=== PATIENT | male | born 1955 | race Caucasian/White ===

== ENCOUNTER 2016-12-25 13:55 | Emergency (ER) | payer OTHER ==
[2016-12-25 14:09] VITALS: BP 167/95; PULSE 96; RESP 20; TEMP 98; O2SAT 98
--- NOTE | 2016-12-25 14:42 | C.PDOC ---
History Of Present Illness 61 yr old male presents to the ER with complaints of persistent left shoulder pain. Patient seen in October/2016 for same complaints and had a clinic appointment which he missed and never rescheduled. Reports limited relief from the prior pain medication prescription and current pain is similar to prior. Patient states the pain is worse with movement from left neck to left shoulder/ upper arm. Denies chest pain, back pain, leg pain, weakness or numbness. PERSIST L SHOULDER PAIN. SEEN 10/2016 FOR SAME, PS HAD CLINIC APPT BUT MISSED IT , NEVER RESCHEDULED. STATES LIMITED RELIEF FROM PRIOR PAIN MED RX. CURRENT PAIN SIM TO PRIOR. NO TRAUMA. FROM L NECK TO L SHOULDER/UPPER ARM. WORSE W MOVEMENT. NO ASSOC WEAK/NUMB. DENIES CURRENT ETOH USE EXAM NAD NECK SUPPLE NONTEND EXT L SHOULDER LIMITED FULL ABDUCTION; ROTATION WNL; FLEX/EXT WO DIFF; NO SWELL +TEND DIFFUSE DELTOID AREA. NEURO INTACT SKIN NEG Time Seen by Provider: 12/25/16 14:22 Chief Complaint (Nursing): Upper Extremity Problem/Injury History Per: Patient History/Exam Limitations: no limitations Onset/Duration Of Symptoms: Persistent Current Symptoms Are (Timing): Still Present Past Medical History Reviewed: Historical Data, Nursing Documentation, Vital Signs Vital Signs: Last Vital Signs Temp 98 F 12/25/16 14:06 Pulse 96 H 12/25/16 14:06 Resp 20 12/25/16 14:06 BP 167/95 H 12/25/16 14:06 Pulse Ox 98 12/25/16 14:43 - Medical History PMH: HTN, Pancreatitis Family History: States: No Known Family Hx - Social History Hx Alcohol Use: Yes Hx Substance Use: No - Immunization History Hx Tetanus Toxoid Vaccination: No Hx Influenza Vaccination: No Hx Pneumococcal Vaccination: No Review Of Systems Except As Marked, All Systems Reviewed And Found Negative. Cardiovascular: Negative for: Chest Pain Musculoskeletal: Positive for: Neck Pain (Left neck to left shoulder/upper arm) , Shoulder Pain (Left shoulder ). Negative for: Back Pain, Leg Pain Neurological: Negative for: Weakness, Numbness Physical Exam - Physical Exam Appears: Well, Non-toxic, No Acute Distress Skin: Warm, Dry, No Rash Head: Atraumatic, Normacephalic Neck: Normal, Normal ROM, No Midline Cervical Tenderness, No Paracervical Tenderness, Supple Chest: Symmetrical, No Tenderness Cardiovascular: Rhythm Regular, No Murmur Extremity: Tenderness (Left Shoulder - Diffuse tenderness to the deltoid area. ) , Capillary Refill (<2), Other ((+) Left Shoulder - Limited full abduction. Rotation within normal limits. Flex/Extend normal. No swelling. ) Neurological/Psych: Oriented x3, Normal Speech, Normal Motor, Normal Sensation ED Course And Treatment O2 Sat by Pulse Oximetry: 98 Progress - Data Reviewed Data Reviewed: Old records Medical Decision Making Medical Decision Making: PLAN: * Flexeril PO * Neurontin PO * Tylenol PO Disposition Counseled Patient/Family Regarding: Diagnosis, Need For Followup, Rx Given - Disposition Referrals: [facility] [Outside] [facility] [Outside] Disposition: HOME/ ROUTINE Disposition Time: 14:39 Condition: GOOD Additional Instructions: START GABAPENTIN 12/26/16 Prescriptions: Acetaminophen/Codeine [Tylenol/Codeine 300 MG/30 MG] 2 tab PO Q6H #20 tab Cyclobenzaprine [Flexeril] 10 mg PO TID #15 tab Dexamethasone 12 mg PO ONCE #2 tab Gabapentin [Neurontin] 300 mg PO TID #30 cap Instructions: Chronic Pain (ED), Cervical Radiculopathy (ED) - Clinical Impression Clinical Impression: Chronic neck pain - Scribe Statement The provider has reviewed the documentation as recorded by the Jason Colunga Provider Attestation: All medical record entries made by the Humzaibolesya were at my direction and personally dictated by me. I have reviewed the chart and agree that the record accurately reflects my personal performance of the history, physical exam, medical decision making, and the department course for this patient. I have also personally directed, reviewed, and agree with the discharge instructions and disposition.
== END 2016-12-25 14:50 | disposition home or self-care (01) ==
LOC: C.ER 13:55
DX: M54.2 Cervicalgia (principal); G89.29 Other chronic pain

== ENCOUNTER 2017-02-14 12:01 | Inpatient (IN) | payer OTHER ==
[2017-02-14 12:05] VITALS: BMI 26.6
--- NOTE | 2017-02-14 12:05 | C.PDOC ---
History Of Present Illness 61 year old male was brought to the ED by EMS with complaints of chest pain and abdominal pain that started just prior to arrival. As per a coworker, patient arrived to work at 10 am this morning and felt fine but as time went on he complained of dizziness and chest pain. Patient notes current complaints are similar to symptoms had a few months ago when he was admitted. He denies any vomiting, fever, or headache. Time Seen by Provider: 02/14/17 12:04 Chief Complaint (Nursing): Chest Pain History Per: Patient, Other (coworker ) History/Exam Limitations: no limitations Onset/Duration Of Symptoms: Hrs Current Symptoms Are (Timing): Still Present Associated Symptoms: denies: Nausea Recent travel outside of the [place]: No Past Medical History Reviewed: Historical Data, Nursing Documentation, Vital Signs Vital Signs: Last Vital Signs Temp 98.0 F 02/14/17 15:43 Pulse 87 02/14/17 15:43 Resp 20 02/14/17 15:43 BP 137/71 02/14/17 15:43 Pulse Ox 99 02/14/17 15:43 - Medical History PMH: HTN, Pancreatitis Family History: States: Other Other Family History: non-contributory - Social History Hx Alcohol Use: Yes Hx Substance Use: No - Immunization History Hx Tetanus Toxoid Vaccination: No Hx Influenza Vaccination: No Hx Pneumococcal Vaccination: No Review Of Systems Except As Marked, All Systems Reviewed And Found Negative. Constitutional: Negative for: Fever Cardiovascular: Positive for: Chest Pain. Negative for: Palpitations Respiratory: Negative for: Cough, Shortness of Breath Gastrointestinal: Positive for: Abdominal Pain. Negative for: Nausea, Vomiting , Diarrhea Neurological: Negative for: Headache Physical Exam - Physical Exam Appears: Non-toxic, No Acute Distress Skin: Diaphoretic Head: Atraumatic Eye(s): bilateral: Normal Inspection Oral Mucosa: Moist Neck: Supple Chest: Symmetrical, No Deformity Cardiovascular: Rhythm Regular Respiratory: Normal Breath Sounds, No Accessory Muscle Use, No Rhonchi, No Wheezing Gastrointestinal/Abdominal: Soft, Tenderness (diffuse abdominal tenderness ), No Distention, No Guarding, No Rebound Extremity: Normal ROM, No Tenderness, Capillary Refill (good capillary refill, less than 2 seconds ) Pulses: Left Radial: Normal (2+), Right Radial: Normal (2+), Left Femoral: Normal (2+), Right Femoral: Normal (2+) Neurological/Psych: Oriented x3, Normal Motor, Normal Sensation, Normal Reflexes ED Course And Treatment - Laboratory Results Result Diagrams: 02/14/17 12:25 02/14/17 12:25 Medical Decision Making Medical Decision Making: EKG: NSR 61 normal axis, no STEMI Disposition - Disposition Disposition: HOSPITALIZED Disposition Time: 13:42 Condition: STABLE - Clinical Impression Clinical Impression: Pancreatitis, Hypokalemia, Near syncope - Scribe Statement The provider has reviewed the documentation as recorded by the Humzaibolesya Turner All medical record entries made by the Jason were at my direction and personally dictated by me. I have reviewed the chart and agree that the record accurately reflects my personal performance of the history, physical exam, medical decision making, and the department course for this patient. I have also personally directed, reviewed, and agree with the discharge instructions and disposition.
[2017-02-14] MEDS ORDERED: Sodium Chloride 0.9% 1,000 ML IV SCH ×2 (12:15→13:45)
[2017-02-14 12:31] LABS: BASO # 0.1 K/uL (0.0-0.2); BASO % 1.3 % (0.0-2.0); EOS # 0.4 K/uL (0.0-0.7); EOS % 3.3 % (0.0-4.0); HEMOGLOBIN 13.9 g/dL (12.0-18.0); LYMPH # 3.9 K/uL (1.0-4.3); MEAN CORPUSCULAR HEMOGLOBIN 31.3 pg (27.0-31.0); MEAN CORPUSCULAR HGB CONC 33.4 g/dL (33.0-37.0); MEAN PLATELET VOLUME 9.3 fL (7.2-11.7); MONO # 0.8 K/uL (0.0-0.8); MONO % 7.1 % (0.0-10.0); NEUT # 6.2 K/uL (1.8-7.0); NEUT % 54.3 % (50.0-75.0); NRBC % 0.1 % (0.0-2.0); RBC 4.43 Mil/uL (4.40-5.90); RED CELL DISTRIBUTION WIDTH 14.5 % (11.5-14.5); WHITE BLOOD COUNT 11.4 K/uL (4.8-10.8)
[2017-02-14 12:40] LABS: ALBUMIN 4.2 g/dL (3.5-5.0)
--- NOTE | 2017-02-14 12:42 | RAD ---
HISTORY: cp COMPARISON: No prior. FINDINGS: LUNGS: Poor inspiration with low lung volumes, mild crowded bronchovascular markings and minor bibasilar atelectasis. PLEURA: No significant pleural effusion identified, no pneumothorax apparent. CARDIOVASCULAR: Normal. Note is made of slight deviation of the trachea to the left side OSSEOUS STRUCTURES: No significant abnormalities. VISUALIZED UPPER ABDOMEN: Normal. OTHER FINDINGS: There is mild deviation of the trachea to the right which may in part be due to slight patient rotation as well as aortic arch however possibility of enlarged left lobe thyroid gland should be excluded. Consider followup thyroid ultrasound IMPRESSION: Poor inspiration with low lung volumes, mild crowded bronchovascular markings and minor bibasilar atelectasis There is mild deviation of the trachea to the right which may in part be due to slight patient rotation and aortic arch the however possibility of enlarged left lobe thyroid gland should be excluded. Consider followup thyroid ultrasound.
[2017-02-14 12:43] LABS: ALB/GLOB RATIO 1.2 (1.0-2.1); ALT/SGPT 42 U/L (21-72); AST/SGOT 50 U/L (17-59); BLOOD UREA NITROGEN 15 mg/dL (9-20); GFR AFRICAN-AMERICAN > 60; GFR NON-AFRICAN AMERICAN > 60
[2017-02-14 12:44] LABS: CALCIUM 9.2 mg/dl (8.6-10.4); LIPASE 772 U/L (23-300)
[2017-02-14 12:53] LABS: B-TYPE NATRIURETIC PEPTIDE 14.9 pg/mL (0-900)
[2017-02-14] MEDS ORDERED: Morphine 4 MG/ML VIAL ONE (12:55)
[2017-02-14] MEDS ORDERED: Potassium Chloride 20 mEq ER Tab PO STA (13:28)
[2017-02-14] MEDS ORDERED: Potassium Chloride 20 mEq ER Tab PO ONE (13:44)
[2017-02-14] MEDS ORDERED: Sodium Chloride 0.9% 1,000 ML IV ONE (13:53)
[2017-02-14 15:05] LABS: URINE BILIRUBIN NEGATIVE (NEGATIVE); URINE BLOOD NEGATIVE (NEGATIVE); URINE CLARITY Clear (Clear); URINE COLOR Yellow (YELLOW); URINE GLUCOSE (UA) 1+ mg/dL (Normal); URINE LEUKOCYTE ESTERASE NEG Leu/uL (Negative); URINE NITRATE NEGATIVE (NEGATIVE); URINE PROTEIN 2+ mg/dL (NEGATIVE); URINE UROBILINOGEN NORMAL mg/dL (0.2-1.0)
[2017-02-14] MEDS ORDERED: Sodium Chloride 0.9% 250 ML IV ONE (16:16)
--- NOTE | 2017-02-14 16:26 | CP.PCM.HP ---
<Mckenna Hill - Last Filed: 02/14/17 16:47> History of Present Illness - History of Present Illness History of Present Illness: CC: "abdominal and chest pain" HPI: 61 year old male with PMHx of HTN, DM, pancreatitis, and EtOH use disorder presents with complaint of upper abdominal pain and substernal chest pain that began yesterday morning. The abdominal pain is located in his bilateral upper quadrants, has been constant (7-8/10 in severity) and has continued to worsen this morning which prompted him to come to the ED for evaluation. Patient's chest pain is located in his midsternum without radiation and rated 8/10. He reports minimal relief with Ibuprofen and ASA at home. Patient mentions associated nausea and 2x episodes of vomiting just prior to admission. Vomiting was non-bilious and non-bloody. Patient had a normal bowel movement while in the ED. Patient admits to drinking frequently and states that his last drink was last night. As per chart review, patient had a recent admission here in August 2016 for acute pancreatitis 2/2 excessive ETOH. At that time, his lipase was noted to be markedly elevated at 4,536. Additionally, he had elevated CA-19-9 & CEA markers. MRI was done that revealed hepatic steatosis with a hypointense mass with unclear etiology. The course was otherwise uncomplicated, his pain resolved and pt was instructed to f/u with the neighborhood clinic. Today the patient denies of shortness of breath , palpitations, focal weakness, headache, tremors, diarrhea, dysuria, and dizziness. 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 absent: Chills, Fever - EENT Eyes: As Per HPI. absent: Blurred Vision, Change in Vision Ears: As Per HPI. absent: Dizziness Nose/Mouth/Throat: As Per HPI. absent: Sore Throat - Cardiovascular Cardiovascular: As Per HPI, Chest Pain, Chest Pain at Rest. absent: Dyspnea, Edema, Irregular Heart Rhythm, Lightheadedness, Palpitations, Syncope - Respiratory Respiratory: As Per HPI. absent: Cough, Dyspnea, Wheezing, Pain on Inspiration , Chest Congestion - Gastrointestinal Gastrointestinal: As Per HPI, Abdominal Pain, Nausea, Vomiting. absent: Bloating, Change in Bowel Habits, Constipation, Cramping, Diarrhea, Heartburn, Hematemesis, Melena - Genitourinary Genitourinary: As Per HPI. absent: Change in Urinary Stream, Difficulty Urinating - Musculoskeletal Musculoskeletal: As Per HPI. absent: Muscle Weakness, Numbness, Tingling - Integumentary Integumentary: As Per HPI. absent: New Lesions, Rash - Neurological Neurological: As Per HPI. absent: Dizziness, Headaches, Loss of Vision, Paresthesias, Tremor, Weakness - Psychiatric Psychiatric: As Per HPI. absent: Anxiety, Depression - Endocrine Endocrine: As Per HPI. absent: Change in Body Appearance Past Patient History - Infectious Disease Hx of Infectious Diseases: None - Past Medical History & Family History Past Medical History?: Yes - Past Social History Smoking Status: Current Some Days Smoker - CARDIAC Hx Hypertension: Yes - PULMONARY Hx Respiratory Disorders: No - NEUROLOGICAL Hx Neurological Disorder: No - HEENT Hx HEENT Problems: Yes Other/Comment: wears corrective eyeglasses - RENAL Hx Chronic Kidney Disease: No - ENDOCRINE/METABOLIC Hx Endocrine Disorders: No - HEMATOLOGICAL/ONCOLOGICAL Hx Blood Disorders: No - INTEGUMENTARY Hx Dermatological Problems: No - MUSCULOSKELETAL/RHEUMATOLOGICAL Hx Musculoskeletal Disorders: Yes Other/Comment: c/o chronic left shoulder pain - GASTROINTESTINAL Hx Pancreatitis: Yes - GENITOURINARY/GYNECOLOGICAL Hx Genitourinary Disorders: No - PSYCHIATRIC Hx Substance Use: No - SURGICAL HISTORY Hx Surgeries: No - ANESTHESIA Hx Anesthesia: No Meds Allergies/Adverse Reactions: Allergies Allergy/AdvReac Type Severity Reaction Status Date / Time naproxen AdvReac Diffuse Verified 02/14/17 12:04 rashes Physical Exam - Constitutional Appears: Non-toxic, No Acute Distress - Head Exam Head Exam: ATRAUMATIC, NORMOCEPHALIC - Eye Exam Eye Exam: EOMI, Normal appearance, PERRL Pupil Exam: NORMAL ACCOMODATION - ENT Exam ENT Exam: Mucous Membranes Moist, Normal Exam - Neck Exam Neck exam: Positive for: Normal Inspection - Respiratory Exam Respiratory Exam: Clear to Auscultation Bilateral, NORMAL BREATHING PATTERN. absent: Rales, Rhonchi, Wheezes, Respiratory Distress - Cardiovascular Exam Cardiovascular Exam: REGULAR RHYTHM, +S1, +S2. absent: Tachycardia, Irregular Rhythm, Systolic Murmur - GI/Abdominal Exam GI & Abdominal Exam: Normal Bowel Sounds, Organomegaly (hepatomegaly ), Soft, Tenderness (ttp of RUQ with deep palpation ). absent: Distended, Firm, Guarding , Rebound - Extremities Exam Extremities exam: Positive for: full ROM, normal inspection. Negative for: pedal edema, tenderness - Back Exam Back exam: NORMAL INSPECTION - Neurological Exam Neurological exam: Alert, CN II-XII Intact, Normal Gait, Oriented x3, Reflexes Normal - Psychiatric Exam Psychiatric exam: Normal Affect, Normal Mood - Skin Skin Exam: Dry, Intact, Normal Color, Warm Results - Vital Signs Recent Vital Signs: Last Vital Signs Temp 98.0 F 02/14/17 15:43 Pulse 87 02/14/17 15:43 Resp 20 02/14/17 15:43 BP 137/71 02/14/17 15:43 Pulse Ox 99 02/14/17 15:43 - Labs Result Diagrams: 02/14/17 12:25 02/14/17 12:25 Labs: Laboratory Results - last 24 hr 02/14/17 14:47 Urine Color Yellow Urine Clarity Clear Urine pH 6.0 Ur Specific [place] 1.015 Urine Protein 2+ H Urine Glucose (UA) 1+ H Urine Ketones Trace Urine Blood Negative Urine Nitrate Negative Urine Bilirubin Negative Urine Urobilinogen Normal Ur Leukocyte Esterase Neg Urine WBC (Auto) 1 Urine RBC (Auto) 1 Assessment & Plan - Assessment and Plan (Free Text) Assessment: 1. Acute Pancreatitis Likely secondary to EtOH abuse Lipase 772 f/u CT abdomen/pelvis IV and PO contrast Morphine 2mg IV q6h prn severe pain IVF NS @200cc/hr NPO except meds 3. Chest Pain VALDO negative x1 f/u ROMIs x3 q6h with EKGs f/u TSH/free T4, lipid panel, HgA1C ASA 81mg PO daily Crestor 5mg PO HS 3. EtOH use disorder Alcohol 66 in ED CIWA protocol Aspiration precautions Seizure precautions Fall risk Ativan 2mg IV q6h prn withdrawal Multivitamin, thiamine and folic acid daily 4. Hypokalemia K+ 2.9 Given Kdur 80Eq PO and KCl IV 20mEq f/u CMP, mag and phos in AM 5. HTN Norvasc 5mg PO daily Well controlled Monitor vitals q4h 6. DM f/u HgA1C Accuchecks ISS 7. Hx Hepatic mass f/u CT abdomen/pelvis IV and PO contrast Prevoiusly seen by GI, no acute intervention Repeat CA 19-9 and CEA (previously elevated on last admission) 8. Prophylactic measures Lovenox 40mg SC daily Protonix 40mg IV daily SCDs <Italo Giraldon M - Last Filed: 02/15/17 15:22> Results - Vital Signs Recent Vital Signs: Last Vital Signs Temp 98.3 F 02/15/17 08:17 Pulse 80 02/15/17 08:17 Resp 20 02/15/17 08:17 BP 151/90 H 02/15/17 08:17 Pulse Ox 94 L 02/15/17 08:17 - Labs Result Diagrams: 02/15/17 07:53 02/15/17 07:53 Labs: Laboratory Results - last 24 hr 02/14/17 02/14/17 02/14/17 18:10 18:19 22:04 WBC RBC Hgb Hct MCV MCH MCHC RDW Plt Count MPV Neut % (Auto) Lymph % (Auto) Tucker % (Auto) Eos % (Auto) Baso % (Auto) Neut # Lymph # Tucker # Eos # Baso # Sodium Potassium Chloride Carbon Dioxide Anion Gap BUN Creatinine Est GFR ( Amer) Est GFR (Non-Af Amer) POC Glucose (mg/dL) 132 H Random Glucose Calcium Phosphorus 3.1 Magnesium 1.4 L Total Bilirubin AST ALT Alkaline Phosphatase Total Creatine Kinase 239 H CK-MB (Mass) 3.01 Troponin I, Quant < 0.0120 Total Protein Albumin Globulin Albumin/Globulin Ratio Triglycerides Cholesterol LDL Cholesterol Direct HDL Cholesterol Carcinoembryonic Ag 5.0 H CA 19-9 Antigen 36.7 TSH 3rd Generation 02/15/17 02/15/17 02/15/17 00:02 06:21 07:53 WBC 10.9 H RBC 4.51 Hgb 14.1 Hct 41.8 MCV 92.5 MCH 31.2 H MCHC 33.7 RDW 14.1 Plt Count 169 MPV 9.4 Neut % (Auto) 73.1 Lymph % (Auto) 17.3 L Tucker % (Auto) 7.2 Eos % (Auto) 1.9 Baso % (Auto) 0.5 Neut # 8.0 H Lymph # 1.9 Tucker # 0.8 Eos # 0.2 Baso # 0.1 Sodium Potassium Chloride Carbon Dioxide Anion Gap BUN Creatinine Est GFR ( Amer) Est GFR (Non-Af Amer) POC Glucose (mg/dL) 106 Random Glucose Calcium Phosphorus Magnesium Total Bilirubin AST ALT Alkaline Phosphatase Total Creatine Kinase 236 H CK-MB (Mass) 2.63 Troponin I, Quant < 0.0120 Total Protein Albumin Globulin Albumin/Globulin Ratio Triglycerides Cholesterol LDL Cholesterol Direct HDL Cholesterol Carcinoembryonic Ag CA 19-9 Antigen TSH 3rd Generation 02/15/17 02/15/17 07:53 11:38 WBC RBC Hgb Hct MCV MCH MCHC RDW Plt Count MPV Neut % (Auto) Lymph % (Auto) Tucker % (Auto) Eos % (Auto) Baso % (Auto) Neut # Lymph # Tucker # Eos # Baso # Sodium 136 Potassium 3.2 L Chloride 102 Carbon Dioxide 22 Anion Gap 14 BUN 6 L Creatinine 0.6 L Est GFR ( Amer) > 60 Est GFR (Non-Af Amer) > 60 POC Glucose (mg/dL) 113 H Random Glucose 111 H Calcium 8.9 Phosphorus Magnesium Total Bilirubin 0.8 AST 52 ALT 40 Alkaline Phosphatase 99 Total Creatine Kinase CK-MB (Mass) Troponin I, Quant Total Protein 7.6 Albumin 4.0 Globulin 3.6 Albumin/Globulin Ratio 1.1 Triglycerides 191 H D Cholesterol 222 H LDL Cholesterol Direct 142 H HDL Cholesterol 59 Carcinoembryonic Ag CA 19-9 Antigen [facility] 3rd Generation 2.65 Attending/Attestation - Attestation I have personally seen and examined this patient.: Yes I have fully participated in the care of the patient.: Yes I have reviewed all pertinent clinical information: Yes Notes (Text): 02/15/17 15:22 Patient was seen and examined at bedside with the resident We will admit the patient for acute pancreatitis We will keep the patient nothing by mouth start on IV fluids Patient's medical records reviewed. I discussed the plan of care with the resident and agree with the assessment and plan documented by the resident.
[2017-02-14] MEDS ORDERED: Iohexol 240 (50 ml) PO ONE (18:11)
[2017-02-14] MEDS ORDERED: Iohexol 240 (50 ml) ONE (18:12)
[2017-02-14 18:25] LABS: MAGNESIUM 1.4 mg/dL (1.6-2.3)
[2017-02-14 18:42] LABS: CK-MB 3.01 ng/mL (0.0-3.38)
[2017-02-14] MEDS ORDERED: Iodixanol 320 MG/ML 100 ML BOTTLE IV ONE (18:52)
[2017-02-14] MEDS: Sodium Chloride 0.9% 1,000 ML IV SCH ×2 (18:58→22:08)
[2017-02-14] MEDS ORDERED: Magnesium Sulfate 1 gm in D5W 1 GM/100 ML BAG IVPB ONE (21:06)
[2017-02-14] MEDS: (Novolin R) Insulin Human Regular 100 units/ml vial SC SCH (22:09)
--- NOTE | 2017-02-14 22:20 | CT ---
EXAM: CT Abdomen and Pelvis With Intravenous Contrast CLINICAL HISTORY: 61 years old, male; Pain; Abdominal pain; Generalized; Additional info: Pain, pancreatitis TECHNIQUE: Axial computed tomography images of the abdomen and pelvis with intravenous contrast. This CT exam was performed using one or more of the following dose reduction techniques: automated exposure control, adjustment of the mA and/or kV according to patient size, and/or use of iterative reconstruction technique. Coronal and sagittal reformatted images were created and reviewed. CONTRAST: 100 mL of omnipaque 350 administered intravenously. COMPARISON: Correlated with CT report of 08/20/16 and ultrasound report of 08/21/16. Images are not available for comparison. FINDINGS: Lower thorax: No acute findings. ABDOMEN: Liver: There is a partially calcified mass within the right hepatic lobe measuring 2.2 CM. This is unchanged in size when compared to prior exam. The margins appear smooth. Diffuse hepatic steatosis. Gallbladder and bile ducts: Gallbladder is unremarkable. No calcified stones. No ductal dilation. Pancreas: Punctate calcification in the region of the pancreatic head. Some heterogeneity noted in the pancreatic head with 2 adjacent hypodense foci. Larger focus measures 1.2 CM. The hypodense lesions are of uncertain etiology. Cannot exclude pancreatic neoplasm. The pancreatic duct is mildly dilated at the level of the mid body at 3.5 mm in diameter. No calcified stones. Spleen: Spleen is unremarkable. Adrenals: Unremarkable. No mass. Kidneys and ureters: Right kidney is unremarkable. 2 mm punctate mid pole left renal calculus. No hydronephrosis. Stomach and bowel: No retroperitoneal adenopathy. Stomach is unremarkable. No small bowel obstruction. Appendix is unremarkable. Small amount of retained stool in colon. Appendix: No findings to suggest acute appendicitis. PELVIS: Bladder: Distended urinary bladder. Reproductive: Unremarkable as visualized. ABDOMEN and PELVIS: Intraperitoneal space: Unremarkable. No free air. No significant fluid collection. Bones/joints: No acute fracture. No dislocation. Soft tissues: Unremarkable. Vasculature: Atherosclerotic vascular disease. No abdominal aortic aneurysm. Lymph nodes: See above. IMPRESSION: 1. Well-circumscribed, partially calcified lesion within the right hepatic lobe, stable. This can be further characterized with MRI, since there is abnormality in the region of the pancreatic head and I will be recommended in an MRI of the abdomen, with MRCP to exclude the possibility of a pancreatic head neoplasm. 2. Mild pancreatic duct dilatation. No significant peripancreatic inflammatory change. 3. Remainder of findings as above.
[2017-02-15 00:30] LABS: CK-MB 2.63 ng/mL (0.0-3.38)
[2017-02-15] MEDS: Sodium Chloride 0.9% 1,000 ML IV SCH ×6 (04:25→22:40)
[2017-02-15 08:05] LABS: BASO # 0.1 K/uL (0.0-0.2); BASO % 0.5 % (0.0-2.0); EOS # 0.2 K/uL (0.0-0.7); EOS % 1.9 % (0.0-4.0); HEMOGLOBIN 14.1 g/dL (12.0-18.0); LYMPH # 1.9 K/uL (1.0-4.3); LYMPH % 17.3 % (20.0-40.0); MEAN CELL VOLUME 92.5 fL (80.0-94.0); MEAN CORPUSCULAR HEMOGLOBIN 31.2 pg (27.0-31.0); MEAN CORPUSCULAR HGB CONC 33.7 g/dL (33.0-37.0); MEAN PLATELET VOLUME 9.4 fL (7.2-11.7); MONO # 0.8 K/uL (0.0-0.8); MONO % 7.2 % (0.0-10.0); NEUT % 73.1 % (50.0-75.0); NRBC % 0.1 % (0.0-2.0); RBC 4.51 Mil/uL (4.40-5.90); RED CELL DISTRIBUTION WIDTH 14.1 % (11.5-14.5); WHITE BLOOD COUNT 10.9 K/uL (4.8-10.8)
--- NOTE | 2017-02-15 08:11 | CP.PCM.PN ---
Addendum entered and electronically signed by Andrew Wood DO 02/15/17 15:59: Heart murmur auscultated on exam. Ordered 2d echo to evaluate Original Note: <Andrew Wood - Last Filed: 02/15/17 15:49> Subjective - Date & Time of Evaluation Date of Evaluation: 02/15/17 Time of Evaluation: 08:00 - Subjective Subjective: Medicine Note- Hospitalist Service Patient was seen and examined at bedside. Patient reports no acute complaints at this time. He still has diffuse abdominal pain, but it has improved since her first came in. He denies nausea, vomiting, diarrhea, constipation. No events overnight. Objective - Vital Signs/Intake and Output Vital Signs (last 24 hours): Temp Pulse Resp BP Pulse Ox 98.5 F 91 H 20 154/90 H 96 02/15/17 04:28 02/15/17 04:28 02/15/17 04:28 02/15/17 04:28 02/15/17 04:28 Intake and Output: 02/15/17 02/15/17 06:59 18:59 Output Total 1100 Balance -1100 - Medications Medications: Current Medications Amlodipine Besylate (Norvasc) 5 mg PO DAILY [facility] Aspirin (Aspirin Chewable) 81 mg PO DAILY [facility] Chlordiazepoxide (Librium) 50 mg PO Q4H [facility] Last Admin: 02/15/17 04:30 Dose: 50 mg Enoxaparin Sodium (Lovenox) 40 mg SC DAILY [facility] Folic Acid (Folic Acid) 1 mg PO DAILY [facility] Sodium Chloride (Sodium Chloride 0.9%) 1,000 mls @ 200 mls/hr IV .Q5H [facility] Last Admin: 02/15/17 04:25 Dose: 200 mls/hr Insulin Human Regular (Novolin R) 0 unit SC ACHS [facility] PRN Reason: Protocol Last Admin: 02/14/17 22:09 Dose: Not Given Morphine Sulfate (Morphine) 2 mg IVP Q6H PRN PRN Reason: Pain, severe (8-10) Last Admin: 02/14/17 19:59 Dose: 2 mg Multivitamins (Hexavitamin) 1 tab PO DAILY [facility] Ondansetron HCl (Zofran Inj) 4 mg IVP Q6 PRN PRN Reason: Nausea/Vomiting Pantoprazole Sodium (Protonix Ec Tab) 40 mg PO DAILY [facility] Pneumococcal Polyvalent Vaccine (Pneumovax 23 Vaccine) 0.5 ml IM .ONCE ONE Stop: 02/17/17 10:01 Rosuvastatin Calcium (Crestor) 5 mg PO HS [facility] Last Admin: 02/14/17 22:09 Dose: 5 mg Thiamine HCl (Vitamin B1 Tab) 100 mg PO DAILY [facility] - Labs Labs: 02/15/17 07:53 - Constitutional Appears: Non-toxic, No Acute Distress - Head Exam Head Exam: ATRAUMATIC, NORMAL INSPECTION, NORMOCEPHALIC - Eye Exam Pupil Exam: NORMAL ACCOMODATION, PERRL - ENT Exam ENT Exam: Mucous Membranes Moist - Respiratory Exam Respiratory Exam: Clear to Ausculation Bilateral, NORMAL BREATHING PATTERN. absent: Rales, Rhonchi, Wheezes - Cardiovascular Exam Cardiovascular Exam: REGULAR RHYTHM, +S1, +S2 - GI/Abdominal Exam GI & Abdominal Exam: Soft, Tenderness (epigastric, RUQ), Normal Bowel Sounds. absent: Diminished Bowel Sounds, Hypoactive Bowel Sounds - Extremities Exam Extremities Exam: Normal Capillary Refill, Normal Inspection - Neurological Exam Neurological Exam: Alert, Awake, Oriented x3 - Psychiatric Exam Psychiatric exam: Normal Affect, Normal Mood - Skin Skin Exam: Dry, Intact, Normal Color, Warm Assessment and Plan - Assessment and Plan (Free Text) Assessment: 1. Acute Pancreatitis Likely secondary to EtOH abuse Lipase 772 CT abdomen/pelvis IV and PO contrast- Well-circumscribed partially calcified lesion within the right hepatic lobe. Mild pancreatic duct dilatation (Please see full report MRCP Pending Morphine 2mg IV q6h prn severe pain IVF NS @200cc/hr Advanced diet to Liquids. 3. Chest Pain VALDO negative x3 TSH normal HgbA1C pending ASA 81mg PO daily Crestor 5mg PO HS 3. EtOH use disorder Alcohol 66 in ED CIWA protocol Aspiration precautions Seizure precautions Fall risk Librium taper Multivitamin, thiamine and folic acid daily 4. Hypokalemia K+ 3.2 Given Kdur 80Eq PO and KCl IV 20mEq in ED Given 40meq today f/u CMP, mag and phos in AM 5. HTN Norvasc 5mg PO daily Well controlled Monitor vitals q4h 6. DM f/u HgA1C Accuchecks ISS 7. Hx Hepatic mass CT abdomen/pelvis IV and PO contrast- Well-circumstribed partially calcified lesion within the right hepatic lobe. Mild pancreatic duct dilatation (Please see full report pending MRCP Previously seen by GI, no acute intervention Repeat CA 19-9 and CEA (previously elevated on last admission) 8. Hyperlipidemia Triglyceride- 191 Cholesterol 222 LDL 142 8. Prophylactic measures Lovenox 40mg SC daily Protonix 40mg IV daily [facility] <Justus Giraldo M - Last Filed: 02/15/17 18:17> Objective - Vital Signs/Intake and Output Vital Signs (last 24 hours): Temp Pulse Resp BP Pulse Ox 98.3 F 82 18 143/87 95 02/15/17 16:00 02/15/17 16:00 02/15/17 16:00 02/15/17 16:00 02/15/17 16:00 Intake and Output: 02/15/17 02/15/17 06:59 18:59 Intake Total 30 Output Total 1100 900 Balance -1100 -870 - Medications Medications: Current Medications Amlodipine Besylate (Norvasc) 5 mg PO DAILY [facility] Last Admin: 02/15/17 10:15 Dose: 5 mg Aspirin (Aspirin Chewable) 81 mg PO DAILY [facility] Last Admin: 02/15/17 10:15 Dose: 81 mg Chlordiazepoxide (Librium) 25 mg PO Q6 [facility] PRN Reason: Taper Stop: 02/19/17 19:59 Enoxaparin Sodium (Lovenox) 40 mg SC DAILY [facility] Last Admin: 02/15/17 10:15 Dose: 40 mg Folic Acid (Folic Acid) 1 mg PO DAILY [facility] Last Admin: 02/15/17 10:14 Dose: 1 mg Sodium Chloride (Sodium Chloride 0.9%) 1,000 mls @ 200 mls/hr IV .Q5H [facility] Last Admin: 02/15/17 17:53 Dose: Not Given Insulin Human Regular (Novolin R) 0 unit SC ACHS [facility] PRN Reason: Protocol Last Admin: 02/15/17 17:47 Dose: 3 unit Morphine Sulfate (Morphine) 2 mg IVP Q6H PRN PRN Reason: Pain, severe (8-10) Last Admin: 02/14/17 19:59 Dose: 2 mg Multivitamins (Hexavitamin) 1 tab PO DAILY [facility] Last Admin: 02/15/17 10:15 Dose: 1 tab Ondansetron HCl (Zofran Inj) 4 mg IVP Q6 PRN PRN Reason: Nausea/Vomiting Pantoprazole Sodium (Protonix Ec Tab) 40 mg PO DAILY [facility] Last Admin: 02/15/17 10:14 Dose: 40 mg Pneumococcal Polyvalent Vaccine (Pneumovax 23 Vaccine) 0.5 ml IM .ONCE ONE Stop: 02/17/17 10:01 Rosuvastatin Calcium (Crestor) 5 mg PO HS [facility] Last Admin: 02/14/17 22:09 Dose: 5 mg Thiamine HCl (Vitamin B1 Tab) 100 mg PO DAILY [facility] Last Admin: 02/15/17 10:15 Dose: 100 mg - Labs Labs: 02/15/17 07:53 02/15/17 07:53 Attending/Attestation - Attestation I have personally seen and examined this patient.: Yes I have fully participated in the care of the patient.: Yes I have reviewed all pertinent clinical information, including history, physical exam and plan: Yes Notes (Text): 02/15/17 18:17 Patient seen and examined at bedside Patient states that abdominal pain is improving. We will start the patient on clear liquid diet and advance as tolerated Follow-up result of the echocardiogram Discussed the plan of care with the resident and agree with the assessment and plan documented
[2017-02-15 08:16] LABS: ALB/GLOB RATIO 1.1 (1.0-2.1); AST/SGOT 52 U/L (17-59); BLOOD UREA NITROGEN 6 mg/dL (9-20); GFR AFRICAN-AMERICAN > 60; GFR NON-AFRICAN AMERICAN > 60
[2017-02-15 08:17] LABS: ALT/SGPT 40 U/L (21-72); CALCIUM 8.9 mg/dl (8.6-10.4); HDL CHOLESTEROL 59 mg/dL (30-70)
[2017-02-15] MEDS: (Novolin R) Insulin Human Regular 100 units/ml vial SC SCH ×4 (08:20→21:57)
[2017-02-15 08:28] LABS: LDL CHOLESTEROL 142 mg/dL (0-129)
[2017-02-15] MEDS: Pantoprazole 40 mg EC Tab PO SCH (10:14)
[2017-02-15] MEDS: Enoxaparin 40 mg Syringe SC SCH (10:15)
[2017-02-15] MEDS: Multiple Vitamins Tab PO SCH (10:15)
[2017-02-15] MEDS ORDERED: Potassium Chloride 20 mEq ER Tab PO ONE (13:00)
[2017-02-15] MEDS ORDERED: Gadodiamide 287 MG/ML VIAL (15ML) IV ONE (13:19)
[2017-02-15 23:45] VITALS: RESP 20
[2017-02-16] MEDS: Sodium Chloride 0.9% 1,000 ML IV SCH ×4 (04:21→20:25)
[2017-02-16] MEDS: (Novolin R) Insulin Human Regular 100 units/ml vial SC SCH ×4 (07:59→21:59)
[2017-02-16 08:25] LABS: BASO # 0.1 K/uL (0.0-0.2); BASO % 0.7 % (0.0-2.0); EOS # 0.3 K/uL (0.0-0.7); EOS % 3.9 % (0.0-4.0); HEMOGLOBIN 14.1 g/dL (12.0-18.0); LYMPH # 1.5 K/uL (1.0-4.3); LYMPH % 18.8 % (20.0-40.0); MEAN CORPUSCULAR HEMOGLOBIN 31.3 pg (27.0-31.0); MEAN CORPUSCULAR HGB CONC 33.6 g/dL (33.0-37.0); MONO # 0.7 K/uL (0.0-0.8); MONO % 8.4 % (0.0-10.0); NEUT # 5.5 K/uL (1.8-7.0); NEUT % 68.2 % (50.0-75.0); NRBC % 0.1 % (0.0-2.0); RBC 4.51 Mil/uL (4.40-5.90); RED CELL DISTRIBUTION WIDTH 13.6 % (11.5-14.5)
[2017-02-16 08:28] LABS: ALBUMIN 3.7 g/dL (3.5-5.0)
[2017-02-16 08:30] LABS: GFR AFRICAN-AMERICAN > 60; GFR NON-AFRICAN AMERICAN > 60
[2017-02-16 08:31] LABS: ALB/GLOB RATIO 1.1 (1.0-2.1); ALT/SGPT 41 U/L (21-72); AST/SGOT 54 U/L (17-59); BLOOD UREA NITROGEN 5 mg/dL (9-20); CALCIUM 8.8 mg/dl (8.6-10.4); MAGNESIUM 1.7 mg/dL (1.6-2.3)
[2017-02-16] MEDS: Enoxaparin 40 mg Syringe SC SCH (09:33)
[2017-02-16] MEDS: Pantoprazole 40 mg EC Tab PO SCH (09:33)
[2017-02-16] MEDS: Multiple Vitamins Tab PO SCH (09:33)
[2017-02-16] MEDS ORDERED: Potassium Chloride 20 mEq ER Tab PO ONE (11:30)
--- NOTE | 2017-02-16 15:32 | CP.PCM.CON ---
History of Present Illness - History of Present Illness History of Present Illness: GENERAL SURGERY CONSULT NOTE FOR DR. LEE 61yo M with PMHx of HTN, DM, alcoholic pancreatitis presented to the ED on 02/14 with substernal chest pain and abdominal pain. The pain began just prior to arrival. The abdominal pain was located in the epigastric and RUQ area. He had associated nausea and 2 episodes of nonbloody vomiting. He had minimal relief with ibuprofen and aspirin at home. He was admitted for alcoholic pancreatitis and hypokalemia. He was initially NPO and his diet was advanced to clear liquids yesterday. Currently, patient states his pain has improved but he does have some mild pain still. He vomited once yesterday while in the hospital. Of note, Patient was recently admitted her in August 2016 for alcoholic pancreatitis. At that time, he had elevated CA 19-9 and CEA markers. MRI showed hepatic steatosis with hypointense mass of unclear etiology. PMHx: HTN, DM, pancreatitis, etoh abuse Surgeries: none Allergies: Naproxen Social history: Smokes 1ppd tobacco x40 years; Drink 1 cup of whisky EtOH 2-3x/ week; Denies illicit drug use Review of Systems - Review of Systems All systems: reviewed and no additional remarkable complaints except (as per HPI ) Past Patient History - Infectious Disease Hx of Infectious Diseases: None - Past Medical History & Family History Past Medical History?: Yes - Past Social History Smoking Status: Heavy Smoker > 10 Cigarettes Daily - CARDIAC Hx Hypertension: Yes - PULMONARY Hx Respiratory Disorders: No - NEUROLOGICAL Hx Neurological Disorder: No - HEENT Hx HEENT Problems: Yes Other/Comment: wears corrective eyeglasses - RENAL Hx Chronic Kidney Disease: No - ENDOCRINE/METABOLIC Hx Endocrine Disorders: Yes Hx Diabetes Mellitus Type 2: Yes - HEMATOLOGICAL/ONCOLOGICAL Hx Blood Disorders: No - INTEGUMENTARY Hx Dermatological Problems: No - MUSCULOSKELETAL/RHEUMATOLOGICAL Hx Back Pain: Yes Hx Falls: No - GASTROINTESTINAL Hx Pancreatitis: Yes - GENITOURINARY/GYNECOLOGICAL Hx Genitourinary Disorders: No - PSYCHIATRIC Hx Substance Use: No - SURGICAL HISTORY Hx Surgeries: No - ANESTHESIA Hx Anesthesia: No Meds Allergies/Adverse Reactions: Allergies Allergy/AdvReac Type Severity Reaction Status Date / Time naproxen AdvReac Diffuse Verified 02/14/17 12:04 rashes - Medications Medications: Current Medications Amlodipine Besylate (Norvasc) 5 mg PO DAILY [facility] Last Admin: 02/16/17 09:33 Dose: 5 mg Aspirin (Aspirin Chewable) 81 mg PO DAILY [facility] Last Admin: 02/16/17 09:33 Dose: 81 mg Chlordiazepoxide (Librium) 25 mg PO Q6 [facility] PRN Reason: Taper Stop: 02/19/17 19:59 Last Admin: 02/16/17 11:18 Dose: 25 mg Enoxaparin Sodium (Lovenox) 40 mg SC DAILY [facility] Last Admin: 02/16/17 09:33 Dose: 40 mg Folic Acid (Folic Acid) 1 mg PO DAILY [facility] Last Admin: 02/16/17 09:33 Dose: 1 mg Sodium Chloride (Sodium Chloride 0.9%) 1,000 mls @ 200 mls/hr IV .Q5H [facility] Last Admin: 02/16/17 14:54 Dose: 200 mls/hr Insulin Human Regular (Novolin R) [address] [facility] PRN Reason: Protocol Last Admin: 02/16/17 12:22 Dose: Not Given Metformin HCl (Glucophage) 500 mg PO BID [facility] Morphine Sulfate (Morphine) 2 mg IVP Q6H PRN PRN Reason: Pain, severe (8-10) Last Admin: 02/14/17 19:59 Dose: 2 mg Multivitamins (Hexavitamin) 1 tab PO DAILY [facility] Last Admin: 02/16/17 09:33 Dose: 1 tab Ondansetron HCl (Zofran Inj) 4 mg IVP Q6 PRN PRN Reason: Nausea/Vomiting Pantoprazole Sodium (Protonix Ec Tab) 40 mg PO DAILY [facility] Last Admin: 02/16/17 09:33 Dose: 40 mg Pneumococcal Polyvalent Vaccine (Pneumovax 23 Vaccine) 0.5 ml IM .ONCE ONE Stop: 02/17/17 10:01 Rosuvastatin Calcium (Crestor) 5 mg PO HS [facility] Last Admin: 02/15/17 21:19 Dose: 5 mg Thiamine HCl (Vitamin B1 Tab) 100 mg PO DAILY [facility] Last Admin: 02/16/17 09:33 Dose: 100 mg Physical Exam - Constitutional Appears: Non-toxic, No Acute Distress - Eye Exam Eye Exam: EOMI - ENT Exam ENT Exam: Mucous Membranes Moist - Respiratory Exam Respiratory Exam: NORMAL BREATHING PATTERN. absent: Respiratory Distress - Cardiovascular Exam Cardiovascular Exam: +S1, +S2 - GI/Abdominal Exam GI & Abdominal Exam: Soft, Tenderness (mild tenderness RUQ and epigastric). absent: Distended, Firm, Guarding, Rebound, Rigid - Neurological Exam Neurological exam: Alert, Oriented x3 - Psychiatric Exam Psychiatric exam: Normal Affect, Normal Mood - Skin Skin Exam: Dry, Normal Color, Warm Results - Vital Signs Recent Vital Signs: Last Vital Signs Temp 97.9 F 02/16/17 08:45 Pulse 94 H 02/16/17 14:02 Resp 20 02/16/17 08:45 BP 143/76 02/16/17 11:14 Pulse Ox 98 02/16/17 08:45 - Labs Result Diagrams: 02/16/17 08:05 02/16/17 08:05 Labs: Laboratory Results - last 24 hr 02/15/17 02/15/17 02/15/17 07:53 17:07 21:44 WBC RBC Hgb Hct MCV MCH MCHC RDW Plt Count MPV Neut % (Auto) Lymph % (Auto) Patrick % (Auto) Eos % (Auto) Baso % (Auto) Neut # Lymph # Patrick # Eos # Baso # Sodium Potassium Chloride Carbon Dioxide Anion Gap BUN Creatinine Est GFR ( Amer) Est GFR (Non-Af Amer) POC Glucose (mg/dL) 206 H 158 H Random Glucose Hemoglobin A1c 7.4 H Calcium Phosphorus Magnesium Total Bilirubin AST ALT Alkaline Phosphatase Total Protein Albumin Globulin Albumin/Globulin Ratio 02/16/17 02/16/17 02/16/17 06:24 08:05 08:05 WBC 8.0 RBC 4.51 Hgb 14.1 Hct 42.0 MCV 93.0 MCH 31.3 H MCHC 33.6 RDW 13.6 Plt Count 154 MPV 10.0 Neut % (Auto) 68.2 Lymph % (Auto) 18.8 L Patrick % (Auto) 8.4 Eos % (Auto) 3.9 Baso % (Auto) 0.7 Neut # 5.5 Lymph # 1.5 Patrick # 0.7 Eos # 0.3 Baso # 0.1 Sodium 136 Potassium 3.5 L Chloride 103 Carbon Dioxide 22 Anion Gap 14 BUN 5 L Creatinine 0.7 L Est GFR ( Amer) > 60 Est GFR (Non-Af Amer) > 60 POC Glucose (mg/dL) 113 H Random Glucose 132 H Hemoglobin A1c Calcium 8.8 Phosphorus 3.0 Magnesium 1.7 Total Bilirubin 0.8 AST 54 ALT 41 Alkaline Phosphatase 95 Total Protein 7.2 Albumin 3.7 Globulin 3.5 Albumin/Globulin Ratio 1.1 02/16/17 11:51 WBC RBC Hgb Hct MCV MCH MCHC RDW Plt Count MPV Neut % (Auto) Lymph % (Auto) Patrick % (Auto) Eos % (Auto) Baso % (Auto) Neut # Lymph # Patrick # Eos # Baso # Sodium Potassium Chloride Carbon Dioxide Anion Gap BUN Creatinine Est GFR ( Amer) Est GFR (Non-Af Amer) POC Glucose (mg/dL) 93 Random Glucose Hemoglobin A1c Calcium Phosphorus Magnesium Total Bilirubin AST ALT Alkaline Phosphatase Total Protein Albumin Globulin Albumin/Globulin Ratio Assessment & Plan - Assessment and Plan (Free Text) Assessment: 61yo M with PMHx of HTN, DM, alcoholic pancreatitis with another episode of pancreatitis now with pancreatic cysts - Afebrile, VSS - Lipase 772 on admission - CT Abd/Pelvis: partially calcified mas 2.2cm in right hepatic lobe unchanged from prior exam with smooth margins; punctate calcification in pancreatic head - MRCP: benign lesion in liver, likely calcified cyst, hepatic steatosis; 2 cystic lesions in pancreas (8mm and 9mm), nonenhancing, likely complex cyst such as pancreatic pseudocyst w/ varying degree of fibrosis, less likely pancreatic adenocarcinoma - No surgical intervention necessary at this time regarding pancreatic cysts due to their small size - Continue medical management - Discussed plan with Dr. Ilana Thomason PGY-3
--- NOTE | 2017-02-16 18:09 | CP.PCM.PN ---
<Andrew Wood - Last Filed: 02/16/17 18:05> Subjective - Date & Time of Evaluation Date of Evaluation: 02/16/17 Time of Evaluation: 09:25 - Subjective Subjective: Medicine Note- Hospitalist Service Patient was seen and examined at bedside. Patient reports no acute complaints at this time. He states he is hungry and would like to eat. He says his abdominal pain is down to a minimum. No events overnight, per nursing. Objective - Vital Signs/Intake and Output Vital Signs (last 24 hours): Temp Pulse Resp BP Pulse Ox 98.2 F 82 20 149/90 98 02/16/17 16:00 02/16/17 16:00 02/16/17 16:00 02/16/17 16:00 02/16/17 16:00 Intake and Output: 02/16/17 02/16/17 06:59 18:59 Intake Total 1900 2100 Output Total 1900 Balance 0 2100 - Medications Medications: Current Medications Amlodipine Besylate (Norvasc) 5 mg PO DAILY [facility] Last Admin: 02/16/17 09:33 Dose: 5 mg Aspirin (Aspirin Chewable) 81 mg PO DAILY [facility] Last Admin: 02/16/17 09:33 Dose: 81 mg Chlordiazepoxide (Librium) 25 mg PO Q6 [facility] PRN Reason: Taper Stop: 02/19/17 19:59 Last Admin: 02/16/17 11:18 Dose: 25 mg Enoxaparin Sodium (Lovenox) 40 mg SC DAILY [facility] Last Admin: 02/16/17 09:33 Dose: 40 mg Folic Acid (Folic Acid) 1 mg PO DAILY [facility] Last Admin: 02/16/17 09:33 Dose: 1 mg Sodium Chloride (Sodium Chloride 0.9%) 1,000 mls @ 200 mls/hr IV .Q5H [facility] Last Admin: 02/16/17 14:54 Dose: 200 mls/hr Insulin Human Regular (Novolin R) 0 unit SC ACHS [facility] PRN Reason: Protocol Last Admin: 02/16/17 12:22 Dose: Not Given Metformin HCl (Glucophage) 500 mg PO BID [facility] Morphine Sulfate (Morphine) 2 mg IVP Q6H PRN PRN Reason: Pain, severe (8-10) Last Admin: 02/14/17 19:59 Dose: 2 mg Multivitamins (Hexavitamin) 1 tab PO DAILY [facility] Last Admin: 02/16/17 09:33 Dose: 1 tab Ondansetron HCl (Zofran Inj) 4 mg IVP Q6 PRN PRN Reason: Nausea/Vomiting Pantoprazole Sodium (Protonix Ec Tab) 40 mg PO DAILY [facility] Last Admin: 02/16/17 09:33 Dose: 40 mg Pneumococcal Polyvalent Vaccine (Pneumovax 23 Vaccine) 0.5 ml IM .ONCE ONE Stop: 02/17/17 10:01 Rosuvastatin Calcium (Crestor) 5 mg PO HS [facility] Last Admin: 02/15/17 21:19 Dose: 5 mg Thiamine HCl (Vitamin B1 Tab) 100 mg PO DAILY [facility] Last Admin: 02/16/17 09:33 Dose: 100 mg - Labs Labs: 02/16/17 08:05 02/16/17 08:05 - Constitutional Appears: Non-toxic, No Acute Distress - Head Exam Head Exam: ATRAUMATIC, NORMAL INSPECTION, NORMOCEPHALIC - Eye Exam Pupil Exam: NORMAL ACCOMODATION, PERRL - ENT Exam ENT Exam: Mucous Membranes Moist - Neck Exam Neck Exam: Normal Inspection - Respiratory Exam Respiratory Exam: Clear to Ausculation Bilateral, NORMAL BREATHING PATTERN. absent: Prolonged Expiratory Phase, Rales, Rhonchi, Wheezes - Cardiovascular Exam Cardiovascular Exam: REGULAR RHYTHM, +S1, +S2 - GI/Abdominal Exam GI & Abdominal Exam: Soft, Normal Bowel Sounds. absent: Tenderness, Diminished Bowel Sounds, Hernia, Hypoactive Bowel Sounds, Pulsatile Mass - Extremities Exam Extremities Exam: Normal Capillary Refill, Normal Inspection - Neurological Exam Neurological Exam: Alert, Awake, Oriented x3 - Psychiatric Exam Psychiatric exam: Normal Affect, Normal Mood - Skin Skin Exam: Dry, Intact, Normal Color, Warm Assessment and Plan - Assessment and Plan (Free Text) Assessment: 1. Acute Pancreatitis Likely secondary to EtOH abuse Lipase 772 CT abdomen/pelvis IV and PO contrast- Well-circumscribed partially calcified lesion within the right hepatic lobe. Mild pancreatic duct dilatation (Please see full report Consult Gen surgery- Dr. Preciado MRCP- 02/15/17- Benign lesion in liver likely representing a calcified cyst. 2subcentimeter cystic lesions noted within pancreas. May be pancreatic pseudocyst with varying degree of fibrosis. Continue surveillance recommended. Mild hepatic steatosis. Left renal cysts that are benign (Please see full report) Morphine 2mg IV q6h prn severe pain IVF NS @200cc/hr Advanced diet to diabetic diet. 3. Chest Pain VALDO negative x3 TSH normal HgbA1C pending ASA 81mg PO daily Crestor 5mg PO HS 3. EtOH use disorder Alcohol 66 in ED CIWA protocol Aspiration precautions Seizure precautions Fall risk Librium taper Multivitamin, thiamine and folic acid daily 4. Hypokalemia K+ 3.5 Given 40meq today Given Mag Sulfate 2gm IVPB today f/u CMP, mag and phos in AM 5. HTN Norvasc 5mg PO daily Well controlled Monitor vitals q4h 6. DM HgbA1C- 7.4 Accuchecks Started on Metformin 500mg PO BID ISS 7. Hx Hepatic mass CT abdomen/pelvis IV and PO contrast- Well-circumstribed partially calcified lesion within the right hepatic lobe. Mild pancreatic duct dilatation (Please see full report MRCP- 02/15/17- Benign lesion in liver likely representing a calcified cyst. 2subcentimeter cystic lesions noted within pancreas. May be pancreatic pseudocyst with varying degree of fibrosis. Continue surveillance recommended. Mild hepatic steatosis. Left renal cysts that are benign (Please see full report) Morphine 2mg IV q6h prn severe pain Previously seen by GI, no acute intervention Repeat CA 19-9 and CEA (previously elevated on last admission) 8. Hyperlipidemia Triglyceride- 191 Cholesterol 222 LDL 142 Continue Crestor 5mg PO HS 8. Prophylactic measures Lovenox 40mg SC daily Protonix 40mg IV daily [facility] <Justus Giraldo - Last Filed: 02/24/17 16:05> Objective - Vital Signs/Intake and Output Vital Signs (last 24 hours): Temp Pulse Resp BP Pulse Ox 98.2 F 89 20 154/89 H 97 02/17/17 08:47 02/17/17 13:15 02/17/17 08:47 02/17/17 08:47 02/17/17 08:47 - Labs Labs: 02/17/17 06:28 02/17/17 06:28 Attending/Attestation - Attestation I have personally seen and examined this patient.: Yes I have fully participated in the care of the patient.: Yes I have reviewed all pertinent clinical information, including history, physical exam and plan: Yes Notes (Text): 02/24/17 16:04 Patient was seen and examined at bedside with the resident Patient is feeling better and abdominal pain is improved We will start the patient on diet Advance as tolerated Discussed the plan of care with the resident and agree with the history and physical and assessment/plan but the resident.
[2017-02-16] MEDS: Magnesium Sulfate 1 gm in D5W 1 GM/100 ML BAG IVPB SCH ×2 (19:13→19:55)
[2017-02-17] MEDS: Sodium Chloride 0.9% 1,000 ML IV SCH ×3 (00:44→12:32)
[2017-02-17 07:25] LABS: ALBUMIN 3.7 g/dL (3.5-5.0)
[2017-02-17 07:27] LABS: GFR AFRICAN-AMERICAN > 60; GFR NON-AFRICAN AMERICAN > 60
[2017-02-17 07:28] LABS: ALB/GLOB RATIO 1.2 (1.0-2.1); ALT/SGPT 33 U/L (21-72); AST/SGOT 59 U/L (17-59); BLOOD UREA NITROGEN 8 mg/dL (9-20); CALCIUM 9.1 mg/dl (8.6-10.4); MAGNESIUM 1.7 mg/dL (1.6-2.3)
[2017-02-17] MEDS: (Novolin R) Insulin Human Regular 100 units/ml vial SC SCH ×2 (07:34→11:30)
[2017-02-17 07:44] LABS: BASO # 0.1 K/uL (0.0-0.2); BASO % 0.8 % (0.0-2.0); EOS # 0.4 K/uL (0.0-0.7); EOS % 4.9 % (0.0-4.0); HEMOGLOBIN 13.4 g/dL (12.0-18.0); LYMPH # 1.6 K/uL (1.0-4.3); LYMPH % 19.5 % (20.0-40.0); MEAN CELL VOLUME 93.8 fL (80.0-94.0); MEAN CORPUSCULAR HEMOGLOBIN 31.4 pg (27.0-31.0); MEAN CORPUSCULAR HGB CONC 33.4 g/dL (33.0-37.0); MEAN PLATELET VOLUME 10.2 fL (7.2-11.7); MONO # 0.6 K/uL (0.0-0.8); MONO % 7.5 % (0.0-10.0); NEUT # 5.4 K/uL (1.8-7.0); NEUT % 67.3 % (50.0-75.0); NRBC % 0.1 % (0.0-2.0); RBC 4.26 Mil/uL (4.40-5.90); RED CELL DISTRIBUTION WIDTH 13.6 % (11.5-14.5)
[2017-02-17 08:49] VITALS: BP 154/89; TEMP 98.2; O2SAT 97
[2017-02-17] MEDS: Enoxaparin 40 mg Syringe SC SCH (09:25)
[2017-02-17] MEDS: Pantoprazole 40 mg EC Tab PO SCH (09:25)
[2017-02-17] MEDS: Multiple Vitamins Tab PO SCH (09:26)
[2017-02-17] MEDS ORDERED: Pneumococcal 23-Valent Vaccine IM ONE (10:00)
--- NOTE | 2017-02-17 10:19 | MRI ---
PROCEDURE: Magnetic Resonance Cholangiopancreatography HISTORY: COMPARISON: None available. TECHNIQUE: Multiplanar, multisequence MR images of the abdomen were obtained, including heavily T2 weighted MRCP images of the biliary system. Rotating maximum intensity projection images of the biliary system were generated. FINDINGS: MRCP: The common bile duct is of a normal caliber. No evidence of choledocholithiasis. No intrahepatic biliary ductal dilatation. LIVER: Normal size, contour and signal intensity. No mass. GALLBLADDER: Unremarkable. SPLEEN: Unremarkable. PANCREAS: Two rounded masses are seen in the pancreatic head. These both demonstrate low signal on T1 and high signal on T2 weighted images. They do not enhance with intravenous gadolinium administration. They correspond to low-attenuation masses on CT examination. These masses measure 9 mm and 11 mm in respective diameter. They are situated immediately adjacent to the course of the main pancreatic duct. These may represent IPMNs. Followup is advised. There is no other pancreatic mass identified. There is no pancreatic ductal dilatation. ADRENALS: Unremarkable. KIDNEYS: Unremarkable. AORTA: No aneurysm. ASCITES: None. OTHER FINDINGS: None. IMPRESSION: Two masses in the pancreatic head demonstrating signal characteristics consistent with cysts. They do not enhance. They measure 9 mm and 11 mm respectively. Possible IPMN versus pancreatic cyst. Follow-up advised.
--- NOTE | 2017-02-17 10:47 | CARD ---
APPROVED REPORT EKG Measurement Heart [id number] <Conclusion> Normal sinus rhythm with sinus arrhythmia Normal ECG
--- NOTE | 2017-02-17 10:53 | CARD ---
APPROVED REPORT EKG Measurement Heart [id number] <Conclusion> Sinus rhythm with marked sinus arrhythmia Septal infarct, age undetermined Abnormal ECG
--- NOTE | 2017-02-17 11:24 | CP.PCM.PN ---
Subjective - Date & Time of Evaluation Date of Evaluation: 02/17/17 Time of Evaluation: 06:30 - Subjective Subjective: General sx progress note for Dr. Jaya Neal, PGY-1 Pt S & E at bedside. Pt w/o complaints overnight- no abdominal pain. Objective - Vital Signs/Intake and Output Vital Signs (last 24 hours): Temp Pulse Resp BP Pulse Ox 98.2 F 84 20 154/89 H 97 02/17/17 08:47 02/17/17 08:47 02/17/17 08:47 02/17/17 08:47 02/17/17 08:47 - Medications Medications: Current Medications Amlodipine Besylate (Norvasc) 5 mg PO DAILY [facility] Last Admin: 02/17/17 09:25 Dose: 5 mg Aspirin (Aspirin Chewable) 81 mg PO DAILY [facility] Last Admin: 02/17/17 09:26 Dose: 81 mg Chlordiazepoxide (Librium) 25 mg PO TID [facility] PRN Reason: Taper Stop: 02/19/17 19:59 Last Admin: 02/17/17 09:26 Dose: 25 mg Enoxaparin Sodium (Lovenox) 40 mg SC DAILY [facility] Last Admin: 02/17/17 09:25 Dose: 40 mg Folic Acid (Folic Acid) 1 mg PO DAILY [facility] Last Admin: 02/17/17 09:26 Dose: 1 mg Sodium Chloride (Sodium Chloride 0.9%) 1,000 mls @ 200 mls/hr IV .Q5H [facility] Last Admin: 02/17/17 06:42 Dose: 200 mls/hr Insulin Human Regular (Novolin R) [address] [facility] PRN Reason: Protocol Last Admin: 02/17/17 07:34 Dose: Not Given Metformin HCl (Glucophage) 500 mg PO BID [facility] Last Admin: 02/17/17 09:26 Dose: 500 mg Morphine Sulfate (Morphine) 2 mg IVP Q6H PRN PRN Reason: Pain, severe (8-10) Last Admin: 02/14/17 19:59 Dose: 2 mg Multivitamins (Hexavitamin) 1 tab PO DAILY [facility] Last Admin: 02/17/17 09:26 Dose: 1 tab Ondansetron HCl (Zofran Inj) 4 mg IVP Q6 PRN PRN Reason: Nausea/Vomiting Pantoprazole Sodium (Protonix Ec Tab) 40 mg PO DAILY [facility] Last Admin: 02/17/17 09:25 Dose: 40 mg Rosuvastatin Calcium (Crestor) 5 mg PO HS [facility] Last Admin: 02/16/17 22:16 Dose: Not Given Thiamine HCl (Vitamin B1 Tab) 100 mg PO DAILY [facility] Last Admin: 02/17/17 09:55 Dose: 100 mg - Labs Labs: 02/17/17 06:28 02/17/17 06:28 - Constitutional Appears: Non-toxic, No Acute Distress - Head Exam Head Exam: ATRAUMATIC, NORMAL INSPECTION, NORMOCEPHALIC - Eye Exam Eye Exam: EOMI, Normal appearance - ENT Exam ENT Exam: Mucous Membranes Moist, Normal Exam - Respiratory Exam Respiratory Exam: NORMAL BREATHING PATTERN - Cardiovascular Exam Cardiovascular Exam: REGULAR RHYTHM - GI/Abdominal Exam GI & Abdominal Exam: Soft, Normal Bowel Sounds. absent: Tenderness - Back Exam Back Exam: NORMAL INSPECTION - Neurological Exam Neurological Exam: Alert, Awake, Oriented x3 - Psychiatric Exam Psychiatric exam: Normal Affect, Normal Mood - Skin Skin Exam: Dry, Intact, Normal Color, Warm Assessment and Plan - Assessment and Plan (Free Text) Plan: 61M w/pancreatic cysts- currently asymptomatic No surgical intervention at this time Cont medical mgmt Further recommendations as per attending CEDRICK attending Val, PGY-1
--- NOTE | 2017-02-17 13:43 | CP.PCM.DIS ---
<Margarita Knight E - Last Filed: 02/17/17 21:02> Provider - Provider Date of Admission: 02/14/17 17:17 Attending physician: Justus Giraldo MD Time Spent in preparation of Discharge (in minutes): 45 Hospital Course - Lab Results Lab Results: Most Recent Lab Values WBC 8.0 K/uL (4.8-10.8) 02/17/17 06:28 RBC 4.26 Mil/uL (4.40-5.90) L 02/17/17 06:28 Hgb 13.4 g/dL (12.0-18.0) 02/17/17 06:28 Hct 39.9 % (35.0-51.0) 02/17/17 06:28 MCV 93.8 fL (80.0-94.0) 02/17/17 06:28 MCH 31.4 pg (27.0-31.0) H 02/17/17 06:28 MCHC 33.4 g/dL (33.0-37.0) 02/17/17 06:28 RDW 13.6 % (11.5-14.5) 02/17/17 06:28 Plt Count 145 K/uL (130-400) 02/17/17 06:28 MPV 10.2 fL (7.2-11.7) 02/17/17 06:28 Neut % (Auto) 67.3 % (50.0-75.0) 02/17/17 06:28 Lymph % (Auto) 19.5 % (20.0-40.0) L 02/17/17 06:28 Mills % (Auto) 7.5 % (0.0-10.0) 02/17/17 06:28 Eos % (Auto) 4.9 % (0.0-4.0) H 02/17/17 06:28 Baso % (Auto) 0.8 % (0.0-2.0) 02/17/17 06:28 Neut # 5.4 K/uL (1.8-7.0) 02/17/17 06:28 Lymph # 1.6 K/uL (1.0-4.3) 02/17/17 06:28 Mills # 0.6 K/uL (0.0-0.8) 02/17/17 06:28 Eos # 0.4 K/uL (0.0-0.7) 02/17/17 06:28 Baso # 0.1 K/uL (0.0-0.2) 02/17/17 06:28 Sodium 136 mmol/L (132-148) 02/17/17 06:28 Potassium 3.6 mmol/L (3.6-5.2) 02/17/17 06:28 Chloride 101 mmol/L (98-107) 02/17/17 06:28 Carbon Dioxide 23 mmol/L (22-30) 02/17/17 06:28 Anion Gap 15 (10-20) 02/17/17 06:28 BUN 8 mg/dL (9-20) L 02/17/17 06:28 Creatinine 0.8 MG/DL (0.8-1.5) 02/17/17 06:28 Est GFR ( Amer) > 60 02/17/17 06:28 Est GFR (Non-Af Amer) > 60 02/17/17 06:28 POC Glucose (mg/dL) 186 mg/dL (65-110) H 02/17/17 11:30 Random Glucose 127 mg/dL (75-110) H 02/17/17 06:28 Hemoglobin A1c 7.4 % (4.2-6.5) H 02/15/17 07:53 Calcium 9.1 mg/dl (8.6-10.4) 02/17/17 06:28 Phosphorus 3.5 mg/dL (2.5-4.5) 02/17/17 06:28 Magnesium 1.7 mg/dL (1.6-2.3) 02/17/17 06:28 Total Bilirubin 0.6 mg/dL (0.2-1.3) 02/17/17 06:28 AST 59 U/L (17-59) 02/17/17 06:28 ALT 33 U/L (21-72) 02/17/17 06:28 Alkaline Phosphatase 87 U/L (38-126) 02/17/17 06:28 Total Creatine Kinase 236 U/L (55-170) H 02/15/17 00:02 CK-MB (Mass) 2.63 ng/mL (0.0-3.38) 02/15/17 00:02 Troponin I < 0.0120 ng/mL (0.00-0.120) 02/14/17 12:25 Troponin I, Quant < 0.0120 ng/mL (0.00-0.120) 02/15/17 00:02 NT-Pro-B Natriuret Pep 14.9 pg/mL (0-900) 02/14/17 12:25 Total Protein 6.8 g/dL (6.3-8.3) 02/17/17 06:28 Albumin 3.7 g/dL (3.5-5.0) 02/17/17 06:28 Globulin 3.1 gm/dL (2.2-3.9) 02/17/17 06:28 Albumin/Globulin Ratio 1.2 (1.0-2.1) 02/17/17 06:28 Triglycerides 191 mg/dL (0-149) H D 02/15/17 07:53 Cholesterol 222 mg/dL (0-199) H 02/15/17 07:53 LDL Cholesterol Direct 142 mg/dL (0-129) H 02/15/17 07:53 HDL Cholesterol 59 mg/dL (30-70) 02/15/17 07:53 Lipase 772 U/L (23-300) H 02/14/17 12:25 Carcinoembryonic Ag 5.0 ng/mL (0-3.0) H 02/14/17 18:10 CA 19-9 Antigen 36.7 U/mL (0-37) 02/14/17 18:10 TSH 3rd Generation 2.65 mIU/L (0.46-4.68) 02/15/17 07:53 Urine Color Yellow (YELLOW) 02/14/17 14:47 Urine Clarity Clear (Clear) 02/14/17 14:47 Urine pH 6.0 (5.0-8.0) 02/14/17 14:47 Ur Specific [place] 1.015 (1.003-1.030) 02/14/17 14:47 Urine Protein 2+ mg/dL (NEGATIVE) H 02/14/17 14:47 Urine Glucose (UA) 1+ mg/dL (Normal) H 02/14/17 14:47 Urine Ketones Trace mg/dL (NEGATIVE) 02/14/17 14:47 Urine Blood Negative (NEGATIVE) 02/14/17 14:47 Urine Nitrate Negative (NEGATIVE) 02/14/17 14:47 Urine Bilirubin Negative (NEGATIVE) 02/14/17 14:47 Urine Urobilinogen Normal mg/dL (0.2-1.0) 02/14/17 14:47 Ur Leukocyte Esterase Neg Barb/uL (Negative) 02/14/17 14:47 Urine WBC (Auto) 1 /hpf (0-5) 02/14/17 14:47 Urine RBC (Auto) 1 /hpf (0-3) 02/14/17 14:47 Alcohol, Quantitative 66 mg/dl (0-10) H 02/14/17 12:25 - Hospital Course Hospital Course: As per admission: HPI: 61 year old male with PMHx of HTN, DM, pancreatitis, and EtOH use disorder presents with complaint of upper abdominal pain and substernal chest pain that began yesterday morning. The abdominal pain is located in his bilateral upper quadrants, has been constant (7-8/10 in severity) and has continued to worsen this morning which prompted him to come to the ED for evaluation. Patient's chest pain is located in his midsternum without radiation and rated 8/10. He reports minimal relief with Ibuprofen and ASA at home. Patient mentions associated nausea and 2x episodes of vomiting just prior to admission. Vomiting was non-bilious and non-bloody. Patient had a normal bowel movement while in the ED. Patient admits to drinking frequently and states that his last drink was last night. As per chart review, patient had a recent admission here in August 2016 for acute pancreatitis 2/2 excessive ETOH. At that time, his lipase was noted to be markedly elevated at 4,536. Additionally, he had elevated CA-19-9 & CEA markers. MRI was done that revealed hepatic steatosis with a hypointense mass with unclear etiology. The course was otherwise uncomplicated, his pain resolved and pt was instructed to f/u with the neighborhood clinic. Today the patient denies of shortness of breath, palpitations, focal weakness, headache, tremors, diarrhea, dysuria, and dizziness. Hospital Course: Patient was admitted with the consideration of acute pancreatitis and r/o ACS. Cardiac work-up with VALDO negative X3. General Surgery consult was placed to Dr. Preciado, who recommended no surgical intervention necessary at this time regarding pancreatic cysts due to their small size and patient should continue to be medically managed. Patient continued to be medically managed and his symptoms started to improve. Patient was also medically managed for elevated alcohol level of 66 on admission. Patient started to improve clinically and was discharge upon clearance by care team. Patient was educated on the effect of alcohol abuse on his pancreas and was encouraged to stop drinking as much; patient agreed and stated that he understood. Pertinent study result: Chest X-ray: Poor inspiration with low lung volumes, mild crowded bronchovascular markings and minor bibasilar atelectasis CT abdomen/pelvis IV and PO contrast: Well-circumscribed, partially calcified lesion within the right hepatic lobe, stable. This can be further characterized with MRI, since there is abnormality in the region of the pancreatic head and I will be recommended in an MRI of the abdomen, with MRCP to exclude the possibility of a pancreatic head neoplasm. Mild pancreatic duct dilatation. No significant peripancreatic inflammatory change. The pancreatic duct is mildly dilated at the level of the mid body at 3.5 mm in diameter. There is a partially calcified mass within the right hepatic lobe measuring 2.2 CM. This is unchanged in size when compared to prior exam. The margins appear smooth. Diffuse hepatic steatosis. MRCP: Two masses in the pancreatic head demonstrating signal characteristics consistent with cysts. They do not enhance. They measure 9 mm and 11 mm respectively. Possible IPMN versus pancreatic cyst. Follow-up advised This is a brief summary of events. For a complete course, refer to medical record. Discharge Exam - Head Exam Head Exam: ATRAUMATIC, NORMAL INSPECTION, NORMOCEPHALIC - Eye Exam Eye Exam: EOMI, Normal appearance - ENT Exam ENT Exam: Mucous Membranes Moist, Normal Exam - Respiratory Exam Respiratory Exam: Clear to PA & Lateral, NORMAL BREATHING PATTERN - Cardiovascular Exam Cardiovascular Exam: REGULAR RHYTHM, +S1, +S2 - GI/Abdominal Exam GI & Abdominal Exam: Normal Bowel Sounds, Soft - Extremities Exam Extremities exam: normal capillary refill, normal inspection - Neurological Exam Neurological exam: Alert, Oriented x3 - Psychiatric Exam Psychiatric exam: Normal Affect, Normal Mood - Skin Skin Exam: Dry, Intact, Normal Color, Warm Discharge Plan - Discharge Medications Prescriptions: amLODIPine [Norvasc] 5 mg PO DAILY #30 tab Aspirin [Aspirin Chewable] 81 mg PO DAILY #30 Folic Acid 1 mg PO DAILY #60 tab metFORMIN [glucOPHAGE] 500 mg PO BID #60 tab Multivitamins [Hexavitamin] 1 tab PO DAILY #30 tab Pantoprazole [Protonix EC Tab] 40 mg PO DAILY #30 ect Rosuvastatin Calcium [Crestor] 5 mg PO HS #30 tab Thiamine [Vitamin B1 Tab] 100 mg PO DAILY #30 tab - Follow Up Plan Condition: STABLE Disposition: HOME/ ROUTINE Instructions: Aspirin (By mouth), Thiamine (Vitamin B-1) (By mouth), Folic Acid (By mouth), Multivitamins with Minerals (By mouth), Amlodipine (By mouth), Metformin (By mouth), Pantoprazole (By mouth), Rosuvastatin (By mouth), Chest Pain (DC), Pancreatitis (DC), Diabetic Foot Care (DC), Basic Carbohydrate Counting (DC), Meal Planning with the Plate Method (DC), Meal Planning with Diabetes Exchanges (DC), Alcohol Intoxication (DC), Abuse of Alcohol (DC), Hypertension (DC) Additional Instructions: Patient to be discharged home per Dr. Guzman. Patient counselled on stopping ETOH. Patient should take all meds as prescribed. Patient should make an appointment and follow up with [facility]D or [facility] within one week of discharge from hospital. Patient should return to ED immediately if symptoms return or worsen. All orders and medications are per Dr. Abhishek Guzman and Dr. Pura Knight Referrals: [facility] at [facility] [Outside] <Abhishek Guzman H - Last Filed: 02/18/17 09:33> Provider - Provider Date of Admission: 02/14/17 17:17 Attending physician: Justus Giraldo MD Hospital Course - Lab Results Lab Results: Most Recent Lab Values WBC 8.0 K/uL (4.8-10.8) 02/17/17 06:28 RBC 4.26 Mil/uL (4.40-5.90) L 02/17/17 06:28 Hgb 13.4 g/dL (12.0-18.0) 02/17/17 06:28 Hct 39.9 % (35.0-51.0) 02/17/17 06:28 MCV 93.8 fL (80.0-94.0) 02/17/17 06:28 MCH 31.4 pg (27.0-31.0) H 02/17/17 06:28 MCHC 33.4 g/dL (33.0-37.0) 02/17/17 06:28 RDW 13.6 % (11.5-14.5) 02/17/17 06:28 Plt Count 145 K/uL (130-400) 02/17/17 06:28 MPV 10.2 fL (7.2-11.7) 02/17/17 06:28 Neut % (Auto) 67.3 % (50.0-75.0) 02/17/17 06:28 Lymph % (Auto) 19.5 % (20.0-40.0) L 02/17/17 06:28 Mills % (Auto) 7.5 % (0.0-10.0) 02/17/17 06:28 Eos % (Auto) 4.9 % (0.0-4.0) H 02/17/17 06:28 Baso % (Auto) 0.8 % (0.0-2.0) 02/17/17 06:28 Neut # 5.4 K/uL (1.8-7.0) 02/17/17 06:28 Lymph # 1.6 K/uL (1.0-4.3) 02/17/17 06:28 Mills # 0.6 K/uL (0.0-0.8) 02/17/17 06:28 Eos # 0.4 K/uL (0.0-0.7) 02/17/17 06:28 Baso # 0.1 K/uL (0.0-0.2) 02/17/17 06:28 Sodium 136 mmol/L (132-148) 02/17/17 06:28 Potassium 3.6 mmol/L (3.6-5.2) 02/17/17 06:28 Chloride 101 mmol/L (98-107) 02/17/17 06:28 Carbon Dioxide 23 mmol/L (22-30) 02/17/17 06:28 Anion Gap 15 (10-20) 02/17/17 06:28 BUN 8 mg/dL (9-20) L 02/17/17 06:28 Creatinine 0.8 MG/DL (0.8-1.5) 02/17/17 06:28 Est GFR ( Amer) > 60 02/17/17 06:28 Est GFR (Non-Af Amer) > 60 02/17/17 06:28 POC Glucose (mg/dL) 186 mg/dL (65-110) H 02/17/17 11:30 Random Glucose 127 mg/dL (75-110) H 02/17/17 06:28 Hemoglobin A1c 7.4 % (4.2-6.5) H 02/15/17 07:53 Calcium 9.1 mg/dl (8.6-10.4) 02/17/17 06:28 Phosphorus 3.5 mg/dL (2.5-4.5) 02/17/17 06:28 Magnesium 1.7 mg/dL (1.6-2.3) 02/17/17 06:28 Total Bilirubin 0.6 mg/dL (0.2-1.3) 02/17/17 06:28 AST 59 U/L (17-59) 02/17/17 06:28 ALT 33 U/L (21-72) 02/17/17 06:28 Alkaline Phosphatase 87 U/L (38-126) 02/17/17 06:28 Total Creatine Kinase 236 U/L (55-170) H 02/15/17 00:02 CK-MB (Mass) 2.63 ng/mL (0.0-3.38) 02/15/17 00:02 Troponin I < 0.0120 ng/mL (0.00-0.120) 02/14/17 12:25 Troponin I, Quant < 0.0120 ng/mL (0.00-0.120) 02/15/17 00:02 NT-Pro-B Natriuret Pep 14.9 pg/mL (0-900) 02/14/17 12:25 Total Protein 6.8 g/dL (6.3-8.3) 02/17/17 06:28 Albumin 3.7 g/dL (3.5-5.0) 02/17/17 06:28 Globulin 3.1 gm/dL (2.2-3.9) 02/17/17 06:28 Albumin/Globulin Ratio 1.2 (1.0-2.1) 02/17/17 06:28 Triglycerides 191 mg/dL (0-149) H D 02/15/17 07:53 Cholesterol 222 mg/dL (0-199) H 02/15/17 07:53 LDL Cholesterol Direct 142 mg/dL (0-129) H 02/15/17 07:53 HDL Cholesterol 59 mg/dL (30-70) 02/15/17 07:53 Lipase 772 U/L (23-300) H 02/14/17 12:25 Carcinoembryonic Ag 5.0 ng/mL (0-3.0) H 02/14/17 18:10 CA 19-9 Antigen 36.7 U/mL (0-37) 02/14/17 18:10 TSH 3rd Generation 2.65 mIU/L (0.46-4.68) 02/15/17 07:53 Urine Color Yellow (YELLOW) 02/14/17 14:47 Urine Clarity Clear (Clear) 02/14/17 14:47 Urine pH 6.0 (5.0-8.0) 02/14/17 14:47 Ur Specific [place] 1.015 (1.003-1.030) 02/14/17 14:47 Urine Protein 2+ mg/dL (NEGATIVE) H 02/14/17 14:47 Urine Glucose (UA) 1+ mg/dL (Normal) H 02/14/17 14:47 Urine Ketones Trace mg/dL (NEGATIVE) 02/14/17 14:47 Urine Blood Negative (NEGATIVE) 02/14/17 14:47 Urine Nitrate Negative (NEGATIVE) 02/14/17 14:47 Urine Bilirubin Negative (NEGATIVE) 02/14/17 14:47 Urine Urobilinogen Normal mg/dL (0.2-1.0) 02/14/17 14:47 Ur Leukocyte Esterase Neg Barb/uL (Negative) 02/14/17 14:47 Urine WBC (Auto) 1 /hpf (0-5) 02/14/17 14:47 Urine RBC (Auto) 1 /hpf (0-3) 02/14/17 14:47 Alcohol, Quantitative 66 mg/dl (0-10) H 02/14/17 12:25 Attending/Attestation - Attestation I have personally seen and examined this patient.: Yes I have fully participated in the care of the patient.: Yes I have reviewed all pertinent clinical information, including history, physical exam and plan: Yes Notes (Text): 02/18/17 09:32 Medical attending: Patient was seen and examined by me, agrees the above note by medical administrator. The patient was not having any distress when we saw him. He is tolerating his diet, he is able to walk. He explained to us that he needed some clothing before going so we'll try to arrange that for him We encouraged the patient to avoid alcohol. To take his blood pressure medication as well that have been written for. I spoke to him and said that there is air at the [facility] clinic that he could certainly follow-up with Thank you very much, Abhishek Guzman
[2017-02-17 14:23] VITALS: PULSE 89
== END 2017-02-17 14:05 | disposition home or self-care (01) | DRG 204 ==
LOC: C.ER 12:01 → C.9E 13:42 → OBSVTOIN 17:17 → C.6T 20:11
PROVIDERS: ADMIT Hospitalist; ATTEND Internal Medicine
DX: K85.20 Alcohol induced acute pancreatitis without necrosis or infection (principal); K86.0 Alcohol-induced chronic pancreatitis; E87.6 Hypokalemia; K86.89 Other specified diseases of pancreas; K76.0 Fatty (change of) liver, not elsewhere classified; N28.1 Cyst of kidney, acquired; I10 Essential (primary) hypertension; E11.9 Type 2 diabetes mellitus without complications; E78.5 Hyperlipidemia, unspecified; F10.10 Alcohol abuse, uncomplicated; F17.210 Nicotine dependence, cigarettes, uncomplicated; K76.89 Other specified diseases of liver; Y90.3 Blood alcohol level of 60-79 mg/100 ml; Z91.81 History of falling

== ENCOUNTER 2017-10-13 11:16 | Inpatient (IN) | payer OTHER ==
[2017-10-13 11:17] VITALS: BMI 26.6
[2017-10-13] MEDS ORDERED: Sodium Chloride 0.9% 1,000 ML IV ONE ×2 (12:18→13:35)
[2017-10-13] MEDS ORDERED: Sodium Chloride 0.9% 1,000 ML ONE ×3 (12:28→15:47)
[2017-10-13 12:44] LABS: BASO # 0.1 K/uL (0.0-0.2); BASO % 0.7 % (0.0-2.0); EOS # 0.3 K/uL (0.0-0.7); EOS % 2.2 % (0.0-4.0); HEMOGLOBIN 15.3 g/dL (12.0-18.0); LYMPH # 2.2 K/uL (1.0-4.3); LYMPH % 15.2 % (20.0-40.0); MEAN CELL VOLUME 91.2 fL (80.0-94.0); MEAN CORPUSCULAR HEMOGLOBIN 31.2 pg (27.0-31.0); MEAN CORPUSCULAR HGB CONC 34.2 g/dL (33.0-37.0); MEAN PLATELET VOLUME 10.2 fL (7.2-11.7); MONO # 0.7 K/uL (0.0-0.8); MONO % 4.8 % (0.0-10.0); NEUT # 11.1 K/uL (1.8-7.0); NEUT % 77.1 % (50.0-75.0); RBC 4.89 Mil/uL (4.40-5.90); RED CELL DISTRIBUTION WIDTH 14.4 % (11.5-14.5); WHITE BLOOD COUNT 14.4 K/uL (4.8-10.8)
[2017-10-13 12:55] LABS: ALB/GLOB RATIO 1.3 (1.0-2.1); ALBUMIN 4.1 g/dL (3.5-5.0); ALT/SGPT 68 U/L (21-72); AST/SGOT 63 U/L (17-59); BLOOD UREA NITROGEN 19 mg/dL (9-20); CALCIUM 8.8 mg/dl (8.6-10.4); GFR AFRICAN-AMERICAN > 60; GFR NON-AFRICAN AMERICAN > 60
[2017-10-13 13:18] LABS: LIPASE 7525 U/L (23-300)
--- NOTE | 2017-10-13 13:43 | C.PDOC ---
History Of Present Illness 61 y/o male brought to ED by EMS with complaints of epigastric and LUQ pain since 6am this morning with associated nausea and vomiting. Patient states pain radiates to chest and reports prior episodes of same symptoms "secondary to drinking ETOH" as per him. Patient denies fever, chest pain, sob, dysruia or any other complaints at this time. Time Seen by Provider: 10/13/17 11:46 Chief Complaint (Nursing): Abdominal Pain History Per: Patient History/Exam Limitations: no limitations Onset/Duration Of Symptoms: Hrs Current Symptoms Are (Timing): Still Present Location Of Pain/Discomfort: Epigastric, LUQ Past Medical History Reviewed: Historical Data, Nursing Documentation, Vital Signs Vital Signs: Last Vital Signs Temp 97.4 F L 10/13/17 11:26 Pulse 63 10/13/17 13:57 Resp 18 10/13/17 13:57 BP 111/72 10/13/17 13:57 Pulse Ox 98 10/13/17 13:57 - Medical History PMH: HTN, Pancreatitis Surgical History: No Surg Hx Family History: States: No Known Family Hx - Social History Hx Alcohol Use: Yes Hx Substance Use: No - Immunization History Hx Tetanus Toxoid Vaccination: No Hx Influenza Vaccination: No Hx Pneumococcal Vaccination: No Review Of Systems Except As Marked, All Systems Reviewed And Found Negative. Gastrointestinal: Positive for: Nausea, Vomiting, Abdominal Pain Physical Exam - Physical Exam Appears: Non-toxic, No Acute Distress, Other (Uncomfortable ) Skin: Warm, Dry, No Rash Head: Atraumatic, Normacephalic Eye(s): bilateral: Normal Inspection Oral Mucosa: Moist Neck: Normal ROM, Supple Cardiovascular: Rhythm Regular Respiratory: Normal Breath Sounds, No Rales, No Rhonchi, No Wheezing Gastrointestinal/Abdominal: Soft, Tenderness (Epigastric and LUQ), No Guarding, No Rebound Back: No CVA Tenderness Extremity: Normal ROM, Capillary Refill (<2 seconds) Neurological/Psych: Oriented x3 ED Course And Treatment - Laboratory Results Result Diagrams: 10/13/17 12:37 10/13/17 12:37 O2 Sat by Pulse Oximetry: 96 (RA) Pulse Ox Interpretation: Normal Progress Note: CXR, Blood work ordered. Protonix, zofran, Morphine and IV fluids administered Medical Decision Making Medical Decision Making: Marcos's Criteria for Pancreatitis Mortality from [email or web address] on 10/13/2017 All calculations should be rechecked by clinician prior to use RESULT SUMMARY: 3 points Ransons Criteria (On Admission) Severe pancreatitis likely. Consider ICU admission. 3 points Ransons Criteria (Cumulative) 15% predicted mortality. INPUTS: WBC > 16k > 0 = No Age > 55 > 1 = Yes Glucose >200 mg/dL (>10 mmol/L) > 1 = Yes AST > 250 > 0 = No LDH > 350 > 1 = Yes Hct drop >10% from admission > 0 = No BUN increase >5 mg/dL (>1.79 mmol/L) from admission > 0 = No Ca <8 mg/dL (<2 mmol/L) within 48 hours > 0 = No Arterial pO2 <60 mmHg within 48 hours > 0 = No Base deficit (24 - HCO3) >4 mg/dL within 48 hours > 0 = No Fluid needs > 6L within 48 hours > 0 = No Disposition - Disposition Forms: [facility] (Omani) - Scribe Statement The provider has reviewed the documentation as recorded by the Humzaibolesya Brewster All medical record entries made by the Humzaibolesya were at my direction and personally dictated by me. I have reviewed the chart and agree that the record accurately reflects my personal performance of the history, physical exam, medical decision making, and the department course for this patient. I have also personally directed, reviewed, and agree with the discharge instructions and disposition.
[2017-10-13] MEDS ORDERED: Morphine 4 MG/ML VIAL ONE (13:55)
--- NOTE | 2017-10-13 14:30 | RAD ---
HISTORY: epigastric/chest pain COMPARISON: Chest x-ray performed 02/14/17 TECHNIQUE: Chest, one view. FINDINGS: LUNGS: No focal consolidation. Please note that chest x-ray has limited sensitivity for the detection of pulmonary masses. PLEURA: No significant pleural effusion identified. No definite pneumothorax . CARDIOVASCULAR: The cardiomediastinal silhouette appears within normal limits of size. OSSEOUS STRUCTURES: No acute osseous abnormality identified. VISUALIZED UPPER ABDOMEN: Unremarkable. OTHER FINDINGS: None. IMPRESSION: No focal consolidation identified.
[2017-10-13] MEDS ORDERED: metroNIDAZOLE IV 500 mg/100 ml 500 MG/100 ML BAG ONE (15:47)
[2017-10-13] MEDS: Sodium Chloride 0.9% 1,000 ML IV SCH ×3 (15:51→22:58)
[2017-10-13] MEDS: metroNIDAZOLE IV 500 mg/100 ml 500 MG/100 ML BAG IVPB SCH ×2 (15:51→22:14)
[2017-10-13] MEDS: Piperacillin/Tazobact 3.375 GM in Sodium Chloride 0.9% 100 ML IVPB SCH ×2 (16:26→22:49)
--- NOTE | 2017-10-13 16:36 | CP.PCM.HP ---
<Margarita Knight - Last Filed: 10/13/17 18:52> History of Present Illness - History of Present Illness History of Present Illness: CC: Epigastric pain and Left quadrant pain HPI: Patient is a 61 year old male with a history of recurrent pancreatitis, uncontrolled, uncontrolled HTN, alcohol abuse who reports onset of diffuse abdominal pain at 6am today, described as burning, radiating to the chest and back, constant, 10/10 pain, with no exacerbating or relieving factors, accompanied by (+) nausea and (+) 2 episodes of nonbloody and non-bilious vomiting. He last ate at 10am today. He took two "painkillers" without improvement in pain; he cannot specify name or dosage. He has been drinking one 8oz glass of whiskey per day for 20 years. Last drink of whiskey was last night at 11pm. Patient last had an episode like this 4 months ago, and was seen at another hospital. He states that he's had episodes of pancreatitis 3-4x in the past. On this admission, patient presents with the highest level of lipase (7525 ) compare to previous admissions. Prior to the encounter, patient had received NS 1,000ml bolus and morphine 4mg IV. Otherwise, patient denies fever, chills, SOB, cough, hematemasis, diarrhea, constipation (last BM yesterday; nonbloody, nonmelanotic), dysuria, leg pain, leg swelling, recent travel, recent sickness, weight changes. PMD: none PMHx: DM (uncontrolled), HTN (uncontrolled), pancreatitis, alcohol use disorder PSHX: denies FHx: father- age 45 from ?[place]; mother- many years ago; no known family history of cancer Medications: denies taking any medications on a regular basis; states that he takes Metformin 500mg once a day when he "feels bad" Allergies: Naproxen (rash) Code status: full code Patient refuses to answer questions regarding advance directive Social history: is ; drinks one 8oz glass of whiskey every day x 20 years. 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 absent: Chest Pain, Chest Pain at Rest, Dyspnea, Leg Edema, Orthopnea, Palpitations, Pedal Edema - Respiratory Respiratory: absent: Cough, Dyspnea, Wheezing, Pain on Inspiration, Chest Congestion - Gastrointestinal Gastrointestinal: Abdominal Pain, Nausea, Vomiting. absent: Diarrhea, Hematemesis, Hematochezia, Melena Additional comments: epigastric - Musculoskeletal Musculoskeletal: Back Pain - Neurological Neurological: absent: Burning Sensations, Dizziness, Headaches, Lack of Coordination, Loss of Vision - Endocrine Endocrine: absent: Fatigue, Palpitations - Hematologic/Lymphatic Hematologic: absent: Easy Bruising Past Patient History - Infectious Disease Hx of Infectious Diseases: None - Past Medical History & Family History Past Medical History?: Yes - Past Social History Smoking Status: Heavy Smoker > 10 Cigarettes Daily - CARDIAC Hx Hypertension: Yes - PULMONARY Hx Respiratory Disorders: No - NEUROLOGICAL Hx Neurological Disorder: No - HEENT Hx HEENT Problems: Yes Other/Comment: wears corrective eyeglasses - RENAL Hx Chronic Kidney Disease: No - ENDOCRINE/METABOLIC Hx Endocrine Disorders: Yes Hx Diabetes Mellitus Type 2: Yes - HEMATOLOGICAL/ONCOLOGICAL Hx Blood Disorders: No - INTEGUMENTARY Hx Dermatological Problems: No - MUSCULOSKELETAL/RHEUMATOLOGICAL Hx Back Pain: Yes Hx Falls: No - GASTROINTESTINAL Hx Pancreatitis: Yes - GENITOURINARY/GYNECOLOGICAL Hx Genitourinary Disorders: No - PSYCHIATRIC Hx Substance Use: No - SURGICAL HISTORY Hx Surgeries: No - ANESTHESIA Hx Anesthesia: No Meds Allergies/Adverse Reactions: Allergies Allergy/AdvReac Type Severity Reaction Status Date / Time naproxen AdvReac Diffuse Verified 10/13/17 11:33 rashes Physical Exam - Constitutional Appears: No Acute Distress - Head Exam Head Exam: ATRAUMATIC, NORMAL INSPECTION - Eye Exam Eye Exam: EOMI, Normal appearance - ENT Exam ENT Exam: Mucous Membranes Moist - Respiratory Exam Respiratory Exam: Clear to Auscultation Bilateral, NORMAL BREATHING PATTERN. absent: Rhonchi, Wheezes, Respiratory Distress - Cardiovascular Exam Cardiovascular Exam: REGULAR RHYTHM, +S1, +S2 - GI/Abdominal Exam GI & Abdominal Exam: Normal Bowel Sounds, Soft, Tenderness Additional comments: Diffuse epigastric tenderness - Extremities Exam Extremities exam: Positive for: normal inspection. Negative for: calf tenderness, pedal edema - Neurological Exam Neurological exam: Alert - Psychiatric Exam Psychiatric exam: Agitated - Skin Skin Exam: Normal Color Results - Vital Signs Recent Vital Signs: Last Vital Signs Temp 97.4 F L 10/13/17 11:26 Pulse 63 10/13/17 13:57 Resp 18 10/13/17 13:57 BP 111/72 10/13/17 13:57 Pulse Ox 96 10/13/17 14:14 - Labs Result Diagrams: 10/13/17 12:37 10/13/17 12:37 Labs: Laboratory Results - last 24 hr 10/13/17 10/13/17 10/13/17 12:37 12:37 12:49 WBC 14.4 H D RBC 4.89 Hgb 15.3 Hct 44.6 MCV 91.2 D MCH 31.2 H MCHC 34.2 RDW 14.4 Plt Count 195 MPV 10.2 Neut % (Auto) 77.1 H Lymph % (Auto) 15.2 L Surry % (Auto) 4.8 Eos % (Auto) 2.2 Baso % (Auto) 0.7 Neut # (Auto) 11.1 H Lymph # (Auto) 2.2 Surry # (Auto) 0.7 Eos # (Auto) 0.3 Baso # (Auto) 0.1 Sodium 138 Potassium 4.1 Chloride 98 Carbon Dioxide 20 L Anion Gap 25 H BUN 19 Creatinine 0.9 Est GFR ( Amer) > 60 Est GFR (Non-Af Amer) > 60 POC Glucose (mg/dL) 205 H Random Glucose 220 H Calcium 8.8 Total Bilirubin 0.3 AST 63 H ALT 68 Alkaline Phosphatase 89 Lactate Dehydrogenase 815 H Troponin I < 0.0120 Total Protein 7.3 Albumin 4.1 Globulin 3.1 Albumin/Globulin Ratio 1.3 Lipase 7525 H Assessment & Plan (1) Acute pancreatitis Assessment and Plan: Lipase on admission * 7525 Management: * NPO expect for medication * NS @ 250mls/hr * Morphine 2mg IV Q6H prn F/u lipid panel Status: Acute (2) Leukocytosis Assessment and Plan: On admission: * WBC: 14.4 Zosyn 3.375 gm IV Q6H (Started 10/13/17) Flagyl 500mg IV Q8H (Started 10/13/17) F/u blood culture Status: Acute (3) Diabetes mellitus Assessment and Plan: HgbA1C: 7.2 Accuchecks ISS - Low dose Hypoglycemia protocol Status: Acute (4) Alcohol abuse Assessment and Plan: On admission: * 66 Management: * Alcohol withdrawal protocol * Ativan taper * Multivitamin 1 tab PO daily * Folic acid 1 tab PO daily * Thiamine 100mg PO daily Status: Acute (5) Prophylactic measure Assessment and Plan: GI: Pepcid 20mg PO daily DVT: Heparin 5,000 units Q12H Florastor 250mg PO BID All plans and management discussed with Dr. Guzman Status: Acute <Abhishek Guzman H - Last Filed: 10/14/17 07:29> Results - Vital Signs Recent Vital Signs: Last Vital Signs Temp 98.5 F 10/13/17 23:45 Pulse 105 H 10/14/17 04:18 Resp 20 10/13/17 23:45 BP 177/89 H 10/13/17 23:45 Pulse Ox 95 10/13/17 23:45 - Labs Result Diagrams: 10/13/17 12:37 10/13/17 12:37 Labs: Laboratory Results - last 24 hr 10/13/17 10/13/17 10/13/17 12:37 12:37 12:49 WBC 14.4 H D RBC 4.89 Hgb 15.3 Hct 44.6 MCV 91.2 D MCH 31.2 H MCHC 34.2 RDW 14.4 Plt Count 195 MPV 10.2 Neut % (Auto) 77.1 H Lymph % (Auto) 15.2 L Surry % (Auto) 4.8 Eos % (Auto) 2.2 Baso % (Auto) 0.7 Neut # (Auto) 11.1 H Lymph # (Auto) 2.2 Surry # (Auto) 0.7 Eos # (Auto) 0.3 Baso # (Auto) 0.1 Sodium 138 Potassium 4.1 Chloride 98 Carbon Dioxide 20 L Anion Gap 25 H BUN 19 Creatinine 0.9 Est GFR ( Amer) > 60 Est GFR (Non-Af Amer) > 60 POC Glucose (mg/dL) 205 H Random Glucose 220 H Hemoglobin A1c Calcium 8.8 Total Bilirubin 0.3 AST 63 H ALT 68 Alkaline Phosphatase 89 Lactate Dehydrogenase 815 H Troponin I < 0.0120 Total Protein 7.3 Albumin 4.1 Globulin 3.1 Albumin/Globulin Ratio 1.3 Lipase 7525 H Urine Opiates Screen Urine Methadone Screen Ur Barbiturates Screen Ur Phencyclidine Scrn Ur Amphetamines Screen U Benzodiazepines Scrn U Oth Cocaine Metabols U Cannabinoids Screen 10/13/17 10/13/17 10/13/17 16:30 16:44 16:44 WBC RBC Hgb Hct MCV MCH MCHC RDW Plt Count MPV Neut % (Auto) Lymph % (Auto) Surry % (Auto) Eos % (Auto) Baso % (Auto) Neut # (Auto) Lymph # (Auto) Surry # (Auto) Eos # (Auto) Baso # (Auto) Sodium Potassium Chloride Carbon Dioxide Anion Gap BUN Creatinine Est GFR ( Amer) Est GFR (Non-Af Amer) POC Glucose (mg/dL) 173 H Random Glucose Hemoglobin A1c 7.2 H Calcium Total Bilirubin AST ALT Alkaline Phosphatase Lactate Dehydrogenase Troponin I Total Protein Albumin Globulin Albumin/Globulin Ratio Lipase Urine Opiates Screen Positive H Urine Methadone Screen Negative Ur Barbiturates Screen Negative Ur Phencyclidine Scrn Negative Ur Amphetamines Screen Negative U Benzodiazepines Scrn Negative U Oth Cocaine Metabols Negative U Cannabinoids Screen Negative 10/13/17 10/14/17 20:55 06:25 WBC RBC Hgb Hct MCV MCH MCHC RDW Plt Count MPV Neut % (Auto) Lymph % (Auto) Surry % (Auto) Eos % (Auto) Baso % (Auto) Neut # (Auto) Lymph # (Auto) Surry # (Auto) Eos # (Auto) Baso # (Auto) Sodium Potassium Chloride Carbon Dioxide Anion Gap BUN Creatinine Est GFR ( Amer) Est GFR (Non-Af Amer) POC Glucose (mg/dL) 123 H 114 H Random Glucose Hemoglobin A1c Calcium Total Bilirubin AST ALT Alkaline Phosphatase Lactate Dehydrogenase Troponin I Total Protein Albumin Globulin Albumin/Globulin Ratio Lipase Urine Opiates Screen Urine Methadone Screen Ur Barbiturates Screen Ur Phencyclidine Scrn Ur Amphetamines Screen U Benzodiazepines Scrn U Oth Cocaine Metabols U Cannabinoids Screen Attending/Attestation - Attestation I have personally seen and examined this patient.: Yes I have fully participated in the care of the patient.: Yes I have reviewed all pertinent clinical information: Yes Notes (Text): 10/14/17 07:29 Medical attending: Patient was seen and examined by me and director of medical services together. Agree with the above note by director of medical services. Unfortunately this is a 61-year-old male who is well known to the hospitalist service. He's had history of recurrent pancreatitis secondary to alcohol use in the past. He's previously had MRCP is as well as abdominal ultrasounds. However he continues to drink heavily. He stated yesterday that he was still drinking. He explains to us that he was at a different medical facility due to alcohol usage. This time around he came to this hospital. This is the highest his lipase level has ever been at 7200. His calcium level is fine. He does have a small white blood cell count blood pressure is currently stable. The patient will be on a lot of intravenous fluids, pain control, nothing by mouth except for meds. We will continue to monitor the patient's lipase, lactic acid, LDH. When I saw him with the director of medical services I asked the patient why he kept coming to the hospital repeatedly like this. He stated that he did not. I explained to him that his alcohol usage was contributing to repeated episodes of pancreatitis this. It does not seem like he has any insight into his alcohol usage contributing. Of note he does have some cyst on his pancreas as well as his liver. These have been worked up before from what I understand so at this time were waiting to treat him for his alcohol withdrawal symptoms as well as his pancreatitis and will monitor his numbers Thank you very much, Abhishek Guzman
[2017-10-13] MEDS: (Novolog) Insulin Aspart, Recombinant 100 u/ml 10 ml vial SC SCH ×2 (16:44→22:41)
[2017-10-13 17:12] LABS: BARBITURATES, UR NEGATIVE (NEGATIVE); BENZODIAZEPINES, UR NEGATIVE (NEGATIVE); PHENCYCLIDINE, UR NEGATIVE (NEGATIVE)
[2017-10-13] MEDS: Saccharomyces Boulardi 250 mg Cap PO SCH (17:16)
[2017-10-13 17:18] LABS: OPIATES, UR POSITIVE (NEGATIVE)
[2017-10-13] MEDS ORDERED: Glucagon Recombinant 1 mg Inj IM PRN (18:57)
[2017-10-13] MEDS ORDERED: Dextrose 50% SYRINGE Inj (50 ml) IVP PRN (18:57)
[2017-10-13 19:36] VITALS: RESP 20
[2017-10-14] MEDS: Piperacillin/Tazobact 3.375 GM in Sodium Chloride 0.9% 100 ML IVPB SCH ×4 (04:37→22:44)
[2017-10-14] MEDS: metroNIDAZOLE IV 500 mg/100 ml 500 MG/100 ML BAG IVPB SCH ×2 (05:54→14:07)
[2017-10-14] MEDS: Sodium Chloride 0.9% 1,000 ML IV SCH ×6 (07:15→19:03)
[2017-10-14] MEDS: (Novolog) Insulin Aspart, Recombinant 100 u/ml 10 ml vial SC SCH ×4 (07:34→21:05)
[2017-10-14 07:54] LABS: BASO # 0.1 K/uL (0.0-0.2); BASO % 0.5 % (0.0-2.0); EOS # 0.1 K/uL (0.0-0.7); EOS % 0.6 % (0.0-4.0); HEMOGLOBIN 14.3 g/dL (12.0-18.0); LYMPH # 1.1 K/uL (1.0-4.3); LYMPH % 9.9 % (20.0-40.0); MEAN CELL VOLUME 90.1 fL (80.0-94.0); MEAN CORPUSCULAR HEMOGLOBIN 31.1 pg (27.0-31.0); MEAN CORPUSCULAR HGB CONC 34.6 g/dL (33.0-37.0); MEAN PLATELET VOLUME 10.2 fL (7.2-11.7); MONO # 0.5 K/uL (0.0-0.8); MONO % 4.5 % (0.0-10.0); NEUT # 9.8 K/uL (1.8-7.0); NEUT % 84.5 % (50.0-75.0); PLATELET COUNT 148 K/uL (130-400); RBC 4.58 Mil/uL (4.40-5.90); RED CELL DISTRIBUTION WIDTH 14.4 % (11.5-14.5); WHITE BLOOD COUNT 11.6 K/uL (4.8-10.8)
[2017-10-14 08:09] LABS: ALB/GLOB RATIO 1.2 (1.0-2.1); ALBUMIN 3.5 g/dL (3.5-5.0); ALT/SGPT 48 U/L (21-72); AST/SGOT 47 U/L (17-59); BLOOD UREA NITROGEN 12 mg/dL (9-20); CALCIUM 7.8 mg/dl (8.6-10.4); GFR AFRICAN-AMERICAN > 60; GFR NON-AFRICAN AMERICAN > 60; HDL CHOLESTEROL 60 mg/dL (30-70)
[2017-10-14 08:17] LABS: LDL CHOLESTEROL 86 mg/dL (0-129)
[2017-10-14 08:18] LABS: LIPASE 2454 U/L (23-300)
[2017-10-14 09:01] LABS: BANDS 1 % (0-2); LYMPHOCYTE 10 % (20-40); TOTAL CELLS COUNTED 100
[2017-10-14 09:02] LABS: MONOCYTE 4 % (0-10); NEUTROPHIL 85 % (50-75); PLATELET ESTIMATE NORMAL (NORMAL)
[2017-10-14] MEDS ORDERED: Potassium Chloride 20 mEq ER Tab PO ONE (09:26)
[2017-10-14] MEDS: Saccharomyces Boulardi 250 mg Cap PO SCH ×2 (09:35→18:58)
[2017-10-14] MEDS ORDERED: Multiple Vitamins Tab PO SCH (10:00)
--- NOTE | 2017-10-14 14:49 | CP.PCM.PN ---
Subjective - Date & Time of Evaluation Date of Evaluation: 10/14/17 Time of Evaluation: 07:05 - Subjective Subjective: Medicine progress note ( Dr. Guzman's service) Patient was seen and examined at bedside. Patient was resting comfortably in bed. Patient reports that he is doing well with improving symptoms. Patient denies fever, chills, nausea, vomiting, chest pain, SOB, fever, chills but still admits to mild abdominal pain. Objective - Vital Signs/Intake and Output Vital Signs (last 24 hours): Temp Pulse Resp BP Pulse Ox 99.0 F 87 20 168/94 H 100 10/14/17 08:05 10/14/17 08:05 10/14/17 08:05 10/14/17 14:00 10/14/17 08:05 Intake and Output: 10/14/17 10/14/17 06:59 18:59 Intake Total 1800 Output Total 1300 Balance 500 - Medications Medications: Current Medications Amlodipine Besylate (Norvasc) 5 mg PO DAILY [facility] Last Admin: 10/14/17 12:24 Dose: 5 mg Aspirin (Aspirin Chewable) 81 mg PO DAILY [facility] Last Admin: 10/14/17 09:35 Dose: 81 mg Dextrose (Dextrose 50% Inj) 0 ml IVP .STAT PRN; Protocol PRN Reason: Hypoglycemia Protocol Dextrose (Glutose 15) 0 gm PO .ONCE PRN; Protocol PRN Reason: Hypoglycemia Protocol Famotidine (Pepcid) 20 mg PO DAILY [facility] Last Admin: 10/14/17 09:31 Dose: 20 mg Folic Acid (Folic Acid) 1 mg PO DAILY [facility] Last Admin: 10/14/17 09:31 Dose: 1 mg Glucagon (Glucagen Diagnostic Kit) 0 mg IM .STAT PRN; Protocol PRN Reason: Hypoglycemia Protocol Heparin Sodium (Porcine) (Heparin) 5,000 units SC Q12 [facility] Last Admin: 10/14/17 09:36 Dose: 5,000 units Sodium Chloride (Sodium Chloride 0.9%) 1,000 mls @ 250 mls/hr IV .Q4H [facility] Last Admin: 10/14/17 12:15 Dose: 250 mls/hr Metronidazole (Flagyl) 500 mg in 100 mls @ 100 mls/hr IVPB Q8 [facility] PRN Reason: Protocol Last Admin: 10/14/17 14:07 Dose: 100 mls/hr Piperacillin Sod/Tazobactam (Sod 3.375 gm/ Sodium Chloride) 100 mls @ 100 mls/ hr IVPB Q6H MICHELLE PRN Reason: Protocol Last Admin: 10/14/17 09:45 Dose: 100 mls/hr Dextrose (Dextrose 5% In Water 1000 Ml) 1,000 mls @ 0 mls/hr IV .Q0M PRN; Protocol; Per Protocol PRN Reason: Hypoglycemia Protocol Insulin Aspart (Novolog) 0 unit SC ACHS [facility] PRN Reason: Protocol Last Admin: 10/14/17 12:14 Dose: Not Given Morphine Sulfate (Morphine) 2 mg IV Q4 PRN PRN Reason: Pain, moderate (4-7) Last Admin: 10/14/17 01:03 Dose: 2 mg Multivitamins (Hexavitamin) 1 tab PO DAILY [facility] Last Admin: 10/14/17 09:31 Dose: 1 tab Saccharomyces Boulardii (Florastor) 250 mg PO BID [facility] Last Admin: 10/14/17 09:35 Dose: 250 mg Thiamine HCl (Vitamin B1 Tab) 100 mg PO DAILY [facility] Last Admin: 10/14/17 09:31 Dose: 100 mg - Labs Labs: 10/14/17 07:38 10/14/17 07:38 - Constitutional Appears: Well, No Acute Distress - Head Exam Head Exam: ATRAUMATIC, NORMAL INSPECTION - Eye Exam Eye Exam: EOMI, Normal appearance - ENT Exam ENT Exam: Mucous Membranes Moist - Respiratory Exam Respiratory Exam: Clear to Ausculation Bilateral, NORMAL BREATHING PATTERN. absent: Rales, Rhonchi, Wheezes, Respiratory Distress - Cardiovascular Exam Cardiovascular Exam: REGULAR RHYTHM, +S1, +S2 - GI/Abdominal Exam GI & Abdominal Exam: Soft, Tenderness, Normal Bowel Sounds Additional comments: Mild epigastric tenderness - Extremities Exam Extremities Exam: Normal Inspection. absent: Calf Tenderness, Tenderness - Neurological Exam Neurological Exam: Alert, Awake, Oriented x3 - Psychiatric Exam Psychiatric exam: Normal Affect, Normal Mood - Skin Skin Exam: Normal Color Assessment and Plan (1) Acute pancreatitis Assessment & Plan: Lipase on admission * 7525---> 2454; lipase is trending down Management: * NPO expect for medication * NS @ 250mls/hr * Morphine 2mg IV Q6H prn Lipid panel : * TGL: 174, Chol:166, LDL: 86, and HDL: 60 Status: Acute (2) Leukocytosis Assessment & Plan: On admission: * WBC: 14.4 * Trending down * Blood culture negative X 24 hours Zosyn 3.375 gm IV Q6H (Started 10/13/17) Flagyl 500mg IV Q8H (Started 10/13/17) Status: Acute (3) Diabetes mellitus Assessment & Plan: HgbA1C: 7.2 Accuchecks ISS - Low dose Hypoglycemia protocol Status: Acute (4) Alcohol abuse Assessment & Plan: On admission: * 66 Management: * Alcohol withdrawal protocol * Ativan taper ( Discontinued 10/14/17), patient is stable without withdrawal symptoms * Multivitamin 1 tab PO daily * Folic acid 1 tab PO daily * Thiamine 100mg PO daily Status: Acute (5) Prophylactic measure Assessment & Plan: GI: Pepcid 20mg PO daily DVT: Heparin 5,000 units Q12H Florastor 250mg PO BID All plans and management discussed with Dr. Guzman Status: Acute
--- NOTE | 2017-10-14 21:27 | CARD ---
APPROVED REPORT EKG Measurement Heart [id number] <Conclusion> Sinus bradycardia Otherwise normal ECG
[2017-10-15] MEDS: Sodium Chloride 0.9% 1,000 ML IV SCH
[2017-10-15 00:17] VITALS: BP 136/87; TEMP 98.5; O2SAT 95
[2017-10-15 02:52] VITALS: PULSE 111
--- NOTE | 2017-10-15 03:08 | CP.PCM.DIS ---
Provider - Provider Date of Admission: 10/13/17 14:11 Attending physician: Abhishek Guzman DO Primary care physician: PMD: none Time Spent in preparation of Discharge (in minutes): 36 Hospital Course - Lab Results Lab Results: Micro Results 10/13/17 19:45 Blood-Venous Blood Culture - Preliminary NO GROWTH AFTER 24 HOURS 10/13/17 19:15 Blood-Venous Blood Culture - Preliminary NO GROWTH AFTER 24 HOURS Most Recent Lab Values WBC 11.6 K/uL (4.8-10.8) H 10/14/17 07:38 RBC 4.58 Mil/uL (4.40-5.90) 10/14/17 07:38 Hgb 14.3 g/dL (12.0-18.0) 10/14/17 07:38 Hct 41.3 % (35.0-51.0) 10/14/17 07:38 MCV 90.1 fL (80.0-94.0) 10/14/17 07:38 MCH 31.1 pg (27.0-31.0) H 10/14/17 07:38 MCHC 34.6 g/dL (33.0-37.0) 10/14/17 07:38 RDW 14.4 % (11.5-14.5) 10/14/17 07:38 Plt Count 148 K/uL (130-400) 10/14/17 07:38 MPV 10.2 fL (7.2-11.7) 10/14/17 07:38 Neut % (Auto) 84.5 % (50.0-75.0) H 10/14/17 07:38 Lymph % (Auto) 9.9 % (20.0-40.0) L 10/14/17 07:38 Tillman % (Auto) 4.5 % (0.0-10.0) 10/14/17 07:38 Eos % (Auto) 0.6 % (0.0-4.0) 10/14/17 07:38 Baso % (Auto) 0.5 % (0.0-2.0) 10/14/17 07:38 Neut # (Auto) 9.8 K/uL (1.8-7.0) H 10/14/17 07:38 Lymph # (Auto) 1.1 K/uL (1.0-4.3) 10/14/17 07:38 Tillman # (Auto) 0.5 K/uL (0.0-0.8) 10/14/17 07:38 Eos # (Auto) 0.1 K/uL (0.0-0.7) 10/14/17 07:38 Baso # (Auto) 0.1 K/uL (0.0-0.2) 10/14/17 07:38 Neutrophils % (Manual) 85 % (50-75) H 10/14/17 07:38 Band Neutrophils % 1 % (0-2) 10/14/17 07:38 Lymphocytes % (Manual) 10 % (20-40) L 10/14/17 07:38 Monocytes % (Manual) 4 % (0-10) 10/14/17 07:38 Platelet Estimate Normal (NORMAL) 10/14/17 07:38 Sodium 133 mmol/L (132-148) 10/14/17 07:38 Potassium 3.4 mmol/L (3.6-5.2) L 10/14/17 07:38 Chloride 99 mmol/L (98-107) 10/14/17 07:38 Carbon Dioxide 23 mmol/L (22-30) 10/14/17 07:38 Anion Gap 15 (10-20) 10/14/17 07:38 BUN 12 mg/dL (9-20) 10/14/17 07:38 Creatinine 0.8 mg/dL (0.8-1.5) 10/14/17 07:38 Est GFR ( Amer) > 60 10/14/17 07:38 Est GFR (Non-Af Amer) > 60 10/14/17 07:38 POC Glucose (mg/dL) 98 mg/dL (65-110) 10/14/17 21:04 Random Glucose 115 mg/dL (75-110) H 10/14/17 07:38 Hemoglobin A1c 7.2 % (4.2-6.5) H 10/13/17 16:44 Calcium 7.8 mg/dl (8.6-10.4) L 10/14/17 07:38 Total Bilirubin 0.8 mg/dL (0.2-1.3) 10/14/17 07:38 AST 47 U/L (17-59) 10/14/17 07:38 ALT 48 U/L (21-72) 10/14/17 07:38 Alkaline Phosphatase 66 U/L (38-126) 10/14/17 07:38 Lactate Dehydrogenase 815 U/L (313-618) H 10/13/17 12:37 Troponin I < 0.0120 ng/mL (0.00-0.120) 10/13/17 12:37 Total Protein 6.6 g/dL (6.3-8.3) 10/14/17 07:38 Albumin 3.5 g/dL (3.5-5.0) 10/14/17 07:38 Globulin 3.1 gm/dL (2.2-3.9) 10/14/17 07:38 Albumin/Globulin Ratio 1.2 (1.0-2.1) 10/14/17 07:38 Triglycerides 174 mg/dL (0-149) H 10/14/17 07:38 Cholesterol 166 mg/dL (0-199) 10/14/17 07:38 LDL Cholesterol Direct 86 mg/dL (0-129) 10/14/17 07:38 HDL Cholesterol 60 mg/dL (30-70) 10/14/17 07:38 Lipase 2454 U/L (23-300) H 10/14/17 07:38 Urine Opiates Screen Positive (NEGATIVE) H 10/13/17 16:44 Urine Methadone Screen Negative (NEGATIVE) 10/13/17 16:44 Ur Barbiturates Screen Negative (NEGATIVE) 10/13/17 16:44 Ur Phencyclidine Scrn Negative (NEGATIVE) 10/13/17 16:44 Ur Amphetamines Screen Negative (NEGATIVE) 10/13/17 16:44 U Benzodiazepines Scrn Negative (NEGATIVE) 10/13/17 16:44 U Oth Cocaine Metabols Negative (NEGATIVE) 10/13/17 16:44 U Cannabinoids Screen Negative (NEGATIVE) 10/13/17 16:44 - Hospital Course Hospital Course: CC: Epigastric pain and Left quadrant pain HPI: Patient is a 61 year old male with a history of recurrent pancreatitis, uncontrolled, uncontrolled HTN, alcohol abuse who reports onset of diffuse abdominal pain at 6am today, described as burning, radiating to the chest and back, constant, 10/10 pain, with no exacerbating or relieving factors, accompanied by (+) nausea and (+) 2 episodes of nonbloody and non-bilious vomiting. He last ate at 10am today. He took two "painkillers" without improvement in pain; he cannot specify name or dosage. He has been drinking one 8oz glass of whiskey per day for 20 years. Last drink of whiskey was last night at 11pm. Patient last had an episode like this 4 months ago, and was seen at another hospital. He states that he's had episodes of pancreatitis 3-4x in the past. On this admission, patient presents with the highest level of lipase (7525 ) compare to previous admissions. Prior to the encounter, patient had received NS 1,000ml bolus and morphine 4mg IV. Otherwise, patient denies fever, chills, SOB, cough, hematemasis, diarrhea, constipation (last BM yesterday; nonbloody, nonmelanotic), dysuria, leg pain, leg swelling, recent travel, recent sickness, weight changes. PMD: none PMHx: DM (uncontrolled), HTN (uncontrolled), pancreatitis, alcohol use disorder PSHX: denies FHx: father- age 45 from [place]; mother- many years ago; no known family history of cancer Medications: denies taking any medications on a regular basis; states that he takes Metformin 500mg once a day when he "feels bad" Allergies: Naproxen (rash) Code status: full code Patient refuses to answer questions regarding advance directive Social history: is ; drinks one 8oz glass of whiskey every day x 20 years. Patient refuses to answer further questions, thus obtained from medical record: smokes 1ppd x 40 years; denies illicit drug use; works part-time as a [employer] Code status: full code Patient refuses to answer questions regarding advance directive HOSPITAL COURSE: Patient admitted with acute pancreatitis. Lipase was downtrending. He was kept NPO and given fluids and morphine for pain. WBC also was trending down. He was given abx (zosyn and flagyl). Alcohol withdrawal protocol was also initiated. The last progress note is included here for completion: (1) Acute pancreatitis Assessment & Plan: Lipase on admission * 7525---> 2454; lipase is trending down Management: * NPO expect for medication * NS @ 250mls/hr * Morphine 2mg IV Q6H prn Lipid panel : * TGL: 174, Chol:166, LDL: 86, and HDL: 60 Status: Acute (2) Leukocytosis Assessment & Plan: On admission: * WBC: 14.4 * Trending down * Blood culture negative X 24 hours Zosyn 3.375 gm IV Q6H (Started 10/13/17) Flagyl 500mg IV Q8H (Started 10/13/17) Status: Acute (3) Diabetes mellitus Assessment & Plan: HgbA1C: 7.2 Accuchecks ISS - Low dose Hypoglycemia protocol Status: Acute (4) Alcohol abuse Assessment & Plan: On admission: * 66 Management: * Alcohol withdrawal protocol * Ativan taper ( Discontinued 10/14/17), patient is stable without withdrawal symptoms * Multivitamin 1 tab PO daily * Folic acid 1 tab PO daily * Thiamine 100mg PO daily Status: Acute (5) Prophylactic measure Assessment & Plan: GI: Pepcid 20mg PO daily DVT: Heparin 5,000 units Q12H Florastor 250mg PO BID 10/15/17 Patient signed out AMA. I evaluated the patient. He was calm and able to clearly express his thoughts. 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 I examined the patient. He was able to walk in the hallway without unsteady gait (and without asterixis). He was able to tell me his name, where he was and what the date is today. He understood his medical condition. He said he would stay but he needs to get home or else he'll lose his job. I asked him how he'll get home and he said he' ll call a taxi with the help from security. He showed me his wallet and that he had money in there. He also showed me his house keys and told me his address. I asked him why doesn't he call his and he said they aren't on speaking terms at the moment. The RN was there to witness all this. Discharge Exam - Head Exam Head Exam: ATRAUMATIC, NORMAL INSPECTION - Additional Findings Additional findings: - Constitutional Appears: Well, No Acute Distress - Head Exam Head Exam: ATRAUMATIC, NORMAL INSPECTION - Eye Exam Eye Exam: EOMI, Normal appearance - ENT Exam ENT Exam: Mucous Membranes Moist - Respiratory Exam Respiratory Exam: Clear to Ausculation Bilateral, NORMAL BREATHING PATTERN. absent: Rales, Rhonchi, Wheezes, Respiratory Distress - Cardiovascular Exam Cardiovascular Exam: REGULAR RHYTHM, +S1, +S2 - GI/Abdominal Exam GI & Abdominal Exam: Soft, Tenderness, Normal Bowel Sounds Additional comments: Mild epigastric tenderness - Extremities Exam Extremities Exam: Normal Inspection. absent: Calf Tenderness, Tenderness - Neurological Exam Neurological Exam: Alert, Awake, Oriented x3 - Psychiatric Exam Psychiatric exam: Normal Affect, Normal Mood - Skin Skin Exam: Normal Color Discharge Plan - Follow Up Plan Condition: GOOD Disposition: AGAINST MEDICAL ADVICE Instructions: Pancreatitis (DC)
== END 2017-10-15 03:25 | disposition left against medical advice (07) | DRG 204 ==
LOC: C.ER 11:16 → C.9E 14:11 → C.6T 17:29
PROVIDERS: ADMIT Hospitalist; ATTEND Hospitalist
DX: K85.90 Acute pancreatitis without necrosis or infection, unspecified (principal); E11.9 Type 2 diabetes mellitus without complications; F10.10 Alcohol abuse, uncomplicated; I10 Essential (primary) hypertension; Z82.3 Family history of stroke; F17.210 Nicotine dependence, cigarettes, uncomplicated

== ENCOUNTER 2017-12-02 02:52 | Inpatient (IN) | payer OTHER ==
[2017-12-02 02:52] VITALS: BMI 26.6
[2017-12-02] MEDS ORDERED: Sodium Chloride 0.9% 500 ML IV ONE (03:12)
[2017-12-02] MEDS ORDERED: Sodium Chloride 0.9% 1,000 ML ONE ×2 (03:20→08:21)
[2017-12-02 03:24] LABS: BASO # 0.1 K/uL (0.0-0.2); BASO % 0.9 % (0.0-2.0); EOS # 0.3 K/uL (0.0-0.7); EOS % 3.7 % (0.0-4.0); HEMOGLOBIN 15.1 g/dL (12.0-18.0); LYMPH # 1.1 K/uL (1.0-4.3); MEAN CELL VOLUME 90.8 fL (80.0-94.0); MEAN CORPUSCULAR HEMOGLOBIN 31.2 pg (27.0-31.0); MEAN CORPUSCULAR HGB CONC 34.3 g/dL (33.0-37.0); MEAN PLATELET VOLUME 9.6 fL (7.2-11.7); MONO # 0.7 K/uL (0.0-0.8); NEUT # 7.2 K/uL (1.8-7.0); NEUT % 76.4 % (50.0-75.0); RBC 4.83 Mil/uL (4.40-5.90); RED CELL DISTRIBUTION WIDTH 15.1 % (11.5-14.5); WHITE BLOOD COUNT 9.4 K/uL (4.8-10.8)
[2017-12-02 03:33] LABS: ALB/GLOB RATIO 1.2 (1.0-2.1); ALBUMIN 4.4 g/dL (3.5-5.0); ALT/SGPT 33 U/L (21-72); AST/SGOT 44 U/L (17-59); BLOOD UREA NITROGEN 11 mg/dL (9-20); CALCIUM 9.2 mg/dl (8.6-10.4); GFR AFRICAN-AMERICAN > 60; GFR NON-AFRICAN AMERICAN > 60
--- NOTE | 2017-12-02 03:36 | C.PDOC ---
History Of Present Illness 61 year old male with PMHx of alcohol abuse and pancreatitis presents to the ED c/o sudden onset abdominal pain that started 3 hours prior to arrival. Patient admits to drinking moderate amount of alcohol tonight. Patient denies nausea, vomit, diarrhea, bloody stools, weakness, numbness, back pain. Time Seen by Provider: 12/02/17 03:08 Chief Complaint (Nursing): Abdominal Pain History Per: Patient History/Exam Limitations: no limitations Onset/Duration Of Symptoms: Hrs (3) Pain Scale Rating Of: 4 Location Of Pain/Discomfort: Diffuse Quality Of Discomfort: "Pain" Associated Symptoms: denies: Fever, Vomiting Exacerbating Factors: None Alleviating Factors: None Recent travel outside of the [place]: No Additional History Per: Patient Past Medical History Reviewed: Historical Data, Nursing Documentation, Vital Signs Vital Signs: Last Vital Signs Temp 98.7 F 12/02/17 06:16 Pulse 100 H 12/02/17 06:16 Resp 20 12/02/17 06:16 BP 146/91 H 12/02/17 06:16 Pulse Ox 99 12/02/17 06:16 - Medical History PMH: HTN, Pancreatitis Denies: Chronic Kidney Disease Surgical History: No Surg Hx Family History: States: Unknown Family Hx - Social History Hx Alcohol Use: Yes Hx Substance Use: No - Immunization History Hx Tetanus Toxoid Vaccination: No Hx Influenza Vaccination: No Hx Pneumococcal Vaccination: No Review Of Systems Constitutional: Negative for: Fever, Chills Cardiovascular: Negative for: Chest Pain Respiratory: Negative for: Shortness of Breath Gastrointestinal: Positive for: Abdominal Pain Genitourinary: Negative for: Dysuria Musculoskeletal: Negative for: Back Pain Skin: Negative for: Rash Physical Exam - Physical Exam Appears: Non-toxic, No Acute Distress Skin: Warm, Dry Head: Atraumatic, Normacephalic Eye(s): bilateral: Normal Inspection Nose: No Discharge Oral Mucosa: Moist Neck: Normal ROM, Supple Chest: Symmetrical Cardiovascular: Rhythm Regular, No Murmur Respiratory: No Rales, No Rhonchi, No Wheezing Gastrointestinal/Abdominal: Soft, Tenderness (diffuse), No Guarding, No Rebound Back: No CVA Tenderness Extremity: No Tenderness, No Swelling Extremity: Bilateral: Normal Color And Temperature, Normal ROM Neurological/Psych: Oriented x3, Normal Motor, Normal Sensation Gait: Steady ED Course And Treatment - Laboratory Results Result Diagrams: 12/02/17 03:19 12/02/17 03:19 O2 Sat by Pulse Oximetry: 96 (ON RA) Pulse Ox Interpretation: Normal Progress Note: Plan: - Labs. - IV fluids. - protonix 40 mg IVP. - Zofran 4 mg IVP. Pt with lipase > 20,000,still c/o of pain, toradol IV and contrast abd / pelvis CT ordered Disposition - Disposition Disposition: HOSPITALIZED Disposition Time: 06:56 Condition: STABLE Forms: [employer] ([place]) - Clinical Impression Clinical Impression: Acute pancreatitis - PA / LINTER TENDER / Resident Statement MD/DO has reviewed & agrees with the documentation as recorded. - Scribe Statement The provider has reviewed the documentation as recorded by the Scribe Paresh Back All medical record entries made by the Scribe were at my direction and personally dictated by me. I have reviewed the chart and agree that the record accurately reflects my personal performance of the history, physical exam, medical decision making, and the department course for this patient. I have also personally directed, reviewed, and agree with the discharge instructions and disposition. Physician Patient Turnover Patient Signed Over To: Tami Joseph Handoff Comments: Pending abdominal CT results for admission
[2017-12-02 04:13] LABS: LIPASE > 20000 U/L (23-300)
[2017-12-02] MEDS ORDERED: Iohexol 350mg/ml 100 ML ONE (04:58)
--- NOTE | 2017-12-02 07:43 | CT ---
EXAM: CT Abdomen and Pelvis With Intravenous Contrast EXAM DATE/TIME: 12/02/2017 4:23 AM CLINICAL HISTORY: 61 years old, male; Pain; Abdominal pain; Patient HX: 7-7-17 images sent; Additional info: Abdomen pain, abn lipase TECHNIQUE: Axial computed tomography images of the abdomen and pelvis with intravenous contrast. All CT scans at this facility use one or more dose reduction techniques, viz.: automated exposure control; ma/kV adjustment otherwise, no evidence of a significant acute process. patient size (including targeted exams where dose is matched to indication; i.e. head); or iterative reconstruction technique. Coronal and sagittal reformatted images were created and reviewed. CONTRAST: 100 mL of [id number] administered intravenously. COMPARISON: Prior CT abdomen and pelvis of 2017-02-14 19:30 FINDINGS: LUNG BASES: No significant abnormality seen. ABDOMEN: LIVER: Stable appearance of a N. indeterminate hypervascular lesion in the right lobe of the liver, measuring 2.5 cm maximally, which contains tiny calcifications. This lesion could be further evaluated with followup liver protocol MRI, as clinically indicated, on a nonemergent basis. Fatty infiltration of the liver. No evidence of diffuse liver lesions. GALLBLADDER AND BILE DUCTS: No CT evidence of acute cholecystitis. No evidence of significant biliary ductal dilatation. PANCREAS: Findings highly suspicious for moderate to severe acute pancreatitis. There is peripancreatic stranding and fluid, moderate to severe in degree, involving the body and tail of the pancreas primarily. There is a small amount of fluid in the retroperitoneum on the left. Best seen on image 34, there is a small 9 mm round, low density masslike area in the pancreatic neck, also seen on the prior study, suspicious for a small cystic pancreatic mass. This does not appear enlarged in size compared to the previous exam. Tiny calcifications in the pancreatic head, compatible with chronic pancreatitis. No evidence of focal peripancreatic fluid collection. No evidence of splenic vein thrombosis. SPLEEN: No acute abnormality of the spleen identified. ADRENALS: No acute abnormality of the adrenal glands identified. KIDNEYS AND URETERS: Tiny, nonobstructing left renal stone. Incidental multiple fluid density probable cystic bilateral renal lesions, all measuring less than 10 mm. Consistent with the [employer]?s Incidental Findings Committee Report, unless the patient?s specific circumstances suggest otherwise, any cystic kidney lesion less than 1.0 cm not otherwise characterized in this report as possessing suspicious or indeterminate imaging features is/are highly likely to be benign and do not require follow-up imaging or biopsy. Bilateral renal scarring. No evidence of hydroureteronephrosis. STOMACH AND BOWEL: No acute abnormality of the stomach, small bowel or colon identified. No evidence of bowel obstruction. PELVIS: APPENDIX: Appendix is seen, and is within normal limits in appearance. BLADDER: No acute abnormality of the bladder identified. REPRODUCTIVE: No acute abnormality of the reproductive organs is seen. ABDOMEN and PELVIS: INTRAPERITONEAL SPACE: No evidence of free intraperitoneal air or fluid. BONES/JOINTS: No acute fractures or other acute bony abnormality noted. SOFT TISSUES: No acute abnormality of the visualized soft tissues is seen. VASCULATURE: See above. No evidence of abdominal aortic aneurysm or dissection. LYMPH NODES: No evidence of diffuse lymphadenopathy. IMPRESSION: - Findings highly suspicious for moderate to severe acute pancreatitis. - Otherwise stable findings compared to a prior CT of 02/14/2017. - 2.5 cm indeterminate hypervascular liver lesion. - Small 9 mm probable cystic lesion in the pancreas. In this patient, a differential considerations include a pseudocyst and a small cystic pancreatic neoplasm. - See above for remaining findings.
[2017-12-02] MEDS ORDERED: Sodium Chloride 0.9% 1,000 ML IV ONE (08:06)
[2017-12-02] MEDS ORDERED: Morphine 4 MG/ML VIAL ONE (08:21)
[2017-12-02] MEDS ORDERED: HYDROmorphone 0.5 mg/0.5 ml ISec IVP PRN (10:04)
[2017-12-02] MEDS ORDERED: Multivitamin (MVI) 10 ML, Thiamine 100 MG, Folic Acid 1 MG in Sodium Chloride 0.9% 1,00... IV ONE (10:15)
[2017-12-02] MEDS: Lactated Ringer's 1,000 ML IV SCH ×3 (10:29→19:38)
[2017-12-02] MEDS: (Novolin R) Insulin Human Regular 100 units/ml vial SC SCH ×3 (11:32→21:13)
--- NOTE | 2017-12-02 13:42 | CP.PCM.CON ---
<Juliano Chavis - Last Filed: 12/02/17 14:00> History of Present Illness - History of Present Illness History of Present Illness: PGY5 GI Fellow Consult Note Patient is a 61yo male with PMHx significant for EtOH abuse, pancreatitis, HTN and diabetes who presented to the ED with abdominal pain. At the moment, patient is drowsy but somewhat arousable, having been given Morphine, Toradol and Ativan recently. He is unable to provide any history at this time; one to one aide is at bedside to assist and monitor patient. Per the EMR, patient had sudden onset abdominal pain 3 hours prior to arrival and admitted to EtOH use leading up to admission. In the past, patient had admitted to drinking a cup of Whisky, 2-3 times per week. At this time, patient is comfortable and is able to state that he is feeling better than when he arrived. CT performed in the ED revealed moderate to severe pancreatitis characterized by peripancreatic fat stranding a fluid collection. Pancreatic cystic lesions, previously noted on imaging, are again redemonstrated. 12 system ROS cannot be performed given clinical condition PMHx: See HPI PSHx: Unable to assess at this time given clinical condition FHx: Unable to assess at this time given clinical condition Social: Per EMR, EtOH 2-3 times per week, 40 pack year smoker Endo: No documented evaluations previously Past Patient History - Infectious Disease Hx of Infectious Diseases: None - Past Medical History & Family History Past Medical History?: Yes - Past Social History Smoking Status: Never Smoked - CARDIAC Hx Hypertension: Yes - PULMONARY Hx Respiratory Disorders: No - NEUROLOGICAL Hx Neurological Disorder: No - HEENT Hx HEENT Problems: Yes Other/Comment: wears corrective eyeglasses - RENAL Hx Chronic Kidney Disease: No - ENDOCRINE/METABOLIC Hx Endocrine Disorders: Yes Hx Diabetes Mellitus Type 2: Yes - HEMATOLOGICAL/ONCOLOGICAL Hx Blood Disorders: No - INTEGUMENTARY Hx Dermatological Problems: No - MUSCULOSKELETAL/RHEUMATOLOGICAL Hx Back Pain: Yes Hx Falls: No - GASTROINTESTINAL Hx Pancreatitis: Yes - GENITOURINARY/GYNECOLOGICAL Hx Genitourinary Disorders: No - PSYCHIATRIC Hx Substance Use: No - SURGICAL HISTORY Hx Surgeries: No - ANESTHESIA Hx Anesthesia: No Meds Allergies/Adverse Reactions: Allergies Allergy/AdvReac Type Severity Reaction Status Date / Time naproxen AdvReac Diffuse Verified 12/02/17 03:06 rashes - Medications Medications: Current Medications Multivitamins/Vitamin C 10 ml/Thiamine HCl 100 mg/ Folic Acid 1 mg/ Sodium Chloride 1,011.2 mls @ 250 mls/hr IV .Q4H3M ONE Stop: 12/02/17 14:17 Last Admin: 12/02/17 11:14 Dose: 250 mls/hr Lactated Ringer's (Lactated Ringer's) 1,000 mls @ 200 mls/hr IV .Q5H MICHELLE Last Admin: 12/02/17 10:29 Dose: 200 mls/hr Insulin Human Regular (Novolin R) 0 unit SC ACHS MICHELLE PRN Reason: Protocol Last Admin: 12/02/17 11:32 Dose: Not Given Ketorolac Tromethamine (Toradol) 30 mg IVP Q6 PRN PRN Reason: Pain, severe (8-10) Lorazepam (Ativan) 2 mg IVP Q8H MICHELLE PRN Reason: Taper Stop: 12/07/17 09:59 Last Admin: 12/02/17 10:29 Dose: 2 mg Lorazepam (Ativan) 1 mg IVP Q4H PRN PRN Reason: Symptoms of alcohol withdrawl Physical Exam - Constitutional Appears: No Acute Distress, Confused - Eye Exam Eye Exam: PERRL - ENT Exam ENT Exam: Mucous Membranes Dry - Respiratory Exam Respiratory Exam: Clear to Auscultation Bilateral. absent: Rales, Rhonchi, Wheezes - Cardiovascular Exam Cardiovascular Exam: RRR, +S1, +S2 - GI/Abdominal Exam GI & Abdominal Exam: Normal Bowel Sounds, Soft. absent: Distended, Firm, Guarding, Organomegaly, Rigid, Tenderness - Extremities Exam Extremities exam: Positive for: normal inspection. Negative for: pedal edema - Neurological Exam Neurological exam: Altered - Skin Skin Exam: Dry, Warm Results - Vital Signs Recent Vital Signs: Last Vital Signs Temp 97.9 F 12/02/17 09:25 Pulse 87 12/02/17 09:25 Resp 20 12/02/17 09:25 BP 160/91 H 12/02/17 09:25 Pulse Ox 94 L 12/02/17 09:25 - Labs Result Diagrams: 12/02/17 03:19 12/02/17 03:19 Labs: Laboratory Results - last 24 hr 12/02/17 12/02/17 12/02/17 02:59 03:19 03:19 WBC 9.4 RBC 4.83 Hgb 15.1 Hct 43.9 MCV 90.8 MCH 31.2 H MCHC 34.3 RDW 15.1 H Plt Count 173 MPV 9.6 Neut % (Auto) 76.4 H Lymph % (Auto) 12.0 L Trigg % (Auto) 7.0 Eos % (Auto) 3.7 Baso % (Auto) 0.9 Neut # (Auto) 7.2 H Lymph # (Auto) 1.1 Trigg # (Auto) 0.7 Eos # (Auto) 0.3 Baso # (Auto) 0.1 Sodium 140 Potassium 3.7 Chloride 101 Carbon Dioxide 19 L Anion Gap 23 H BUN 11 Creatinine 0.6 L Est GFR ( Amer) > 60 Est GFR (Non-Af Amer) > 60 POC Glucose (mg/dL) 167 H Random Glucose 167 H Calcium 9.2 Total Bilirubin 0.5 AST 44 ALT 33 Alkaline Phosphatase 120 Total Protein 7.9 Albumin 4.4 Globulin 3.5 Albumin/Globulin Ratio 1.2 Lipase > 85307 H Alcohol, Quantitative 12/02/17 12/02/17 03:54 11:23 WBC RBC Hgb Hct MCV MCH MCHC RDW Plt Count MPV Neut % (Auto) Lymph % (Auto) Trigg % (Auto) Eos % (Auto) Baso % (Auto) Neut # (Auto) Lymph # (Auto) Trigg # (Auto) Eos # (Auto) Baso # (Auto) Sodium Potassium Chloride Carbon Dioxide Anion Gap BUN Creatinine Est GFR ( Amer) Est GFR (Non-Af Amer) POC Glucose (mg/dL) 108 Random Glucose Calcium Total Bilirubin AST ALT Alkaline Phosphatase Total Protein Albumin Globulin Albumin/Globulin Ratio Lipase Alcohol, Quantitative 85 H Assessment & Plan - Assessment and Plan (Free Text) Assessment: Patient is a 61yo male with PMHx significant for EtOH abuse, pancreatitis, HTN and diabetes who presented to the ED with abdominal pain. -Acute on chronic alcoholic pancreatitis -Pancreatic cysts -Vascular liver lesion -EtOH abuse -HTN -DM Plan: -Recommend aggressive IVF resuscitation with LR@200cc/hr -S/P 2L IVF bolus in ED -NPO while patient is less alert, liquid diet once patient is more alert -Will benefit from triple phase imaging of liver/pancreas to better characterize lesions -Reviewed MRCP from prior admission - cystic lesions suspected with differential including pseudocyst, IPMN; no PD dilation or solid component noted -Analgesia per primary service -EtOH cessation -Treatment of EtOH withdrawal as needed -Please avoid over-sedation - Date & Time Date: 12/02/17 Time: 13:20 <Alfredo Hummel - Last Filed: 12/02/17 14:12> Meds - Medications Medications: Current Medications Multivitamins/Vitamin C 10 ml/Thiamine HCl 100 mg/ Folic Acid 1 mg/ Sodium Chloride 1,011.2 mls @ 250 mls/hr IV .Q4H3M ONE Stop: 12/02/17 14:17 Last Admin: 12/02/17 11:14 Dose: 250 mls/hr Lactated Ringer's (Lactated Ringer's) 1,000 mls @ 200 mls/hr IV .Q5H MICHELLE Last Admin: 12/02/17 10:29 Dose: 200 mls/hr Insulin Human Regular (Novolin R) 0 unit SC ACHS MICHELLE PRN Reason: Protocol Last Admin: 12/02/17 11:32 Dose: Not Given Ketorolac Tromethamine (Toradol) 30 mg IVP Q6 PRN PRN Reason: Pain, severe (8-10) Lorazepam (Ativan) 2 mg IVP Q8H MICHELLE PRN Reason: Taper Stop: 12/07/17 09:59 Last Admin: 12/02/17 10:29 Dose: 2 mg Lorazepam (Ativan) 1 mg IVP Q4H PRN PRN Reason: Symptoms of alcohol withdrawl Results - Vital Signs Recent Vital Signs: Last Vital Signs Temp 97.9 F 12/02/17 09:25 Pulse 87 12/02/17 09:25 Resp 20 12/02/17 09:25 BP 160/91 H 12/02/17 09:25 Pulse Ox 94 L 12/02/17 09:25 - Labs Result Diagrams: 12/02/17 03:19 12/02/17 03:19 Labs: Laboratory Results - last 24 hr 12/02/17 12/02/17 12/02/17 02:59 03:19 03:19 WBC 9.4 RBC 4.83 Hgb 15.1 Hct 43.9 MCV 90.8 MCH 31.2 H MCHC 34.3 RDW 15.1 H Plt Count 173 MPV 9.6 Neut % (Auto) 76.4 H Lymph % (Auto) 12.0 L Trigg % (Auto) 7.0 Eos % (Auto) 3.7 Baso % (Auto) 0.9 Neut # (Auto) 7.2 H Lymph # (Auto) 1.1 Trigg # (Auto) 0.7 Eos # (Auto) 0.3 Baso # (Auto) 0.1 Sodium 140 Potassium 3.7 Chloride 101 Carbon Dioxide 19 L Anion Gap 23 H BUN 11 Creatinine 0.6 L Est GFR ( Amer) > 60 Est GFR (Non-Af Amer) > 60 POC Glucose (mg/dL) 167 H Random Glucose 167 H Calcium 9.2 Total Bilirubin 0.5 AST 44 ALT 33 Alkaline Phosphatase 120 Total Protein 7.9 Albumin 4.4 Globulin 3.5 Albumin/Globulin Ratio 1.2 Triglycerides Cholesterol HDL Cholesterol Lipase > 43637 H Alcohol, Quantitative 12/02/17 12/02/17 12/02/17 03:54 11:23 13:34 WBC RBC Hgb Hct MCV MCH MCHC RDW Plt Count MPV Neut % (Auto) Lymph % (Auto) Trigg % (Auto) Eos % (Auto) Baso % (Auto) Neut # (Auto) Lymph # (Auto) Trigg # (Auto) Eos # (Auto) Baso # (Auto) Sodium Potassium Chloride Carbon Dioxide Anion Gap BUN Creatinine Est GFR ( Amer) Est GFR (Non-Af Amer) POC Glucose (mg/dL) 108 Random Glucose Calcium Total Bilirubin AST ALT Alkaline Phosphatase Total Protein Albumin Globulin Albumin/Globulin Ratio Triglycerides 102 D Cholesterol 172 HDL Cholesterol 52 Lipase Alcohol, Quantitative 85 H Attending/Attestation - Attestation I have personally seen and examined this patient.: Yes I have fully participated in the care of the patient.: Yes I have reviewed all pertinent clinical information: Yes Notes (Text): 12/02/17 14:05 I have seen and examined patient with GI fellow. Agree with above documentation with the following additions. In brief, this is a 61 year old male with history of ETOH abuse, chronic pancreatitis, DM, HTN, who presents to hospital with complaint of abdominal pain in setting of ongoing ETOH abuse. Patient is lethargic after recent ativan administration, not able to participate in meaningful conversation. Additional information obtained via chart review, discussion with nursing staff and patient family members. Patient claims to have had sudden onset abdominal pain yesterday which has improved since arrival to hospital. He denies nausea, vomiting, diarrhea, fever /chills, weight loss, jaundice, pruritis, or change in bowel habits. Unclear regarding prior endoscopic evaluation. Review of vitals from today shows elevated BP. Additional physical examination: Psych: unable to assess mood and insight DM / HTN ETOH abuse Abdominal pain - acute on chronic pancreatitis CT imaging reviewed by me showing pancreatic calcifications, significant aury- pancreatic edema with stranding consistent with acute on chronic disease, two subcentimeter lesions, 2.5 cm hyperechoic liver lesion - NPO - Suggest aggressive IVF hydration therapy - Pain control - Monitor for signs of ETOH withdrawal - Obtain viral hepatitis panel, AFP - Continue to monitor LFTs - Patient would benefit from triple phase liver CT and dedicated pancreatic imaging following resolution of acute symptoms - Will continue to monitor patient clinical course
[2017-12-02 14:02] LABS: HDL CHOLESTEROL 52 mg/dL (30-70)
[2017-12-02 14:13] LABS: LDL CHOLESTEROL 109 mg/dL (0-129)
--- NOTE | 2017-12-02 14:39 | CP.PCM.HP ---
<Mary Carter - Last Filed: 12/02/17 15:02> History of Present Illness - History of Present Illness History of Present Illness: CC: Abdominal pain Patient is a 61 y/o M with pmhx of recurrent pancreatitis, uncontrolled DM, uncontrolled HTN, alcohol abuse who presents today for abdominal pain which started last night around 11pm. Patient says his last drink was yesterday from about 9-10 pm during which he drank a teacup full of whiskey. Patient says the abdominal pain is all over. Patient also complains of some epigastric burning. Patient took an antacid and tylenol which did not help. Patient said his last bowel movement was yesterday and he saw no blood in the stool. Patient denies any dizziness, headache, changes in vision, shortness of breath, chest pain, nausea, vomiting, constipation, or diarrhea. PMD: none PMHx: DM (uncontrolled), HTN (uncontrolled), pancreatitis, alcohol use disorder PSHX: denies FHx: father- age 45 from possible AL/CVA; mother- many years ago; no known family history of cancer Medications: denies taking any medications on a regular basis; states that he takes Metformin 500mg once a day and something for his blood pressure when he "feels bad" Allergies: Naproxen (rash) when he takes a lot of it Social hx: lives with , drinks a teacup of whiskey most days for past 30 years, smokes 15 cigarettes a day for 40 years, denies any drugs Present on Admission - Present on Admission Any Indicators Present on Admission: Yes History of DVT/PE: No History of Uncontrolled Diabetes: Yes Urinary Catheter: No Decubitus Ulcer Present: No Review of Systems - Constitutional Constitutional: absent: Anorexia, Chills, Fever - EENT Eyes: absent: Blurred Vision, Change in Vision Nose/Mouth/Throat: absent: Hoarsness, Sore Throat - Cardiovascular Cardiovascular: absent: Chest Pain, Claudication, Dyspnea, Edema, Palpitations - Respiratory Respiratory: absent: Cough, Dyspnea - Gastrointestinal Gastrointestinal: Abdominal Pain, Heartburn. absent: Constipation, Diarrhea, Hematochezia, Melena, Nausea, Vomiting - Genitourinary Genitourinary: absent: Difficulty Urinating, Dysuria - Integumentary Integumentary: absent: Rash Past Patient History - Infectious Disease Hx of Infectious Diseases: None - Past Medical History & Family History Past Medical History?: Yes - Past Social History Smoking Status: Never Smoked - CARDIAC Hx Hypertension: Yes - PULMONARY Hx Respiratory Disorders: No - NEUROLOGICAL Hx Neurological Disorder: No - HEENT Hx HEENT Problems: Yes Other/Comment: wears corrective eyeglasses - RENAL Hx Chronic Kidney Disease: No - ENDOCRINE/METABOLIC Hx Endocrine Disorders: Yes Hx Diabetes Mellitus Type 2: Yes - HEMATOLOGICAL/ONCOLOGICAL Hx Blood Disorders: No - INTEGUMENTARY Hx Dermatological Problems: No - MUSCULOSKELETAL/RHEUMATOLOGICAL Hx Back Pain: Yes Hx Falls: No - GASTROINTESTINAL Hx Pancreatitis: Yes - GENITOURINARY/GYNECOLOGICAL Hx Genitourinary Disorders: No - PSYCHIATRIC Hx Substance Use: No - SURGICAL HISTORY Hx Surgeries: No - ANESTHESIA Hx Anesthesia: No Meds Allergies/Adverse Reactions: Allergies Allergy/AdvReac Type Severity Reaction Status Date / Time naproxen AdvReac Diffuse Verified 12/02/17 03:06 rashes Physical Exam - Constitutional Appears: Non-toxic, No Acute Distress - Head Exam Head Exam: ATRAUMATIC, NORMAL INSPECTION, NORMOCEPHALIC - Eye Exam Eye Exam: EOMI, Normal appearance - ENT Exam ENT Exam: Mucous Membranes Moist - Respiratory Exam Respiratory Exam: Clear to Auscultation Bilateral, NORMAL BREATHING PATTERN. absent: Rales, Rhonchi, Wheezes, Respiratory Distress, Stridor - Cardiovascular Exam Cardiovascular Exam: REGULAR RHYTHM, RRR, +S1, +S2 - GI/Abdominal Exam GI & Abdominal Exam: Distended, Guarding, Normal Bowel Sounds - Back Exam Back exam: NORMAL INSPECTION - Neurological Exam Neurological exam: Alert, Oriented x3 - Psychiatric Exam Psychiatric exam: Normal Affect, Normal Mood - Skin Skin Exam: Intact, Normal Color, Warm Results - Vital Signs Recent Vital Signs: Last Vital Signs Temp 97.9 F 12/02/17 09:25 Pulse 87 12/02/17 09:25 Resp 20 12/02/17 09:25 BP 160/91 H 12/02/17 09:25 Pulse Ox 94 L 12/02/17 09:25 - Labs Result Diagrams: 12/02/17 03:19 12/02/17 03:19 Labs: Laboratory Results - last 24 hr 12/02/17 12/02/17 12/02/17 02:59 03:19 03:19 WBC 9.4 RBC 4.83 Hgb 15.1 Hct 43.9 MCV 90.8 MCH 31.2 H MCHC 34.3 RDW 15.1 H Plt Count 173 MPV 9.6 Neut % (Auto) 76.4 H Lymph % (Auto) 12.0 L Tompkins % (Auto) 7.0 Eos % (Auto) 3.7 Baso % (Auto) 0.9 Neut # (Auto) 7.2 H Lymph # (Auto) 1.1 Tompkins # (Auto) 0.7 Eos # (Auto) 0.3 Baso # (Auto) 0.1 Sodium 140 Potassium 3.7 Chloride 101 Carbon Dioxide 19 L Anion Gap 23 H BUN 11 Creatinine 0.6 L Est GFR ( Amer) > 60 Est GFR (Non-Af Amer) > 60 POC Glucose (mg/dL) 167 H Random Glucose 167 H Calcium 9.2 Total Bilirubin 0.5 AST 44 ALT 33 Alkaline Phosphatase 120 Total Protein 7.9 Albumin 4.4 Globulin 3.5 Albumin/Globulin Ratio 1.2 Triglycerides Cholesterol LDL Cholesterol Direct HDL Cholesterol Lipase > 26485 H Alcohol, Quantitative 12/02/17 12/02/17 12/02/17 03:54 11:23 13:34 WBC RBC Hgb Hct MCV MCH MCHC RDW Plt Count MPV Neut % (Auto) Lymph % (Auto) Tompkins % (Auto) Eos % (Auto) Baso % (Auto) Neut # (Auto) Lymph # (Auto) Tompkins # (Auto) Eos # (Auto) Baso # (Auto) Sodium Potassium Chloride Carbon Dioxide Anion Gap BUN Creatinine Est GFR ( Amer) Est GFR (Non-Af Amer) POC Glucose (mg/dL) 108 Random Glucose Calcium Total Bilirubin AST ALT Alkaline Phosphatase Total Protein Albumin Globulin Albumin/Globulin Ratio Triglycerides 102 D Cholesterol 172 LDL Cholesterol Direct 109 HDL Cholesterol 52 Lipase Alcohol, Quantitative 85 H Assessment & Plan - Assessment and Plan (Free Text) Assessment: Acute pancreatitis Lipase on admission: >20,000 Abdomen/ Pelvis CT: findings highly suspicious for moderate to severe acute pancreatitis. 2.5cm indeterminate hypervascular liver lesion. small 9mm probable cystic lesion in the pancrease. f/u abd ultrasound GI consulted, Dr. Hummel, help appreciated f/u hep panel, AFP Management: * NPO expect for medication * 1 banana bag * LR @ 200mls/hr * Toradol 30mg q6h prn Diabetes mellitus HgbA1C: 7.2 (10/13/16) Accuchecks ISS - Low dose Hypoglycemia protocol HTN continue to monitor consider adding MICHAELA-I Alcohol abuse On admission alcohol: * 85 Management: * Alcohol withdrawal protocol * Seizure precautions, fall precautions * Ativan taper * Ativan 1mg q4h prn alcohol withdrawal * Multivitamin 1 tab PO daily * Folic acid 1 tab PO daily * Thiamine 100mg PO daily Prophylactic Measures GI: Protonix 40mg ivp daily SCDs <Emily Hu - Last Filed: 12/04/17 17:18> Results - Vital Signs Recent Vital Signs: Last Vital Signs Temp 97.3 F L 12/04/17 15:32 Pulse 81 12/04/17 15:32 Resp 20 12/04/17 15:32 BP 153/91 H 12/04/17 15:32 Pulse Ox 97 12/04/17 15:32 - Labs Result Diagrams: 12/04/17 07:14 12/04/17 07:14 Labs: Laboratory Results - last 24 hr 12/03/17 12/04/17 12/04/17 20:58 07:14 07:14 WBC 7.4 RBC 4.37 L Hgb 13.8 Hct 39.6 MCV 90.6 MCH 31.7 H MCHC 34.9 RDW 15.2 H Plt Count 163 MPV 9.6 Neut % (Auto) 65.2 Lymph % (Auto) 19.5 L Tompkins % (Auto) 8.7 Eos % (Auto) 5.8 H Baso % (Auto) 0.8 Neut # (Auto) 4.8 Lymph # (Auto) 1.4 Tompkins # (Auto) 0.6 Eos # (Auto) 0.4 Baso # (Auto) 0.1 Sodium 140 Potassium 3.7 Chloride 100 Carbon Dioxide 25 Anion Gap 18 BUN 11 Creatinine 0.7 L Est GFR ( Amer) > 60 Est GFR (Non-Af Amer) > 60 POC Glucose (mg/dL) 153 H Random Glucose 149 H Calcium 9.7 Phosphorus 3.8 Magnesium 1.4 L Total Bilirubin 0.7 AST 38 ALT 23 Alkaline Phosphatase 84 Total Protein 7.6 Albumin 4.1 Globulin 3.5 Albumin/Globulin Ratio 1.2 Amylase 265 H Lipase 1985 H 12/04/17 12/04/1712/04/18 07:15 11:05 16:36 WBC RBC Hgb Hct MCV MCH MCHC RDW Plt Count MPV Neut % (Auto) Lymph % (Auto) Tompkins % (Auto) Eos % (Auto) Baso % (Auto) Neut # (Auto) Lymph # (Auto) Tompkins # (Auto) Eos # (Auto) Baso # (Auto) Sodium Potassium Chloride Carbon Dioxide Anion Gap BUN Creatinine Est GFR ( Amer) Est GFR (Non-Af Amer) POC Glucose (mg/dL) 126 H 122 H 110 Random Glucose Calcium Phosphorus Magnesium Total Bilirubin AST ALT Alkaline Phosphatase Total Protein Albumin Globulin Albumin/Globulin Ratio Amylase Lipase Attending/Attestation - Attestation I have personally seen and examined this patient.: Yes I have fully participated in the care of the patient.: Yes I have reviewed all pertinent clinical information: Yes Notes (Text): Seen and examined by me at ER patient was complaining of abdominal pain He is a 61 years old alcoholic male with h/o recurrent pancreatitis is here with pain and acute pancreatitis 1.Acute pancreatitis 2.recurresnt pancreatitis 3.HTN 4.DM 5.alcohol abuse Discussed with the resident.I agree with the assessment and the plan
[2017-12-02] MEDS ORDERED: Glucagon Recombinant 1 mg Inj IM PRN (14:45)
[2017-12-02] MEDS ORDERED: Dextrose 50% SYRINGE Inj (50 ml) IV PRN (14:45)
--- NOTE | 2017-12-02 15:26 | US ---
HISTORY: Acute pancreatitis. Cholelithiasis affected COMPARISON: 08/21/2016 abdominal ultrasound December 02, 2017. CT abdomen and pelvis 02/15/2017 MRI high abdomen TECHNIQUE: Sonographic evaluation of the abdomen. FINDINGS: LIVER: Measures 16.7 cm. Hepatopedal blood flow. Fatty infiltration manifest ultrasonographically as increased echogenicity of the liver parenchyma. Hepatic mass 2.9 x 3.8 cm. Confirmation of finding on recent CT of the abdomen and pelvis the mass displays peripheral shadowing consistent with calcific foci within the mass. GALLBLADDER: Unremarkable. No gallstones. COMMON BILE DUCT: Measures 4.1 mm. No stones. No dilatation. PANCREAS: Mass in the head of the pancreas 3.8 x 2.9 cm. The mass is not appreciated on the recent CT scan, may represent known pancreatitis. RIGHT KIDNEY: Measures 5 x 11.1cm. Normal echogenicity. No calculus, mass, or hydronephrosis. LEFT KIDNEY: Measures 5.8 x 10.9cm. Normal echogenicity. No calculus, mass, or hydronephrosis. SPLEEN: Normal in size and contour. No mass. AORTA: No aneurysmal dilatation. IVC: Unremarkable. OTHER FINDINGS: None. IMPRESSION: Negative study for cholelithiasis. Unremarkable gallbladder. Confirmation of previously identified mass right hepatic lobe. Mass in the head of the pancreas, indeterminate -may be related to known pancreatitis.
[2017-12-02 17:16] LABS: BLOOD UREA NITROGEN 9 mg/dL (9-20); CALCIUM 8.1 mg/dl (8.6-10.4); GFR AFRICAN-AMERICAN > 60; GFR NON-AFRICAN AMERICAN > 60
[2017-12-02 17:45] LABS: HEPATITIS B SURFACE AG Negative (NEGATIVE)
[2017-12-02 17:51] LABS: HEPATITIS A IGM NEGATIVE (NEGATIVE); HEPATITIS B CORE AB NEGATIVE (NEGATIVE)
[2017-12-02 18:02] LABS: HEPATITIS C ANTIBODY NEGATIVE (NEGATIVE)
[2017-12-03] MEDS: Lactated Ringer's 1,000 ML IV SCH ×4 (00:45→20:55)
[2017-12-03 06:46] LABS: BASO # 0.1 K/uL (0.0-0.2); EOS # 0.5 K/uL (0.0-0.7); HEMOGLOBIN 13.6 g/dL (12.0-18.0); LYMPH # 1.4 K/uL (1.0-4.3); LYMPH % 18.1 % (20.0-40.0); MEAN CELL VOLUME 90.6 fL (80.0-94.0); MEAN CORPUSCULAR HEMOGLOBIN 31.1 pg (27.0-31.0); MEAN CORPUSCULAR HGB CONC 34.4 g/dL (33.0-37.0); MEAN PLATELET VOLUME 9.2 fL (7.2-11.7); MONO # 0.6 K/uL (0.0-0.8); MONO % 7.8 % (0.0-10.0); NEUT # 5.4 K/uL (1.8-7.0); NEUT % 67.1 % (50.0-75.0); RBC 4.36 Mil/uL (4.40-5.90); RED CELL DISTRIBUTION WIDTH 15.5 % (11.5-14.5)
[2017-12-03 07:02] LABS: ALB/GLOB RATIO 1.2 (1.0-2.1); ALBUMIN 3.8 g/dL (3.5-5.0); ALT/SGPT 29 U/L (21-72); AST/SGOT 35 U/L (17-59); BLOOD UREA NITROGEN 8 mg/dL (9-20); CALCIUM 8.8 mg/dl (8.6-10.4); GFR AFRICAN-AMERICAN > 60; GFR NON-AFRICAN AMERICAN > 60
[2017-12-03] MEDS: (Novolin R) Insulin Human Regular 100 units/ml vial SC SCH ×4 (07:54→22:00)
[2017-12-03 08:51] LABS: LIPASE 3820 U/L (23-300)
--- NOTE | 2017-12-03 09:35 | CP.PCM.PN ---
<Juliano Chavis - Last Filed: 12/03/17 09:36> Subjective - Date & Time of Evaluation Date of Evaluation: 12/03/17 Time of Evaluation: 06:50 - Subjective Subjective: PGY5 GI Fellow Progress Note Patient seen and examined bedside this morning. The patient states he is feeling better and denies any abdominal pain today. He is hungry and eager to eat. Admits to EtOH use up until Friday prior to admission. Ongoing tobacco use. 12 system ROS performed and negative except where stated. Objective - Vital Signs/Intake and Output Vital Signs (last 24 hours): Temp Pulse Resp BP Pulse Ox 98.1 F 79 18 164/91 H 95 12/03/17 07:00 12/03/17 07:00 12/03/17 07:00 12/03/17 07:00 12/03/17 07:00 Intake and Output: 12/03/17 12/03/17 06:59 18:59 Intake Total 3400 Output Total 2200 600 Balance 1200 -600 - Medications Medications: Current Medications Dextrose (Dextrose 50% Inj) 0 ml IV STAT PRN; Protocol PRN Reason: Hypoglycemia Protocol Dextrose (Glutose 15) 0 gm PO ONCE PRN; Protocol PRN Reason: Hypoglycemia Protocol Folic Acid (Folic Acid) 1 mg PO DAILY [facility] Glucagon (Glucagen Diagnostic Kit) 0 mg IM STAT PRN; Protocol PRN Reason: Hypoglycemia Protocol Lactated Ringer's (Lactated Ringer's) 1,000 mls @ 200 mls/hr IV .Q5H [facility] Last Admin: 12/03/17 05:34 Dose: 200 mls/hr Dextrose (Dextrose 5% In Water 1000 Ml) 1,000 mls @ 0 mls/hr IV .Q0M PRN; Protocol; Per Protocol PRN Reason: Hypoglycemia Protocol Insulin Human Regular (Novolin R) 0 unit SC ACHS MICHELLE PRN Reason: Protocol Last Admin: 12/03/17 07:54 Dose: Not Given Ketorolac Tromethamine (Toradol) 30 mg IVP Q6 PRN PRN Reason: Pain, severe (8-10) Last Admin: 12/02/17 21:24 Dose: 30 mg Lorazepam (Ativan) 2 mg IVP Q8H [facility]HELLE PRN Reason: Taper Stop: 12/07/17 09:59 Last Admin: 12/03/17 01:44 Dose: 2 mg Lorazepam (Ativan) 1 mg IVP Q4H PRN PRN Reason: Symptoms of alcohol withdrawl Multivitamins (Hexavitamin) 1 tab PO DAILY [facility] Pantoprazole Sodium (Protonix Inj) 40 mg IVP DAILY [facility] Last Admin: 12/02/17 15:15 Dose: 40 mg Thiamine HCl (Vitamin B1 Tab) 100 mg PO DAILY [facility] - Labs Labs: 12/03/17 06:36 12/03/17 06:36 - Constitutional Appears: Non-toxic, No Acute Distress - Eye Exam Eye Exam: EOMI, PERRL - ENT Exam ENT Exam: Mucous Membranes Moist - Respiratory Exam Respiratory Exam: Clear to Ausculation Bilateral. absent: Rales, Rhonchi, Wheezes - Cardiovascular Exam Cardiovascular Exam: RRR, +S1, +S2 - GI/Abdominal Exam GI & Abdominal Exam: Soft, Normal Bowel Sounds. absent: Distended, Firm, Guarding, Rigid, Tenderness, Organomegaly - Extremities Exam Extremities Exam: Normal Inspection. absent: Pedal Edema - Neurological Exam Neurological Exam: Alert, Awake, Oriented x3 - Psychiatric Exam Psychiatric exam: Normal Affect, Normal Mood - Skin Skin Exam: Dry, Warm Assessment and Plan - Assessment and Plan (Free Text) Assessment: Patient is a 61yo male with PMHx significant for EtOH abuse, pancreatitis, HTN and diabetes who presented to the ED with abdominal pain. -Acute on chronic alcoholic pancreatitis -Pancreatic cysts -Vascular liver lesion -EtOH abuse -HTN -DM Plan: -Continue IVF wiht LR@200cc/hr until patient tolerating PO completely -Check triple phase CT liver to better characterize lesions -Will need dedicated pancreatic imaging or EUS as outpatient following resolution of event -Analgesia per primary service -EtOH/tobacco cessation stressed -Advanced to full liquid diet; advance as tolerated <Alfredo Hummel - Last Filed: 12/03/17 17:53> Objective - Vital Signs/Intake and Output Vital Signs (last 24 hours): Temp Pulse Resp BP Pulse Ox 98.4 F 80 20 148/81 97 12/03/17 15:00 12/03/17 15:00 12/03/17 15:00 12/03/17 15:00 12/03/17 15:00 Intake and Output: 12/03/17 12/03/17 06:59 18:59 Intake Total 3400 Output Total 2200 1600 Balance 1200 -1600 - Medications Medications: Current Medications Dextrose (Dextrose 50% Inj) 0 ml IV STAT PRN; Protocol PRN Reason: Hypoglycemia Protocol Dextrose (Glutose 15) 0 gm PO ONCE PRN; Protocol PRN Reason: Hypoglycemia Protocol Folic Acid (Folic Acid) 1 mg PO DAILY [facility] Last Admin: 12/03/17 10:26 Dose: 1 mg Glucagon (Glucagen Diagnostic Kit) 0 mg IM STAT PRN; Protocol PRN Reason: Hypoglycemia Protocol Lactated Ringer's (Lactated Ringer's) 1,000 mls @ 200 mls/hr IV .Q5H [facility] Last Admin: 12/03/17 15:00 Dose: 200 mls/hr Dextrose (Dextrose 5% In Water 1000 Ml) 1,000 mls @ 0 mls/hr IV .Q0M PRN; Protocol; Per Protocol PRN Reason: Hypoglycemia Protocol Insulin Human Regular (Novolin R) 0 unit SC ACHS MICHELLE PRN Reason: Protocol Last Admin: 12/03/17 16:30 Dose: 1 unit Ketorolac Tromethamine (Toradol) 30 mg IVP Q6 PRN PRN Reason: Pain, severe (8-10) Last Admin: 12/02/17 21:24 Dose: 30 mg Lorazepam (Ativan) 1 mg IVP Q6H [facility] PRN Reason: Taper Stop: 12/07/17 09:59 Last Admin: 12/03/17 17:10 Dose: 1 mg Lorazepam (Ativan) 1 mg IVP Q4H PRN PRN Reason: Symptoms of alcohol withdrawl Multivitamins (Hexavitamin) 1 tab PO DAILY [facility] Last Admin: 12/03/17 10:28 Dose: 1 tab Pantoprazole Sodium (Protonix Inj) 40 mg IVP DAILY [facility] Last Admin: 12/03/17 10:26 Dose: 40 mg Thiamine HCl (Vitamin B1 Tab) 100 mg PO DAILY [facility] Last Admin: 12/03/17 10:26 Dose: 100 mg - Labs Labs: 12/03/17 06:36 12/03/17 06:36 Attending/Attestation - Attestation I have personally seen and examined this patient.: Yes I have fully participated in the care of the patient.: Yes I have reviewed all pertinent clinical information, including history, physical exam and plan: Yes Notes (Text): 12/03/17 17:49 I have seen and examined patient with GI fellow. No acute events overnight, he is seen resting in bed comfortably. His abdominal pain has resolved and he denies nausea, vomiting, diarrhea, fever/chills. Asking for his diet to be advanced. Review of vitals from today shows elevated BP. ETOH abuse Acute on chronic pancreatitis DM / HTN Hepatic lesion Liver CT reviewed by me showing stable size hepatic lesion non-arterial enhancing, unlikely HCC, subcentimeter pancreatic lesion, chronic pancreatitis - Full liquid diet, advance slowly to low fat as tolerated - ETOH and cigarette smoking cessation counseling - Continue with IVF hydration therapy - Patient would benefit from repeat CT imaging within 6 months to ensure size stability of hepatic and pancreatic lesions - No further planned GI intervention, will sign off case. Please reconsult as necessary, thank you.
[2017-12-03] MEDS: Multiple Vitamins Tab PO SCH (10:28)
[2017-12-03] MEDS ORDERED: Iodixanol 320 MG/ML 100 ML BOTTLE IV ONE (12:10)
--- NOTE | 2017-12-03 13:30 | CP.PCM.PN ---
<GlennvillePura farrelllizandro Chacon - Last Filed: 12/03/17 13:27> Subjective - Date & Time of Evaluation Date of Evaluation: 12/03/17 Time of Evaluation: 07:45 - Subjective Subjective: Medicine progress note ( Dr. Hu's service) Patient was seen and examined at bedside. Patient was resting comfortably in bed in no acute distress. Patient reports improving symptoms. Patient denies fever, chills, nausea, vomiting, chest pain, SOB, palpitations but admits to very mild left sided abdominal pain. Objective - Vital Signs/Intake and Output Vital Signs (last 24 hours): Temp Pulse Resp BP Pulse Ox 98.1 F 79 18 164/91 H 95 12/03/17 07:00 12/03/17 07:00 12/03/17 07:00 12/03/17 07:00 12/03/17 07:00 Intake and Output: 12/03/17 12/03/17 06:59 18:59 Intake Total 3400 Output Total 2200 600 Balance 1200 -600 - Medications Medications: Current Medications Dextrose (Dextrose 50% Inj) 0 ml IV STAT PRN; Protocol PRN Reason: Hypoglycemia Protocol Dextrose (Glutose 15) 0 gm PO ONCE PRN; Protocol PRN Reason: Hypoglycemia Protocol Folic Acid (Folic Acid) 1 mg PO DAILY [facility] Last Admin: 12/03/17 10:26 Dose: 1 mg Glucagon (Glucagen Diagnostic Kit) 0 mg IM STAT PRN; Protocol PRN Reason: Hypoglycemia Protocol Lactated Ringer's (Lactated Ringer's) 1,000 mls @ 200 mls/hr IV .Q5H [facility] Last Admin: 12/03/17 05:34 Dose: 200 mls/hr Dextrose (Dextrose 5% In Water 1000 Ml) 1,000 mls @ 0 mls/hr IV .Q0M PRN; Protocol; Per Protocol PRN Reason: Hypoglycemia Protocol Insulin Human Regular (Novolin R) 0 unit SC ACHS MICHELLE PRN Reason: Protocol Last Admin: 12/03/17 12:02 Dose: 1 unit Ketorolac Tromethamine (Toradol) 30 mg IVP Q6 PRN PRN Reason: Pain, severe (8-10) Last Admin: 12/02/17 21:24 Dose: 30 mg Lorazepam (Ativan) 1 mg IVP Q6H [facility] PRN Reason: Taper Stop: 12/07/17 09:59 Last Admin: 12/03/17 10:26 Dose: 1 mg Lorazepam (Ativan) 1 mg IVP Q4H PRN PRN Reason: Symptoms of alcohol withdrawl Multivitamins (Hexavitamin) 1 tab PO DAILY [facility] Last Admin: 12/03/17 10:28 Dose: 1 tab Pantoprazole Sodium (Protonix Inj) 40 mg IVP DAILY [facility] Last Admin: 12/03/17 10:26 Dose: 40 mg Thiamine HCl (Vitamin B1 Tab) 100 mg PO DAILY [facility] Last Admin: 12/03/17 10:26 Dose: 100 mg - Labs Labs: 12/03/17 06:36 12/03/17 06:36 - Constitutional Appears: Well, No Acute Distress - Head Exam Head Exam: ATRAUMATIC - Eye Exam Eye Exam: EOMI - ENT Exam ENT Exam: Mucous Membranes Moist - Respiratory Exam Respiratory Exam: Clear to Ausculation Bilateral, NORMAL BREATHING PATTERN. absent: Prolonged Expiratory Phase, Rhonchi, Wheezes, Respiratory Distress - Cardiovascular Exam Cardiovascular Exam: REGULAR RHYTHM, +S1, +S2. absent: Murmur - GI/Abdominal Exam GI & Abdominal Exam: Soft, Normal Bowel Sounds. absent: Distended, Firm, Guarding, Rigid, Tenderness, Hyperactive Bowel Sounds - Extremities Exam Extremities Exam: Normal Inspection. absent: Calf Tenderness, Pedal Edema - Back Exam Back Exam: NORMAL INSPECTION - Neurological Exam Neurological Exam: Alert, Awake, Oriented x3 - Psychiatric Exam Psychiatric exam: Normal Affect - Skin Skin Exam: Normal Color Assessment and Plan (1) Acute on chronic pancreatitis Assessment & Plan: Secondary to alcohol abuse Lipase downtrending Consultation: GI, Dr. Hummel * Management as per recommendation Diagnostic Imaging/ Lab : * Abdominal/Pelvis CT: Findings highly suspicious for moderate to severe acute pancreatitis. Otherwise stable findings compared to a prior CT of 02/14/2017. 2.5 cm indeterminate hypervascular liver lesion. Small 9 mm probable cystic lesion in the pancreas. In this patient, a differential considerations include a pseudocyst and a small cystic pancreatic neoplasm * Abdominal Ultrasound: Negative study for cholelithiasis. Unremarkable gallbladder. Confirmation of previously identified mass right hepatic lobe. Mass in the head of the pancreas, indeterminate -may be related to known pancreatitis. * Lipid panel: - TGL: 102, Chol: 172, LDL:109 and HDL:52 Medication/Management: * LR @ 200mls * Toradol 30mg IV Q6H prn * Advance diet as tolerated Status: Acute (2) Alcohol abuse Assessment & Plan: Medication: Thiamine 100mg PO daily Multivitamin 1 tab Po daily Folic acid 1 tab PO daily Ativan 1mg Q4H PRN Ativan 1mg Q6H PRN Status: Acute (3) Pancreatic cyst Assessment & Plan: Abdominal/Pelvis CT: Findings highly suspicious for moderate to severe acute pancreatitis. Otherwise stable findings compared to a prior CT of 02/14/2017. 2.5 cm indeterminate hypervascular liver lesion. Small 9 mm probable cystic lesion in the pancreas. In this patient, a differential considerations include a pseudocyst and a small cystic pancreatic neoplasm GI Recommendation: Will need dedicated pancreatic imaging or EUS as outpatient following resolution of event Status: Acute (4) Liver lesion Assessment & Plan: Consultation: GI, Dr. Hummel * Management as per recommendation Diagnostic Imaging/Lab: * Abdominal/Pelvis CT: Findings highly suspicious for moderate to severe acute pancreatitis. Otherwise stable findings compared to a prior CT of 02/14/2017. 2.5 cm indeterminate hypervascular liver lesion. Small 9 mm probable cystic lesion in the pancreas. In this patient, a differential considerations include a pseudocyst and a small cystic pancreatic neoplasm * F/u Liver triple phase study * Hepatitis panel negative Status: Acute (5) Diabetes mellitus Assessment & Plan: HgbA1C: 7.2 (10/13/16) Accuchecks ISS - Low dose Hypoglycemia protocol Status: Acute (6) Prophylactic measure Assessment & Plan: GI: Protonix 40mg ivp daily DVT: SCDs All plans and management discussed with Dr. Hu Status: Acute <Emily Hu - Last Filed: 12/04/17 17:22> Objective - Vital Signs/Intake and Output Vital Signs (last 24 hours): Temp Pulse Resp BP Pulse Ox 97.3 F L 81 20 153/91 H 97 12/04/17 15:32 12/04/17 15:32 12/04/17 15:32 12/04/17 15:32 12/04/17 15:32 Intake and Output: 12/04/17 12/04/17 06:59 18:59 Intake Total 1999 2099 Balance 1999 2099 - Medications Medications: Current Medications Amlodipine Besylate (Norvasc) 5 mg PO DAILY [facility] Last Admin: 12/04/17 09:37 Dose: 5 mg Dextrose (Dextrose 50% Inj) 0 ml IV STAT PRN; Protocol PRN Reason: Hypoglycemia Protocol Dextrose (Glutose 15) 0 gm PO ONCE PRN; Protocol PRN Reason: Hypoglycemia Protocol Folic Acid (Folic Acid) 1 mg PO DAILY [facility] Last Admin: 12/04/17 09:37 Dose: 1 mg Glucagon (Glucagen Diagnostic Kit) 0 mg IM STAT PRN; Protocol PRN Reason: Hypoglycemia Protocol Dextrose (Dextrose 5% In Water 1000 Ml) 1,000 mls @ 0 mls/hr IV .Q0M PRN; Protocol; Per Protocol PRN Reason: Hypoglycemia Protocol Lactated Ringer's (Lactated Ringer's) 1,000 mls @ 100 mls/hr IV .Q10H [facility] Last Admin: 12/04/17 12:37 Dose: 100 mls/hr Insulin Human Regular (Novolin R) 0 unit SC ACHS MICHELLE PRN Reason: Protocol Last Admin: 12/04/17 11:27 Dose: Not Given Lorazepam (Ativan) 1 mg IVP Q8H [facility] PRN Reason: Taper Stop: 12/07/17 09:59 Last Admin: 12/04/17 09:39 Dose: 1 mg Lorazepam (Ativan) 1 mg IVP Q4H PRN PRN Reason: Symptoms of alcohol withdrawl Multivitamins (Hexavitamin) 1 tab PO DAILY [facility] Last Admin: 12/04/17 09:37 Dose: 1 tab Pantoprazole Sodium (Protonix Ec Tab) 40 mg PO DAILY [facility] Thiamine HCl (Vitamin B1 Tab) 100 mg PO DAILY [facility] Last Admin: 12/04/17 09:38 Dose: 100 mg - Labs Labs: 12/04/17 07:14 12/04/17 07:14 Attending/Attestation - Attestation I have personally seen and examined this patient.: Yes I have fully participated in the care of the patient.: Yes I have reviewed all pertinent clinical information, including history, physical exam and plan: Yes Notes (Text): Seen and examined by me patient has abdominal pain,lipase is coming down,tolerating liquid diet He is a 61 years old alcoholic male with h/o recurrent pancreatitis is here with pain and acute pancreatitis 1.Acute pancreatitis 2.recurresnt pancreatitis 3.HTN 4.DM 5.alcohol abuse 6. Liver mass and pancreatic syst Diagnostic Imaging/Lab: Abdominal/Pelvis CT: Findings highly suspicious for moderate to severe acute pancreatitis. Otherwise stable findings compared to a prior CT of 02/14/2017. 2.5 cm indeterminate hypervascular liver lesion. Small 9 mm probable cystic lesion in the pancreas. In this patient, a differential considerations include a pseudocyst and a small cystic pancreatic neoplasm GI recommended Liver triple phase study * Hepatitis panel negative Discussed with the resident.I agree with the assessment and the plan
--- NOTE | 2017-12-03 14:23 | CT ---
PROCEDURE: CT Abdomen and Pelvis with and without intravenous contrast HISTORY: Vascular liver lesion noted on prior scan COMPARISON: None. TECHNIQUE: Axial images of the abdomen were obtained in the pre contrast, hepatic arterial and portal venous phases of enhancement. Coronal and sagittal reformats were generated. Contrast dose: 100 mL Visipaque 320 Radiation dose: Total exam DLP = 1407.65 mGy-cm. This CT exam was performed using one or more of the following dose reduction techniques: Automated exposure control, adjustment of the mA and/or kV according to patient size, and/or use of iterative reconstruction technique. FINDINGS: LOWER THORAX: Unremarkable. LIVER: Normal size and contour. Diffusely diminished attenuation consistent with fatty infiltration. Solitary rounded calcified mass, 2.5 cm diameter. The mass is diffusely calcified although somewhat heterogeneously. There is no appreciable enhancement following intravenous contrast administration. There has been no interval change in size or morphology compared to the examination of 08/20/2016. Uncertain significance. Unlikely malignant neoplasm given interval stability. No other hepatic mass. No biliary dilatation. GALLBLADDER AND BILE DUCTS: Unremarkable. PANCREAS: Peripancreatic stranding without dylan fluid, consistent with mild acute pancreatitis. There is a rounded hypodense lesion at the junction of the pancreatic head and body, measuring 9 x 11 mm. This is unchanged in size when compared to examination of 02/14/2017. Despite there being 2 lesions identified on MRI examination of 02/15/2017, only a solitary lesion is seen on this examination. There are 2 punctate calcifications seen in the region of the uncinate process. There is no pancreatic ductal dilatation. SPLEEN: Unremarkable. ADRENALS: Unremarkable. No mass. KIDNEYS AND URETERS: Nonobstructing 4 mm mid left renal calculus. Nonspecific 8 mm low-density left upper pole renal mass, likely cortical cyst. Unchanged from 02/14/2017. No hydronephrosis. VASCULATURE: Unremarkable. No aortic aneurysm. BOWEL: Unremarkable. No obstruction. No gross mural thickening. APPENDIX: Normal appendix. PERITONEUM: Unremarkable. No free fluid. No free air. LYMPH NODES: Unremarkable. No enlarged lymph nodes. BONES: No acute fracture. OTHER FINDINGS: None. IMPRESSION: 08/20/2016. Therefore, if biopsy is not considered, then continued followup is advised. No pancreatic or biliary ductal dilatation. . Nonobstructing 4 mm mid left renal calculus. At of the
[2017-12-04] MEDS: Lactated Ringer's 1,000 ML IV SCH ×5 (01:44→23:06)
[2017-12-04 07:23] LABS: BASO # 0.1 K/uL (0.0-0.2); BASO % 0.8 % (0.0-2.0); EOS # 0.4 K/uL (0.0-0.7); EOS % 5.8 % (0.0-4.0); HEMOGLOBIN 13.8 g/dL (12.0-18.0); LYMPH # 1.4 K/uL (1.0-4.3); LYMPH % 19.5 % (20.0-40.0); MEAN CELL VOLUME 90.6 fL (80.0-94.0); MEAN CORPUSCULAR HEMOGLOBIN 31.7 pg (27.0-31.0); MEAN CORPUSCULAR HGB CONC 34.9 g/dL (33.0-37.0); MEAN PLATELET VOLUME 9.6 fL (7.2-11.7); MONO # 0.6 K/uL (0.0-0.8); MONO % 8.7 % (0.0-10.0); NEUT # 4.8 K/uL (1.8-7.0); NEUT % 65.2 % (50.0-75.0); NRBC % 0.1 % (0.0-2.0); RBC 4.37 Mil/uL (4.40-5.90); RED CELL DISTRIBUTION WIDTH 15.2 % (11.5-14.5); WHITE BLOOD COUNT 7.4 K/uL (4.8-10.8)
[2017-12-04] MEDS: (Novolin R) Insulin Human Regular 100 units/ml vial SC SCH ×4 (07:37→21:48)
[2017-12-04 07:55] LABS: ALB/GLOB RATIO 1.2 (1.0-2.1); ALBUMIN 4.1 g/dL (3.5-5.0); ALT/SGPT 23 U/L (21-72); AMYLASE 265 U/L (30-110); AST/SGOT 38 U/L (17-59); BLOOD UREA NITROGEN 11 mg/dL (9-20); CALCIUM 9.7 mg/dl (8.6-10.4); GFR AFRICAN-AMERICAN > 60; GFR NON-AFRICAN AMERICAN > 60; LIPASE 1985 U/L (23-300)
[2017-12-04] MEDS: Multiple Vitamins Tab PO SCH (09:37)
--- NOTE | 2017-12-04 12:31 | CP.PCM.PN ---
<Margarita Knight E - Last Filed: 12/04/17 12:28> Subjective - Date & Time of Evaluation Date of Evaluation: 12/04/17 Time of Evaluation: 07:30 - Subjective Subjective: Medicine progress note ( Dr. Hu's service) Patient was seen and examined at bedside. Patient was resting comfortably in bed in no acute distress. Patient reports significant improved symptoms. Patient denies fever, chills, nausea, vomiting, chest pain, SOB, palpitations and abdominal pain. Patient is tolerating liquid diet and reports that he is ready for solid food. Objective - Vital Signs/Intake and Output Vital Signs (last 24 hours): Temp Pulse Resp BP Pulse Ox 98 F 82 20 169/91 H 98 12/04/17 08:19 12/04/17 08:19 12/04/17 08:19 12/04/17 08:19 12/04/17 08:19 Intake and Output: 12/04/17 12/04/17 06:59 18:59 Intake Total 1999 Balance 1999 400 - Medications Medications: Current Medications Amlodipine Besylate (Norvasc) 5 mg PO DAILY [facility] Last Admin: 12/04/17 09:37 Dose: 5 mg Dextrose (Dextrose 50% Inj) 0 ml IV STAT PRN; Protocol PRN Reason: Hypoglycemia Protocol Dextrose (Glutose 15) 0 gm PO ONCE PRN; Protocol PRN Reason: Hypoglycemia Protocol Folic Acid (Folic Acid) 1 mg PO DAILY [facility] Last Admin: 12/04/17 09:37 Dose: 1 mg Glucagon (Glucagen Diagnostic Kit) 0 mg IM STAT PRN; Protocol PRN Reason: Hypoglycemia Protocol Dextrose (Dextrose 5% In Water 1000 Ml) 1,000 mls @ 0 mls/hr IV .Q0M PRN; Protocol; Per Protocol PRN Reason: Hypoglycemia Protocol Lactated Ringer's (Lactated Ringer's) 1,000 mls @ 100 mls/hr IV .Q10H [facility] Insulin Human Regular (Novolin R) 0 unit SC ACHS [facility] PRN Reason: Protocol Last Admin: 12/04/17 11:27 Dose: Not Given Lorazepam (Ativan) 1 mg IVP Q8H [facility]HEL[facility] PRN Reason: Taper Stop: 12/07/17 09:59 Last Admin: 12/04/17 09:39 Dose: 1 mg Lorazepam (Ativan) 1 mg IVP Q4H PRN PRN Reason: Symptoms of alcohol withdrawl Multivitamins (Hexavitamin) 1 tab PO DAILY [facility] Last Admin: 12/04/17 09:37 Dose: 1 tab Pantoprazole Sodium (Protonix Inj) 40 mg IVP DAILY [facility] Last Admin: 12/04/17 09:38 Dose: 40 mg Thiamine HCl (Vitamin B1 Tab) 100 mg PO DAILY [facility] Last Admin: 12/04/17 09:38 Dose: 100 mg - Labs Labs: 12/04/17 07:14 12/04/17 07:14 - Constitutional Appears: Well, No Acute Distress - Head Exam Head Exam: ATRAUMATIC, NORMAL INSPECTION - Eye Exam Eye Exam: EOMI, Normal appearance - ENT Exam ENT Exam: Mucous Membranes Moist - Respiratory Exam Respiratory Exam: Clear to Ausculation Bilateral, NORMAL BREATHING PATTERN. absent: Prolonged Expiratory Phase, Rhonchi, Wheezes, Respiratory Distress - Cardiovascular Exam Cardiovascular Exam: REGULAR RHYTHM, +S1, +S2. absent: Murmur - GI/Abdominal Exam GI & Abdominal Exam: Soft, Normal Bowel Sounds. absent: Distended, Firm, Guarding, Rigid, Tenderness - Extremities Exam Extremities Exam: Normal Inspection. absent: Calf Tenderness, Pedal Edema, Tenderness - Back Exam Back Exam: NORMAL INSPECTION. absent: CVA tenderness (L), CVA tenderness (R) - Neurological Exam Neurological Exam: Alert, Awake, Oriented x3 - Psychiatric Exam Psychiatric exam: Normal Affect - Skin Skin Exam: Normal Color Assessment and Plan (1) Acute on chronic pancreatitis Assessment & Plan: Secondary to alcohol abuse Lipase downtrending Consultation: GI, Dr. Hummel * Management as per recommendation Diagnostic Imaging/ Lab : * Abdominal/Pelvis CT: Findings highly suspicious for moderate to severe acute pancreatitis. Otherwise stable findings compared to a prior CT of 02/14/2017. 2.5 cm indeterminate hypervascular liver lesion. Small 9 mm probable cystic lesion in the pancreas. In this patient, a differential considerations include a pseudocyst and a small cystic pancreatic neoplasm * Abdominal Ultrasound: Negative study for cholelithiasis. Unremarkable gallbladder. Confirmation of previously identified mass right hepatic lobe. Mass in the head of the pancreas, indeterminate -may be related to known pancreatitis. * Lipid panel: - TGL: 102, Chol: 172, LDL:109 and HDL:52 Medication/Management: * LR @ 200mls * Toradol 30mg IV Q6H prn * Advance diet as tolerated Status: Acute (2) Alcohol abuse Assessment & Plan: Medication: Thiamine 100mg PO daily Multivitamin 1 tab Po daily Folic acid 1 tab PO daily Ativan 1mg Q4H PRN Ativan 1mg Q6H PRN Status: Acute (3) Pancreatic cyst Assessment & Plan: Abdominal/Pelvis CT: Findings highly suspicious for moderate to severe acute pancreatitis. Otherwise stable findings compared to a prior CT of 02/14/2017. 2.5 cm indeterminate hypervascular liver lesion. Small 9 mm probable cystic lesion in the pancreas. In this patient, a differential considerations include a pseudocyst and a small cystic pancreatic neoplasm GI Recommendation: Will need dedicated pancreatic imaging or EUS as outpatient following resolution of event Status: Acute (4) Liver lesion Assessment & Plan: Consultation: GI, Dr. Hummel * Management as per recommendation Diagnostic Imaging/Lab: * Abdominal/Pelvis CT: Findings highly suspicious for moderate to severe acute pancreatitis. Otherwise stable findings compared to a prior CT of 02/14/2017. 2.5 cm indeterminate hypervascular liver lesion. Small 9 mm probable cystic lesion in the pancreas. In this patient, a differential considerations include a pseudocyst and a small cystic pancreatic neoplasm * Liver triple phase study: stable size hepatic lesion non-arterial enhancing, unlikely HCC, subcentimeter pancreatic lesion, chronic pancreatitis. GI recommendation for repeat CT imaging within 6 months to ensure size stability of hepatic and pancreatic lesions. Normal size and contour. Diffusely diminished attenuation consistent with fatty infiltration. Solitary rounded calcified mass, 2.5 cm diameter. The mass is diffusely calcified although somewhat heterogeneously. There is no appreciable enhancement following intravenous contrast administration. There has been no interval change in size or morphology compared to the examination of 08/20/2016. Uncertain significance. Unlikely malignant neoplasm given interval stability. No other hepatic mass. No biliary dilatation. There is a rounded hypodense lesion at the junction of the pancreatic head and body, measuring 9 x 11 mm. There are 2 punctate calcifications seen in the region of the uncinate process * Hepatitis panel negative Status: Acute (5) Diabetes mellitus Assessment & Plan: HgbA1C: 7.2 (10/13/16) Accuchecks ISS - Low dose Hypoglycemia protocol Status: Acute (6) Hypomagnesemia Assessment & Plan: Repleted appropriately Monitor with AM labs Status: Acute (7) Prophylactic measure Assessment & Plan: GI: Protonix 40mg PO daily DVT: SCDs, ambulating All plans and management discussed with Dr. Hu Status: Acute <YassineAnish [email or web address] - Last Filed: 12/04/17 17:24> Objective - Vital Signs/Intake and Output Vital Signs (last 24 hours): Temp Pulse Resp BP Pulse Ox 97.3 F L 81 20 153/91 H 97 12/04/17 15:32 12/04/17 15:32 12/04/17 15:32 12/04/17 15:32 12/04/17 15:32 Intake and Output: 12/04/17 12/04/17 06:59 18:59 Intake Total 1999 2099 Balance 1999 2100 - Medications Medications: Current Medications Amlodipine Besylate (Norvasc) 5 mg PO DAILY [facility] Last Admin: 12/04/17 09:37 Dose: 5 mg Dextrose (Dextrose 50% Inj) 0 ml IV STAT PRN; Protocol PRN Reason: Hypoglycemia Protocol Dextrose (Glutose 15) 0 gm PO ONCE PRN; Protocol PRN Reason: Hypoglycemia Protocol Folic Acid (Folic Acid) 1 mg PO DAILY [facility] Last Admin: 12/04/17 09:37 Dose: 1 mg Glucagon (Glucagen Diagnostic Kit) 0 mg IM STAT PRN; Protocol PRN Reason: Hypoglycemia Protocol Dextrose (Dextrose 5% In Water 1000 Ml) 1,000 mls @ 0 mls/hr IV .Q0M PRN; Protocol; Per Protocol PRN Reason: Hypoglycemia Protocol Lactated Ringer's (Lactated Ringer's) 1,000 mls @ 100 mls/hr IV .Q10H [facility] Last Admin: 12/04/17 12:37 Dose: 100 mls/hr Insulin Human Regular (Novolin R) 0 unit SC ACHS [facility] PRN Reason: Protocol Last Admin: 12/04/17 11:27 Dose: Not Given Lorazepam (Ativan) 1 mg IVP Q8H [facility] PRN Reason: Taper Stop: 12/07/17 09:59 Last Admin: 12/04/17 09:39 Dose: 1 mg Lorazepam (Ativan) 1 mg IVP Q4H PRN PRN Reason: Symptoms of alcohol withdrawl Multivitamins (Hexavitamin) 1 tab PO DAILY [facility] Last Admin: 12/04/17 09:37 Dose: 1 tab Pantoprazole Sodium (Protonix Ec Tab) 40 mg PO DAILY [facility] Thiamine HCl (Vitamin B1 Tab) 100 mg PO DAILY [facility] Last Admin: 12/04/17 09:38 Dose: 100 mg - Labs Labs: 12/04/17 07:14 12/04/17 07:14 Attending/Attestation - Attestation I have personally seen and examined this patient.: Yes I have fully participated in the care of the patient.: Yes I have reviewed all pertinent clinical information, including history, physical exam and plan: Yes Notes (Text): Seen and examined by me He states his abdominal pain is better ,lipase is coming down,tolerating liquid diet.we will follow lipase and start on full diet tomorrow He is a 61 years old alcoholic male with h/o recurrent pancreatitis is here with pain and acute pancreatitis 1.Acute pancreatitis 2.recurresnt pancreatitis 3.HTN 4.DM 5.alcohol abuse 6. Liver mass and pancreatic syst Diagnostic Imaging/Lab: Abdominal/Pelvis CT: Findings highly suspicious for moderate to severe acute pancreatitis. Otherwise stable findings compared to a prior CT of 02/14/2017. 2.5 cm indeterminate hypervascular liver lesion. Small 9 mm probable cystic lesion in the pancreas. In this patient, a differential considerations include a pseudocyst and a small cystic pancreatic neoplasm Liver triple phase study -GI recommended Repeat CT in 01/20 * Hepatitis panel negative Discussed with the resident.I agree with the assessment and the plan
[2017-12-04] MEDS: Magnesium Sulfate 1 gm in D5W 1 GM/100 ML BAG IVPB SCH ×2 (13:01→13:03)
[2017-12-05 06:46] LABS: BASO # 0.1 K/uL (0.0-0.2); EOS # 0.5 K/uL (0.0-0.7); EOS % 6.8 % (0.0-4.0); HEMOGLOBIN 13.6 g/dL (12.0-18.0); LYMPH # 1.5 K/uL (1.0-4.3); LYMPH % 19.3 % (20.0-40.0); MEAN CELL VOLUME 90.6 fL (80.0-94.0); MEAN CORPUSCULAR HEMOGLOBIN 31.5 pg (27.0-31.0); MEAN CORPUSCULAR HGB CONC 34.8 g/dL (33.0-37.0); MEAN PLATELET VOLUME 9.5 fL (7.2-11.7); MONO # 0.7 K/uL (0.0-0.8); MONO % 9.5 % (0.0-10.0); NEUT % 63.4 % (50.0-75.0); NRBC % 0.1 % (0.0-2.0); RBC 4.32 Mil/uL (4.40-5.90); RED CELL DISTRIBUTION WIDTH 15.5 % (11.5-14.5); WHITE BLOOD COUNT 7.8 K/uL (4.8-10.8)
[2017-12-05 07:08] LABS: ALB/GLOB RATIO 1.2 (1.0-2.1); ALT/SGPT 30 U/L (21-72); AST/SGOT 54 U/L (17-59); BLOOD UREA NITROGEN 8 mg/dL (9-20); CALCIUM 9.7 mg/dl (8.6-10.4); GFR AFRICAN-AMERICAN > 60; GFR NON-AFRICAN AMERICAN > 60; LIPASE 1211 U/L (23-300)
[2017-12-05] MEDS: Multiple Vitamins Tab PO SCH (09:08)
[2017-12-05] MEDS: (Novolin R) Insulin Human Regular 100 units/ml vial SC SCH ×2 (09:09→14:17)
[2017-12-05] MEDS: Lactated Ringer's 1,000 ML IV SCH (09:09)
[2017-12-05] MEDS ORDERED: Magnesium Sulfate 1 gm in D5W 1 GM/100 ML BAG IVPB ONE (09:19)
[2017-12-05 09:37] VITALS: RESP 20; TEMP 98
[2017-12-05] MEDS ORDERED: Pantoprazole 40 mg EC Tab PO SCH (10:00)
[2017-12-05] MEDS ORDERED: Pneumococcal 23-Valent Vaccine IM ONE (13:32)
[2017-12-05 15:59] VITALS: BP 131/81; PULSE 73; O2SAT 96
--- NOTE | 2017-12-05 20:28 | CP.PCM.DIS ---
Provider - Provider Date of Admission: 12/02/17 08:06 Attending physician: Emily Hu MD Time Spent in preparation of Discharge (in minutes): 35 Diagnosis - Discharge Diagnosis (1) Acute on chronic pancreatitis Status: Chronic (2) Alcohol abuse Status: Chronic (3) Pancreatic cyst Status: Chronic (4) Liver lesion Status: Chronic (5) Diabetes mellitus Status: Chronic (6) Hypomagnesemia Status: Acute (7) Prophylactic measure Status: Acute Hospital Course - Lab Results Lab Results: Most Recent Lab Values WBC 7.8 K/uL (4.8-10.8) 12/05/17 06:40 RBC 4.32 Mil/uL (4.40-5.90) L 12/05/17 06:40 Hgb 13.6 g/dL (12.0-18.0) 12/05/17 06:40 Hct 39.1 % (35.0-51.0) 12/05/17 06:40 MCV 90.6 fL (80.0-94.0) 12/05/17 06:40 MCH 31.5 pg (27.0-31.0) H 12/05/17 06:40 MCHC 34.8 g/dL (33.0-37.0) 12/05/17 06:40 RDW 15.5 % (11.5-14.5) H 12/05/17 06:40 Plt Count 175 K/uL (130-400) 12/05/17 06:40 MPV 9.5 fL (7.2-11.7) 12/05/17 06:40 Neut % (Auto) 63.4 % (50.0-75.0) 12/05/17 06:40 Lymph % (Auto) 19.3 % (20.0-40.0) L 12/05/17 06:40 [place] % (Auto) 9.5 % (0.0-10.0) 12/05/17 06:40 Eos % (Auto) 6.8 % (0.0-4.0) H 12/05/17 06:40 Baso % (Auto) 1.0 % (0.0-2.0) 12/05/17 06:40 Neut # (Auto) 5.0 K/uL (1.8-7.0) 12/05/17 06:40 Lymph # (Auto) 1.5 K/uL (1.0-4.3) 12/05/17 06:40 [place] # (Auto) 0.7 K/uL (0.0-0.8) 12/05/17 06:40 Eos # (Auto) 0.5 K/uL (0.0-0.7) 12/05/17 06:40 Baso # (Auto) 0.1 K/uL (0.0-0.2) 12/05/17 06:40 Sodium 139 mmol/L (132-148) 12/05/17 06:40 Potassium 3.9 mmol/L (3.6-5.2) 12/05/17 06:40 Chloride 99 mmol/L (98-107) 12/05/17 06:40 Carbon Dioxide 25 mmol/L (22-30) 12/05/17 06:40 Anion Gap 18 (10-20) 12/05/17 06:40 BUN 8 mg/dL (9-20) L 12/05/17 06:40 Creatinine 0.8 mg/dL (0.8-1.5) 12/05/17 06:40 Est GFR ( Amer) > 60 12/05/17 06:40 Est GFR (Non-Af Amer) > 60 12/05/17 06:40 POC Glucose (mg/dL) 167 mg/dL (65-110) H 12/05/17 16:16 Random Glucose 158 mg/dL (75-110) H 12/05/17 06:40 Calcium 9.7 mg/dl (8.6-10.4) 12/05/17 06:40 Phosphorus 3.9 mg/dL (2.5-4.5) 12/05/17 06:40 Magnesium 1.6 mg/dL (1.6-2.3) 12/05/17 06:40 Total Bilirubin 0.5 mg/dL (0.2-1.3) 12/05/17 06:40 AST 54 U/L (17-59) 12/05/17 06:40 ALT 30 U/L (21-72) 12/05/17 06:40 Alkaline Phosphatase 83 U/L (38-126) 12/05/17 06:40 Total Protein 7.2 g/dL (6.3-8.3) 12/05/17 06:40 Albumin 4.0 g/dL (3.5-5.0) 12/05/17 06:40 Globulin 3.2 gm/dL (2.2-3.9) 12/05/17 06:40 Albumin/Globulin Ratio 1.2 (1.0-2.1) 12/05/17 06:40 Triglycerides 102 mg/dL (0-149) D 12/02/17 13:34 Cholesterol 172 mg/dL (0-199) 12/02/17 13:34 LDL Cholesterol Direct 109 mg/dL (0-129) 12/02/17 13:34 HDL Cholesterol 52 mg/dL (30-70) 12/02/17 13:34 Amylase 265 U/L (30-110) H 12/04/17 07:14 Lipase 1211 U/L (23-300) H 12/05/17 06:40 Alpha Fetoprotein 3.9 ng/mL (0.0-7.5) 12/02/17 16:53 Alcohol, Quantitative 85 mg/dl (0-10) H 12/02/17 03:54 Hepatitis A IgM Ab Negative (NEGATIVE) 12/02/17 16:53 Hep Bs Antigen Negative (NEGATIVE) 12/02/17 16:53 Hep B Core IgM Ab Negative (NEGATIVE) 12/02/17 16:53 Hepatitis C Antibody Negative (NEGATIVE) 12/02/17 16:53 - Hospital Course Hospital Course: HPI ( As per admission): Patient is a 61 y/o M with pmhx of recurrent pancreatitis, uncontrolled DM, uncontrolled HTN, alcohol abuse who presents today for abdominal pain which started last night around 11pm. Patient says his last drink was yesterday from about 9-10 pm during which he drank a teacup full of whiskey. Patient says the abdominal pain is all over. Patient also complains of some epigastric burning. Patient took an antacid and tylenol which did not help. Patient said his last bowel movement was yesterday and he saw no blood in the stool. Patient denies any dizziness, headache, changes in vision, shortness of breath, chest pain, nausea, vomiting, constipation, or diarrhea. Hospital Course: This is a 61 year old male with a PMHx of alcohol abuse and pancreatitis who comes to [facility] ED on 12/02/17 with sudden onset abdominal pain for 3 hours. In the ED patient abdominal CT showed findings highly suspicious for moderate to severe acute pancreatitis, a 2.5 cm indeterminate hyper vascular liver lesion and a small 9 mm cystic lesion in the pancreas. Patient was admitted in the hospital for observation and medical management. Patient was started on fluid resuscitation, Toradol 30 mg, Ativan taper, and protonix 40 mg daily. Patient underwent an abdominal ultrasound that was a negative study for cholelithiasis and confirmation of previously identified mass in the right hepatic lobe. Patient underwent liver triple phase CT which showed a stable size hepatic lesion non-arterial enhancing, unlikely HCC, sub pancreatic lesion and chronic pancreatitis. GI was consulted, and recommended patient will need dedicated pancreatic imaging or EUS as outpatient after discharge. Throughout the rest of his hospital stay, patient did not have exacerbations of symptoms or any other interventional procedures. Patient was discharge with appropriate instructions and medications. Pertinent imaging/labs Abdominal CT: Findings highly suspicious for moderate to severe acute pancreatitis. Otherwise stable findings compared to a prior CT of 02/14/2017. 2.5 cm indeterminate hypervascular liver lesion. Small 9 mm probable cystic lesion in the pancreas. In this patient, a differential considerations include a pseudocyst and a small cystic pancreatic neoplasm Abdominal Ultrasound: Negative study for cholelithiasis. Unremarkable gallbladder. Confirmation of previously identified mass right hepatic lobe. Mass in the head of the pancreas, indeterminate -may be related to known pancreatitis. Liver triple phase study: stable size hepatic lesion non-arterial enhancing, unlikely HCC, subcentimeter pancreatic lesion, chronic pancreatitis. GI recommendation for repeat CT imaging within 6 months to ensure size stability of hepatic and pancreatic lesions. Normal size and contour. Diffusely diminished attenuation consistent with fatty infiltration. Solitary rounded calcified mass, 2.5 cm diameter. The mass is diffusely calcified although somewhat heterogeneously. There is no appreciable enhancement following intravenous contrast administration. There has been no interval change in size or morphology compared to the examination of 08/20/2016. Uncertain significance. Unlikely malignant neoplasm given interval stability. No other hepatic mass. No biliary dilatation. There is a rounded hypodense lesion at the junction of the pancreatic head and body, measuring 9 x 11 mm. There are 2 punctate calcifications seen in the region of the uncinate process Hepatitis panel negative This is a brief summary of event. For a complete course, please refer to the medical record Discharge Exam - Head Exam Head Exam: ATRAUMATIC, NORMAL INSPECTION - Eye Exam Eye Exam: EOMI, Normal appearance - ENT Exam ENT Exam: Mucous Membranes Moist - Respiratory Exam Respiratory Exam: Clear to PA & Lateral, NORMAL BREATHING PATTERN, UNREMARKABLE. absent: Prolonged Expiratory Phase, Wheezes, Respiratory Distress - Cardiovascular Exam Cardiovascular Exam: REGULAR RHYTHM, +S1, +S2 - GI/Abdominal Exam GI & Abdominal Exam: Normal Bowel Sounds, Soft. absent: Tenderness, Unremarkable - Extremities Exam Extremities exam: normal inspection - Neurological Exam Neurological exam: Alert, Normal Gait, Oriented x3 - Psychiatric Exam Psychiatric exam: Normal Affect, Normal Mood - Skin Skin Exam: Normal Color, Warm Discharge Plan - Discharge Medications Prescriptions: amLODIPine [Norvasc] 5 mg PO DAILY 30 Days #30 tab Folic Acid 1 mg PO DAILY 30 Days #30 tab Multivitamins [Hexavitamin] 1 tab PO DAILY 30 Days #30 tab Thiamine [Vitamin B1 Tab] 100 mg PO DAILY 30 Days #30 tab - Follow Up Plan Condition: STABLE Disposition: HOME/ ROUTINE Instructions: Pancreatitis (DC), Amlodipine, Folic Acid, Thiamine, Vitamins ( Multiple/Oral) Additional Instructions: Please discharge patient home Please continue the following new medications: 1. Norvasc 5mg PO daily 2. Thiamine 100mg PO daily 3. Folic acid 1mg PO daily 5. Multivitamin 1mg PO daily Please follow up with [facility] within one week of discharge, Please get a repeat CT imaging within 6 months to ensure size stability of hepatic and pancreatic lesions as per GI recommendation Please or to find an AA meeting in [facility] Please return to the Hospital if symptoms resume Please take care
== END 2017-12-05 17:20 | disposition home or self-care (01) | DRG 557 ==
LOC: C.ER 02:52 → C.9E 08:06 → C.5S 08:52 → C.3T 12-03 14:43
PROVIDERS: ADMIT Internal Medicine; ATTEND Internal Medicine
DX: K85.90 Acute pancreatitis without necrosis or infection, unspecified (principal); K86.2 Cyst of pancreas; K86.0 Alcohol-induced chronic pancreatitis; K76.9 Liver disease, unspecified; I10 Essential (primary) hypertension; F17.210 Nicotine dependence, cigarettes, uncomplicated; F10.10 Alcohol abuse, uncomplicated; E83.42 Hypomagnesemia; E11.9 Type 2 diabetes mellitus without complications; Z79.4 Long term (current) use of insulin

== ENCOUNTER 2018-04-01 20:53 | Inpatient (IN) | payer SELFPAY ==
[2018-04-01 20:53] VITALS: BMI 26.6
[2018-04-01] MEDS ORDERED: Aluminum Hydroxide/Magnesium Hydroxide Susp (30 mL) PO STA (21:17)
[2018-04-01] MEDS ORDERED: Sodium Chloride 0.9% 1,000 ML IV ONE (21:17)
[2018-04-01 21:25] LABS: BASO # 0.1 K/uL (0.0-0.2); BASO % 0.8 % (0.0-2.0); EOS # 0.3 K/uL (0.0-0.7); EOS % 3.9 % (0.0-4.0); HEMOGLOBIN 15.7 g/dL (12.0-18.0); LYMPH # 1.3 K/uL (1.0-4.3); MEAN CELL VOLUME 91.1 fL (80.0-94.0); MEAN CORPUSCULAR HEMOGLOBIN 31.5 pg (27.0-31.0); MEAN CORPUSCULAR HGB CONC 34.5 g/dL (33.0-37.0); MEAN PLATELET VOLUME 9.3 fL (7.2-11.7); MONO # 0.7 K/uL (0.0-0.8); MONO % 8.5 % (0.0-10.0); NEUT # 6.2 K/uL (1.8-7.0); NEUT % 71.8 % (50.0-75.0); NRBC % 0.1 % (0.0-2.0); RED CELL DISTRIBUTION WIDTH 14.3 % (11.5-14.5); WHITE BLOOD COUNT 8.6 K/uL (4.8-10.8)
[2018-04-01] MEDS ORDERED: Aluminum Hydroxide/Magnesium Hydroxide Susp (30 mL) ONE (21:33)
[2018-04-01] MEDS ORDERED: Sodium Chloride 0.9% 1,000 ML ONE (21:33)
[2018-04-01 21:39] LABS: ALB/GLOB RATIO 1.3 (1.0-2.1); ALBUMIN 4.7 g/dL (3.5-5.0); ALT/SGPT 53 U/L (21-72); AST/SGOT 54 U/L (17-59); BLOOD UREA NITROGEN 15 mg/dL (9-20); CALCIUM 9.7 mg/dl (8.6-10.4); GFR NON-AFRICAN AMERICAN > 60; LIPASE 641 U/L (23-300)
--- NOTE | 2018-04-01 21:47 | C.PDOC ---
History Of Present Illness 62yo male, comes to ER with complaints of right upper quadrant pain present all day. He also reports a left sided chest pain but denies any cough, shortness of breath, nausea, vomiting, fever or chills. He states he did not have such pain in the past. Patient states he takes aspirin, and hypertensive medication ( unsure of name), and Tylenol PRN. He reports normal PO intake and normal bowel movements. No other complaints. Time Seen by Provider: 04/01/18 21:05 Chief Complaint (Nursing): Abdominal Pain History Per: Patient History/Exam Limitations: no limitations Onset/Duration Of Symptoms: Days (1) Current Symptoms Are (Timing): Still Present Location Of Pain/Discomfort: RUQ Associated Symptoms: Chest Pain. denies: Fever, Chills, Nausea, Vomiting Additional History Per: Patient Past Medical History Reviewed: Historical Data, Nursing Documentation, Vital Signs Vital Signs: Last Vital Signs Temp 97.7 F 04/02/18 03:15 Pulse 71 04/02/18 03:15 Resp 20 04/02/18 03:15 BP 147/76 04/02/18 02:59 Pulse Ox 98 04/02/18 03:56 - Medical History PMH: Gastritis, HTN, Pancreatitis Denies: Chronic Kidney Disease Surgical History: No Surg Hx Family History: States: Unknown Family Hx - Social History Hx Alcohol Use: Yes Hx Substance Use: No - Immunization History Hx Tetanus Toxoid Vaccination: No Hx Influenza Vaccination: No Hx Pneumococcal Vaccination: No Review Of Systems Except As Marked, All Systems Reviewed And Found Negative. Constitutional: Negative for: Fever, Chills Eyes: Negative for: Vision Change ENT: Negative for: Ear Pain Cardiovascular: Positive for: Chest Pain Respiratory: Negative for: Shortness of Breath Gastrointestinal: Positive for: Abdominal Pain Genitourinary: Negative for: Dysuria, Hematuria Musculoskeletal: Negative for: Back Pain Neurological: Negative for: Weakness, Numbness Physical Exam - Physical Exam Appears: Non-toxic Skin: Normal Color, Warm Head: Atraumatic, Normacephalic Eye(s): bilateral: Normal Inspection, PERRL, EOMI Nose: Normal Oral Mucosa: Moist Neck: Normal ROM, Supple Chest: Symmetrical, No Tenderness Cardiovascular: Rhythm Regular Respiratory: Normal Breath Sounds, No Rales, No Rhonchi, No Stridor Gastrointestinal/Abdominal: Soft, Tenderness (right upper quadrant), Guarding Back: Normal Inspection, No CVA Tenderness, No Vertebral Tenderness, No Paraspinal Tenderness Extremity: Normal ROM, No Pedal Edema Neurological/Psych: Oriented x3 ED Course And Treatment - Laboratory Results Result Diagrams: 04/01/18 21:20 04/01/18 21:20 ECG: Interpreted By Me, Viewed By Me ECG Rhythm: Sinus Rhythm Interpretation Of ECG: DC 128 QRS 90 QT 376 QTC 439. No ischemic changes Rate From EC O2 Sat by Pulse Oximetry: 98 (RA) Pulse Ox Interpretation: Normal Medical Decision Making Medical Decision Making: Plan: * Labs * EKG * Urinalysis * CXR * US Abdomen * Maalox 30ml PO * Fentanyl 50mcg IVP * Reglan 10mg IVP * IV Fluids 1L 2138 CXR 2-view: Hyperinflated No infiltrates No effusion 2221 EXAM: US Abdomen Limited, Right Upper Quadrant EXAM DATE/TIME: 04/01/2018 9:16 PM CLINICAL HISTORY: 62 years old, male; Pain; Abdominal pain; Generalized; Additional info: Ruq pain TECHNIQUE: Real-time ultrasound of the abdomen with image documentation. Examination is focused on the right upper quadrant. COMPARISON: US - ABDOMEN COMPLETE 12/02/2017 2:43 PM FINDINGS: Liver: There is diffuse increased echogenicity consistent with steatosis.. A circumscribed calcified mass is seen in the RIGHT hepatic lobe measuring 2.8 cm showing posterior shadowing. Hepatomegaly liver span 17.8 cm Gallbladder: Normal. No gallstones. There is no gallbladder wall thickening. Common bile duct: Normal. No stones. No dilation. 3.9 mm Pancreas: Visualized pancreas is unremarkable. Right kidney: Normal. No mass. No hydronephrosis. 10.4 cm x 4.2 cm x 5.9 cm Unremarkable abdominal aorta IMPRESSION: 1. Hepatomegaly and hepatic steatosis. 2. Stable RIGHT hepatic lobe calcified mass 3. Otherwise negative examination 0031 Patient reports persistent pain, CT Abdomen/Pelvis with IV Contrast ordered. 0148 EXAM: CT Abdomen and Pelvis With Intravenous Contrast CLINICAL HISTORY: 62 years old, male; Pain; Abdominal pain; Patient HX: 12-02-17 ; Additional info: Abd pain TECHNIQUE: Axial computed tomography images of the abdomen and pelvis with intravenous contrast. All CT scans at this facility use at least one of these dose optimization techniques: automated exposure control; mA and/or kV adjustment per patient size (includes targeted exams where dose is matched to clinical indication); or iterative reconstruction. Coronal and sagittal reformatted images were created and reviewed. COMPARISON: US - ABDOMEN LIMITED 04/01/2018 9:36 PM FINDINGS: Lung bases: Unremarkable. No mass. No consolidation. ABDOMEN: Liver: 2.2 x 2.2 cm calcified versus enhancing mass in the central liver which has been previously described. Gallbladder and bile ducts: Unremarkable. No calcified stones. No ductal dilation. Pancreas: There is mild inflammation around the pancreatic head which could be due to acute pancreatitis. 1.0 cm cyst in the pancreatic head which has been previously described. A couple of tiny calcifications in the pancreatic head. No ductal dilation. Spleen: Unremarkable. No splenomegaly. Adrenals: Unremarkable. No mass. Kidneys and ureters: Unremarkable. No solid mass. No hydronephrosis. Stomach and bowel: Unremarkable. No obstruction. No mucosal thickening. PELVIS: Appendix: Normal appendix. Bladder: Unremarkable. No mass. Reproductive: Unremarkable as visualized. ABDOMEN and PELVIS: Intraperitoneal space: Unremarkable. No free air. No significant fluid collection. Bones/joints: No acute fracture. No dislocation. Soft tissues: Unremarkable. Vasculature: Unremarkable. No abdominal aortic aneurysm. Lymph nodes: Unremarkable. No enlarged lymph nodes. IMPRESSION: 1. 2.2 x 2.2 cm calcified versus enhancing mass in the central liver which has been previously described. This is of uncertain etiology and continued followup may be helpful if clinically indicated. 2. There is mild inflammation around the pancreatic head which could be due to acute pancreatitis. Correlation with pancreatic enzymes would be helpful. 3. 1.0 cm cyst in the pancreatic head which has been previously described. [address] Katherine Islas and patient admitted under his service due to pancreatitis. Disposition Counseled Patient/Family Regarding: Diagnosis - Disposition Disposition: HOSPITALIZED Disposition Time: 03:56 Condition: GOOD - Clinical Impression Clinical Impression: Acute pancreatitis - Scribe Statement The provider has reviewed the documentation as recorded by the Jason Conway Provider Attestation: All medical record entries made by the Jason were at my direction and personally dictated by me. I have reviewed the chart and agree that the record accurately reflects my personal performance of the history, physical exam, medical decision making, and the department course for this patient. I have also personally directed, reviewed, and agree with the discharge instructions and disposition.
[2018-04-01 22:57] LABS: SQUAMOUS EPITHIAL 5 /hpf (0-5); URINE BILIRUBIN NEGATIVE (NEGATIVE); URINE BLOOD NEGATIVE (NEGATIVE); URINE CLARITY Clear (Clear); URINE COLOR Yellow (YELLOW); URINE GLUCOSE (UA) 2+ mg/dL (Normal); URINE HYALINE CAST 0-2 /lpf (0-2); URINE LEUKOCYTE ESTERASE NEG Leu/uL (Negative); URINE PROTEIN 3+ mg/dL (NEGATIVE); URINE UROBILINOGEN NORMAL mg/dL (0.2-1.0)
[2018-04-02] MEDS ORDERED: Iodixanol 320 MG/ML 100 ML BOTTLE IV ONE (00:56)
[2018-04-02] MEDS ORDERED: Sodium Chloride 0.9% 1,000 ML IV ONE (02:13)
[2018-04-02 03:50] VITALS: RESP 20
--- NOTE | 2018-04-02 08:00 | RAD ---
Chest x-ray two views History: Abdominal pain. Comparison: 10/13/2017 Findings: No focal infiltrate or effusion. Heart size within normal limits. Bibasilar breast and nipple shadows. Biapical pleural thickening some upper lobe granulomatous changes. Impression: No focal infiltrate or effusion. Heart size within normal limits. Bibasilar breast and nipple shadows. Biapical pleural thickening some upper lobe granulomatous changes.
--- NOTE | 2018-04-02 09:12 | CT ---
Date of service: 04/02/2018 PROCEDURE: CT Abdomen and Pelvis with intravenous contrast HISTORY: Abdominal pain. COMPARISON: CT abdomen and pelvis dated 12/02/2017. TECHNIQUE: Multiple contiguous axial images were performed through the abdomen and pelvis with the use of intravenous contrast. Subsequently, sagittal and coronal reformatted images were obtained. Radiation dose: Total exam DLP = 345 mGy-cm. This CT exam was performed using one or more of the following dose reduction techniques: Automated exposure control, adjustment of the mA and/or kV according to patient size, and/or use of iterative reconstruction technique. FINDINGS: LOWER THORAX: 2 millimeter ground-glass nodule within the right lower lobe. LIVER: 2.2 x 2.2 centimeter calcified versus enhancing mass in the central liver which has been previously described. This is of uncertain clinical etiology. Correlation with multiphasic contrast enhanced CT or MR may be helpful for further evaluation if indicated. GALLBLADDER AND BILE DUCTS: Unremarkable. PANCREAS: Mild inflammation around the pancreatic head which may be secondary to an acute pancreatitis. 1 centimeter hypoattenuated cyst in the pancreatic head. Couple of tiny calcifications in the pancreatic head. SPLEEN: Unremarkable. ADRENALS: Unremarkable. No mass. KIDNEYS AND URETERS: Unremarkable. No hydronephrosis. No solid mass. VASCULATURE: Unremarkable. No aortic aneurysm. BOWEL: Unremarkable. No obstruction. No gross mural thickening. APPENDIX: Unremarkable. Normal appendix. PERITONEUM: Unremarkable. No free fluid. No free air. LYMPH NODES: Unremarkable. No enlarged lymph nodes. BLADDER: Unremarkable. REPRODUCTIVE: Unremarkable. BONES: Degenerative changes in the spine. Bridging sclerosis of the bilateral SI joints. OTHER FINDINGS: None. IMPRESSION: Mild inflammation around the pancreatic head which may be secondary to an acute pancreatitis. Clinical correlation. Correlation with pancreatic enzyme levels would be helpful. 1.0 centimeter cyst in the pancreatic head. This is of uncertain clinical etiology. Correlation with multiphasic CT or MR would be helpful if clinically indicated. Couple of tiny calcifications in the pancreatic head. 2.2 x 2.2 centimeter calcified versus enhancing mass in the central liver which has been previously described. This is of uncertain clinical etiology. Correlation with multiphasic contrast enhanced CT or MR may be helpful for further evaluation if clinically indicated. These findings were preliminarily reported at 1:48 a.m. on 04/02/[address] Sid Howard from [employer].
[2018-04-02] MEDS: Enoxaparin 40 mg Syringe SC SCH (09:28)
[2018-04-02] MEDS: Sodium Chloride 0.9% 1,000 ML IV SCH ×2 (09:28→19:45)
[2018-04-02] MEDS: Multiple Vitamins Tab PO SCH (09:29)
--- NOTE | 2018-04-02 10:40 | US ---
Date of service: 04/01/2018 HISTORY: RUQ pain COMPARISON: CT abdomen and pelvis with IV contrast performed 04/02/18 abdominal ultrasound performed 12/02/17 TECHNIQUE: Sonographic evaluation of the right upper quadrant of the abdomen. FINDINGS: LIVER: Measures 17.9 cm in length. Echogenic liver may be seen in setting of hepatic parenchymal disease or fatty infiltration. 2.8 cm circumscribed calcified mass identified within the right hepatic lobe with evidence of posterior acoustic shadowing. No intrahepatic bile duct dilatation. GALLBLADDER: No gallstones. No gallbladder wall thickening or pericholecystic edema. Negative sonographic Purdy's sign as assessed by the scale tester. COMMON BILE DUCT: Measures 4 mm. PANCREAS: Not well-visualized. RIGHT KIDNEY: Measures 10.5 x 4.3 x 6.0 cm. No obstructing calculus or hydronephrosis identified. AORTA: Limited visualization appears grossly unremarkable. IVC: Limited visualization appears grossly unremarkable. OTHER FINDINGS: None . IMPRESSION: 2.8 cm calcified right hepatic lobe mass. Hepatomegaly. Echogenic liver may be seen in setting of hepatic parenchymal disease or fatty infiltration. Preliminary impression was provided by [employer].
--- NOTE | 2018-04-02 17:21 | CP.PCM.HP ---
History of Present Illness - History of Present Illness History of Present Illness: 62 male with h/o etoh and cirrhosis with ruq pain all day iwthout nause ao rovmitting came wiht elevatd lipase and got hospitalized no fever or chills pt [place] [facility] [place] and stil admits occ drinks etoh Present on Admission - Present on Admission Any Indicators Present on Admission: No Past Patient History - Infectious Disease Hx of Infectious Diseases: None - Past Medical History & Family History Past Medical History?: Yes - Past Social History Smoking Status: Smoker Currrent Status Unknown - CARDIAC Hx Hypertension: Yes - PULMONARY Hx Respiratory Disorders: No - NEUROLOGICAL Hx Neurological Disorder: No - HEENT Hx HEENT Problems: Yes Other/Comment: wears corrective eyeglasses - RENAL Hx Chronic Kidney Disease: No - ENDOCRINE/METABOLIC Hx Endocrine Disorders: Yes Hx Diabetes Mellitus Type 2: Yes - HEMATOLOGICAL/ONCOLOGICAL Hx Blood Disorders: No - INTEGUMENTARY Hx Dermatological Problems: No - MUSCULOSKELETAL/RHEUMATOLOGICAL Hx Musculoskeletal Disorders: Yes Hx Back Pain: Yes Hx Falls: Yes - GASTROINTESTINAL Hx Gastritis: Yes Hx Pancreatitis: Yes - GENITOURINARY/GYNECOLOGICAL Hx Genitourinary Disorders: No - PSYCHIATRIC Hx Substance Use: No - SURGICAL HISTORY Hx Surgeries: No - ANESTHESIA Hx Anesthesia: No Meds Allergies/Adverse Reactions: Allergies Allergy/AdvReac Type Severity Reaction Status Date / Time naproxen AdvReac Diffuse Verified 04/01/18 21:01 rashes Physical Exam - Head Exam Head Exam: ATRAUMATIC - Eye Exam Pupil Exam: NORMAL ACCOMODATION - ENT Exam ENT Exam: Normal Exam - Neck Exam Neck exam: Positive for: Full Rom - Respiratory Exam Respiratory Exam: Decreased Breath Sounds - Cardiovascular Exam Cardiovascular Exam: +S1, +S2 - GI/Abdominal Exam GI & Abdominal Exam: Diminished Bowel Sounds, Soft - Rectal Exam Rectal Exam: Deferred - Neurological Exam Neurological exam: Oriented x3 Results - Vital Signs Recent Vital Signs: Last Vital Signs Temp 98.8 F 04/02/18 16:00 Pulse 76 04/02/18 16:00 Resp 20 04/02/18 16:00 BP 143/87 04/02/18 16:00 Pulse Ox 97 04/02/18 16:00 - Labs Result Diagrams: 04/01/18 21:20 04/01/18 21:20 Labs: Laboratory Results - last 24 hr 04/01/18 04/01/18 04/01/18 21:20 21:20 22:49 WBC 8.6 RBC 5.00 Hgb 15.7 D Hct 45.6 MCV 91.1 MCH 31.5 H MCHC 34.5 RDW 14.3 Plt Count 174 MPV 9.3 Neut % (Auto) 71.8 Lymph % (Auto) 15.0 L [place] % (Auto) 8.5 Eos % (Auto) 3.9 Baso % (Auto) 0.8 Neut # (Auto) 6.2 Lymph # (Auto) 1.3 [place] # (Auto) 0.7 Eos # (Auto) 0.3 Baso # (Auto) 0.1 Sodium 140 Potassium 3.6 Chloride 103 Carbon Dioxide 21 L Anion Gap 19 BUN 15 Creatinine 0.9 Est GFR ( Amer) > 60 Est GFR (Non-Af Amer) > 60 POC Glucose (mg/dL) Random Glucose 165 H Calcium 9.7 Total Bilirubin 0.6 AST 54 ALT 53 Alkaline Phosphatase 118 Troponin I < 0.0120 Total Protein 8.5 H Albumin 4.7 Globulin 3.8 Albumin/Globulin Ratio 1.3 Lipase 641 H Urine Color Yellow Urine Clarity Clear Urine pH 6.0 Ur Specific [place] 1.025 Urine Protein 3+ H Urine Glucose (UA) 2+ H Urine Ketones Negative Urine Blood Negative Urine Nitrate Negative Urine Bilirubin Negative Urine Urobilinogen Normal Ur Leukocyte Esterase Neg Urine WBC (Auto) 1 Urine RBC (Auto) 7 H Ur Squamous Epith Cells 5 Hyaline Casts 0-2 Alcohol, Quantitative 04/02/18 04/02/18 04/02/18 07:13 11:09 11:15 WBC RBC Hgb Hct MCV MCH MCHC RDW Plt Count MPV Neut % (Auto) Lymph % (Auto) [place] % (Auto) Eos % (Auto) Baso % (Auto) Neut # (Auto) Lymph # (Auto) [place] # (Auto) Eos # (Auto) Baso # (Auto) Sodium Potassium Chloride Carbon Dioxide Anion Gap BUN Creatinine Est GFR ( Amer) Est GFR (Non-Af Amer) POC Glucose (mg/dL) 130 H 112 H Random Glucose Calcium Total Bilirubin AST ALT Alkaline Phosphatase Troponin I Total Protein Albumin Globulin Albumin/Globulin Ratio Lipase Urine Color Urine Clarity Urine pH Ur Specific [place] Urine Protein Urine Glucose (UA) Urine Ketones Urine Blood Urine Nitrate Urine Bilirubin Urine Urobilinogen Ur Leukocyte Esterase Urine WBC (Auto) Urine RBC (Auto) Ur Squamous Epith Cells Hyaline Casts Alcohol, Quantitative < 10 04/02/18 16:24 WBC RBC Hgb Hct MCV MCH MCHC RDW Plt Count MPV Neut % (Auto) Lymph % (Auto) [place] % (Auto) Eos % (Auto) Baso % (Auto) Neut # (Auto) Lymph # (Auto) [place] # (Auto) Eos # (Auto) Baso # (Auto) Sodium Potassium Chloride Carbon Dioxide Anion Gap BUN Creatinine Est GFR ( Amer) Est GFR (Non-Af Amer) POC Glucose (mg/dL) 125 H Random Glucose Calcium Total Bilirubin AST ALT Alkaline Phosphatase Troponin I Total Protein Albumin Globulin Albumin/Globulin Ratio Lipase Urine Color Urine Clarity Urine pH Ur Specific [place] Urine Protein Urine Glucose (UA) Urine Ketones Urine Blood Urine Nitrate Urine Bilirubin Urine Urobilinogen Ur Leukocyte Esterase Urine WBC (Auto) Urine RBC (Auto) Ur Squamous Epith Cells Hyaline Casts Alcohol, Quantitative Assessment & Plan (1) Acute pancreatitis Status: Acute (2) Abdominal pain Status: Acute (3) Allergic reaction Status: Acute (4) Cervical radiculopathy Status: Acute (5) Chronic neck pain Status: Acute (6) Hypokalemia Status: Acute (7) Hypomagnesemia Status: Acute (8) Leukocytosis Status: Acute (9) Near syncope Status: Acute (10) Pancreatitis Status: Acute (11) Prophylactic measure Status: Acute (12) Urticaria Status: Acute (13) Acute on chronic pancreatitis Status: Chronic (14) Alcohol abuse Status: Chronic (15) Diabetes mellitus Status: Chronic (16) Liver lesion Status: Chronic (17) Pancreatic cyst Status: Chronic - Assessment and Plan (Free Text) Plan: protonix lovenox npo abd usgprn ivf lipase trnasfer ot hospitalizt serviced d/w staff
[2018-04-02] MEDS ORDERED: Dextrose 50% SYRINGE Inj (50 ml) IV PRN (19:44)
[2018-04-02] MEDS ORDERED: Glucagon Recombinant 1 mg Inj IM PRN (19:44)
[2018-04-02] MEDS ORDERED: (Novolin R) Insulin Human Regular 100 units/ml vial SC SCH (22:00)
--- NOTE | 2018-04-02 22:58 | CP.PCM.PCO ---
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 PMH of heavy alcoholism but reduced to about 2 drinks 2-3 times/wk, h/o recurrent pancreatitis, h/o pancreatic cyst, h/o radiodense hepatic swelling, h/ o htn, reduced glucose tolerence, vs dm diet control currently was not taking any medications since last discharge. Plan Advanced to bland carb-consistient diet Hgba1c Accucheck achs Counselled about alcohol cessation with his recurrent episodes of pancreatitis.
--- NOTE | 2018-04-03 01:54 | CARD ---
APPROVED REPORT Date of service: 04/01/2018 EKG Measurement Heart [id number] <Conclusion> Normal sinus rhythm Normal ECG
--- NOTE | 2018-04-03 07:14 | CP.PCM.PN ---
Subjective - Date & Time of Evaluation Date of Evaluation: 04/03/18 Time of Evaluation: 07:13 - Subjective Subjective: Resident Progress Note for Hospitalist Service Patient examined at bedside. No acute events overnight. Objective - Vital Signs/Intake and Output Vital Signs (last 24 hours): Temp Pulse Resp BP Pulse Ox 98.5 F 71 20 155/87 H 98 04/02/18 23:40 04/02/18 23:40 04/02/18 23:40 04/02/18 23:40 04/02/18 23:40 Intake and Output: 04/03/18 04/03/18 06:59 18:59 Intake Total 700 Balance 700 - Medications Medications: Current Medications Acetaminophen (Tylenol 325mg Tab) 650 mg PO Q6 PRN PRN Reason: Pain, moderate (4-7) Amlodipine Besylate (Norvasc) 5 mg PO DAILY [facility] Last Admin: 04/02/18 09:29 Dose: 5 mg Enoxaparin Sodium (Lovenox) 40 mg SC DAILY [facility] Last Admin: 04/02/18 09:28 Dose: 40 mg Folic Acid (Folic Acid) 1 mg PO DAILY [facility] Last Admin: 04/02/18 09:29 Dose: 1 mg Sodium Chloride (Sodium Chloride 0.9%) 1,000 mls @ 100 mls/hr IV .Q10H [facility] Last Admin: 04/02/18 19:45 Dose: 100 mls/hr Morphine Sulfate (Morphine) 2 mg IVP Q6 PRN PRN Reason: Pain, severe (8-10) Last Admin: 04/03/18 04:51 Dose: 2 mg Multivitamins (Hexavitamin) 1 tab PO DAILY [facility] Last Admin: 04/02/18 09:29 Dose: 1 tab Pantoprazole Sodium (Protonix Inj) 40 mg IVP DAILY [facility] Last Admin: 04/02/18 09:29 Dose: 40 mg Thiamine HCl (Vitamin B1 Tab) 100 mg PO DAILY [facility] Last Admin: 04/02/18 09:29 Dose: 100 mg - Labs Labs: 04/01/18 21:20 04/01/18 21:20
[2018-04-03 07:20] LABS: EOS # 0.4 K/uL (0.0-0.7); LYMPH # 1.6 K/uL (1.0-4.3); NEUT # 4.6 K/uL (1.8-7.0); NRBC % 0.1 % (0.0-2.0); WHITE BLOOD COUNT 7.3 K/uL (4.8-10.8)
[2018-04-03 07:30] LABS: BASO # 0.1 K/uL (0.0-0.2); BASO % 0.9 % (0.0-2.0); EOS % 5.6 % (0.0-4.0); HEMOGLOBIN 14.1 g/dL (12.0-18.0); LYMPH % 21.4 % (20.0-40.0); MEAN CELL VOLUME 92.6 fL (80.0-94.0); MEAN CORPUSCULAR HGB CONC 34.5 g/dL (33.0-37.0); MEAN PLATELET VOLUME 9.9 fL (7.2-11.7); MONO # 0.6 K/uL (0.0-0.8); MONO % 8.3 % (0.0-10.0); NEUT % 63.8 % (50.0-75.0); RBC 4.4 Mil/uL (4.40-5.90); RED CELL DISTRIBUTION WIDTH 14.4 % (11.5-14.5)
[2018-04-03 07:44] LABS: ALB/GLOB RATIO 1.3 (1.0-2.1); ALT/SGPT 49 U/L (21-72); AMYLASE 393 U/L (30-110); AST/SGOT 51 U/L (17-59); BLOOD UREA NITROGEN 10 mg/dL (9-20); CALCIUM 8.9 mg/dl (8.6-10.4); GFR NON-AFRICAN AMERICAN > 60; LIPASE 327 U/L (23-300)
[2018-04-03 09:50] VITALS: BP 159/90; PULSE 91; TEMP 98.7; O2SAT 96
[2018-04-03] MEDS: Multiple Vitamins Tab PO SCH (10:19)
[2018-04-03] MEDS: Enoxaparin 40 mg Syringe SC SCH (10:19)
--- NOTE | 2018-04-03 12:38 | CP.PCM.DIS ---
<MalathiIzabellatereso L - Last Filed: 04/03/18 14:58> Provider - Provider Date of Admission: 04/02/18 02:14 Attending physician: Selwyn Islas MD Primary care physician: Dr. Islas Time Spent in preparation of Discharge (in minutes): 45 Diagnosis - Discharge Diagnosis (1) Acute pancreatitis Status: Resolved Hospital Course - Lab Results Lab Results: Most Recent Lab Values WBC 7.3 K/uL (4.8-10.8) 04/03/18 06:53 RBC 4.40 Mil/uL (4.40-5.90) 04/03/18 06:53 Hgb 14.1 g/dL (12.0-18.0) 04/03/18 06:53 Hct 40.7 % (35.0-51.0) 04/03/18 06:53 MCV 92.6 fL (80.0-94.0) 04/03/18 06:53 MCH 32.0 pg (27.0-31.0) H 04/03/18 06:53 MCHC 34.5 g/dL (33.0-37.0) 04/03/18 06:53 RDW 14.4 % (11.5-14.5) 04/03/18 06:53 Plt Count 149 K/uL (130-400) 04/03/18 06:53 MPV 9.9 fL (7.2-11.7) 04/03/18 06:53 Neut % (Auto) 63.8 % (50.0-75.0) 04/03/18 06:53 Lymph % (Auto) 21.4 % (20.0-40.0) 04/03/18 06:53 [place] % (Auto) 8.3 % (0.0-10.0) 04/03/18 06:53 Eos % (Auto) 5.6 % (0.0-4.0) H 04/03/18 06:53 Baso % (Auto) 0.9 % (0.0-2.0) 04/03/18 06:53 Neut # (Auto) 4.6 K/uL (1.8-7.0) 04/03/18 06:53 Lymph # (Auto) 1.6 K/uL (1.0-4.3) 04/03/18 06:53 [place] # (Auto) 0.6 K/uL (0.0-0.8) 04/03/18 06:53 Eos # (Auto) 0.4 K/uL (0.0-0.7) 04/03/18 06:53 Baso # (Auto) 0.1 K/uL (0.0-0.2) 04/03/18 06:53 Sodium 140 mmol/L (132-148) 04/03/18 06:53 Potassium 3.8 mmol/L (3.6-5.2) 04/03/18 06:53 Chloride 105 mmol/L (98-107) 04/03/18 06:53 Carbon Dioxide 26 mmol/L (22-30) 04/03/18 06:53 Anion Gap 14 (10-20) 04/03/18 06:53 BUN 10 mg/dL (9-20) 04/03/18 06:53 Creatinine 0.8 mg/dL (0.8-1.5) 04/03/18 06:53 Est GFR ( Amer) > 60 04/03/18 06:53 Est GFR (Non-Af Amer) > 60 04/03/18 06:53 POC Glucose (mg/dL) 158 mg/dL (65-110) H 04/03/18 11:15 Random Glucose 107 mg/dL (75-110) 04/03/18 06:53 Calcium 8.9 mg/dl (8.6-10.4) 04/03/18 06:53 Magnesium 1.9 mg/dL (1.6-2.3) 04/03/18 06:53 Total Bilirubin 0.6 mg/dL (0.2-1.3) 04/03/18 06:53 AST 51 U/L (17-59) 04/03/18 06:53 ALT 49 U/L (21-72) 04/03/18 06:53 Alkaline Phosphatase 75 U/L (38-126) 04/03/18 06:53 Troponin I < 0.0120 ng/mL (0.00-0.120) 04/01/18 21:20 Total Protein 7.0 g/dL (6.3-8.3) 04/03/18 06:53 Albumin 4.0 g/dL (3.5-5.0) 04/03/18 06:53 Globulin 3.0 gm/dL (2.2-3.9) 04/03/18 06:53 Albumin/Globulin Ratio 1.3 (1.0-2.1) 04/03/18 06:53 Amylase 393 U/L (30-110) H D 04/03/18 06:53 Lipase 327 U/L (23-300) H 04/03/18 06:53 Urine Color Yellow (YELLOW) 04/01/18 22:49 Urine Clarity Clear (Clear) 04/01/18 22:49 Urine pH 6.0 (5.0-8.0) 04/01/18 22:49 Ur Specific [place] 1.025 (1.003-1.030) 04/01/18 22:49 Urine Protein 3+ mg/dL (NEGATIVE) H 04/01/18 22:49 Urine Glucose (UA) 2+ mg/dL (Normal) H 04/01/18 22:49 Urine Ketones Negative mg/dL (NEGATIVE) 04/01/18 22:49 Urine Blood Negative (NEGATIVE) 04/01/18 22:49 Urine Nitrate Negative (NEGATIVE) 04/01/18 22:49 Urine Bilirubin Negative (NEGATIVE) 04/01/18 22:49 Urine Urobilinogen Normal mg/dL (0.2-1.0) 04/01/18 22:49 Ur Leukocyte Esterase Neg Barb/uL (Negative) 04/01/18 22:49 Urine WBC (Auto) 1 /hpf (0-5) 04/01/18 22:49 Urine RBC (Auto) 7 /hpf (0-3) H 04/01/18 22:49 Ur Squamous Epith Cells 5 /hpf (0-5) 04/01/18 22:49 Hyaline Casts 0-2 /lpf (0-2) 04/01/18 22:49 Alcohol, Quantitative < 10 mg/dl (0-10) 04/02/18 11:15 - Hospital Course Hospital Course: On admission: 62 male with past medical history of alcohol abuse and cirrhosis presented with ruq pain all day without nausea or vomiting. Patient denies fever or chills. Patient has been admitted multiple times in the past for alcoholic pancreatitis. Denies headache, dizziness, chest pain, shortness of breath, abdominal pain, changes in bowel movements, dysuria. During hospital stay: On abdominal ultrasound he was found to have 2.8 cm calcified right hepatic lobe mass. Hepatomegaly. Echogenic liver may be seen in setting of hepatic parenchymal disease or fatty infiltration. On abdomen and pelvis CT patient was shown to have mild inflammation around the pancreatic head which may be secondary to an acute pancreatitis. Clinical correlation. Correlation with pancreatic enzyme levels would be helpful. 1.0 centimeter cyst in the pancreatic head. This is of uncertain clinical etiology. Correlation with multiphasic CT or MR would be helpful if clinically indicated. Couple of tiny calcifications in the pancreatic head. 2.2 x 2.2 centimeter calcified versus enhancing mass in the central liver which has been previously described. This is of uncertain clinical etiology. Correlation with multiphasic contrast enhanced CT or MR may be helpful for further evaluation if clinically indicated. Please followup full report. Patient was treated with 1 L bolus NS in ED and continued on NS at 100 ccs/hour. Patient was given morphine 2 mg IV Q6 PRN for pain management. Patient was medically optimized for discharge. Please follow up with your primary medical doctor Dr. Islas within one week. You have been prescribed amlodipine. Please take as prescribed 5 mg PO daily. Please resume your home medications as prescribed. Please return to ED if symptoms worsen or return. - Date & Time of H&P Date of H&P: 04/02/18 Time of H&P: 17:18 Discharge Exam - Head Exam Head Exam: ATRAUMATIC, NORMOCEPHALIC - Eye Exam Eye Exam: Normal appearance - Neck Exam Neck exam: Full Rom - Respiratory Exam Respiratory Exam: NORMAL BREATHING PATTERN, UNREMARKABLE - Cardiovascular Exam Cardiovascular Exam: REGULAR RHYTHM, +S1, +S2 - GI/Abdominal Exam GI & Abdominal Exam: Normal Bowel Sounds, Soft. absent: Tenderness - Back Exam Back exam: NORMAL INSPECTION. absent: CVA tenderness (L), CVA tenderness (R) - Neurological Exam Neurological exam: Alert, Oriented x3 - Psychiatric Exam Psychiatric exam: Normal Affect, Normal Mood - Skin Skin Exam: Dry, Intact, Normal Color Discharge Plan - Discharge Medications Prescriptions: amLODIPine [Norvasc] 5 mg PO DAILY 30 Days #30 tab - Follow Up Plan Condition: GOOD Disposition: HOME/ ROUTINE Patient education suggested?: Yes Instructions: Amlodipine, Pancreatitis (DC) Additional Instructions: Please follow up with your primary medical doctor Dr. Islas within one week. You have been prescribed amlodipine. Please take as prescribed 5 mg PO daily. Please resume your home medications as prescribed. Please return to ED if symptoms worsen or return. Referrals: Ebony Islas MD [Staff Provider] - <Abhishek Guzman - Last Filed: 04/03/18 16:36> Provider - Provider Date of Admission: 04/02/18 02:14 Attending physician: Abhishek Guzman, DO Hospital Course - Lab Results Lab Results: Most Recent Lab Values WBC 7.3 K/uL (4.8-10.8) 04/03/18 06:53 RBC 4.40 Mil/uL (4.40-5.90) 04/03/18 06:53 Hgb 14.1 g/dL (12.0-18.0) 04/03/18 06:53 Hct 40.7 % (35.0-51.0) 04/03/18 06:53 MCV 92.6 fL (80.0-94.0) 04/03/18 06:53 MCH 32.0 pg (27.0-31.0) H 04/03/18 06:53 MCHC 34.5 g/dL (33.0-37.0) 04/03/18 06:53 RDW 14.4 % (11.5-14.5) 04/03/18 06:53 Plt Count 149 K/uL (130-400) 04/03/18 06:53 MPV 9.9 fL (7.2-11.7) 04/03/18 06:53 Neut % (Auto) 63.8 % (50.0-75.0) 04/03/18 06:53 Lymph % (Auto) 21.4 % (20.0-40.0) 04/03/18 06:53 [place] % (Auto) 8.3 % (0.0-10.0) 04/03/18 06:53 Eos % (Auto) 5.6 % (0.0-4.0) H 04/03/18 06:53 Baso % (Auto) 0.9 % (0.0-2.0) 04/03/18 06:53 Neut # (Auto) 4.6 K/uL (1.8-7.0) 04/03/18 06:53 Lymph # (Auto) 1.6 K/uL (1.0-4.3) 04/03/18 06:53 [place] # (Auto) 0.6 K/uL (0.0-0.8) 04/03/18 06:53 Eos # (Auto) 0.4 K/uL (0.0-0.7) 04/03/18 06:53 Baso # (Auto) 0.1 K/uL (0.0-0.2) 04/03/18 06:53 Sodium 140 mmol/L (132-148) 04/03/18 06:53 Potassium 3.8 mmol/L (3.6-5.2) 04/03/18 06:53 Chloride 105 mmol/L (98-107) 04/03/18 06:53 Carbon Dioxide 26 mmol/L (22-30) 04/03/18 06:53 Anion Gap 14 (10-20) 04/03/18 06:53 BUN 10 mg/dL (9-20) 04/03/18 06:53 Creatinine 0.8 mg/dL (0.8-1.5) 04/03/18 06:53 Est GFR ( Amer) > 60 04/03/18 06:53 Est GFR (Non-Af Amer) > 60 04/03/18 06:53 POC Glucose (mg/dL) 158 mg/dL (65-110) H 04/03/18 11:15 Random Glucose 107 mg/dL (75-110) 04/03/18 06:53 Calcium 8.9 mg/dl (8.6-10.4) 04/03/18 06:53 Magnesium 1.9 mg/dL (1.6-2.3) 04/03/18 06:53 Total Bilirubin 0.6 mg/dL (0.2-1.3) 04/03/18 06:53 AST 51 U/L (17-59) 04/03/18 06:53 ALT 49 U/L (21-72) 04/03/18 06:53 Alkaline Phosphatase 75 U/L (38-126) 04/03/18 06:53 Troponin I < 0.0120 ng/mL (0.00-0.120) 04/01/18 21:20 Total Protein 7.0 g/dL (6.3-8.3) 04/03/18 06:53 Albumin 4.0 g/dL (3.5-5.0) 04/03/18 06:53 Globulin 3.0 gm/dL (2.2-3.9) 04/03/18 06:53 Albumin/Globulin Ratio 1.3 (1.0-2.1) 04/03/18 06:53 Amylase 393 U/L (30-110) H D 04/03/18 06:53 Lipase 327 U/L (23-300) H 04/03/18 06:53 Urine Color Yellow (YELLOW) 04/01/18 22:49 Urine Clarity Clear (Clear) 04/01/18 22:49 Urine pH 6.0 (5.0-8.0) 04/01/18 22:49 Ur Specific [place] 1.025 (1.003-1.030) 04/01/18 22:49 Urine Protein 3+ mg/dL (NEGATIVE) H 04/01/18 22:49 Urine Glucose (UA) 2+ mg/dL (Normal) H 04/01/18 22:49 Urine Ketones Negative mg/dL (NEGATIVE) 04/01/18 22:49 Urine Blood Negative (NEGATIVE) 04/01/18 22:49 Urine Nitrate Negative (NEGATIVE) 04/01/18 22:49 Urine Bilirubin Negative (NEGATIVE) 04/01/18 22:49 Urine Urobilinogen Normal mg/dL (0.2-1.0) 04/01/18 22:49 Ur Leukocyte Esterase Neg Barb/uL (Negative) 04/01/18 22:49 Urine WBC (Auto) 1 /hpf (0-5) 04/01/18 22:49 Urine RBC (Auto) 7 /hpf (0-3) H 04/01/18 22:49 Ur Squamous Epith Cells 5 /hpf (0-5) 04/01/18 22:49 Hyaline Casts 0-2 /lpf (0-2) 04/01/18 22:49 Alcohol, Quantitative < 10 mg/dl (0-10) 04/02/18 11:15 Attending/Attestation - Attestation I have personally seen and examined this patient.: Yes I have fully participated in the care of the patient.: Yes I have reviewed all pertinent clinical information, including history, physical exam and plan: Yes Notes (Text): 04/03/18 16:29 Medical attending: Patient was seen and examined by me. Agree with the above note by the medical lab technologist The patient was changed from another physician service to the hospitalist service The patient has had multiple admissions in the past due to alcohol related pancreatitis. When I saw him he explained the abdominal pain had resolved. He also tolerated his diet last night. I asked him if he would consider changing his life style with reguards to alcohol - he said he was willing to avoid alcohol and we also explained to him the harmful consequences of alcohol to the body. He did not have tremors or asterix on exam. He asked for pain medication before leaving however I explained to him that given that I was not his PMD and his numerous addmission due to alcohol that I did not feel comfortable giving patient control substances. Abhishek Guzman
[2018-04-03] MEDS: Sodium Chloride 0.9% 1,000 ML IV SCH (15:06)
[2018-04-03] MEDS ORDERED: Pneumococcal 23-Valent Vaccine IM ONE (15:13)
== END 2018-04-03 16:00 | disposition home or self-care (01) | DRG 440 ==
LOC: C.ER 20:53 → C.3T 04-02 02:14 → C.9E 04-02 02:14
PROVIDERS: ADMIT Hospitalist; ATTEND Hospitalist
DX: K85.90 Acute pancreatitis without necrosis or infection, unspecified (principal); I10 Essential (primary) hypertension; G89.29 Other chronic pain; F10.10 Alcohol abuse, uncomplicated; E87.6 Hypokalemia; E83.42 Hypomagnesemia; E11.9 Type 2 diabetes mellitus without complications; L50.9 Urticaria, unspecified; M54.12 Radiculopathy, cervical region; Z79.4 Long term (current) use of insulin

== ENCOUNTER 2018-04-09 13:28 | Inpatient (IN) | payer OTHER ==
[2018-04-09 13:29] VITALS: BMI 26.6
--- NOTE | 2018-04-09 14:44 | C.PDOC ---
History Of Present Illness 62 y/o male with history of HTN and Pancreatitis presents to ED with c/o coughing up blood and abdominal pain for 2-3 days. Patient reports subjective fever and denies chest pain, sob, nausea, vomiting, diarrhea or any other complaints at this time. Chief Complaint (Nursing): GI Problem History Per: Patient History/Exam Limitations: no limitations Onset/Duration Of Symptoms: Days Current Symptoms Are (Timing): Still Present Recent travel outside of the [place]: No Past Medical History Reviewed: Historical Data, Nursing Documentation, Vital Signs Vital Signs: Last Vital Signs Temp 98.8 F 04/09/18 16:50 Pulse 68 04/09/18 16:50 Resp 17 04/09/18 16:50 BP 156/89 H 04/09/18 16:50 Pulse Ox 97 04/09/18 16:50 - Medical History PMH: Gastritis, HTN, Pancreatitis Surgical History: No Surg Hx Family History: States: No Known Family Hx - Social History Hx Alcohol Use: Yes Hx Substance Use: No - Immunization History Hx Tetanus Toxoid Vaccination: No Hx Influenza Vaccination: No Hx Pneumococcal Vaccination: No Review Of Systems Constitutional: Positive for: Fever. Negative for: Chills, Weakness, Weight loss ENT: Negative for: Ear Pain, Ear Discharge, Throat Swelling Respiratory: Positive for: Cough, Sputum (bloody) Gastrointestinal: Positive for: Abdominal Pain. Negative for: Nausea, Vomiting , Diarrhea Genitourinary: Negative for: Dysuria, Hematuria Musculoskeletal: Negative for: Back Pain Skin: Negative for: Rash Neurological: Negative for: Weakness, Numbness Physical Exam - Physical Exam Appears: Non-toxic, No Acute Distress Skin: Warm, Dry, No Rash, Jaundice Head: Atraumatic, Normacephalic Eye(s): bilateral: Normal Inspection Oral Mucosa: Moist Throat: Normal, No Erythema, No Exudate Neck: Normal ROM, Supple Chest: Symmetrical, No Tenderness Cardiovascular: Rhythm Regular, No Friction Rub, No Murmur Respiratory: Normal Breath Sounds, No Rales, No Rhonchi, No Wheezing Gastrointestinal/Abdominal: Soft, No Tenderness, Distention (mild), No Guarding , No Rebound Back: No CVA Tenderness Extremity: No Swelling Neurological/Psych: Oriented x3, Normal Speech, Normal Cognition, Normal Motor Gait: Steady ED Course And Treatment - Laboratory Results Result Diagrams: 04/09/18 14:46 04/09/18 14:46 O2 Sat by Pulse Oximetry: 94 (RA) Pulse Ox Interpretation: Normal - Radiology CXR: Interpreted by Me CXR Interpretation: Yes: No Acute Disease. No: Infiltrates Medical Decision Making Medical Decision Making: Old records reviewed, the patient was last seen in the ED last week and was admitted for pancreatitis and was discharged home on 04/03/18. CXR is negative for infiltrate or consolidation. D dimer and CT-A of the chest ordered to r/o peripheral PE causing hemoptysis. On re-exam, the patient is resting comfortably in bed. Lungs are CTA, heart is RRR, abdomen is soft, non-tender and tolerating PO well. Ambulatory in the ED with steady gait. The case was discussed with Dr. Nelson who agrees to place the patient on OBS tele for possible GI bleed. Disposition - Disposition Disposition: HOSPITALIZED Disposition Time: 18:00 Condition: STABLE - POA Present On Arrival: None - Clinical Impression Clinical Impression: GI bleeding - PA / ASSISTANT CASINO SHIFT MANAGER / Resident Statement MD/DO has reviewed & agrees with the documentation as recorded. - Scribe Statement The provider has reviewed the documentation as recorded by the Scribe Kaylan Brewster All medical record entries made by the Jason were at my direction and personally dictated by me. I have reviewed the chart and agree that the record accurately reflects my personal performance of the history, physical exam, medical decision making, and the department course for this patient. I have also personally directed, reviewed, and agree with the discharge instructions and disposition.
[2018-04-09 14:53] LABS: BASO # 0.1 K/uL (0.0-0.2); EOS # 0.5 K/uL (0.0-0.7); EOS % 6.8 % (0.0-4.0); HEMOGLOBIN 14.8 g/dL (12.0-18.0); LYMPH # 1.8 K/uL (1.0-4.3); LYMPH % 22.3 % (20.0-40.0); MEAN CELL VOLUME 91.2 fL (80.0-94.0); MEAN CORPUSCULAR HEMOGLOBIN 31.5 pg (27.0-31.0); MEAN CORPUSCULAR HGB CONC 34.5 g/dL (33.0-37.0); MEAN PLATELET VOLUME 9.6 fL (7.2-11.7); MONO # 0.8 K/uL (0.0-0.8); MONO % 9.8 % (0.0-10.0); NEUT # 4.7 K/uL (1.8-7.0); NEUT % 60.1 % (50.0-75.0); RBC 4.7 Mil/uL (4.40-5.90); RED CELL DISTRIBUTION WIDTH 14.2 % (11.5-14.5); WHITE BLOOD COUNT 7.9 K/uL (4.8-10.8)
[2018-04-09 14:59] LABS: PROTHROMBIN TIME 10.9 SECONDS (9.7-12.2)
[2018-04-09 15:01] LABS: URINE BILIRUBIN NEGATIVE (NEGATIVE); URINE BLOOD 1+ (NEGATIVE); URINE CLARITY Hazy (Clear); URINE COLOR Yellow (YELLOW); URINE GLUCOSE (UA) 1+ mg/dL (Normal); URINE LEUKOCYTE ESTERASE NEG Leu/uL (Negative); URINE PROTEIN 3+ mg/dL (NEGATIVE); URINE UROBILINOGEN NORMAL mg/dL (0.2-1.0)
--- NOTE | 2018-04-09 15:09 | RAD ---
Date of service: 04/09/2018 PROCEDURE: CHEST RADIOGRAPH, 1 VIEW HISTORY: SOB COMPARISON: Chest radiograph dated 04/01/2018 FINDINGS: LUNGS: Clear. PLEURA: No pneumothorax or pleural fluid seen. CARDIOVASCULAR: Normal. OSSEOUS STRUCTURES: Unchanged. VISUALIZED UPPER ABDOMEN: Normal. OTHER FINDINGS: None. IMPRESSION: No active disease.
[2018-04-09 15:17] LABS: ALB/GLOB RATIO 1.4 (1.0-2.1); ALBUMIN 4.9 g/dL (3.5-5.0); ALT/SGPT 60 U/L (21-72); AST/SGOT 50 U/L (17-59); BLOOD UREA NITROGEN 23 mg/dL (9-20); CALCIUM 10.3 mg/dl (8.6-10.4); GFR NON-AFRICAN AMERICAN > 60
[2018-04-09 15:42] LABS: LIPASE 319 U/L (23-300)
[2018-04-09] MEDS ORDERED: Iodixanol 320 MG/ML 100 ML BOTTLE IV ONE (17:27)
--- NOTE | 2018-04-09 18:13 | CT ---
Date of service: 04/09/2018 PROCEDURE: CT Chest with contrast (Pulmonary Angiogram) HISTORY: hemoptysis COMPARISON: None available. TECHNIQUE: Axial computed tomography images were obtained of the chest in the pulmonary arterial phase of enhancement. Coronal and sagittal reformatted images were created and reviewed. Intravenous contrast dose: 100 mL Visipaque 320 Radiation dose: Total exam DLP = 419.1 mGy-cm. This CT exam was performed using one or more of the following dose reduction techniques: Automated exposure control, adjustment of the mA and/or kV according to patient size, and/or use of iterative reconstruction technique. FINDINGS: PULMONARY ARTERIES: Unremarkable. No pulmonary embolism. AORTA: No acute findings. No thoracic aortic aneurysm. LUNGS: Extensive subpleural blebs, more on the right. Posterior right upper lobe bronchiectasis/scarring small 2-3 mm nodules in the peripheral right upper and lower lobes. . No nodule, mass or pulmonary consolidation. PLEURAL SPACES: Unremarkable. No effusion or pneumothorax. HEART: Unremarkable. No cardiomegaly. No significant pericardial effusion. LYMPH NODES: No lymphadenopathy. BONES, CHEST WALL: Unremarkable. No fracture or destructive lesion OTHER FINDINGS: Stable 2.2 cm high density mass in the right hepatic lobe. IMPRESSION: Unremarkable CT pulmonary angiogram. No pulmonary embolus. Extensive bilateral subpleural blebs, more on the right. Area of posterior right upper lobe bronchiectasis/ scarring. A few small 2-3 mm nodules in the peripheral right upper and lower lobes. Twelve month CT follow-up can be obtained in high-risk patient.
[2018-04-09] MEDS ORDERED: Sodium Chloride 0.9% 500 ML IV ONE ×2 (18:36→18:45)
[2018-04-09 18:55] LABS: HEMOGLOBIN 14.6 g/dL (12.0-18.0); MEAN CELL VOLUME 90.9 fL (80.0-94.0); MEAN CORPUSCULAR HEMOGLOBIN 31.2 pg (27.0-31.0); MEAN CORPUSCULAR HGB CONC 34.4 g/dL (33.0-37.0); MEAN PLATELET VOLUME 9.6 fL (7.2-11.7); RBC 4.68 Mil/uL (4.40-5.90); RED CELL DISTRIBUTION WIDTH 14.5 % (11.5-14.5); WHITE BLOOD COUNT 9.6 K/uL (4.8-10.8)
--- NOTE | 2018-04-09 20:21 | CP.PCM.HP ---
<Eliazar Lacey - Last Filed: 04/10/18 03:08> History of Present Illness - History of Present Illness History of Present Illness: PGY2 Medicine H+P for Dr. Reyes Patient is a 62 year old male with a past medical history of DM, HTN, pacreatitis, alcohol abuse and non-compliance presenting with a 2 days history of spitting up blood. Patient was recently admitted on 04/02/18 due to acute pancreatitis. Patient is still drinking, last drink 2 days ago. He reports spitting up bright red blood for the past two days. He is experiencing subjective fevers as well. He states he has no other complaints and actually feels well, but was nervous about spitting up blood. He denies any abdominal pain on todays admission. He is having normal bowel movements and denies bloody or black stools. Denies nausea, vomiting, diarrhea, constipation, chest pain, shortness of breath, palpitations, abdominal pain, tremors, lightheadedness, dizziness, numbness or tingling. PMD: none PMH: DM (uncontrolled), HTN (uncontrolled), pancreatitis, alcohol use disorder PSH: denies Family: father- age 45 from possible [place]; mother- many years ago; no known family history of cancer Social: lives with , drinks a teacup of whiskey most days for past 30 years , smokes 15 cigarettes a day for 40 years, denies any drugs Allergies: Naproxen (rash) Medications: denies taking any medications on a regular basis * Prescribed Norvasc 5mg PO daily upon discharge on 04/03/18 Present on Admission - Present on Admission Any Indicators Present on Admission: Yes History of Uncontrolled Diabetes: Yes Review of Systems - Review of Systems All systems: reviewed and no additional remarkable complaints except - Constitutional Constitutional: As Per HPI - EENT Eyes: As Per HPI Nose/Mouth/Throat: As Per HPI - Cardiovascular Cardiovascular: As Per HPI - Respiratory Respiratory: As Per HPI, Other (spitting up blood) - Gastrointestinal Gastrointestinal: As Per HPI - Musculoskeletal Musculoskeletal: As Per HPI - Integumentary Integumentary: As Per HPI - Neurological Neurological: As Per HPI - Psychiatric Psychiatric: As Per HPI - Endocrine Endocrine: As Per HPI - Hematologic/Lymphatic Hematologic: As Per HPI Past Patient History - Infectious Disease Hx of Infectious Diseases: None - Past Medical History & Family History Past Medical History?: Yes - Past Social History Smoking Status: Heavy Smoker > 10 Cigarettes Daily - CARDIAC Hx Hypertension: Yes - PULMONARY Hx Respiratory Disorders: No - NEUROLOGICAL Hx Neurological Disorder: No - HEENT Hx HEENT Problems: Yes Other/Comment: wears corrective eyeglasses - RENAL Hx Chronic Kidney Disease: No - ENDOCRINE/METABOLIC Hx Endocrine Disorders: Yes Hx Diabetes Mellitus Type 2: Yes - HEMATOLOGICAL/ONCOLOGICAL Hx Blood Disorders: No - INTEGUMENTARY Hx Dermatological Problems: No - MUSCULOSKELETAL/RHEUMATOLOGICAL Hx Musculoskeletal Disorders: Yes Hx Back Pain: Yes Hx Falls: Yes - GASTROINTESTINAL Hx Gastritis: Yes Hx Pancreatitis: Yes - GENITOURINARY/GYNECOLOGICAL Hx Genitourinary Disorders: No - PSYCHIATRIC Hx Substance Use: No - SURGICAL HISTORY Hx Surgeries: No - ANESTHESIA Hx Anesthesia: No Meds Allergies/Adverse Reactions: Allergies Allergy/AdvReac Type Severity Reaction Status Date / Time naproxen AdvReac Diffuse Verified 04/01/18 21:01 rashes Physical Exam - Constitutional Appears: Non-toxic, No Acute Distress, Unkempt - Head Exam Head Exam: ATRAUMATIC, NORMOCEPHALIC - Eye Exam Eye Exam: EOMI, Normal appearance - ENT Exam ENT Exam: Mucous Membranes Moist Additional comments: no erythema, no blood, poor dentition (missing many teeth) - Neck Exam Neck exam: Negative for: Lymphadenopathy - Respiratory Exam Respiratory Exam: Clear to Auscultation Bilateral, NORMAL BREATHING PATTERN. absent: Accessory Muscle Use, Rales, Rhonchi, Wheezes, Respiratory Distress Additional comments: Patient is not coughing up blood. He is forcing up and spitting bright red blood. Patient did this twice during examination. - Cardiovascular Exam Cardiovascular Exam: REGULAR RHYTHM, +S1, +S2 - GI/Abdominal Exam GI & Abdominal Exam: Normal Bowel Sounds, Soft. absent: Distended, Firm, Guarding, Rigid, Tenderness - Extremities Exam Extremities exam: Positive for: pedal pulses present. Negative for: calf tenderness, pedal edema - Neurological Exam Neurological exam: Alert, Oriented x3 - Psychiatric Exam Psychiatric exam: Normal Affect, Normal Mood - Skin Skin Exam: Dry, Warm Results - Vital Signs Recent Vital Signs: Last Vital Signs Temp 98.2 F 04/09/18 20:03 Pulse 74 04/09/18 20:03 Resp 18 04/09/18 20:03 BP 150/90 04/09/18 20:03 Pulse Ox 97 04/09/18 20:03 - Labs Result Diagrams: 04/09/18 18:48 04/09/18 14:46 Labs: Laboratory Results - last 24 hr 04/09/18 04/09/18 04/09/18 14:46 14:46 14:46 WBC 7.9 RBC 4.70 Hgb 14.8 Hct 42.9 MCV 91.2 MCH 31.5 H MCHC 34.5 RDW 14.2 Plt Count 183 MPV 9.6 Neut % (Auto) 60.1 Lymph % (Auto) 22.3 [place] % (Auto) 9.8 Eos % (Auto) 6.8 H Baso % (Auto) 1.0 Neut # (Auto) 4.7 Lymph # (Auto) 1.8 Harrison # (Auto) 0.8 Eos # (Auto) 0.5 Baso # (Auto) 0.1 PT 10.9 INR 1.0 APTT 31 D-Dimer, Quantitative Sodium 138 Potassium 3.8 Chloride 100 Carbon Dioxide 19 L Anion Gap 23 H BUN 23 H Creatinine 0.9 Est GFR ( Amer) > 60 Est GFR (Non-Af Amer) > 60 Random Glucose 219 H Calcium 10.3 Total Bilirubin 0.5 AST 50 ALT 60 Alkaline Phosphatase 97 Total Creatine Kinase 371 H Total Protein 8.4 H Albumin 4.9 Globulin 3.5 Albumin/Globulin Ratio 1.4 Lipase 319 H Urine Color Urine Clarity Urine pH Ur Specific [place] Urine Protein Urine Glucose (UA) Urine Ketones Urine Blood Urine Nitrate Urine Bilirubin Urine Urobilinogen Ur Leukocyte Esterase Urine WBC (Auto) Urine RBC (Auto) Alcohol, Quantitative 04/09/18 04/09/18 04/09/18 14:46 14:53 18:48 WBC RBC Hgb Hct MCV MCH MCHC RDW Plt Count MPV Neut % (Auto) Lymph % (Auto) [place] % (Auto) Eos % (Auto) Baso % (Auto) Neut # (Auto) Lymph # (Auto) [place] # (Auto) Eos # (Auto) Baso # (Auto) PT INR APTT D-Dimer, Quantitative < 200 Sodium Potassium Chloride Carbon Dioxide Anion Gap BUN Creatinine Est GFR ( Amer) Est GFR (Non-Af Amer) Random Glucose Calcium Total Bilirubin AST ALT Alkaline Phosphatase Total Creatine Kinase Total Protein Albumin Globulin Albumin/Globulin Ratio Lipase Urine Color Yellow Urine Clarity Hazy Urine pH 5.0 Ur Specific [place] 1.028 Urine Protein 3+ H Urine Glucose (UA) 1+ H Urine Ketones Negative Urine Blood 1+ H Urine Nitrate Negative Urine Bilirubin Negative Urine Urobilinogen Normal Ur Leukocyte Esterase Neg Urine WBC (Auto) 2 Urine RBC (Auto) 1 Alcohol, Quantitative < 10 04/09/18 18:48 WBC 9.6 RBC 4.68 Hgb 14.6 Hct 42.5 MCV 90.9 MCH 31.2 H MCHC 34.4 RDW 14.5 Plt Count 162 MPV 9.6 Neut % (Auto) Lymph % (Auto) [place] % (Auto) Eos % (Auto) Baso % (Auto) Neut # (Auto) Lymph # (Auto) [place] # (Auto) Eos # (Auto) Baso # (Auto) PT INR APTT D-Dimer, Quantitative Sodium Potassium Chloride Carbon Dioxide Anion Gap BUN Creatinine Est GFR ( Amer) Est GFR (Non-Af Amer) Random Glucose Calcium Total Bilirubin AST ALT Alkaline Phosphatase Total Creatine Kinase Total Protein Albumin Globulin Albumin/Globulin Ratio Lipase Urine Color Urine Clarity Urine pH Ur Specific [place] Urine Protein Urine Glucose (UA) Urine Ketones Urine Blood Urine Nitrate Urine Bilirubin Urine Urobilinogen Ur Leukocyte Esterase Urine WBC (Auto) Urine RBC (Auto) Alcohol, Quantitative Assessment & Plan - Assessment and Plan (Free Text) Plan: GI Bleed Patient is not coughing blood, but spitting up bright red blood. He is forcing himself to bring up the blood and spit it out. GI consulted, Dr. Lopez * f/u recs CXR 04/09: no active disease. Chest CTA 04/09: * Unremarkable CT pulmonary angiogram. No pulmonary embolus. * Extensive bilateral subpleural blebs, more on the right. Area of posterior right upper lobe bronchiectasis/ scarring. * A few small 2-3 mm nodules in the peripheral right upper and lower lobes. Twelve month CT follow-up can be obtained in high-risk patient. H/H upon admission, 14.6/42.5 INR 1.0 D-Dimer <200 Total CK [address] on tele monitoring Medications: * Protonix Drip * NS @125mL/hr Alcohol Abuse Alc <10, last drink 2 days ago CIWA Seizure protocol Aspiration protocol Fall Risk Medications: * Thiamine 100mg PO daily * Multivitamin 1 tab PO daily * Folic acid 1mg PO daily * Ativan 1mg IVP Q3H prn Diabetes uncontrolled, BS 219 upon admission Pt not actively taking any medications Hgb A1c 7.2 (10/13/17) * pending Medications: * Pt was not placed on ISS at this time due to being NPO for GI bleed Hypertension uncontrolled, BP 167/95 upon admission Pt not actively taking any medications Medications: * Amlodipine 5mg PO daily Proteinuria/Hematuria likely 2/2 uncontrolled DM UA: protein 3+, glucose 1+, blood 1+ Prophylactic Care VTE - anticoag contraindicated 2/2 GI bleed SCDs GI - protonix drip Case discussed with Dr. Amy Lacey PGY2 <Galileo Reyes - Last Filed: 04/10/18 06:21> Results - Vital Signs Recent Vital Signs: Last Vital Signs Temp 98.4 F 04/09/18 23:45 Pulse 76 04/09/18 23:45 Resp 20 04/09/18 23:45 BP 146/85 04/09/18 23:45 Pulse Ox 97 04/10/18 03:42 - Labs Result Diagrams: 04/09/18 18:48 04/09/18 14:46 Labs: Laboratory Results - last 24 hr 04/09/18 04/09/18 04/09/18 14:46 14:46 14:46 WBC 7.9 RBC 4.70 Hgb 14.8 Hct 42.9 MCV 91.2 MCH 31.5 H MCHC 34.5 RDW 14.2 Plt Count 183 MPV 9.6 Neut % (Auto) 60.1 Lymph % (Auto) 22.3 Harrison % (Auto) 9.8 Eos % (Auto) 6.8 H Baso % (Auto) 1.0 Neut # (Auto) 4.7 Lymph # (Auto) 1.8 Harrison # (Auto) 0.8 Eos # (Auto) 0.5 Baso # (Auto) 0.1 PT 10.9 INR 1.0 APTT 31 D-Dimer, Quantitative Sodium 138 Potassium 3.8 Chloride 100 Carbon Dioxide 19 L Anion Gap 23 H BUN 23 H Creatinine 0.9 Est GFR ( Amer) > 60 Est GFR (Non-Af Amer) > 60 Random Glucose 219 H Calcium 10.3 Total Bilirubin 0.5 AST 50 ALT 60 Alkaline Phosphatase 97 Total Creatine Kinase 371 H Total Protein 8.4 H Albumin 4.9 Globulin 3.5 Albumin/Globulin Ratio 1.4 Lipase 319 H Urine Color Urine Clarity Urine pH Ur Specific [place] Urine Protein Urine Glucose (UA) Urine Ketones Urine Blood Urine Nitrate Urine Bilirubin Urine Urobilinogen Ur Leukocyte Esterase Urine WBC (Auto) Urine RBC (Auto) Alcohol, Quantitative 04/09/18 04/09/18 04/09/18 14:46 14:53 18:48 WBC RBC Hgb Hct MCV MCH MCHC RDW Plt Count MPV Neut % (Auto) Lymph % (Auto) [place] % (Auto) Eos % (Auto) Baso % (Auto) Neut # (Auto) Lymph # (Auto) [place] # (Auto) Eos # (Auto) Baso # (Auto) PT INR APTT D-Dimer, Quantitative < 200 Sodium Potassium Chloride Carbon Dioxide Anion Gap BUN Creatinine Est GFR ( Amer) Est GFR (Non-Af Amer) Random Glucose Calcium Total Bilirubin AST ALT Alkaline Phosphatase Total Creatine Kinase Total Protein Albumin Globulin Albumin/Globulin Ratio Lipase Urine Color Yellow Urine Clarity Hazy Urine pH 5.0 Ur Specific [place] 1.028 Urine Protein 3+ H Urine Glucose (UA) 1+ H Urine Ketones Negative Urine Blood 1+ H Urine Nitrate Negative Urine Bilirubin Negative Urine Urobilinogen Normal Ur Leukocyte Esterase Neg Urine WBC (Auto) 2 Urine RBC (Auto) 1 Alcohol, Quantitative < 10 04/09/18 18:48 WBC 9.6 RBC 4.68 Hgb 14.6 Hct 42.5 MCV 90.9 MCH 31.2 H MCHC 34.4 RDW 14.5 Plt Count 162 MPV 9.6 Neut % (Auto) Lymph % (Auto) [place] % (Auto) Eos % (Auto) Baso % (Auto) Neut # (Auto) Lymph # (Auto) [place] # (Auto) Eos # (Auto) Baso # (Auto) PT INR APTT D-Dimer, Quantitative Sodium Potassium Chloride Carbon Dioxide Anion Gap BUN Creatinine Est GFR ( Amer) Est GFR (Non-Af Amer) Random Glucose Calcium Total Bilirubin AST ALT Alkaline Phosphatase Total Creatine Kinase Total Protein Albumin Globulin Albumin/Globulin Ratio Lipase Urine Color Urine Clarity Urine pH Ur Specific [place] Urine Protein Urine Glucose (UA) Urine Ketones Urine Blood Urine Nitrate Urine Bilirubin Urine Urobilinogen Ur Leukocyte Esterase Urine WBC (Auto) Urine RBC (Auto) Alcohol, Quantitative Assessment & Plan - Date & Time Date: 04/10/18 (I have seen and examined the patient. I agree with the findings and plan of care as documented by Dr. Lacey. Patient with GI bleed. History of alcohol abuse. Consult to GI. Protonix drip. Monitor H/H. CIWA protocol. Monitor for acute changes.) Time: 06:20 Attending/Attestation - Attestation I have personally seen and examined this patient.: Yes I have fully participated in the care of the patient.: Yes I have reviewed all pertinent clinical information: Yes
[2018-04-09] MEDS: Pantoprazole 80 MG in Sodium Chloride 0.9% 100 ML IVPB SCH (22:00)
[2018-04-10] MEDS: Sodium Chloride 0.9% 1,000 ML IV SCH ×3 (03:35→20:41)
--- NOTE | 2018-04-10 07:41 | CP.PCM.CON ---
<Sebastian Thompson - Last Filed: 04/10/18 08:45> History of Present Illness - History of Present Illness History of Present Illness: PGY-4 GI Initial Consult Note Mr. Shelley is a 62 yo male with h/o EtOH abuse and recent admission for EtOH pancreatitis, DM presenting with complaint of spitting up blood. States that his abd pain from recent pancreatitis has been slowly improving, but over the last few days he noticed that he has been spitting up some blood over the last 2 days. Denies any overt hematemesis, hemoptysis nor worsening abd pain. When asked about BMs, he states that he normally has formed brown stools, but over the last 2 days he has notice some black and red parts to it. He thinks he had an EGD many years ago for unknown reasons. States he continues to drink alcohol but denies any daily medication use, including no NSAIDs. 12 point ROS negative other than stated above MHx: DM (uncontrolled), HTN (uncontrolled), pancreatitis, EtOH Abuse SurgHx: Denied, EGD in past unknown details, no CSPY Meds: None on daily basis, no prns FamHx: father- age 45 from possible [place]/CV[place]; mother- many years ago; no known family history of cancer SocHx: lives with , drinks a teacup of whiskey most days for past 30 years, smokes 15 cigarettes a day for 40 years, denies any drugs All: Naproxen (rash) Past Patient History - Infectious Disease Hx of Infectious Diseases: None - Past Medical History & Family History Past Medical History?: Yes - Past Social History Smoking Status: Heavy Smoker > 10 Cigarettes Daily - CARDIAC Hx Hypertension: Yes - PULMONARY Hx Respiratory Disorders: No - NEUROLOGICAL Hx Neurological Disorder: No - HEENT Hx HEENT Problems: Yes Other/Comment: wears corrective eyeglasses - RENAL Hx Chronic Kidney Disease: No - ENDOCRINE/METABOLIC Hx Endocrine Disorders: Yes Hx Diabetes Mellitus Type 2: Yes - HEMATOLOGICAL/ONCOLOGICAL Hx Blood Disorders: No - INTEGUMENTARY Hx Dermatological Problems: No - MUSCULOSKELETAL/RHEUMATOLOGICAL Hx Musculoskeletal Disorders: Yes Hx Back Pain: Yes Hx Falls: Yes - GASTROINTESTINAL Hx Gastritis: Yes Hx Pancreatitis: Yes - GENITOURINARY/GYNECOLOGICAL Hx Genitourinary Disorders: No - PSYCHIATRIC Hx Substance Use: No - SURGICAL HISTORY Hx Surgeries: No - ANESTHESIA Hx Anesthesia: No Meds Allergies/Adverse Reactions: Allergies Allergy/AdvReac Type Severity Reaction Status Date / Time naproxen AdvReac Diffuse Verified 04/01/18 21:01 rashes - Medications Medications: Current Medications Acetaminophen (Tylenol 325mg Tab) 650 mg PO Q6 PRN PRN Reason: pain 4-7, fever>100.4F Amlodipine Besylate (Norvasc) 5 mg PO DAILY [facility] Folic Acid (Folic Acid) 1 mg PO DAILY [facility] Pantoprazole Sodium 80 mg/ (Sodium Chloride) 100 mls @ 10 mls/hr IVPB .Q10H MICHELLE PRN Reason: 8 MG/HR Last Admin: 04/09/18 22:00 Dose: 10 mls/hr Sodium Chloride (Sodium Chloride 0.9%) 1,000 mls @ 125 mls/hr IV .Q8H MICHELLE Last Admin: 04/10/18 03:35 Dose: 125 mls/hr Lorazepam (Ativan) 1 mg IVP Q3H PRN PRN Reason: Symptoms of alcohol withdrawl Multivitamins (Hexavitamin) 1 tab PO DAILY [facility] Thiamine HCl (Vitamin B1 Tab) 100 mg PO DAILY [facility] Physical Exam - Constitutional Appears: Well, Non-toxic, No Acute Distress - Head Exam Head Exam: ATRAUMATIC, NORMAL INSPECTION - Eye Exam Eye Exam: EOMI. absent: Conjunctival injection, Scleral icterus - ENT Exam ENT Exam: Mucous Membranes Dry, Normal External Ear Exam. absent: Mucous Membranes Moist - Neck Exam Neck exam: Positive for: Normal Inspection. Negative for: Meningismus - Respiratory Exam Respiratory Exam: Wheezes, NORMAL BREATHING PATTERN. absent: Accessory Muscle Use - Cardiovascular Exam Cardiovascular Exam: REGULAR RHYTHM. absent: Bradycardia, Tachycardia, RRR - GI/Abdominal Exam GI & Abdominal Exam: Normal Bowel Sounds, Soft, Tenderness (mildly in epigastrum w/o guarding). absent: Bruit, Diminished Bowel Sounds, Distended, Firm, Guarding, Hernia, Hyperactive Bowel Sounds, Hypoactive Bowel Sounds, Organomegaly, Pulsatile Mass, Rebound, Rigid - Rectal Exam Rectal Exam: NORMAL INSPECTION (other than skin tag at 5 o'clock, no stool in rectal vault) - Extremities Exam Extremities exam: Positive for: normal inspection. Negative for: pedal edema - Neurological Exam Neurological exam: Alert, CN II-XII Intact - Psychiatric Exam Psychiatric exam: Normal Affect, Normal Mood - Skin Skin Exam: Normal Color, Warm Results - Vital Signs Recent Vital Signs: Last Vital Signs Temp 98.4 F 04/09/18 23:45 Pulse 61 04/10/18 07:32 Resp 20 04/09/18 23:45 BP 146/85 04/09/18 23:45 Pulse Ox 97 04/10/18 03:42 - Labs Result Diagrams: 04/09/18 18:48 04/09/18 14:46 Labs: Laboratory Results - last 24 hr 04/09/18 04/09/18 04/09/18 14:46 14:46 14:46 WBC 7.9 RBC 4.70 Hgb 14.8 Hct 42.9 MCV 91.2 MCH 31.5 H MCHC 34.5 RDW 14.2 Plt Count 183 MPV 9.6 Neut % (Auto) 60.1 Lymph % (Auto) 22.3 [place] % (Auto) 9.8 Eos % (Auto) 6.8 H Baso % (Auto) 1.0 Neut # (Auto) 4.7 Lymph # (Auto) 1.8 [place] # (Auto) 0.8 Eos # (Auto) 0.5 Baso # (Auto) 0.1 PT 10.9 INR 1.0 APTT 31 D-Dimer, Quantitative Sodium 138 Potassium 3.8 Chloride 100 Carbon Dioxide 19 L Anion Gap 23 H BUN 23 H Creatinine 0.9 Est GFR ( Amer) > 60 Est GFR (Non-Af Amer) > 60 Random Glucose 219 H Calcium 10.3 Total Bilirubin 0.5 AST 50 ALT 60 Alkaline Phosphatase 97 Total Creatine Kinase 371 H Total Protein 8.4 H Albumin 4.9 Globulin 3.5 Albumin/Globulin Ratio 1.4 Lipase 319 H Urine Color Urine Clarity Urine pH Ur Specific [place] Urine Protein Urine Glucose (UA) Urine Ketones Urine Blood Urine Nitrate Urine Bilirubin Urine Urobilinogen Ur Leukocyte Esterase Urine WBC (Auto) Urine RBC (Auto) Alcohol, Quantitative 04/09/18 04/09/18 04/09/18 14:46 14:53 18:48 WBC RBC Hgb Hct MCV MCH MCHC RDW Plt Count MPV Neut % (Auto) Lymph % (Auto) [place] % (Auto) Eos % (Auto) Baso % (Auto) Neut # (Auto) Lymph # (Auto) [place] # (Auto) Eos # (Auto) Baso # (Auto) PT INR APTT D-Dimer, Quantitative < 200 Sodium Potassium Chloride Carbon Dioxide Anion Gap BUN Creatinine Est GFR ( Amer) Est GFR (Non-Af Amer) Random Glucose Calcium Total Bilirubin AST ALT Alkaline Phosphatase Total Creatine Kinase Total Protein Albumin Globulin Albumin/Globulin Ratio Lipase Urine Color Yellow Urine Clarity Hazy Urine pH 5.0 Ur Specific [place] 1.028 Urine Protein 3+ H Urine Glucose (UA) 1+ H Urine Ketones Negative Urine Blood 1+ H Urine Nitrate Negative Urine Bilirubin Negative Urine Urobilinogen Normal Ur Leukocyte Esterase Neg Urine WBC (Auto) 2 Urine RBC (Auto) 1 Alcohol, Quantitative < 10 04/09/18 18:48 WBC 9.6 RBC 4.68 Hgb 14.6 Hct 42.5 MCV 90.9 MCH 31.2 H MCHC 34.4 RDW 14.5 Plt Count 162 MPV 9.6 Neut % (Auto) Lymph % (Auto) [place] % (Auto) Eos % (Auto) Baso % (Auto) Neut # (Auto) Lymph # (Auto) [place] # (Auto) Eos # (Auto) Baso # (Auto) PT INR APTT D-Dimer, Quantitative Sodium Potassium Chloride Carbon Dioxide Anion Gap BUN Creatinine Est GFR ( Amer) Est GFR (Non-Af Amer) Random Glucose Calcium Total Bilirubin AST ALT Alkaline Phosphatase Total Creatine Kinase Total Protein Albumin Globulin Albumin/Globulin Ratio Lipase Urine Color Urine Clarity Urine pH Ur Specific [place] Urine Protein Urine Glucose (UA) Urine Ketones Urine Blood Urine Nitrate Urine Bilirubin Urine Urobilinogen Ur Leukocyte Esterase Urine WBC (Auto) Urine RBC (Auto) Alcohol, Quantitative Assessment & Plan - Assessment and Plan (Free Text) Assessment: 62 yo Male with EtOH Abuse, recent pancreatitis, DM presenting with spitting up blood. # Black and Red stools: Concerning for melena/hematochezia. Per patient report , no stool on SAMANTHA. Hgb at baseline though patient reports normally formed brown stools with recent change. Furthermore, BUN elevated from recently normal values. Pt reported some coughing spells then spitting up blood -> Mall Sylvie tear? Plan: - Plan for EGD later this AM - NPO - PPI gtt - Further recs/plan pending EGD - Encourage EtOH and Tob cessation Pt seen and examined with Dr. Lopez <Susan Lopez - Last Filed: 04/10/18 20:11> Meds - Medications Medications: Current Medications Acetaminophen (Tylenol 325mg Tab) 650 mg PO Q6 PRN PRN Reason: pain 4-7, fever>100.4F Amlodipine Besylate (Norvasc) 5 mg PO DAILY [facility] Last Admin: 04/10/18 13:15 Dose: 5 mg Folic Acid (Folic Acid) 1 mg PO DAILY [facility] Last Admin: 04/10/18 13:15 Dose: 1 mg Pantoprazole Sodium 80 mg/ (Sodium Chloride) 100 mls @ 10 mls/hr IVPB .Q10H MICHELLE PRN Reason: 8 MG/HR Last Admin: 04/10/18 09:28 Dose: 10 mls/hr Sodium Chloride (Sodium Chloride 0.9%) 1,000 mls @ 125 mls/hr IV .Q8H [facility] Last Admin: 04/10/18 10:52 Dose: Not Given Lorazepam (Ativan) 1 mg IVP Q3H PRN PRN Reason: Symptoms of alcohol withdrawl Multivitamins (Hexavitamin) 1 tab PO DAILY [facility] Last Admin: 04/10/18 13:15 Dose: 1 tab Thiamine HCl (Vitamin B1 Tab) 100 mg PO DAILY [facility] Last Admin: 04/10/18 10:52 Dose: Not Given Results - Vital Signs Recent Vital Signs: Last Vital Signs Temp 98.0 F 04/10/18 15:00 Pulse 69 04/10/18 16:00 Resp 20 04/10/18 15:00 BP 130/70 04/10/18 15:00 Pulse Ox 95 04/10/18 15:00 - Labs Result Diagrams: 04/09/18 18:48 04/09/18 14:46 Attending/Attestation - Attestation I have personally seen and examined this patient.: Yes I have fully participated in the care of the patient.: Yes I have reviewed all pertinent clinical information: Yes Notes (Text): 04/10/18 20:08 62 yr old M with alcohol abuse and recent pancreatitis admited with spitting blood after vomiting. Suspicion for sadie bunch tear s/p urgent EGD that showed no mucosal defects or ulcers. H pylori biopsies taken. PPI daily. Diet as tolerated. Alcohol cassation. No further work up necessary. Will sign off
[2018-04-10] MEDS: Pantoprazole 80 MG in Sodium Chloride 0.9% 100 ML IVPB SCH ×2 (09:28→22:02)
--- NOTE | 2018-04-10 09:48 | CP.PCM.PN ---
Subjective - Date & Time of Evaluation Date of Evaluation: 04/10/18 Time of Evaluation: 09:45 - Subjective Subjective: PGY-1 Medicine Progress Note for Dr. Hu Patient seen and examined at bedside this AM. No acute events reported overnight. Pt is not coughing bright red blood this morning but expresses small dark red clots in his sputum. Otherwise, resting comfortably and in no acute distress. He endorses 1 non-bloody BM overnight. Denies any abdominal pain, dizziness, bloody stools, n/v/d, constipation, dysuria, chest pain, palpitations , SOB, or cough. Objective - Vital Signs/Intake and Output Vital Signs (last 24 hours): Temp Pulse Resp BP Pulse Ox 97.9 F 63 18 144/89 98 04/10/18 08:15 04/10/18 08:15 04/10/18 08:15 04/10/18 08:15 04/10/18 08:15 Intake and Output: 04/10/18 04/10/18 06:59 18:59 Intake Total 440 Balance 440 - Medications Medications: Current Medications Acetaminophen (Tylenol 325mg Tab) 650 mg PO Q6 PRN PRN Reason: pain 4-7, fever>100.4F Amlodipine Besylate (Norvasc) 5 mg PO DAILY [facility] Folic Acid (Folic Acid) 1 mg PO DAILY [facility] Pantoprazole Sodium 80 mg/ (Sodium Chloride) 100 mls @ 10 mls/hr IVPB .Q10H [facility] PRN Reason: 8 MG/HR Last Admin: 04/10/18 09:28 Dose: 10 mls/hr Sodium Chloride (Sodium Chloride 0.9%) 1,000 mls @ 125 mls/hr IV .Q8H [facility] Last Admin: 04/10/18 03:35 Dose: 125 mls/hr Lorazepam (Ativan) 1 mg IVP Q3H PRN PRN Reason: Symptoms of alcohol withdrawl Multivitamins (Hexavitamin) 1 tab PO DAILY [facility] Thiamine HCl (Vitamin B1 Tab) 100 mg PO DAILY [facility] - Labs Labs: 04/09/18 18:48 04/09/18 14:46 PT 10.9 SECONDS (9.7-12.2) 04/09/18 14:46 INR 1.0 04/09/18 14:46 APTT 31 SECONDS (21-34) 04/09/18 14:46 - Constitutional Appears: Non-toxic, No Acute Distress - Head Exam Head Exam: ATRAUMATIC, NORMAL INSPECTION, NORMOCEPHALIC - Eye Exam Eye Exam: EOMI, Normal appearance - ENT Exam ENT Exam: Mucous Membranes Moist, Normal Exam - Neck Exam Neck Exam: Normal Inspection - Respiratory Exam Respiratory Exam: Clear to Ausculation Bilateral, NORMAL BREATHING PATTERN. absent: Accessory Muscle Use - Cardiovascular Exam Cardiovascular Exam: RRR, +S1, +S2 - GI/Abdominal Exam GI & Abdominal Exam: Guarding, Soft, Tenderness, Normal Bowel Sounds. absent: Distended, Firm, Mass, Pulsatile Mass, Rebound Additional comments: TTP in epigastrium with mild guarding - Extremities Exam Extremities Exam: Normal Capillary Refill, Normal Inspection - Back Exam Back Exam: NORMAL INSPECTION. absent: CVA tenderness (L), CVA tenderness (R) - Neurological Exam Neurological Exam: Alert, Awake, Oriented x3 - Psychiatric Exam Psychiatric exam: Normal Affect, Normal Mood - Skin Skin Exam: Dry, Intact, Normal Color, Warm Assessment and Plan - Assessment and Plan (Free Text) Assessment: 62 yo M with PMHx of DM, HTN, pancreatitis with recent admission for acute pancreatitis (04/02/18), alcohol abuse, and non-compliance presenting with 2 day history of spitting up bright red blood. Plan: 1. GI Bleed -Pt no longer coughing up bright red blood but expressed small dark red clots in his sputum. He is forcing himself to bring up the blood and spit it out. -f/u GI recs (Dr. Lopez): -plan for EGD this AM -kept NPO -CXR (04/09): no active disease. -Chest CTA (04/09): -Unremarkable CT pulmonary angiogram. No pulmonary embolus. -Extensive bilateral subpleural blebs, more on the right. Area of posterior right upper lobe bronchiectasis/ scarring. -A few small 2-3 mm nodules in the peripheral right upper and lower lobes. Twelve month CT follow-up can be obtained in high-risk patient. -Hb/Hct upon admission, 14.6/42.5 -INR 1.0 -D-Dimer <200 -Total CK 371 -Lipase 319 -Place on tele monitoring -NS @125mL/hr 2. Alcohol Abuse -Alc <10, last drink 2 days ago -CIWA -Seizure protocol -Aspiration protocol -Fall Risk -Medications: * Thiamine 100mg PO daily * Multivitamin 1 tab PO daily * Folic acid 1mg PO daily 3. Diabetes -uncontrolled, BS 219 upon admission -Pt not actively taking any medications -Hgb A1c 7.2 (10/13/17) * pending Medications: * Pt was not placed on ISS at this time due to being NPO for GI bleed 4. Hypertension -uncontrolled, BP 167/95 upon admission -Pt not actively taking any medications -Medications: * Amlodipine 5mg PO daily 5. Proteinuria/Hematuria -likely 2/2 uncontrolled DM -UA: protein 3+, glucose 1+, blood 1+ 6. PPx, Diet, Disposition -VTE - anticoag contraindicated 2/2 GI bleed -SCDs Case discussed with Dr. Mayte Marinelli, PGY-1
[2018-04-10] MEDS: Multiple Vitamins Tab PO SCH ×2 (10:52→13:15)
[2018-04-10] MEDS ORDERED: Propofol 10 mg/ml Inj (20 ML) ONE ×2 (11:34→11:57)
[2018-04-11] MEDS: Sodium Chloride 0.9% 1,000 ML IV SCH ×2 (03:52→10:48)
[2018-04-11 07:57] LABS: HEMOGLOBIN 12.7 g/dL (12.0-18.0); MEAN CELL VOLUME 90.6 fL (80.0-94.0); MEAN CORPUSCULAR HEMOGLOBIN 31.3 pg (27.0-31.0); MEAN CORPUSCULAR HGB CONC 34.6 g/dL (33.0-37.0); MEAN PLATELET VOLUME 9.8 fL (7.2-11.7); RBC 4.06 Mil/uL (4.40-5.90); RED CELL DISTRIBUTION WIDTH 13.9 % (11.5-14.5); WHITE BLOOD COUNT 8.1 K/uL (4.8-10.8)
[2018-04-11 08:22] LABS: ALB/GLOB RATIO 1.4 (1.0-2.1); ALBUMIN 3.7 g/dL (3.5-5.0); ALT/SGPT 42 U/L (21-72); AST/SGOT 36 U/L (17-59); BLOOD UREA NITROGEN 15 mg/dL (9-20); CALCIUM 8.7 mg/dl (8.6-10.4); GFR NON-AFRICAN AMERICAN > 60
--- NOTE | 2018-04-11 09:38 | CP.PCM.PN ---
<Herlinda Vanegas - Last Filed: 04/11/18 09:38> Objective - Vital Signs/Intake and Output Vital Signs (last 24 hours): Temp Pulse Resp BP Pulse Ox 98.9 F 74 20 129/68 95 04/11/18 07:00 04/11/18 07:00 04/11/18 07:00 04/11/18 07:00 04/11/18 07:00 - Medications Medications: Current Medications Acetaminophen (Tylenol 325mg Tab) 650 mg PO Q6 PRN PRN Reason: pain 4-7, fever>100.4F Amlodipine Besylate (Norvasc) 5 mg PO DAILY [facility] Last Admin: 04/10/18 13:15 Dose: 5 mg Folic Acid (Folic Acid) 1 mg PO DAILY [facility] Last Admin: 04/10/18 13:15 Dose: 1 mg Pantoprazole Sodium 80 mg/ (Sodium Chloride) 100 mls @ 10 mls/hr IVPB .Q10H [facility]HELLE PRN Reason: 8 MG/HR Last Admin: 04/10/18 22:02 Dose: 10 mls/hr Sodium Chloride (Sodium Chloride 0.9%) 1,000 mls @ 125 mls/hr IV .Q8H [facility] Last Admin: 04/11/18 03:52 Dose: 125 mls/hr Lorazepam (Ativan) 1 mg IVP Q3H PRN PRN Reason: Symptoms of alcohol withdrawl Multivitamins (Hexavitamin) 1 tab PO DAILY [facility] Last Admin: 04/10/18 13:15 Dose: 1 tab Thiamine HCl (Vitamin B1 Tab) 100 mg PO DAILY [facility] Last Admin: 04/10/18 10:52 Dose: Not Given - Labs Labs: 04/11/18 07:33 04/11/18 07:33 PT 10.9 SECONDS (9.7-12.2) 04/09/18 14:46 INR 1.0 04/09/18 14:46 APTT 31 SECONDS (21-34) 04/09/18 14:46 <Emily Hu - Last Filed: 04/11/18 17:22> Objective - Vital Signs/Intake and Output Vital Signs (last 24 hours): Temp Pulse Resp BP Pulse Ox 98 F 73 20 157/77 H 96 04/11/18 15:59 04/11/18 15:59 04/11/18 15:59 04/11/18 15:59 04/11/18 15:59 - Medications Medications: Current Medications Acetaminophen (Tylenol 325mg Tab) 650 mg PO Q6 PRN PRN Reason: pain 4-7, fever>100.4F Amlodipine Besylate (Norvasc) 5 mg PO DAILY [facility] Last Admin: 04/11/18 10:48 Dose: 5 mg Folic Acid (Folic Acid) 1 mg PO DAILY [facility] Last Admin: 04/11/18 10:48 Dose: 1 mg Ceftriaxone Sodium 1 gm/ (Sodium Chloride) 100 mls @ 100 mls/hr IVPB Q24H [facility] PRN Reason: Protocol Lorazepam (Ativan) 1 mg IVP Q3H PRN PRN Reason: Symptoms of alcohol withdrawl Multivitamins (Hexavitamin) 1 tab PO DAILY [facility] Last Admin: 04/11/18 10:48 Dose: 1 tab Pantoprazole Sodium (Protonix Ec Tab) 20 mg PO DAILY [facility] Thiamine HCl (Vitamin B1 Tab) 100 mg PO DAILY [facility] Last Admin: 04/11/18 10:50 Dose: 100 mg - Labs Labs: 04/11/18 07:33 04/11/18 07:33 PT 10.9 SECONDS (9.7-12.2) 04/09/18 14:46 INR 1.0 04/09/18 14:46 APTT 31 SECONDS (21-34) 04/09/18 14:46
[2018-04-11] MEDS ORDERED: Potassium Chloride 10 mEq ER Tab PO ONE (10:00)
[2018-04-11] MEDS: Multiple Vitamins Tab PO SCH (10:48)
--- NOTE | 2018-04-11 17:37 | CP.PCM.PN ---
Subjective - Date & Time of Evaluation Date of Evaluation: 04/11/18 Time of Evaluation: 10:00 - Subjective Subjective: Having cough with bloody sputum last 3 days. Patient denies fever,no chest pain ,no chills ,no sore throat,no weight loss,denies nausea,no vomiting,no abdominal pain. There was streak of blood noted yesterday in his spit.Today we noted he produced thicker sputum with little dark blood. Past history of TB.He was treated in [facility] 30years back. He is a smoker. He lives in [place] last 30years. [place] to [place] country 10[place] ago Patient denies recent chest infection. Objective - Vital Signs/Intake and Output Vital Signs (last 24 hours): Temp Pulse Resp BP Pulse Ox 98 F 73 20 157/77 H 96 04/11/18 15:59 04/11/18 15:59 04/11/18 15:59 04/11/18 15:59 04/11/18 15:59 - Medications Medications: Current Medications Acetaminophen (Tylenol 325mg Tab) 650 mg PO Q6 PRN PRN Reason: pain 4-7, fever>100.4F Amlodipine Besylate (Norvasc) 5 mg PO DAILY [facility] Last Admin: 04/11/18 10:48 Dose: 5 mg Folic Acid (Folic Acid) 1 mg PO DAILY [facility] Last Admin: 04/11/18 10:48 Dose: 1 mg Ceftriaxone Sodium 1 gm/ (Sodium Chloride) 100 mls @ 100 mls/hr IVPB Q24H [facility] PRN Reason: Protocol Lorazepam (Ativan) 1 mg IVP Q3H PRN PRN Reason: Symptoms of alcohol withdrawl Multivitamins (Hexavitamin) 1 tab PO DAILY [facility] Last Admin: 04/11/18 10:48 Dose: 1 tab Pantoprazole Sodium (Protonix Ec Tab) 20 mg PO DAILY [facility] Thiamine HCl (Vitamin B1 Tab) 100 mg PO DAILY [facility] Last Admin: 04/11/18 10:50 Dose: 100 mg - Labs Labs: 04/11/18 07:33 04/11/18 07:33 PT 10.9 SECONDS (9.7-12.2) 04/09/18 14:46 INR 1.0 04/09/18 14:46 APTT 31 SECONDS (21-34) 04/09/18 14:46 - Constitutional Appears: Non-toxic, No Acute Distress - ENT Exam ENT Exam: Mucous Membranes Moist, Normal Exam - Neck Exam Neck Exam: Full ROM, Normal Inspection - Respiratory Exam Respiratory Exam: Clear to Ausculation Bilateral, NORMAL BREATHING PATTERN. absent: Rhonchi, Wheezes - Cardiovascular Exam Cardiovascular Exam: REGULAR RHYTHM - GI/Abdominal Exam GI & Abdominal Exam: Soft, Normal Bowel Sounds - Extremities Exam Extremities Exam: Full ROM, Normal Inspection - Neurological Exam Neurological Exam: Awake, Oriented x3 - Psychiatric Exam Psychiatric exam: Normal Affect, Normal Mood - Skin Skin Exam: Dry, Intact, Normal Color, Warm Assessment and Plan - Assessment and Plan (Free Text) Assessment: This is 62 years Male with past history of DM, HTN, pancreatitis with recent admission for acute pancreatitis (04/02/18), alcohol abuse, and history TB treated 30year ago presented with 2 day history of spitting up bright red blood. He had EGD done yesterday.No active bleeding noted. There was streak of blood noted yesterday in his spit.Today we noted he produced thicker sputum with little dark blood. Plan: 1.Hemoptysis CXR (04/09): no active disease. Chest CTA (04/09): No pulmonary embolus. Extensive bilateral subpleural blebs, more on the right. Area of posterior right upper lobe bronchiectasis/ scarring. -A few small 2-3 mm nodules in the peripheral right upper and lower lobes. Twelve month CT follow-up can be obtained in high-risk patient. we will sputum AFB x3,sputum TB culture,airborne precaution and do Gold quantiferon pulmonary consult with history smoking start on ceftriaxone for possible bacterial URTI 2. Alcohol Abuse and rule out GI bleeding EGD without acitive bleeding * Thiamine 100mg PO daily * Multivitamin 1 tab PO daily * Folic acid 1mg PO daily 3. Diabetes Do HA1c start on metformin 4. Hypertension Amlodipine 5mg PO daily 5. Proteinuria/Hematuria -likely 2/2 uncontrolled DM -UA: protein 3+, glucose 1+, blood 1+ 6. PPx, Diet, Disposition -VTE - anticoag contraindicated bleed -SCDs
[2018-04-11] MEDS: Tuberculin 5 Units/0.1 ml Inj ID ONE ×2 (18:30→18:52)
[2018-04-11] MEDS ORDERED: Tuberculin 5 Units/0.1 ml Inj ID ONE (18:37)
[2018-04-11] MEDS: Piperacill/Tazo 3.375gm in Dex 3.375 GM/50 ML BAG IVPB SCH (21:51)
[2018-04-12] MEDS: Piperacill/Tazo 3.375gm in Dex 3.375 GM/50 ML BAG IVPB SCH ×4 (02:44→21:19)
[2018-04-12 08:19] LABS: HEMOGLOBIN 13.4 g/dL (12.0-18.0); MEAN CELL VOLUME 91.7 fL (80.0-94.0); MEAN CORPUSCULAR HGB CONC 34.9 g/dL (33.0-37.0); MEAN PLATELET VOLUME 9.7 fL (7.2-11.7); RBC 4.18 Mil/uL (4.40-5.90); RED CELL DISTRIBUTION WIDTH 13.9 % (11.5-14.5); WHITE BLOOD COUNT 9.1 K/uL (4.8-10.8)
[2018-04-12 08:54] LABS: ALB/GLOB RATIO 1.4 (1.0-2.1); ALBUMIN 4.3 g/dL (3.5-5.0); ALT/SGPT 36 U/L (21-72); AST/SGOT 37 U/L (17-59); BLOOD UREA NITROGEN 17 mg/dL (9-20); CALCIUM 9.9 mg/dl (8.6-10.4); GFR NON-AFRICAN AMERICAN > 60
[2018-04-12] MEDS ORDERED: Glucagon Recombinant 1 mg Inj IM PRN (09:43)
[2018-04-12] MEDS ORDERED: Dextrose 50% SYRINGE Inj (50 ml) IV PRN (09:43)
--- NOTE | 2018-04-12 10:11 | CP.PCM.PN ---
<Herlinda Vanegas - Last Filed: 04/12/18 10:05> Subjective - Date & Time of Evaluation Date of Evaluation: 04/12/18 Time of Evaluation: 08:00 - Subjective Subjective: Medicine Progress Note: Patient was seen and examined at bedside in the AM. Patient states he is now cough up more blood. He denies bloody nose, fever, chills, change in weight, chest pain or shortness of breath. Objective - Vital Signs/Intake and Output Vital Signs (last 24 hours): Temp Pulse Resp BP Pulse Ox 97.4 F L 74 18 138/91 H 99 04/12/18 07:35 04/12/18 07:35 04/12/18 07:35 04/12/18 07:35 04/12/18 07:35 Intake and Output: 04/12/18 04/12/18 06:59 18:59 Intake Total 100 Balance 100 - Medications Medications: Current Medications Acetaminophen (Tylenol 325mg Tab) 650 mg PO Q6 PRN PRN Reason: pain 4-7, fever>100.4F Amlodipine Besylate (Norvasc) 5 mg PO DAILY [facility] Last Admin: 04/11/18 10:48 Dose: 5 mg Dextrose (Glutose 15) 0 gm PO ONCE PRN; Protocol PRN Reason: Hypoglycemia Protocol Dextrose (Dextrose 50% Inj) 0 ml IV STAT PRN; Protocol PRN Reason: Hypoglycemia Protocol Folic Acid (Folic Acid) 1 mg PO DAILY [facility] Last Admin: 04/11/18 10:48 Dose: 1 mg Glucagon (Glucagen Diagnostic Kit) 0 mg IM STAT PRN; Protocol PRN Reason: Hypoglycemia Protocol Piperacillin Sod/Tazobactam Sod (Zosyn 3.375 Gm Iv Premix) 3.375 gm in 50 mls @ 100 mls/hr IVPB Q6H [facility]LE PRN Reason: Protocol Last Admin: 04/12/18 08:34 Dose: 100 mls/hr Dextrose (Dextrose 5% In Water 1000 Ml) 1,000 mls @ 0 mls/hr IV .Q0M PRN; Protocol; Per Protocol PRN Reason: Hypoglycemia Protocol Insulin Human Regular (Novolin R) 0 unit SC ACHS [facility] PRN Reason: Protocol Lorazepam (Ativan) 1 mg IVP Q3H PRN PRN Reason: Symptoms of alcohol withdrawl Last Admin: 04/12/18 03:14 Dose: 1 mg Multivitamins (Hexavitamin) 1 tab PO DAILY [facility] Last Admin: 04/11/18 10:48 Dose: 1 tab Pantoprazole Sodium (Protonix Ec Tab) 20 mg PO DAILY [facility] Thiamine HCl (Vitamin B1 Tab) 100 mg PO DAILY [facility] Last Admin: 04/11/18 10:50 Dose: 100 mg - Labs Labs: 04/12/18 08:13 04/12/18 08:13 PT 10.9 SECONDS (9.7-12.2) 04/09/18 14:46 INR 1.0 04/09/18 14:46 APTT 31 SECONDS (21-34) 04/09/18 14:46 - Constitutional Appears: No Acute Distress - Head Exam Head Exam: ATRAUMATIC, NORMAL INSPECTION - Eye Exam Eye Exam: EOMI, Normal appearance - ENT Exam ENT Exam: Mucous Membranes Moist - Respiratory Exam Respiratory Exam: Clear to Ausculation Bilateral, NORMAL BREATHING PATTERN - Cardiovascular Exam Cardiovascular Exam: REGULAR RHYTHM, +S1, +S2 - GI/Abdominal Exam GI & Abdominal Exam: Soft, Normal Bowel Sounds. absent: Tenderness - Extremities Exam Extremities Exam: Normal Inspection - Neurological Exam Neurological Exam: Alert, Awake, Oriented x3 - Psychiatric Exam Psychiatric exam: Anxious - Skin Skin Exam: Normal Color Assessment and Plan - Assessment and Plan (Free Text) Assessment: Hemoptysis - r/o Tuberculosis; patient has history of TB 30 years ago and was treated - Isolation precaution - Pulm Consult: Dr. Morales --> help appreciated - ID Consult: Dr. Hudson --> help appreciated - f/u PPD placed 04/11/18; f/u Quantiferon Gold - f/u AFB sputum Culture x3 (3 samples must be negative - Images: * Chest CTA (04/09): Unremarkable CT pulmonary angiogram. No pulmonary embolus. Extensive bilateral subpleural blebs, more on the right. Area of posterior right upper lobe bronchiectasis/ scarring. A few small 2-3 mm nodules in the peripheral right upper and lower lobes. Twelve month CT follow-up can be obtained in high-risk patient. * CXR (04/09): no active disease. - Medications: * Zosyn 3.375 IV q6h - started 04/11/18 * Tylenol q6 prn for fever r/o GI Bleed - resolved - GI Consult:Dr. Lopez --> help appreciated * EGD: esophagus was normal; a small hiatal hernia; a single 6mm semi-sessile polyp with no bleeding was found; a few dispersed, non-bleeding erosions were found in the gastric antrum. Please see full report - Hb/Hct upon admission, 14.6/42.5 - INR 1.0 - D-Dimer <200 - Total CK 371 - Lipase 319 History of Alcohol Abuse - Alc <10, last drink 2 days ago - Discussed alcohol cessation - CIWA - Seizure protocol - Aspiration protocol - Fall Risk - Medications: * Thiamine 100mg PO daily * Multivitamin 1 tab PO daily * Folic acid 1mg PO daily History of Diabetes - Patient was not taking medications at home - Hgb A1c 7.2 (04/12/18) - ISS - low - Accuchecks - Hpyoglycemia Protocol - Patient to be discharged on Metformin 500mg bid History of Hypertension - uncontrolled, BP 167/95 upon admission - Patient was not taking medications at home - Medications: * Amlodipine 5mg PO daily Proteinuria/Hematuria - Likely secondary to uncontrolled DM and HTN - UA: protein 3+, glucose 1+, blood 1+ Prophylaxis - VTE - anticoag contraindicated 2/2 GI bleed - SCDs - Pantoprazole 20mg po kaitlynn Case discussed with Dr. Mayte Vanegas PGY-2 <Emily Hu - Last Filed: 04/12/18 21:38> Objective - Vital Signs/Intake and Output Vital Signs (last 24 hours): Temp Pulse Resp BP Pulse Ox 97.8 F 69 20 119/74 96 04/12/18 15:59 04/12/18 15:59 04/12/18 15:59 04/12/18 15:59 04/12/18 15:59 Intake and Output: 04/12/18 04/13/18 18:59 06:59 Intake Total 400 Balance 400 - Medications Medications: Current Medications Acetaminophen (Tylenol 325mg Tab) 650 mg PO Q6 PRN PRN Reason: pain 4-7, fever>100.4F Amlodipine Besylate (Norvasc) 5 mg PO DAILY [facility] Last Admin: 04/12/18 11:00 Dose: 5 mg Dextrose (Glutose 15) 0 gm PO ONCE PRN; Protocol PRN Reason: Hypoglycemia Protocol Dextrose (Dextrose 50% Inj) 0 ml IV STAT PRN; Protocol PRN Reason: Hypoglycemia Protocol Folic Acid (Folic Acid) 1 mg PO DAILY [facility] Last Admin: 04/12/18 11:00 Dose: 1 mg Glucagon (Glucagen Diagnostic Kit) 0 mg IM STAT PRN; Protocol PRN Reason: Hypoglycemia Protocol Piperacillin Sod/Tazobactam Sod (Zosyn 3.375 Gm Iv Premix) 3.375 gm in 50 mls @ 100 mls/hr IVPB Q6H [facility] PRN Reason: Protocol Last Admin: 04/12/18 21:19 Dose: 100 mls/hr Dextrose (Dextrose 5% In Water 1000 Ml) 1,000 mls @ 0 mls/hr IV .Q0M PRN; Protocol; Per Protocol PRN Reason: Hypoglycemia Protocol Insulin Human Regular (Novolin R) 0 unit SC ACHS [facility] PRN Reason: Protocol Last Admin: 04/12/18 21:26 Dose: Not Given Lorazepam (Ativan) 1 mg IVP Q3H PRN PRN Reason: Symptoms of alcohol withdrawl Last Admin: 04/12/18 03:14 Dose: 1 mg Multivitamins (Hexavitamin) 1 tab PO DAILY [facility] Last Admin: 04/12/18 11:00 Dose: 1 tab Pantoprazole Sodium (Protonix Ec Tab) 20 mg PO DAILY [facility] Last Admin: 04/12/18 11:00 Dose: 20 mg Thiamine HCl (Vitamin B1 Tab) 100 mg PO DAILY [facility] Last Admin: 04/12/18 11:01 Dose: 100 mg - Labs Labs: 04/12/18 08:13 04/12/18 08:13 PT 10.9 SECONDS (9.7-12.2) 04/09/18 14:46 INR 1.0 04/09/18 14:46 APTT 31 SECONDS (21-34) 04/09/18 14:46 Attending/Attestation - Attestation I have personally seen and examined this patient.: Yes I have fully participated in the care of the patient.: Yes I have reviewed all pertinent clinical information, including history, physical exam and plan: Yes Notes (Text): Seen and examined by me.patient is coughing more blood Discussed with DR Boo I agree with the assessment and the plan of the resident follow AFB smear and cultures,PPD and Gold quantiferon continue zosyn.May stop if AFB smear negative monitor sugar.If goes up start glipize. we will d/c home on metformin
[2018-04-12] MEDS: Pantoprazole 20 mg EC Tab PO SCH (11:00)
[2018-04-12] MEDS: Multiple Vitamins Tab PO SCH (11:00)
[2018-04-12] MEDS: (Novolin R) Insulin Human Regular 100 units/ml vial SC SCH ×3 (12:01→21:26)
--- NOTE | 2018-04-12 14:26 | CP.PCM.CON ---
History of Present Illness - History of Present Illness History of Present Illness: Pulmonary Consult, Covering Dr Morales The patient was Seen/interviewed and examined by me at the bedside, Medical records reviewed and Management issues were discussed and formulated with the house staff. Events reviewed 62 year old male with PMHx of DM, HTN, pacreatitis, alcohol abuse (still drinking, last drink 2 days ago) and non-remote history of treated pulmonary TB , over 30 years ago Who presented to the ER with complaint of 2 days history of spitting up blood. Pt is experiencing subjective fevers but no night fever or sweating. No chest pain, shortness of breath, palpitations. Patient was recently admitted on 04/02/18 due to acute pancreatitis. He was admitted to the hospital on airborne isolation Patietn AAO x3, feeling better but states he is now cough up more blood. No fever/chills, chest pain or shortness of breath. Chest CTA (04/09): Unremarkable CT pulmonary angiogram. No pulmonary embolus. Extensive bilateral subpleural blebs, more on the right. Area of posterior right upper lobe bronchiectasis/ scarring. A few small 2-3 mm nodules in the peripheral right upper and lower lobes. Twelve month CT follow-up can be obtained in high-risk patient. CXR (04/09): no active disease. Review of Systems - Cardiovascular Cardiovascular: Dyspnea. absent: Chest Pain, Chest Pain at Rest, Chest Pain with Activity, Claudication, Diaphoresis - Respiratory Respiratory: Cough, Dyspnea, Hemoptysis, Dyspnea on Exertion, Chest Congestion. absent: Wheezing, Snoring, Stridor, Pain on Inspiration - Gastrointestinal Gastrointestinal: absent: Abdominal Pain, Melena, Nausea, Vomiting Past Patient History - Infectious Disease Hx of Infectious Diseases: None - Past Medical History & Family History Past Medical History?: Yes - Past Social History Smoking Status: Heavy Smoker > 10 Cigarettes Daily - CARDIAC Hx Hypertension: Yes - PULMONARY Hx Respiratory Disorders: No - NEUROLOGICAL Hx Neurological Disorder: No - HEENT Hx HEENT Problems: Yes Other/Comment: wears corrective eyeglasses - RENAL Hx Chronic Kidney Disease: No - ENDOCRINE/METABOLIC Hx Endocrine Disorders: Yes Hx Diabetes Mellitus Type 2: Yes - HEMATOLOGICAL/ONCOLOGICAL Hx Blood Disorders: No - INTEGUMENTARY Hx Dermatological Problems: No - MUSCULOSKELETAL/RHEUMATOLOGICAL Hx Musculoskeletal Disorders: Yes Hx Back Pain: Yes Hx Falls: Yes - GASTROINTESTINAL Hx Gastritis: Yes Hx Pancreatitis: Yes - GENITOURINARY/GYNECOLOGICAL Hx Genitourinary Disorders: No - PSYCHIATRIC Hx Substance Use: No - SURGICAL HISTORY Hx Surgeries: No - ANESTHESIA Hx Anesthesia: No Meds Allergies/Adverse Reactions: Allergies Allergy/AdvReac Type Severity Reaction Status Date / Time naproxen AdvReac Diffuse Verified 04/01/18 21:01 rashes - Medications Medications: Current Medications Acetaminophen (Tylenol 325mg Tab) 650 mg PO Q6 PRN PRN Reason: pain 4-7, fever>100.4F Amlodipine Besylate (Norvasc) 5 mg PO DAILY [facility] Last Admin: 04/12/18 11:00 Dose: 5 mg Dextrose (Glutose 15) 0 gm PO ONCE PRN; Protocol PRN Reason: Hypoglycemia Protocol Dextrose (Dextrose 50% Inj) 0 ml IV STAT PRN; Protocol PRN Reason: Hypoglycemia Protocol Folic Acid (Folic Acid) 1 mg PO DAILY [facility] Last Admin: 04/12/18 11:00 Dose: 1 mg Glucagon (Glucagen Diagnostic Kit) 0 mg IM STAT PRN; Protocol PRN Reason: Hypoglycemia Protocol Piperacillin Sod/Tazobactam Sod (Zosyn 3.375 Gm Iv Premix) 3.375 gm in 50 mls @ 100 mls/hr IVPB Q6H [facility] PRN Reason: Protocol Last Admin: 04/12/18 08:34 Dose: 100 mls/hr Dextrose (Dextrose 5% In Water 1000 Ml) 1,000 mls @ 0 mls/hr IV .Q0M PRN; Protocol; Per Protocol PRN Reason: Hypoglycemia Protocol Insulin Human Regular (Novolin R) 0 unit SC ACHS [facility] PRN Reason: Protocol Last Admin: 04/12/18 12:01 Dose: Not Given Lorazepam (Ativan) 1 mg IVP Q3H PRN PRN Reason: Symptoms of alcohol withdrawl Last Admin: 04/12/18 03:14 Dose: 1 mg Multivitamins (Hexavitamin) 1 tab PO DAILY [facility] Last Admin: 04/12/18 11:00 Dose: 1 tab Pantoprazole Sodium (Protonix Ec Tab) 20 mg PO DAILY [facility] Last Admin: 04/12/18 11:00 Dose: 20 mg Thiamine HCl (Vitamin B1 Tab) 100 mg PO DAILY [facility] Last Admin: 04/12/18 11:01 Dose: 100 mg Physical Exam - Constitutional Appears: Well, Non-toxic, No Acute Distress - Head Exam Head Exam: ATRAUMATIC, NORMAL INSPECTION, NORMOCEPHALIC - Eye Exam Eye Exam: EOMI, Normal appearance. absent: Conjunctival injection - ENT Exam ENT Exam: Mucous Membranes Dry, Mucous Membranes Moist - Neck Exam Neck exam: Positive for: Full Rom, Normal Inspection. Negative for: Tenderness , Thyromegaly - Respiratory Exam Respiratory Exam: Accessory Muscle Use, Chest Wall Tenderness, Decreased Breath Sounds, Clear to Auscultation Bilateral, NORMAL BREATHING PATTERN. absent: Rhonchi, Wheezes, Respiratory Distress - Cardiovascular Exam Cardiovascular Exam: REGULAR RHYTHM, RRR, +S1, +S2. absent: Bradycardia, Tachycardia, JVD - GI/Abdominal Exam GI & Abdominal Exam: Normal Bowel Sounds, Soft Results - Vital Signs Recent Vital Signs: Last Vital Signs Temp 97.4 F L 04/12/18 07:35 Pulse 74 04/12/18 07:35 Resp 18 04/12/18 07:35 BP 138/91 H 04/12/18 07:35 Pulse Ox 99 04/12/18 07:35 - Labs Result Diagrams: 04/12/18 08:13 04/12/18 08:13 Labs: Laboratory Results - last 24 hr 04/12/18 04/12/18 04/12/18 08:13 08:13 08:13 WBC 9.1 RBC 4.18 L Hgb 13.4 Hct 38.3 MCV 91.7 MCH 32.0 H MCHC 34.9 RDW 13.9 Plt Count 164 MPV 9.7 Sodium 139 Potassium 4.0 Chloride 103 Carbon Dioxide 25 Anion Gap 15 BUN 17 Creatinine 0.9 Est GFR ( Amer) > 60 Est GFR (Non-Af Amer) > 60 Random Glucose 115 H Hemoglobin A1c 7.2 H Calcium 9.9 Phosphorus 4.4 Magnesium 1.8 Total Bilirubin 0.5 AST 37 ALT 36 Alkaline Phosphatase 69 Total Protein 7.4 Albumin 4.3 Globulin 3.1 Albumin/Globulin Ratio 1.4 Assessment & Plan (1) Hemoptysis Status: Acute Comment: 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 Air borne isolation precaution. ID Consult. AFB sputum Culture x3. PPD placed 04/11/18. Quantiferon Gold. Continue Zosyn 3.375 IV q6h, may discontinue if remains afebril and after the cultures back negative. If above tests negative then will proceed with Bronchoscopy
--- NOTE | 2018-04-12 21:43 | CP.PCM.CON ---
History of Present Illness - History of Present Illness History of Present Illness: dictated Past Patient History - Infectious Disease Hx of Infectious Diseases: None - Past Medical History & Family History Past Medical History?: Yes - Past Social History Smoking Status: Heavy Smoker > 10 Cigarettes Daily - CARDIAC Hx Hypertension: Yes - PULMONARY Hx Respiratory Disorders: No - NEUROLOGICAL Hx Neurological Disorder: No - HEENT Hx HEENT Problems: Yes Other/Comment: wears corrective eyeglasses - RENAL Hx Chronic Kidney Disease: No - ENDOCRINE/METABOLIC Hx Endocrine Disorders: Yes Hx Diabetes Mellitus Type 2: Yes - HEMATOLOGICAL/ONCOLOGICAL Hx Blood Disorders: No - INTEGUMENTARY Hx Dermatological Problems: No - MUSCULOSKELETAL/RHEUMATOLOGICAL Hx Musculoskeletal Disorders: Yes Hx Back Pain: Yes Hx Falls: Yes - GASTROINTESTINAL Hx Gastritis: Yes Hx Pancreatitis: Yes - GENITOURINARY/GYNECOLOGICAL Hx Genitourinary Disorders: No - PSYCHIATRIC Hx Substance Use: No - SURGICAL HISTORY Hx Surgeries: No - ANESTHESIA Hx Anesthesia: No Meds Allergies/Adverse Reactions: Allergies Allergy/AdvReac Type Severity Reaction Status Date / Time naproxen AdvReac Diffuse Verified 04/01/18 21:01 rashes - Medications Medications: Current Medications Acetaminophen (Tylenol 325mg Tab) 650 mg PO Q6 PRN PRN Reason: pain 4-7, fever>100.4F Amlodipine Besylate (Norvasc) 5 mg PO DAILY [facility] Last Admin: 04/12/18 11:00 Dose: 5 mg Dextrose (Glutose 15) 0 gm PO ONCE PRN; Protocol PRN Reason: Hypoglycemia Protocol Dextrose (Dextrose 50% Inj) 0 ml IV STAT PRN; Protocol PRN Reason: Hypoglycemia Protocol Folic Acid (Folic Acid) 1 mg PO DAILY [facility] Last Admin: 04/12/18 11:00 Dose: 1 mg Glucagon (Glucagen Diagnostic Kit) 0 mg IM STAT PRN; Protocol PRN Reason: Hypoglycemia Protocol Piperacillin Sod/Tazobactam Sod (Zosyn 3.375 Gm Iv Premix) 3.375 gm in 50 mls @ 100 mls/hr IVPB Q6H [facility] PRN Reason: Protocol Last Admin: 04/12/18 21:19 Dose: 100 mls/hr Dextrose (Dextrose 5% In Water 1000 Ml) 1,000 mls @ 0 mls/hr IV .Q0M PRN; Protocol; Per Protocol PRN Reason: Hypoglycemia Protocol Insulin Human Regular (Novolin R) 0 unit SC ACHS [facility] PRN Reason: Protocol Last Admin: 04/12/18 21:26 Dose: Not Given Lorazepam (Ativan) 1 mg IVP Q3H PRN PRN Reason: Symptoms of alcohol withdrawl Last Admin: 04/12/18 03:14 Dose: 1 mg Multivitamins (Hexavitamin) 1 tab PO DAILY [facility] Last Admin: 04/12/18 11:00 Dose: 1 tab Pantoprazole Sodium (Protonix Ec Tab) 20 mg PO DAILY [facility] Last Admin: 04/12/18 11:00 Dose: 20 mg Thiamine HCl (Vitamin B1 Tab) 100 mg PO DAILY [facility] Last Admin: 04/12/18 11:01 Dose: 100 mg Results - Vital Signs Recent Vital Signs: Last Vital Signs Temp 97.8 F 04/12/18 15:59 Pulse 69 04/12/18 15:59 Resp 20 04/12/18 15:59 BP 119/74 04/12/18 15:59 Pulse Ox 96 04/12/18 15:59 - Labs Result Diagrams: 04/12/18 08:13 04/12/18 08:13 Labs: Laboratory Results - last 24 hr 04/12/18 04/12/18 04/12/18 08:13 08:13 08:13 WBC 9.1 RBC 4.18 L Hgb 13.4 Hct 38.3 MCV 91.7 MCH 32.0 H MCHC 34.9 RDW 13.9 Plt Count 164 MPV 9.7 Sodium 139 Potassium 4.0 Chloride 103 Carbon Dioxide 25 Anion Gap 15 BUN 17 Creatinine 0.9 Est GFR ( Amer) > 60 Est GFR (Non-Af Amer) > 60 Random Glucose 115 H Hemoglobin A1c 7.2 H Calcium 9.9 Phosphorus 4.4 Magnesium 1.8 Total Bilirubin 0.5 AST 37 ALT 36 Alkaline Phosphatase 69 Total Protein 7.4 Albumin 4.3 Globulin 3.1 Albumin/Globulin Ratio 1.4
[2018-04-13] MEDS: Piperacill/Tazo 3.375gm in Dex 3.375 GM/50 ML BAG IVPB SCH ×4 (02:54→21:31)
--- NOTE | 2018-04-13 06:19 | CP.PCM.PN ---
<Eliazar Lacey - Last Filed: 04/13/18 07:51> Subjective - Date & Time of Evaluation Date of Evaluation: 04/13/18 Time of Evaluation: 06:16 - Subjective Subjective: PGY2 Medicine Note for Dr. Guzman Patient seen and examined this morning at bedside. No acute events overnight. Patient is still coughing but is more sputum with dark brown phlegm and not bright red blood. He is curious when he will be allowed to leave. Denies fevers , chills, nausea, vomiting, diarrhea, constipation, chest pain, shortness of breath, abdominal pain, numbness or tingling. Objective - Vital Signs/Intake and Output Vital Signs (last 24 hours): Temp Pulse Resp BP Pulse Ox 98.4 F 65 20 127/73 98 04/12/18 23:25 04/12/18 23:25 04/12/18 23:25 04/12/18 23:25 04/12/18 23:25 Intake and Output: 04/12/18 04/13/18 18:59 06:59 Intake Total 400 Balance 400 - Medications Medications: Current Medications Acetaminophen (Tylenol 325mg Tab) 650 mg PO Q6 PRN PRN Reason: pain 4-7, fever>100.4F Amlodipine Besylate (Norvasc) 5 mg PO DAILY [facility] Last Admin: 04/12/18 11:00 Dose: 5 mg Dextrose (Glutose 15) 0 gm PO ONCE PRN; Protocol PRN Reason: Hypoglycemia Protocol Dextrose (Dextrose 50% Inj) 0 ml IV STAT PRN; Protocol PRN Reason: Hypoglycemia Protocol Folic Acid (Folic Acid) 1 mg PO DAILY [facility] Last Admin: 04/12/18 11:00 Dose: 1 mg Glucagon (Glucagen Diagnostic Kit) 0 mg IM STAT PRN; Protocol PRN Reason: Hypoglycemia Protocol Piperacillin Sod/Tazobactam Sod (Zosyn 3.375 Gm Iv Premix) 3.375 gm in 50 mls @ 100 mls/hr IVPB Q6H [facility] PRN Reason: Protocol Last Admin: 04/13/18 02:54 Dose: 100 mls/hr Dextrose (Dextrose 5% In Water 1000 Ml) 1,000 mls @ 0 mls/hr IV .Q0M PRN; Protocol; Per Protocol PRN Reason: Hypoglycemia Protocol Insulin Human Regular (Novolin R) 0 unit SC ACHS [facility] PRN Reason: Protocol Last Admin: 04/12/18 21:26 Dose: Not Given Lorazepam (Ativan) 1 mg IVP Q3H PRN PRN Reason: Symptoms of alcohol withdrawl Last Admin: 04/12/18 03:14 Dose: 1 mg Multivitamins (Hexavitamin) 1 tab PO DAILY [facility] Last Admin: 04/12/18 11:00 Dose: 1 tab Pantoprazole Sodium (Protonix Ec Tab) 20 mg PO DAILY [facility] Last Admin: 04/12/18 11:00 Dose: 20 mg Thiamine HCl (Vitamin B1 Tab) 100 mg PO DAILY [facility] Last Admin: 04/12/18 11:01 Dose: 100 mg - Labs Labs: 04/12/18 08:13 04/12/18 08:13 PT 10.9 SECONDS (9.7-12.2) 04/09/18 14:46 INR 1.0 04/09/18 14:46 APTT 31 SECONDS (21-34) 04/09/18 14:46 - Additional Findings Additional findings: - Constitutional Appears: No Acute Distress - Head Exam Head Exam: ATRAUMATIC, NORMAL INSPECTION - Eye Exam Eye Exam: EOMI, Normal appearance - ENT Exam ENT Exam: Mucous Membranes Moist - Respiratory Exam Respiratory Exam: Clear to Ausculation Bilateral, NORMAL BREATHING PATTERN - Cardiovascular Exam Cardiovascular Exam: REGULAR RHYTHM, +S1, +S2 - GI/Abdominal Exam GI & Abdominal Exam: Soft, Normal Bowel Sounds. absent: Tenderness - Extremities Exam Extremities Exam: Right arm has area of erythema at site of ppd injection. - Neurological Exam Neurological Exam: Alert, Awake, Oriented x3 - Psychiatric Exam Psychiatric exam: Anxious - Skin Skin Exam: Normal Color Assessment and Plan - Assessment and Plan (Free Text) Plan: Hemoptysis - r/o Tuberculosis; patient has history of TB 30 years ago and was treated - Isolation precaution - Pulm Consult: Dr. Morales --> help appreciated - ID Consult: Dr. Hudson --> help appreciated - f/u PPD placed 04/11/18; f/u Quantiferon Gold - f/u AFB sputum Culture x3 (3 samples must be negative - Images: * Chest CTA (04/09): Unremarkable CT pulmonary angiogram. No pulmonary embolus. Extensive bilateral subpleural blebs, more on the right. Area of posterior right upper lobe bronchiectasis/ scarring. A few small 2-3 mm nodules in the peripheral right upper and lower lobes. Twelve month CT follow-up can be obtained in high-risk patient. * CXR (04/09): no active disease. - Medications: * Zosyn 3.375 IV q6h - started 04/11/18 * Tylenol q6 prn for fever r/o GI Bleed - resolved - GI Consult:Dr. Lopez --> help appreciated * EGD: esophagus was normal; a small hiatal hernia; a single 6mm semi-sessile polyp with no bleeding was found; a few dispersed, non-bleeding erosions were found in the gastric antrum. Please see full report - Hb/Hct upon admission, 14.6/42.5 - INR 1.0 - D-Dimer <200 - Total CK 371 - Lipase 319 History of Alcohol Abuse - Alc <10, last drink 2 days ago - Discussed alcohol cessation - CIWA - Seizure protocol - Aspiration protocol - Fall Risk - Medications: * Thiamine 100mg PO daily * Multivitamin 1 tab PO daily * Folic acid 1mg PO daily History of Diabetes - Patient was not taking medications at home - Hgb A1c 7.2 (04/12/18) - ISS - low - Accuchecks - Hpyoglycemia Protocol - Patient to be discharged on Metformin 500mg bid History of Hypertension - uncontrolled, BP 167/95 upon admission - Patient was not taking medications at home - Medications: * Amlodipine 5mg PO daily Proteinuria/Hematuria - Likely secondary to uncontrolled DM and HTN - UA: protein 3+, glucose 1+, blood 1+ Prophylaxis - VTE - anticoag contraindicated 2/2 GI bleed - SCDs - Pantoprazole 20mg po kaitlynn Will discuss case with Dr. Megan Perea Deepthi PGY2 <Abhishek Guzman - Last Filed: 04/13/18 08:48> Objective - Vital Signs/Intake and Output Vital Signs (last 24 hours): Temp Pulse Resp BP Pulse Ox 97.7 F 78 18 144/77 98 04/13/18 07:25 04/13/18 07:25 04/13/18 07:25 04/13/18 07:25 04/13/18 07:25 - Medications Medications: Current Medications Acetaminophen (Tylenol 325mg Tab) 650 mg PO Q6 PRN PRN Reason: pain 4-7, fever>100.4F Amlodipine Besylate (Norvasc) 5 mg PO DAILY [facility] Last Admin: 04/12/18 11:00 Dose: 5 mg Dextrose (Glutose 15) 0 gm PO ONCE PRN; Protocol PRN Reason: Hypoglycemia Protocol Dextrose (Dextrose 50% Inj) 0 ml IV STAT PRN; Protocol PRN Reason: Hypoglycemia Protocol Folic Acid (Folic Acid) 1 mg PO DAILY [facility] Last Admin: 04/12/18 11:00 Dose: 1 mg Glucagon (Glucagen Diagnostic Kit) 0 mg IM STAT PRN; Protocol PRN Reason: Hypoglycemia Protocol Piperacillin Sod/Tazobactam Sod (Zosyn 3.375 Gm Iv Premix) 3.375 gm in 50 mls @ 100 mls/hr IVPB Q6H [facility] PRN Reason: Protocol Last Admin: 04/13/18 02:54 Dose: 100 mls/hr Dextrose (Dextrose 5% In Water 1000 Ml) 1,000 mls @ 0 mls/hr IV .Q0M PRN; Protocol; Per Protocol PRN Reason: Hypoglycemia Protocol Insulin Human Regular (Novolin R) 0 unit SC ACHS [facility] PRN Reason: Protocol Last Admin: 04/13/18 07:41 Dose: Not Given Lorazepam (Ativan) 1 mg IVP Q3H PRN PRN Reason: Symptoms of alcohol withdrawl Last Admin: 04/12/18 03:14 Dose: 1 mg Multivitamins (Hexavitamin) 1 tab PO DAILY [facility] Last Admin: 04/12/18 11:00 Dose: 1 tab Pantoprazole Sodium (Protonix Ec Tab) 20 mg PO DAILY [facility] Last Admin: 04/12/18 11:00 Dose: 20 mg Thiamine HCl (Vitamin B1 Tab) 100 mg PO DAILY [facility] Last Admin: 04/12/18 11:01 Dose: 100 mg - Labs Labs: 04/13/18 07:50 04/12/18 08:13 PT 10.9 SECONDS (9.7-12.2) 04/09/18 14:46 INR 1.0 04/09/18 14:46 APTT 31 SECONDS (21-34) 04/09/18 14:46 Attending/Attestation - Attestation I have personally seen and examined this patient.: Yes I have fully participated in the care of the patient.: Yes I have reviewed all pertinent clinical information, including history, physical exam and plan: Yes Notes (Text): 04/13/18 08:45 Medical attending: Patient was seen and examined by me. Agree with the above note by the resident The patient is in isolation room at this moment. Currently he reports feeling fine. Denied chest pain, denied shortness of breath. He was able to produce more sputum and there is a second collection. The first one is pending for AFB results at this moment. With reguards to alcohol history he has history of drinking. Was seen by GI and had endoscopy earlier. GI currently signed off. Patient is tolerating diet. So at this time we are waiting for Ricky Bhatti, PPD, as well as AFB studies. Abhishek Guzman
--- NOTE | 2018-04-13 06:45 | CON ---
Copied To: Edgar Hudson MD Attending MD: Edgar Hudson MD DATE: 04/13/2018 REQUESTED BY: Cuca Hu MD HISTORY OF PRESENT ILLNESS: This patient is a 62-year-old [employer] male. He has a history of diabetes, hypertension. He has a history of pancreatitis, alcohol abuse. He also gives a history of having pulmonary TB more than 30 years ago. [place] and he was treated for it. He never had any symptoms. He has been here for a long time and he drinks a lot and he smokes also, and he says he had endoscopy done 2 days ago with the GI and he has no varices and he continues to have bleeding and he showed me the cup, which was full of blood. He said he coughed it up and it did not come with the vomiting or any. He denies any nausea, vomiting, or abdominal pain at this time. He denies any chest pain. No shortness of breath. No palpitations. He is a smoker, though he was recently admitted on 04/02/2018 for acute pancreatitis. Right now, he is in isolation and he said he just had a PPD done yesterday and he does give a history of night sweats. 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 He denies any fever, chills, any shortness of breath, any abdominal pain. No nausea. No vomiting. He wants to know why he is having so much blood in the sputum. On examination his T-max is 97.8, blood pressure 119/74, heart rate is 69, respirations are 20. MEDICATIONS: His medications are reviewed, were Tylenol, Norvasc, he is diabetic, folic acid, insulin coverage, Ativan, Hexavitamin, Protonix. He was started on Zosyn, and he is on thiamine. PAST MEDICAL HISTORY: Reviewed. SOCIAL HISTORY: He is a heavy smoker, more than 10 cigarettes a day. REVIEW OF SYSTEMS: He has history of hypertension. He denies any pulmonary disorders. He denies any neurological problems. He has eye problems, uses glasses. No kidney issues. 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 He has no bleeding disorders. No skin problems. He does complain of back pain and history of fall and musculoskeletal disorders, history of gastritis, pancreatitis, denies any urinary symptoms. Denies any substance abuse, but he smokes and drinks. Denies any previous surgeries, and he is on Naprosyn. He denies any other complaints and denies abdominal pain. No nausea, no vomiting. No headaches. No ear, nose, or throat problems. No chest pain. No shortness of breath. He is just coughing up and when he coughs he brings out the blood. PHYSICAL EXAMINATION: VITALS SIGNS: Stable. GENERAL: He is able to communicate. He is alert, oriented x3. HEENT: Head is atraumatic and normocephalic. Tongue is moist. NECK: Supple. LUNGS: Clear. No crackles or rales present. He is not using any accessory muscles. HEART: S1, S2 are regular. No murmurs present. ABDOMEN: Soft, nontender. No guarding, no rigidity present. EXTREMITIES: Have no edema, clubbing, or cyanosis. LABORATORY DATA: Labs are noted. White count is 9.1, hemoglobin 13.4, hematocrit 38.3, platelet count is 164. His chemistry shows sodium 139, potassium 4, chloride is 103, CO2 is 25, anion gap is 15, creatinine 0.9, and alcohol level was less than 10 on 04/09/2018. Urine shows 3+ protein, glucose 1+, blood 1+. He has a lot of eosinophils, 6.8%, so we will order stool studies also, and we will follow and they are doing HIV test and Gold QuantiFERON PPD was placed and AFBs have been ordered, and we will follow. We need to screen him for TB for now. Edgar Hudson MD
[2018-04-13] MEDS: (Novolin R) Insulin Human Regular 100 units/ml vial SC SCH ×4 (07:41→21:13)
[2018-04-13 07:58] LABS: HEMOGLOBIN 13.7 g/dL (12.0-18.0); MEAN CELL VOLUME 92.3 fL (80.0-94.0); MEAN CORPUSCULAR HEMOGLOBIN 31.7 pg (27.0-31.0); MEAN CORPUSCULAR HGB CONC 34.3 g/dL (33.0-37.0); MEAN PLATELET VOLUME 9.8 fL (7.2-11.7); RBC 4.33 Mil/uL (4.40-5.90); RED CELL DISTRIBUTION WIDTH 14.1 % (11.5-14.5); WHITE BLOOD COUNT 10.1 K/uL (4.8-10.8)
[2018-04-13 08:51] LABS: ALB/GLOB RATIO 1.5 (1.0-2.1); ALBUMIN 4.4 g/dL (3.5-5.0); ALT/SGPT 49 U/L (21-72); AST/SGOT 43 U/L (17-59); BLOOD UREA NITROGEN 22 mg/dL (9-20); CALCIUM 9.7 mg/dl (8.6-10.4); GFR NON-AFRICAN AMERICAN > 60
[2018-04-13] MEDS: Multiple Vitamins Tab PO SCH (09:03)
[2018-04-13] MEDS: Pantoprazole 20 mg EC Tab PO SCH (09:05)
[2018-04-13 16:51] VITALS: RESP 20
--- NOTE | 2018-04-13 19:37 | CP.PCM.PN ---
Subjective - Date & Time of Evaluation Date of Evaluation: 04/13/18 Time of Evaluation: 19:37 - Subjective Subjective: Pulmonary Folow up, Covering Dr Morales The patient was Seen/interviewed and examined by me at the bedside, Medical records reviewed and Management issues were discussed and formulated with the house staff. Events reviewed 62 year old male with PMHx of DM, HTN, pacreatitis, alcohol abuse (still drinking, last drink 2 days ago) and non-remote history of treated pulmonary TB , over 30 years ago Who presented to the ER with complaint of 2 days history of spitting up blood. Pt is experiencing subjective fevers but no night fever or sweating. No chest pain, shortness of breath, palpitations He was admitted to the hospital on airborne isolation Patient feeling better today, AAO x3. Hemoptysis improved Patient tested negative for HIV 1&2 One sputum AFB smear (04/12) negative, two more pending No fever/chills, chest pain or shortness of breath. Objective - Vital Signs/Intake and Output Vital Signs (last 24 hours): Temp Pulse Resp BP Pulse Ox 98.2 F 76 20 138/77 97 04/13/18 15:00 04/13/18 15:00 04/13/18 15:00 04/13/18 15:00 04/13/18 15:00 - Medications Medications: Current Medications Acetaminophen (Tylenol 325mg Tab) 650 mg PO Q6 PRN PRN Reason: pain 4-7, fever>100.4F Amlodipine Besylate (Norvasc) 5 mg PO DAILY [facility] Last Admin: 04/13/18 09:03 Dose: 5 mg Dextrose (Glutose 15) 0 gm PO ONCE PRN; Protocol PRN Reason: Hypoglycemia Protocol Dextrose (Dextrose 50% Inj) 0 ml IV STAT PRN; Protocol PRN Reason: Hypoglycemia Protocol Folic Acid (Folic Acid) 1 mg PO DAILY [facility] Last Admin: 04/13/18 09:03 Dose: 1 mg Glucagon (Glucagen Diagnostic Kit) 0 mg IM STAT PRN; Protocol PRN Reason: Hypoglycemia Protocol Piperacillin Sod/Tazobactam Sod (Zosyn 3.375 Gm Iv Premix) 3.375 gm in 50 mls @ 100 mls/hr IVPB Q6H [facility] PRN Reason: Protocol Last Admin: 04/13/18 15:03 Dose: 100 mls/hr Dextrose (Dextrose 5% In Water 1000 Ml) 1,000 mls @ 0 mls/hr IV .Q0M PRN; Protocol; Per Protocol PRN Reason: Hypoglycemia Protocol Insulin Human Regular (Novolin R) 0 unit SC ACHS [facility] PRN Reason: Protocol Last Admin: 04/13/18 17:27 Dose: 1 u Lorazepam (Ativan) 1 mg IVP Q3H PRN PRN Reason: Symptoms of alcohol withdrawl Last Admin: 04/12/18 03:14 Dose: 1 mg Multivitamins (Hexavitamin) 1 tab PO DAILY [facility] Last Admin: 04/13/18 09:03 Dose: 1 tab Pantoprazole Sodium (Protonix Ec Tab) 20 mg PO DAILY [facility] Last Admin: 04/13/18 09:05 Dose: 20 mg Thiamine HCl (Vitamin B1 Tab) 100 mg PO DAILY [facility] Last Admin: 04/13/18 09:03 Dose: 100 mg - Labs Labs: 04/13/18 07:50 04/13/18 07:50 PT 10.9 SECONDS (9.7-12.2) 04/09/18 14:46 INR 1.0 04/09/18 14:46 APTT 31 SECONDS (21-34) 04/09/18 14:46 - Constitutional Appears: Well, Non-toxic - Head Exam Head Exam: ATRAUMATIC, NORMAL INSPECTION - Eye Exam Pupil Exam: NORMAL ACCOMODATION, PERRL - ENT Exam ENT Exam: Mucous Membranes Moist - Neck Exam Neck Exam: Normal Inspection - Respiratory Exam Respiratory Exam: Clear to Ausculation Bilateral, NORMAL BREATHING PATTERN. absent: Accessory Muscle Use, Chest Wall Tenderness - Cardiovascular Exam Cardiovascular Exam: REGULAR RHYTHM, RRR, +S1, +S2. absent: JVD - GI/Abdominal Exam GI & Abdominal Exam: Soft, Normal Bowel Sounds. absent: Distended, Rigid, Tenderness - Neurological Exam Neurological Exam: Alert, Awake, Oriented x3 Assessment and Plan (1) Hemoptysis Status: Acute (2) Pancreatitis Status: Acute (3) Alcohol abuse Status: Chronic (4) Diabetes mellitus Status: Chronic (5) Prophylactic measure Status: Acute - Assessment and Plan (Free Text) Assessment: Hemoptysis, Patient feeling better today Patient tested negative for HIV 1&2 Patient with very high risk of active pulmonary tubereculosis, considering the epidemiological background, CXR/chest CT scan findings and remote history of treated pulmonary TB, over 30 years ago (seems like it was appropriately treated ) Fortunately he reports no recent exposure to active TB cases, also no major immunosupression state except for Alcohol Abuse and History of Diabetes Likey reactivation Tuberculosis Vs Bronchiectasis (specially the upper lobes, close proximity to the airway). Pulmonary malignancy and COPD also in the deferential diagnosis One AFB smear negative so far, need total of 3 sputum specimens at least 8 hours apart, preferable (at least one tv production assistant specimen) Air borne isolation precaution. AFB sputum Culture x3. PPD placed 04/11/18, 5 mm consider to positive Quantiferon Gold, I belive it will be positive and unhelpful due to the history for old treated active TB Continue Zosyn 3.375 IV q6h, may discontinue if remains afebrile and after the cultures back negative. If AFB sputum negative then will proceed with Bronchoscopy Patient tested negative for HIV 1&2
[2018-04-14 07:18] LABS: HEMOGLOBIN 13.8 g/dL (12.0-18.0); MEAN CELL VOLUME 91.2 fL (80.0-94.0); MEAN CORPUSCULAR HEMOGLOBIN 31.6 pg (27.0-31.0); MEAN CORPUSCULAR HGB CONC 34.6 g/dL (33.0-37.0); MEAN PLATELET VOLUME 9.5 fL (7.2-11.7); RBC 4.37 Mil/uL (4.40-5.90); RED CELL DISTRIBUTION WIDTH 13.8 % (11.5-14.5); WHITE BLOOD COUNT 10.8 K/uL (4.8-10.8)
[2018-04-14] MEDS: (Novolin R) Insulin Human Regular 100 units/ml vial SC SCH ×4 (07:57→21:45)
[2018-04-14 08:10] LABS: ALB/GLOB RATIO 1.5 (1.0-2.1); ALBUMIN 4.6 g/dL (3.5-5.0); ALT/SGPT 58 U/L (21-72); AST/SGOT 57 U/L (17-59); BLOOD UREA NITROGEN 19 mg/dL (9-20); CALCIUM 9.9 mg/dl (8.6-10.4)
[2018-04-14 08:19] LABS: GFR NON-AFRICAN AMERICAN > 60
[2018-04-14] MEDS: Multiple Vitamins Tab PO SCH (09:42)
[2018-04-14] MEDS: Pantoprazole 20 mg EC Tab PO SCH (09:42)
[2018-04-14] MEDS: Piperacill/Tazo 3.375gm in Dex 3.375 GM/50 ML BAG IVPB SCH ×3 (09:42→21:05)
--- NOTE | 2018-04-14 12:50 | CP.PCM.PN ---
<Forest Marinelli - Last Filed: 04/14/18 20:04> Subjective - Date & Time of Evaluation Date of Evaluation: 04/14/18 Time of Evaluation: 11:00 - Subjective Subjective: PGY-[address] Guzman Patient was seen and examined at bedside this AM, in no acute distress. No acute events were reported overnight. Per nurse, 3rd sputum specimen was collected and sent to lab this AM. Denies any cough, but continues to spit out small dark brown phlegm mixed with sputum, not bright red blood. No fevers, chills, nausea, vomiting, diarrhea, constipation, chest pain, shortness of breath, abdominal pain, numbness or tingling. Objective - Vital Signs/Intake and Output Vital Signs (last 24 hours): Temp Pulse Resp BP Pulse Ox 98.4 F 60 20 114/68 98 04/14/18 07:00 04/14/18 07:00 04/14/18 07:00 04/14/18 07:00 04/14/18 07:00 - Medications Medications: Current Medications Acetaminophen (Tylenol 325mg Tab) 650 mg PO Q6 PRN PRN Reason: pain 4-7, fever>100.4F Amlodipine Besylate (Norvasc) 5 mg PO DAILY [facility] Last Admin: 04/14/18 09:42 Dose: 5 mg Dextrose (Glutose 15) 0 gm PO ONCE PRN; Protocol PRN Reason: Hypoglycemia Protocol Dextrose (Dextrose 50% Inj) 0 ml IV STAT PRN; Protocol PRN Reason: Hypoglycemia Protocol Folic Acid (Folic Acid) 1 mg PO DAILY [facility] Last Admin: 04/14/18 09:42 Dose: 1 mg Glucagon (Glucagen Diagnostic Kit) 0 mg IM STAT PRN; Protocol PRN Reason: Hypoglycemia Protocol Piperacillin Sod/Tazobactam Sod (Zosyn 3.375 Gm Iv Premix) 3.375 gm in 50 mls @ 100 mls/hr IVPB Q6H [facility] PRN Reason: Protocol Last Admin: 04/14/18 09:42 Dose: 100 mls/hr Dextrose (Dextrose 5% In Water 1000 Ml) 1,000 mls @ 0 mls/hr IV .Q0M PRN; Protocol; Per Protocol PRN Reason: Hypoglycemia Protocol Insulin Human Regular (Novolin R) 0 unit SC ACHS [facility] PRN Reason: Protocol Last Admin: 04/14/18 12:40 Dose: 2 u Lorazepam (Ativan) 1 mg IVP Q3H PRN PRN Reason: Symptoms of alcohol withdrawl Last Admin: 04/12/18 03:14 Dose: 1 mg Multivitamins (Hexavitamin) 1 tab PO DAILY [facility] Last Admin: 04/14/18 09:42 Dose: 1 tab Pantoprazole Sodium (Protonix Ec Tab) 20 mg PO DAILY [facility] Last Admin: 04/14/18 09:42 Dose: 20 mg Thiamine HCl (Vitamin B1 Tab) 100 mg PO DAILY [facility] Last Admin: 04/14/18 09:44 Dose: 100 mg - Labs Labs: 04/14/18 07:09 04/14/18 07:09 PT 10.9 SECONDS (9.7-12.2) 04/09/18 14:46 INR 1.0 04/09/18 14:46 APTT 31 SECONDS (21-34) 04/09/18 14:46 - Constitutional Appears: Non-toxic, No Acute Distress - Head Exam Head Exam: ATRAUMATIC, NORMAL INSPECTION, NORMOCEPHALIC - Eye Exam Eye Exam: EOMI, Normal appearance - ENT Exam ENT Exam: Mucous Membranes Moist, Normal Exam - Neck Exam Neck Exam: Normal Inspection - Respiratory Exam Respiratory Exam: Clear to Ausculation Bilateral, NORMAL BREATHING PATTERN - Cardiovascular Exam Cardiovascular Exam: REGULAR RHYTHM, +S1, +S2 - GI/Abdominal Exam GI & Abdominal Exam: Soft, Normal Bowel Sounds. absent: Distended, Firm, Guarding, Rigid, Tenderness, Mass, Organomegaly, Rebound - Extremities Exam Extremities Exam: Normal Capillary Refill, Normal Inspection Additional comments: PPD site on right forearm is red and swollen but not officially read - Back Exam Back Exam: NORMAL INSPECTION - Neurological Exam Neurological Exam: Alert, Awake, Oriented x3 - Psychiatric Exam Psychiatric exam: Normal Affect, Normal Mood - Skin Skin Exam: Dry, Intact, Normal Color, Warm Assessment and Plan - Assessment and Plan (Free Text) Assessment: 62 yo M with PMHx of DM, HTN, pancreatitis with recent admission for acute pancreatitis (04/02/18), alcohol abuse, and non-compliance presenting with 2 day history of spitting up bright red blood, since resolved. Continues to spit out dark brown phlegm mixed in sputum. Plan: 1. Hemoptysis - r/o Tuberculosis; patient has history of TB 30 years ago and was treated - Isolation precaution - Pulm Consult: Dr. Morales --> help appreciated - ID Consult: Dr. Hudson --> help appreciated - f/u PPD placed 04/11/18; f/u Quantiferon Gold - f/u AFB sputum Culture x3 (3 samples must be negative) -Sample #1 (04/12) negative -Samples #2 & 3 pending - Images: * Chest CTA (04/09): Unremarkable CT pulmonary angiogram. No pulmonary embolus. Extensive bilateral subpleural blebs, more on the right. Area of posterior right upper lobe bronchiectasis/ scarring. A few small 2-3 mm nodules in the peripheral right upper and lower lobes. Twelve month CT follow-up can be obtained in high-risk patient. * CXR (04/09): no active disease. - Medications: * Zosyn 3.375 IV q6h - started 04/11/18 * Tylenol q6 prn for fever 2. r/o GI Bleed - resolved - GI Consult Dr. Lopez --> help appreciated * EGD: esophagus was normal; a small hiatal hernia; a single 6mm semi-sessile polyp with no bleeding was found; a few dispersed, non-bleeding erosions were found in the gastric antrum. Please see full report - Hb/Hct upon admission, 14.6/42.5 - INR 1.0 - D-Dimer <200 - Total CK 371 - Lipase 319 3. History of Alcohol Abuse - Alc <10, last drink 2 days ago - Discussed alcohol cessation - CIWA - Seizure protocol - Aspiration protocol - Fall Risk - Medications: * Thiamine 100mg PO daily * Multivitamin 1 tab PO daily * Folic acid 1mg PO daily 4. History of Diabetes - Patient was not taking medications at home - Hgb A1c 7.2 (04/12/18) - ISS - low - Accuchecks - Hpyoglycemia Protocol - Patient to be discharged on Metformin 500mg bid 5. History of Hypertension - uncontrolled, BP 167/95 upon admission - Patient was not taking medications at home - Medications: * Amlodipine 5mg PO daily 6. Proteinuria/Hematuria - Likely secondary to uncontrolled DM and HTN - UA: protein 3+, glucose 1+, blood 1+ 7. Ppx, Diet, Disposition - VTE - anticoag contraindicated 2/2 GI bleed - SCDs - heart healthy diet - Pantoprazole 20mg po daily Case discussed with Dr. Megan Marinelli, PGY-1 <Abhishek Guzman H - Last Filed: 04/15/18 07:30> Objective - Vital Signs/Intake and Output Vital Signs (last 24 hours): Temp Pulse Resp BP Pulse Ox 98.4 F 68 20 125/76 97 04/14/18 23:30 04/14/18 23:30 04/14/18 23:30 04/14/18 23:30 04/14/18 23:30 - Medications Medications: Current Medications Acetaminophen (Tylenol 325mg Tab) 650 mg PO Q6 PRN PRN Reason: pain 4-7, fever>100.4F Amlodipine Besylate (Norvasc) 5 mg PO DAILY [facility] Last Admin: 04/14/18 09:42 Dose: 5 mg Dextrose (Glutose 15) 0 gm PO ONCE PRN; Protocol PRN Reason: Hypoglycemia Protocol Dextrose (Dextrose 50% Inj) 0 ml IV STAT PRN; Protocol PRN Reason: Hypoglycemia Protocol Folic Acid (Folic Acid) 1 mg PO DAILY [facility] Last Admin: 04/14/18 09:42 Dose: 1 mg Glucagon (Glucagen Diagnostic Kit) 0 mg IM STAT PRN; Protocol PRN Reason: Hypoglycemia Protocol Piperacillin Sod/Tazobactam Sod (Zosyn 3.375 Gm Iv Premix) 3.375 gm in 50 mls @ 100 mls/hr IVPB Q6H [facility] PRN Reason: Protocol Last Admin: 04/15/18 03:33 Dose: 100 mls/hr Dextrose (Dextrose 5% In Water 1000 Ml) 1,000 mls @ 0 mls/hr IV .Q0M PRN; Protocol; Per Protocol PRN Reason: Hypoglycemia Protocol Insulin Human Regular (Novolin R) 0 unit SC ACHS [facility] PRN Reason: Protocol Last Admin: 04/14/18 21:45 Dose: Not Given Lorazepam (Ativan) 1 mg IVP Q3H PRN PRN Reason: Symptoms of alcohol withdrawl Last Admin: 04/12/18 03:14 Dose: 1 mg Multivitamins (Hexavitamin) 1 tab PO DAILY [facility] Last Admin: 04/14/18 09:42 Dose: 1 tab Pantoprazole Sodium (Protonix Ec Tab) 20 mg PO DAILY [facility] Last Admin: 04/14/18 09:42 Dose: 20 mg Thiamine HCl (Vitamin B1 Tab) 100 mg PO DAILY [facility] Last Admin: 04/14/18 09:44 Dose: 100 mg - Labs Labs: 04/14/18 07:09 04/14/18 07:09 PT 10.9 SECONDS (9.7-12.2) 04/09/18 14:46 INR 1.0 04/09/18 14:46 APTT 31 SECONDS (21-34) 04/09/18 14:46 Attending/Attestation - Attestation I have personally seen and examined this patient.: Yes I have fully participated in the care of the patient.: Yes I have reviewed all pertinent clinical information, including history, physical exam and plan: Yes Notes (Text): 04/15/18 07:28 Medical attending: Patient was not in any acute distress when I came and saw patient with the medical superintendent Agree with the above note by the resident The patient has already had one sputum AFB stain return - this was negative we are pending the second and third at this time. He reports feeling well besides the coughing. Bathroom and diet is ok he says. Hgb is stable. As mentioned previously he had underwent endoscopy over weekend He is currently not having withdrawl symptoms thank you Abhishek Guzman
--- NOTE | 2018-04-14 16:40 | CP.PCM.PN ---
Subjective - Date & Time of Evaluation Date of Evaluation: 04/14/18 Time of Evaluation: 11:20 - Subjective Subjective: patient seen and examined Lying comfortably in no acute distress No further hemoptysis Afebrile No weight loss, no shortness of breath, no night sweats No history of recent travel outside Treated for active TB 30 years ago Objective - Vital Signs/Intake and Output Vital Signs (last 24 hours): Temp Pulse Resp BP Pulse Ox 98.3 F 70 20 121/73 95 04/14/18 15:00 04/14/18 15:00 04/14/18 15:00 04/14/18 15:00 04/14/18 15:00 - Medications Medications: Current Medications Acetaminophen (Tylenol 325mg Tab) 650 mg PO Q6 PRN PRN Reason: pain 4-7, fever>100.4F Amlodipine Besylate (Norvasc) 5 mg PO DAILY [facility] Last Admin: 04/14/18 09:42 Dose: 5 mg Dextrose (Glutose 15) 0 gm PO ONCE PRN; Protocol PRN Reason: Hypoglycemia Protocol Dextrose (Dextrose 50% Inj) 0 ml IV STAT PRN; Protocol PRN Reason: Hypoglycemia Protocol Folic Acid (Folic Acid) 1 mg PO DAILY [facility] Last Admin: 04/14/18 09:42 Dose: 1 mg Glucagon (Glucagen Diagnostic Kit) 0 mg IM STAT PRN; Protocol PRN Reason: Hypoglycemia Protocol Piperacillin Sod/Tazobactam Sod (Zosyn 3.375 Gm Iv Premix) 3.375 gm in 50 mls @ 100 mls/hr IVPB Q6H [facility] PRN Reason: Protocol Last Admin: 04/14/18 15:36 Dose: 100 mls/hr Dextrose (Dextrose 5% In Water 1000 Ml) 1,000 mls @ 0 mls/hr IV .Q0M PRN; Protocol; Per Protocol PRN Reason: Hypoglycemia Protocol Insulin Human Regular (Novolin R) 0 unit SC ACHS [facility] PRN Reason: Protocol Last Admin: 04/14/18 12:40 Dose: 2 u Lorazepam (Ativan) 1 mg IVP Q3H PRN PRN Reason: Symptoms of alcohol withdrawl Last Admin: 04/12/18 03:14 Dose: 1 mg Multivitamins (Hexavitamin) 1 tab PO DAILY [facility] Last Admin: 04/14/18 09:42 Dose: 1 tab Pantoprazole Sodium (Protonix Ec Tab) 20 mg PO DAILY [facility] Last Admin: 04/14/18 09:42 Dose: 20 mg Thiamine HCl (Vitamin B1 Tab) 100 mg PO DAILY [facility] Last Admin: 04/14/18 09:44 Dose: 100 mg - Labs Labs: 04/14/18 07:09 04/14/18 07:09 PT 10.9 SECONDS (9.7-12.2) 04/09/18 14:46 INR 1.0 04/09/18 14:46 APTT 31 SECONDS (21-34) 04/09/18 14:46 - Head Exam Head Exam: ATRAUMATIC, NORMOCEPHALIC - ENT Exam ENT Exam: Mucous Membranes Moist - Neck Exam Neck Exam: Normal Inspection - Respiratory Exam Respiratory Exam: Clear to Ausculation Bilateral - Cardiovascular Exam Cardiovascular Exam: REGULAR RHYTHM - GI/Abdominal Exam GI & Abdominal Exam: Soft, Normal Bowel Sounds - Extremities Exam Extremities Exam: Normal Inspection Assessment and Plan (1) Hemoptysis Assessment & Plan: Most likelySecondary bronchiectasis continue antibiotics Check sputum AFB Status: Acute
[2018-04-15] MEDS: Piperacill/Tazo 3.375gm in Dex 3.375 GM/50 ML BAG IVPB SCH ×4 (03:33→21:42)
[2018-04-15 08:03] LABS: BASO # 0.1 K/uL (0.0-0.2); EOS # 0.7 K/uL (0.0-0.7); EOS % 6.3 % (0.0-4.0); LYMPH # 1.9 K/uL (1.0-4.3); LYMPH % 17.9 % (20.0-40.0); MEAN CELL VOLUME 91.4 fL (80.0-94.0); MEAN CORPUSCULAR HEMOGLOBIN 31.8 pg (27.0-31.0); MEAN CORPUSCULAR HGB CONC 34.8 g/dL (33.0-37.0); MEAN PLATELET VOLUME 9.9 fL (7.2-11.7); MONO % 9.4 % (0.0-10.0); NEUT % 65.4 % (50.0-75.0); RBC 4.09 Mil/uL (4.40-5.90); WHITE BLOOD COUNT 10.7 K/uL (4.8-10.8)
[2018-04-15 08:10] LABS: ALB/GLOB RATIO 1.5 (1.0-2.1); ALBUMIN 4.4 g/dL (3.5-5.0); ALT/SGPT 76 U/L (21-72); AST/SGOT 54 U/L (17-59); BLOOD UREA NITROGEN 20 mg/dL (9-20); CALCIUM 9.7 mg/dl (8.6-10.4); GFR NON-AFRICAN AMERICAN > 60
[2018-04-15] MEDS: (Novolin R) Insulin Human Regular 100 units/ml vial SC SCH ×4 (08:30→21:39)
[2018-04-15] MEDS: Pantoprazole 20 mg EC Tab PO SCH (09:46)
[2018-04-15] MEDS: Multiple Vitamins Tab PO SCH (09:46)
--- NOTE | 2018-04-15 13:54 | CP.PCM.PN ---
<Forest Marinelli - Last Filed: 04/15/18 14:25> Subjective - Date & Time of Evaluation Date of Evaluation: 04/15/18 Time of Evaluation: 09:00 - Subjective Subjective: PGY-[address] Guzman Patient was seen and examined at bedside this AM, resting comfortably and in no acute distress. No acute events reported overnight. 1st sputum AFB stain returned negative. We are still awaiting AFB results of 2nd and 3rd sputum specimens. PPD test read as positive; patient endorses history of TB 30 years ago. Patient feels well aside from coughing. No fevers, chills, nausea, vomiting , diarrhea, constipation, chest pain, shortness of breath, abdominal pain, numbness or tingling. Objective - Vital Signs/Intake and Output Vital Signs (last 24 hours): Temp Pulse Resp BP Pulse Ox 98.2 F 72 20 129/82 97 04/15/18 08:51 04/15/18 08:51 04/15/18 08:51 04/15/18 08:51 04/15/18 08:51 - Medications Medications: Current Medications Acetaminophen (Tylenol 325mg Tab) 650 mg PO Q6 PRN PRN Reason: pain 4-7, fever>100.4F Amlodipine Besylate (Norvasc) 5 mg PO DAILY [facility] Last Admin: 04/15/18 09:46 Dose: 5 mg Dextrose (Glutose 15) 0 gm PO ONCE PRN; Protocol PRN Reason: Hypoglycemia Protocol Dextrose (Dextrose 50% Inj) 0 ml IV STAT PRN; Protocol PRN Reason: Hypoglycemia Protocol Folic Acid (Folic Acid) 1 mg PO DAILY [facility] Last Admin: 04/15/18 09:46 Dose: 1 mg Glucagon (Glucagen Diagnostic Kit) 0 mg IM STAT PRN; Protocol PRN Reason: Hypoglycemia Protocol Piperacillin Sod/Tazobactam Sod (Zosyn 3.375 Gm Iv Premix) 3.375 gm in 50 mls @ 100 mls/hr IVPB Q6H [facility] PRN Reason: Protocol Last Admin: 04/15/18 09:15 Dose: 100 mls/hr Dextrose (Dextrose 5% In Water 1000 Ml) 1,000 mls @ 0 mls/hr IV .Q0M PRN; Protocol; Per Protocol PRN Reason: Hypoglycemia Protocol Insulin Human Regular (Novolin R) 0 unit SC ACHS [facility] PRN Reason: Protocol Last Admin: 04/15/18 12:30 Dose: 1 unit Lorazepam (Ativan) 1 mg IVP Q3H PRN PRN Reason: Symptoms of alcohol withdrawl Last Admin: 04/12/18 03:14 Dose: 1 mg Multivitamins (Hexavitamin) 1 tab PO DAILY [facility] Last Admin: 04/15/18 09:46 Dose: 1 tab Pantoprazole Sodium (Protonix Ec Tab) 20 mg PO DAILY [facility] Last Admin: 04/15/18 09:46 Dose: 20 mg Thiamine HCl (Vitamin B1 Tab) 100 mg PO DAILY [facility] Last Admin: 04/15/18 09:30 Dose: 100 mg - Labs Labs: 04/15/18 07:43 04/15/18 07:43 PT 10.9 SECONDS (9.7-12.2) 04/09/18 14:46 INR 1.0 04/09/18 14:46 APTT 31 SECONDS (21-34) 04/09/18 14:46 - Constitutional Appears: Non-toxic, No Acute Distress - Head Exam Head Exam: ATRAUMATIC, NORMAL INSPECTION, NORMOCEPHALIC - Eye Exam Eye Exam: EOMI, Normal appearance - ENT Exam ENT Exam: Mucous Membranes Moist, Normal Exam - Neck Exam Neck Exam: Normal Inspection - Respiratory Exam Respiratory Exam: Clear to Ausculation Bilateral, NORMAL BREATHING PATTERN - Cardiovascular Exam Cardiovascular Exam: REGULAR RHYTHM, +S1, +S2 - GI/Abdominal Exam GI & Abdominal Exam: Soft, Normal Bowel Sounds. absent: Distended, Firm, Guarding, Rigid, Tenderness, Rebound - Extremities Exam Extremities Exam: Normal Inspection - Back Exam Back Exam: NORMAL INSPECTION - Neurological Exam Neurological Exam: Alert, Awake, Oriented x3 - Psychiatric Exam Psychiatric exam: Normal Affect, Normal Mood - Skin Skin Exam: Dry, Intact, Normal Color, Warm Assessment and Plan - Assessment and Plan (Free Text) Assessment: 62 yo M with PMHx of DM, HTN, pancreatitis with recent admission for acute pancreatitis (04/02/18), alcohol abuse, and non-compliance presenting with 2 day history of spitting up bright red blood, since resolved. Continues to spit out dark brown phlegm mixed in sputum. <Abhihsek Guzman - Last Filed: 04/15/18 17:55> Objective - Vital Signs/Intake and Output Vital Signs (last 24 hours): Temp Pulse Resp BP Pulse Ox 98.5 F 74 20 123/70 95 04/15/18 15:00 04/15/18 15:00 04/15/18 15:00 04/15/18 15:00 04/15/18 15:00 - Medications Medications: Current Medications Acetaminophen (Tylenol 325mg Tab) 650 mg PO Q6 PRN PRN Reason: pain 4-7, fever>100.4F Amlodipine Besylate (Norvasc) 5 mg PO DAILY [facility] Last Admin: 04/15/18 09:46 Dose: 5 mg Dextrose (Glutose 15) 0 gm PO ONCE PRN; Protocol PRN Reason: Hypoglycemia Protocol Dextrose (Dextrose 50% Inj) 0 ml IV STAT PRN; Protocol PRN Reason: Hypoglycemia Protocol Folic Acid (Folic Acid) 1 mg PO DAILY [facility] Last Admin: 04/15/18 09:46 Dose: 1 mg Glucagon (Glucagen Diagnostic Kit) 0 mg IM STAT PRN; Protocol PRN Reason: Hypoglycemia Protocol Piperacillin Sod/Tazobactam Sod (Zosyn 3.375 Gm Iv Premix) 3.375 gm in 50 mls @ 100 mls/hr IVPB Q6H [facility] PRN Reason: Protocol Last Admin: 04/15/18 16:00 Dose: 100 mls/hr Dextrose (Dextrose 5% In Water 1000 Ml) 1,000 mls @ 0 mls/hr IV .Q0M PRN; Protocol; Per Protocol PRN Reason: Hypoglycemia Protocol Insulin Human Regular (Novolin R) 0 unit SC ACHS [facility] PRN Reason: Protocol Last Admin: 04/15/18 17:06 Dose: Not Given Lorazepam (Ativan) 1 mg IVP Q3H PRN PRN Reason: Symptoms of alcohol withdrawl Last Admin: 04/12/18 03:14 Dose: 1 mg Multivitamins (Hexavitamin) 1 tab PO DAILY [facility] Last Admin: 04/15/18 09:46 Dose: 1 tab Pantoprazole Sodium (Protonix Ec Tab) 20 mg PO DAILY [facility] Last Admin: 04/15/18 09:46 Dose: 20 mg Thiamine HCl (Vitamin B1 Tab) 100 mg PO DAILY [facility] Last Admin: 04/15/18 09:30 Dose: 100 mg - Labs Labs: 04/15/18 07:43 04/15/18 07:43 PT 10.9 SECONDS (9.7-12.2) 04/09/18 14:46 INR 1.0 04/09/18 14:46 APTT 31 SECONDS (21-34) 04/09/18 14:46 Attending/Attestation - Attestation I have personally seen and examined this patient.: Yes I have fully participated in the care of the patient.: Yes I have reviewed all pertinent clinical information, including history, physical exam and plan: Yes Notes (Text): 04/15/18 17:55 Medical attending: Patient was seen and examined by me, agrees the above note by medical office clerk. The patient was not in any acute distress today, were still pending on the second and third sputum AFBs to return. Currently he is afebrile, his white blood cell count stable, his hemoglobin is also stable as well he's not having any alcohol withdrawal symptoms when we came and spoke to him today thank you Abhishek Guzman
--- NOTE | 2018-04-15 17:31 | CP.PCM.PN ---
Subjective - Date & Time of Evaluation Date of Evaluation: 04/15/18 Time of Evaluation: 10:45 - Subjective Subjective: patient seen and examined Hemoptysis in much improved Coughing up small amount of dark phlegm Afebrile No shortness of breath AFB negative 3 Discontinue respiratory isolation Continue antibiotics Objective - Vital Signs/Intake and Output Vital Signs (last 24 hours): Temp Pulse Resp BP Pulse Ox 98.5 F 74 20 123/70 95 04/15/18 15:00 04/15/18 15:00 04/15/18 15:00 04/15/18 15:00 04/15/18 15:00 - Medications Medications: Current Medications Acetaminophen (Tylenol 325mg Tab) 650 mg PO Q6 PRN PRN Reason: pain 4-7, fever>100.4F Amlodipine Besylate (Norvasc) 5 mg PO DAILY [facility] Last Admin: 04/15/18 09:46 Dose: 5 mg Dextrose (Glutose 15) 0 gm PO ONCE PRN; Protocol PRN Reason: Hypoglycemia Protocol Dextrose (Dextrose 50% Inj) 0 ml IV STAT PRN; Protocol PRN Reason: Hypoglycemia Protocol Folic Acid (Folic Acid) 1 mg PO DAILY [facility] Last Admin: 04/15/18 09:46 Dose: 1 mg Glucagon (Glucagen Diagnostic Kit) 0 mg IM STAT PRN; Protocol PRN Reason: Hypoglycemia Protocol Piperacillin Sod/Tazobactam Sod (Zosyn 3.375 Gm Iv Premix) 3.375 gm in 50 mls @ 100 mls/hr IVPB Q6H MICHELLE PRN Reason: Protocol Last Admin: 04/15/18 16:00 Dose: 100 mls/hr Dextrose (Dextrose 5% In Water 1000 Ml) 1,000 mls @ 0 mls/hr IV .Q0M PRN; Protocol; Per Protocol PRN Reason: Hypoglycemia Protocol Insulin Human Regular (Novolin R) 0 unit SC ACHS MICHELLE PRN Reason: Protocol Last Admin: 04/15/18 17:06 Dose: Not Given Lorazepam (Ativan) 1 mg IVP Q3H PRN PRN Reason: Symptoms of alcohol withdrawl Last Admin: 04/12/18 03:14 Dose: 1 mg Multivitamins (Hexavitamin) 1 tab PO DAILY [facility] Last Admin: 04/15/18 09:46 Dose: 1 tab Pantoprazole Sodium (Protonix Ec Tab) 20 mg PO DAILY [facility] Last Admin: 04/15/18 09:46 Dose: 20 mg Thiamine HCl (Vitamin B1 Tab) 100 mg PO DAILY [facility] Last Admin: 04/15/18 09:30 Dose: 100 mg - Labs Labs: 04/15/18 07:43 04/15/18 07:43 PT 10.9 SECONDS (9.7-12.2) 04/09/18 14:46 INR 1.0 04/09/18 14:46 APTT 31 SECONDS (21-34) 04/09/18 14:46 Assessment and Plan (1) Hemoptysis Status: Acute
[2018-04-16 00:31] VITALS: O2SAT 97
[2018-04-16] MEDS: Piperacill/Tazo 3.375gm in Dex 3.375 GM/50 ML BAG IVPB SCH ×2 (03:27→08:33)
[2018-04-16 07:45] LABS: HEMOGLOBIN 13.8 g/dL (12.0-18.0); MEAN CELL VOLUME 91.8 fL (80.0-94.0); MEAN CORPUSCULAR HGB CONC 34.9 g/dL (33.0-37.0); MEAN PLATELET VOLUME 9.4 fL (7.2-11.7); RBC 4.29 Mil/uL (4.40-5.90); WHITE BLOOD COUNT 9.4 K/uL (4.8-10.8)
[2018-04-16 08:04] VITALS: BP 125/76; PULSE 73; TEMP 97.7
[2018-04-16 08:42] LABS: ALB/GLOB RATIO 1.4 (1.0-2.1); ALBUMIN 4.5 g/dL (3.5-5.0); ALT/SGPT 84 U/L (21-72); AST/SGOT 55 U/L (17-59); BLOOD UREA NITROGEN 16 mg/dL (9-20); CALCIUM 9.8 mg/dl (8.6-10.4); GFR NON-AFRICAN AMERICAN > 60
[2018-04-16] MEDS: (Novolin R) Insulin Human Regular 100 units/ml vial SC SCH (08:43)
[2018-04-16] MEDS: Multiple Vitamins Tab PO SCH (09:41)
[2018-04-16] MEDS: Pantoprazole 20 mg EC Tab PO SCH (09:46)
--- NOTE | 2018-04-16 13:56 | CP.PCM.DIS ---
<Forest Marinelli - Last Filed: 04/16/18 14:20> Provider - Provider Date of Admission: 04/12/18 14:28 Attending physician: Abhishek Guzman DO Time Spent in preparation of Discharge (in minutes): 40 Hospital Course - Lab Results Lab Results: Micro Results 04/13/18 10:48 Other: Please Indicate Mycobacterial Culture - Preliminary 04/14/18 06:22 Other: Please Indicate Mycobacterial Culture - Preliminary 04/12/18 05:16 Other: Please Indicate Mycobacterial Culture - Preliminary Most Recent Lab Values WBC 9.4 K/uL (4.8-10.8) 04/16/18 07:37 RBC 4.29 Mil/uL (4.40-5.90) L 04/16/18 07:37 Hgb 13.8 g/dL (12.0-18.0) 04/16/18 07:37 Hct 39.4 % (35.0-51.0) 04/16/18 07:37 MCV 91.8 fL (80.0-94.0) 04/16/18 07:37 MCH 32.0 pg (27.0-31.0) H 04/16/18 07:37 MCHC 34.9 g/dL (33.0-37.0) 04/16/18 07:37 RDW 14.0 % (11.5-14.5) 04/16/18 07:37 Plt Count 199 K/uL (130-400) 04/16/18 07:37 MPV 9.4 fL (7.2-11.7) 04/16/18 07:37 Neut % (Auto) 65.4 % (50.0-75.0) 04/15/18 07:43 Lymph % (Auto) 17.9 % (20.0-40.0) L 04/15/18 07:43 [place] % (Auto) 9.4 % (0.0-10.0) 04/15/18 07:43 Eos % (Auto) 6.3 % (0.0-4.0) H 04/15/18 07:43 Baso % (Auto) 1.0 % (0.0-2.0) 04/15/18 07:43 Neut # (Auto) 7.0 K/uL (1.8-7.0) 04/15/18 07:43 Lymph # (Auto) 1.9 K/uL (1.0-4.3) 04/15/18 07:43 [place] # (Auto) 1.0 K/uL (0.0-0.8) H 04/15/18 07:43 Eos # (Auto) 0.7 K/uL (0.0-0.7) 04/15/18 07:43 Baso # (Auto) 0.1 K/uL (0.0-0.2) 04/15/18 07:43 PT 10.9 SECONDS (9.7-12.2) 04/09/18 14:46 INR 1.0 04/09/18 14:46 APTT 31 SECONDS (21-34) 04/09/18 14:46 D-Dimer, Quantitative < 200 ng/mlDDU (0-243) 04/09/18 14:46 Sodium 139 mmol/L (132-148) 04/16/18 07:37 Potassium 4.1 mmol/L (3.6-5.2) 04/16/18 07:37 Chloride 102 mmol/L (98-107) 04/16/18 07:37 Carbon Dioxide 24 mmol/L (22-30) 04/16/18 07:37 Anion Gap 17 (10-20) 04/16/18 07:37 BUN 16 mg/dL (9-20) 04/16/18 07:37 Creatinine 1.0 mg/dL (0.8-1.5) 04/16/18 07:37 Est GFR ( Amer) > 60 04/16/18 07:37 Est GFR (Non-Af Amer) > 60 04/16/18 07:37 POC Glucose (mg/dL) 197 mg/dL (65-110) H 04/16/18 11:42 Random Glucose 153 mg/dL (75-110) H 04/16/18 07:37 Hemoglobin A1c 7.2 % (4.2-6.5) H 04/12/18 08:13 Calcium 9.8 mg/dl (8.6-10.4) 04/16/18 07:37 Phosphorus 4.4 mg/dL (2.5-4.5) 04/16/18 07:37 Magnesium 1.8 mg/dL (1.6-2.3) 04/16/18 07:37 Total Bilirubin 0.4 mg/dL (0.2-1.3) 04/16/18 07:37 AST 55 U/L (17-59) 04/16/18 07:37 ALT 84 U/L (21-72) H 04/16/18 07:37 Alkaline Phosphatase 70 U/L (38-126) 04/16/18 07:37 Total Creatine Kinase 371 U/L (55-170) H 04/09/18 14:46 Total Protein 7.7 g/dL (6.3-8.3) 04/16/18 07:37 Albumin 4.5 g/dL (3.5-5.0) 04/16/18 07:37 Globulin 3.2 gm/dL (2.2-3.9) 04/16/18 07:37 Albumin/Globulin Ratio 1.4 (1.0-2.1) 04/16/18 07:37 Lipase 319 U/L (23-300) H 04/09/18 14:46 Urine Color Yellow (YELLOW) 04/09/18 14:53 Urine Clarity Hazy (Clear) 04/09/18 14:53 Urine pH 5.0 (5.0-8.0) 04/09/18 14:53 Ur Specific [place] 1.028 (1.003-1.030) 04/09/18 14:53 Urine Protein 3+ mg/dL (NEGATIVE) H 04/09/18 14:53 Urine Glucose (UA) 1+ mg/dL (Normal) H 04/09/18 14:53 Urine Ketones Negative mg/dL (NEGATIVE) 04/09/18 14:53 Urine Blood 1+ (NEGATIVE) H 04/09/18 14:53 Urine Nitrate Negative (NEGATIVE) 04/09/18 14:53 Urine Bilirubin Negative (NEGATIVE) 04/09/18 14:53 Urine Urobilinogen Normal mg/dL (0.2-1.0) 04/09/18 14:53 Ur Leukocyte Esterase Neg Barb/uL (Negative) 04/09/18 14:53 Urine WBC (Auto) 2 /hpf (0-5) 04/09/18 14:53 Urine RBC (Auto) 1 /hpf (0-3) 04/09/18 14:53 Alcohol, Quantitative < 10 mg/dl (0-10) 04/09/18 18:48 HIV 1&2 Antibody Screen Negative (NEGATIVE) 04/11/18 17:19 TB Test (QFT) Nil 0.13 IU/mL 04/11/18 16:50 TB Test Mitogen - Nil >10.00 IU/mL 04/11/18 16:50 TB Test TB - Nil 5.83 IU/mL 04/11/18 16:50 TB Test (QFT) Positive (Negative) H 04/11/18 16:50 - Hospital Course Hospital Course: HPI: Patient is a 62 year old male with a past medical history of DM (uncontrolled), HTN (uncontrolled), pacreatitis, alcohol abuse and non-compliance presenting with a 2 days history of spitting up blood. Patient was recently admitted on due to acute pancreatitis. Patient is still drinking, last drink 2 days ago. He reports spitting up bright red blood for the past two days. He is experiencing subjective fevers as well. He states he has no other complaints and actually feels well, but was nervous about spitting up blood. He denies any abdominal pain on todays admission. He is having normal bowel movements and denies bloody or black stools. Denies nausea, vomiting, diarrhea, constipation, chest pain, shortness of breath, palpitations, abdominal pain, tremors, lightheadedness, dizziness, numbness or tingling. Hospital course: Patient was admitted on 04/09/18 with 2 day history of spitting up bright red blood. 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 On the floor, patient was no longer spitting out bright red blood but continued to spit dark brown phlegm mixed with sputum. CXR (04/09) and CT of the chest (04/09) obtained were unremarkable. D-dimer (04/09) was negative. Upon admission, patient was placed on NPO and telemetry monitoring for possible GI bleed, Insulin sliding scale for uncontrolled diabetes, and amlodipine 5mg PO daily for uncontrolled hypertension. Due to history of alcohol abuse, patient was placed on CIWA protocol, seizure protocol, aspiration protocol and fall risk. GI (Dr. Lopez) was consulted and EGD (04/10) was obtained, which was unremarkable except for a single 6mm semi-sessile polyp in duodenal bulb. Pulmonology (Dr. Sheriff Boo) was consulted. Patient was also given Zosyn 3.375 IV until afebrile and cultures obtained were negative. Infectious disease (Dr. Hudson) was consulted for concern for active TB. Patient was placed in isolation until TB was ruled out. PPD was placed (04/11) and Quantiferon Gold ordered, both positive as expected due to patient's history of TB 30 years ago. AFB sputum specimen x 3 were also ordered, all 3 of which returned negative. Patient remained hemodynamically stable, afebrile, and CBC/electrolytes were within normal limit. Patient no longer has hemoptysis or spitting out dark brown phlegm. Patient was advised not to drink alcohol and educated about the possible association between alcohol abuse and hemoptysis. Patient is medically stable for discharge, per Dr. Guzman. Patient instructed to follow up with his PMD (Dr. Katherine Islas) within 1-2 weeks. Patient instructed to take the following medications as prescribed: Amlodipine 5 mg PO once daily Metformin 1000 mg PO twice daily Hexavitamin 1 tablet once daily Vitamin B1 50 mg tablet twice daily Folic acid 1 mg tablet once daily If symptoms worsen, please return to the ED. This is a summary of hospital course. For full detail, please refer to EMR. Discharge Exam - Head Exam Head Exam: ATRAUMATIC, NORMAL INSPECTION, NORMOCEPHALIC Discharge Plan - Discharge Medications Prescriptions: amLODIPine [Norvasc] 5 mg PO DAILY 30 Days #30 tab Folic Acid 1 mg PO DAILY 30 Days #30 tab Insulin Human Regular [Novolin R] 0 unit SC ACHS #30 unit MetFORMIN [glucoPHAGE] 1,000 mg PO BID #60 tab Multivitamins [Hexavitamin] 1 tab PO DAILY 30 Days #30 tab Thiamine [Vitamin B1 Tab] 100 mg PO DAILY 30 Days #30 tab - Follow Up Plan Condition: STABLE Disposition: HOME/ ROUTINE Instructions: Gastrointestinal Bleeding (DC), Coughing up Blood Additional Instructions: Patient is medically stable for discharge, per Dr. Guzman. Patient instructed to follow up with his PMD (Dr. Katherine Islas) within 1-2 weeks. Patient instructed to take the following medications as prescribed: Amlodipine 5 mg PO once daily Metformin 1000 mg PO twice daily Hexavitamin 1 tablet once daily Vitamin B1 50 mg tablet twice daily Folic acid 1 mg tablet once daily If symptoms worsen, please return to the ED. Referrals: Ebony Islas MD [Staff Provider] - <Abhishek Guzman - Last Filed: 04/16/18 14:42> Provider - Provider Date of Admission: 04/12/18 14:28 Attending physician: Abhishek Guzman, DO Hospital Course - Lab Results Lab Results: Micro Results 04/13/18 10:48 Other: Please Indicate Mycobacterial Culture - Preliminary 04/14/18 06:22 Other: Please Indicate Mycobacterial Culture - Preliminary 04/12/18 05:16 Other: Please Indicate Mycobacterial Culture - Preliminary Most Recent Lab Values WBC 9.4 K/uL (4.8-10.8) 04/16/18 07:37 RBC 4.29 Mil/uL (4.40-5.90) L 04/16/18 07:37 Hgb 13.8 g/dL (12.0-18.0) 04/16/18 07:37 Hct 39.4 % (35.0-51.0) 04/16/18 07:37 MCV 91.8 fL (80.0-94.0) 04/16/18 07:37 MCH 32.0 pg (27.0-31.0) H 04/16/18 07:37 MCHC 34.9 g/dL (33.0-37.0) 04/16/18 07:37 RDW 14.0 % (11.5-14.5) 04/16/18 07:37 Plt Count 199 K/uL (130-400) 04/16/18 07:37 MPV 9.4 fL (7.2-11.7) 04/16/18 07:37 Neut % (Auto) 65.4 % (50.0-75.0) 04/15/18 07:43 Lymph % (Auto) 17.9 % (20.0-40.0) L 04/15/18 07:43 [place] % (Auto) 9.4 % (0.0-10.0) 04/15/18 07:43 Eos % (Auto) 6.3 % (0.0-4.0) H 04/15/18 07:43 Baso % (Auto) 1.0 % (0.0-2.0) 04/15/18 07:43 Neut # (Auto) 7.0 K/uL (1.8-7.0) 04/15/18 07:43 Lymph # (Auto) 1.9 K/uL (1.0-4.3) 04/15/18 07:43 [place] # (Auto) 1.0 K/uL (0.0-0.8) H 04/15/18 07:43 Eos # (Auto) 0.7 K/uL (0.0-0.7) 04/15/18 07:43 Baso # (Auto) 0.1 K/uL (0.0-0.2) 04/15/18 07:43 PT 10.9 SECONDS (9.7-12.2) 04/09/18 14:46 INR 1.0 04/09/18 14:46 APTT 31 SECONDS (21-34) 04/09/18 14:46 D-Dimer, Quantitative < 200 ng/mlDDU (0-243) 04/09/18 14:46 Sodium 139 mmol/L (132-148) 04/16/18 07:37 Potassium 4.1 mmol/L (3.6-5.2) 04/16/18 07:37 Chloride 102 mmol/L (98-107) 04/16/18 07:37 Carbon Dioxide 24 mmol/L (22-30) 04/16/18 07:37 Anion Gap 17 (10-20) 04/16/18 07:37 BUN 16 mg/dL (9-20) 04/16/18 07:37 Creatinine 1.0 mg/dL (0.8-1.5) 04/16/18 07:37 Est GFR ( Amer) > 60 04/16/18 07:37 Est GFR (Non-Af Amer) > 60 04/16/18 07:37 POC Glucose (mg/dL) 197 mg/dL (65-110) H 04/16/18 11:42 Random Glucose 153 mg/dL (75-110) H 04/16/18 07:37 Hemoglobin A1c 7.2 % (4.2-6.5) H 04/12/18 08:13 Calcium 9.8 mg/dl (8.6-10.4) 04/16/18 07:37 Phosphorus 4.4 mg/dL (2.5-4.5) 04/16/18 07:37 Magnesium 1.8 mg/dL (1.6-2.3) 04/16/18 07:37 Total Bilirubin 0.4 mg/dL (0.2-1.3) 04/16/18 07:37 AST 55 U/L (17-59) 04/16/18 07:37 ALT 84 U/L (21-72) H 04/16/18 07:37 Alkaline Phosphatase 70 U/L (38-126) 04/16/18 07:37 Total Creatine Kinase 371 U/L (55-170) H 04/09/18 14:46 Total Protein 7.7 g/dL (6.3-8.3) 04/16/18 07:37 Albumin 4.5 g/dL (3.5-5.0) 04/16/18 07:37 Globulin 3.2 gm/dL (2.2-3.9) 04/16/18 07:37 Albumin/Globulin Ratio 1.4 (1.0-2.1) 04/16/18 07:37 Lipase 319 U/L (23-300) H 04/09/18 14:46 Urine Color Yellow (YELLOW) 04/09/18 14:53 Urine Clarity Hazy (Clear) 04/09/18 14:53 Urine pH 5.0 (5.0-8.0) 04/09/18 14:53 Ur Specific [place] 1.028 (1.003-1.030) 04/09/18 14:53 Urine Protein 3+ mg/dL (NEGATIVE) H 04/09/18 14:53 Urine Glucose (UA) 1+ mg/dL (Normal) H 04/09/18 14:53 Urine Ketones Negative mg/dL (NEGATIVE) 04/09/18 14:53 Urine Blood 1+ (NEGATIVE) H 04/09/18 14:53 Urine Nitrate Negative (NEGATIVE) 04/09/18 14:53 Urine Bilirubin Negative (NEGATIVE) 04/09/18 14:53 Urine Urobilinogen Normal mg/dL (0.2-1.0) 04/09/18 14:53 Ur Leukocyte Esterase Neg Barb/uL (Negative) 04/09/18 14:53 Urine WBC (Auto) 2 /hpf (0-5) 04/09/18 14:53 Urine RBC (Auto) 1 /hpf (0-3) 04/09/18 14:53 Alcohol, Quantitative < 10 mg/dl (0-10) 04/09/18 18:48 HIV 1&2 Antibody Screen Negative (NEGATIVE) 04/11/18 17:19 TB Test (QFT) Nil 0.13 IU/mL 04/11/18 16:50 TB Test Mitogen - Nil >10.00 IU/mL 04/11/18 16:50 TB Test TB - Nil 5.83 IU/mL 04/11/18 16:50 TB Test (QFT) Positive (Negative) H 04/11/18 16:50 Attending/Attestation - Attestation I have personally seen and examined this patient.: Yes I have fully participated in the care of the patient.: Yes I have reviewed all pertinent clinical information, including history, physical exam and plan: Yes Notes (Text): 04/16/18 14:41 Medical attending: Patient was seen and examined by me, agrees the above note by the medical records coordinator. The patient has had 3 negative sputum AFB stains. He remains afebrile. His white blood cell count stable. He is to be discharged today. He needs to follow-up with his primary care physician Furthermore I encouraged the patient that he's got to avoid alcohol as he has been drinking recently and this is contributed to a history of upper GI complications I hope will take these advices into strong consideration as he is certainly at risk for an of complications as it is. Thank you very much, Abhishek Guzman
== END 2018-04-16 12:30 | disposition home or self-care (01) | DRG 99 ==
LOC: C.ER 13:28 → C.9E 18:27 → C.6T 20:06 → OBSVTOIN 04-12 14:28
PROVIDERS: ADMIT Hospitalist; ATTEND Hospitalist
PROC: 0DB68ZX Excision of Stomach, Via Natural or Artificial Opening Endoscopic, Diagnostic (ICD-10-PCS; 2018-04-10)
PROC: 0DB98ZX Excision of Duodenum, Via Natural or Artificial Opening Endoscopic, Diagnostic (ICD-10-PCS; principal; 2018-04-10 14:15)
DX: R04.2 Hemoptysis (principal); E11.65 Type 2 diabetes mellitus with hyperglycemia; J47.9 Bronchiectasis, uncomplicated; K86.0 Alcohol-induced chronic pancreatitis; K31.7 Polyp of stomach and duodenum; K29.50 Unspecified chronic gastritis without bleeding; K44.9 Diaphragmatic hernia without obstruction or gangrene; I10 Essential (primary) hypertension; F10.10 Alcohol abuse, uncomplicated; F17.200 Nicotine dependence, unspecified, uncomplicated

== ENCOUNTER 2018-05-01 20:24 | Emergency (ER) | payer SELFPAY ==
[2018-05-01 20:25] VITALS: BMI 26.6
[2018-05-01 21:00] LABS: BASO # 0.1 K/uL (0.0-0.2); BASO % 0.6 % (0.0-2.0); EOS # 0.6 K/uL (0.0-0.7); EOS % 4.7 % (0.0-4.0); HEMOGLOBIN 13.4 g/dL (12.0-18.0); LYMPH # 1.7 K/uL (1.0-4.3); MEAN CELL VOLUME 89.3 fL (80.0-94.0); MEAN CORPUSCULAR HEMOGLOBIN 30.6 pg (27.0-31.0); MEAN CORPUSCULAR HGB CONC 34.3 g/dL (33.0-37.0); MEAN PLATELET VOLUME 9.9 fL (7.2-11.7); MONO # 0.9 K/uL (0.0-0.8); MONO % 7.1 % (0.0-10.0); NEUT # 9.8 K/uL (1.8-7.0); NEUT % 74.6 % (50.0-75.0); RBC 4.38 Mil/uL (4.40-5.90); WHITE BLOOD COUNT 13.1 K/uL (4.8-10.8)
--- NOTE | 2018-05-01 21:10 | C.PDOC ---
History Of Present Illness 62 year old male presents to the emergency department with complaints of left- sided head and neck pain for the last three days. Patient states that he occasionally felt like his throat was closing however he has been speaking in complete sentences. Patient is also tolerating his own secretions. Time Seen by Provider: 05/01/18 21:10 Chief Complaint (Nursing): Headache History Per: Patient History/Exam Limitations: no limitations Onset/Duration Of Symptoms: Days (3) Current Symptoms Are (Timing): Still Present Severity: Mild Pain Scale Rating Of: 3 Quality: Dull, Aching Preceeding Symptoms: None Associated Symptoms: denies: Photophobia, Blurred Vision, Nausea, Vomiting Recent travel outside of the [place]: No Additional History Per: Patient Past Medical History Reviewed: Historical Data, Nursing Documentation, Vital Signs Vital Signs: Last Vital Signs Temp 98.2 F 05/01/18 20:29 Pulse 112 H 05/01/18 23:21 Resp 18 05/01/18 23:21 BP 140/80 05/01/18 23:21 Pulse Ox 100 05/01/18 23:21 - Medical History PMH: Gastritis, HTN, Pancreatitis Denies: Chronic Kidney Disease Surgical History: No Surg Hx - [facility] Procedures EXCISION OF DUODENUM, ENDO, DIAGN (04/12/18) EXCISION OF STOMACH, ENDO, DIAGN (04/12/18) Family History: States: No Known Family Hx - Social History Hx Alcohol Use: No (patient denies) Hx Substance Use: No - Immunization History Hx Tetanus Toxoid Vaccination: No Hx Influenza Vaccination: No Hx Pneumococcal Vaccination: No Review Of Systems Constitutional: Negative for: Fever, Chills ENT: Positive for: Nose Discharge, Nose Congestion, Throat Swelling Respiratory: Negative for: Shortness of Breath Musculoskeletal: Positive for: Neck Pain Skin: Negative for: Rash Neurological: Positive for: Headache. Negative for: Weakness Psych: Negative for: Anxiety Physical Exam - Physical Exam Appears: Non-toxic, No Acute Distress Skin: Warm, Dry Head: Normacephalic Eye(s): bilateral: Normal Inspection, PERRL, EOMI Ear(s): Bilateral: Normal Nose: Discharge, No Tenderness Oral Mucosa: Moist Tongue: Normal Appearing Lips: Normal Appearing Throat: Normal, No Erythema, No Exudate Neck: Trachea Midline, No Midline Cervical Tenderness, Paracervical Tenderness ( reproducible left neck pain), Supple Chest: Symmetrical, No Tenderness Cardiovascular: Rhythm Regular, No Murmur Respiratory: No Rales, No Rhonchi, No Wheezing Extremity: Normal ROM (all extremities) Neurological/Psych: Oriented x3, Normal Speech, Normal Cognition Gait: Steady ED Course And Treatment - Laboratory Results Result Diagrams: 05/01/18 20:56 05/01/18 20:56 O2 Sat by Pulse Oximetry: 97 (RA) Pulse Ox Interpretation: Normal - Radiology CXR: Interpreted by Me, Viewed By Me CXR Interpretation: No: Infiltrates, Fracture, Pnemothorax - CT Scan/US CT Head Other Rad Studies (CT/US): Read By Radiologist, Radiology Report Reviewed CT/US Interpretation: IMPRESSION: Findings are suggestive of sinusitis.Clinical correlation is advised. Progress Note: Plan: VBG. CT Head w/o Contrast. EKG. Alcohol Serum. CMP. Troponin. CBC. PTT. INR. Prothrombin Time. CXR. NaCl IV Fluids. Urinalysis Reevaluation Time: 01:37 Reassessment Condition: Improved Disposition Counseled Patient/Family Regarding: Studies Performed, Diagnosis, Need For Followup, Rx Given - Disposition Referrals: [facility] [Outside] [facility] [Outside] Disposition: HOME/ ROUTINE Disposition Time: 21:10 Condition: FAIR Additional Instructions: Please return if symptoms recur Prescriptions: Amoxicillin 875 mg PO BID #14 tablet Instructions: Headache, Adult (DC), Sinusitis, Adult (DC), Sinus Headache (DC) Forms: [facility] (Albanian) - Clinical Impression Clinical Impression: Headache, Sinusitis - Scribe Statement The provider has reviewed the documentation as recorded by the Scribe (Mehrdad Chavez) Provider Attestation: All medical record entries made by the Scribe were at my direction and personally dictated by me. I have reviewed the chart and agree that the record accurately reflects my personal performance of the history, physical exam, medical decision making, and the department course for this patient. I have also personally directed, reviewed, and agree with the discharge instructions and disposition.
[2018-05-01 21:14] LABS: ALB/GLOB RATIO 1.3 (1.0-2.1); ALBUMIN 4.9 g/dL (3.5-5.0); ALT/SGPT 60 U/L (21-72); AST/SGOT 68 U/L (17-59); BLOOD UREA NITROGEN 17 mg/dL (9-20); CALCIUM 9.7 mg/dl (8.6-10.4); GFR NON-AFRICAN AMERICAN > 60; PROTHROMBIN TIME 11.4 SECONDS (9.7-12.2)
[2018-05-01] MEDS ORDERED: Sodium Chloride 0.9% 1,000 ML IV ONE (21:19)
[2018-05-01 21:27] LABS: VENOUS BLOOD GAS BASE EXCESS 0.9 mmol/L (0.0-2.0); VENOUS BLOOD GAS PCO2 33 mmHg (40-60); VENOUS BLOOD GAS PO2 46 mm/Hg (30-55); VENOUS BLOOD PH 7.47 (7.32-7.43)
[2018-05-01 22:32] LABS: URINE BACTERIA RARE (<OCC); URINE BILIRUBIN NEGATIVE (NEGATIVE); URINE BLOOD 1+ (NEGATIVE); URINE CLARITY Clear (Clear); URINE COLOR Yellow (YELLOW); URINE GLUCOSE (UA) NORMAL (Normal); URINE LEUKOCYTE ESTERASE NEG Leu/uL (Negative); URINE PROTEIN 2+ mg/dL (NEGATIVE); URINE UROBILINOGEN NORMAL mg/dL (0.2-1.0)
[2018-05-02 01:52] VITALS: BP 137/82; PULSE 96; RESP 16; TEMP 99; O2SAT 98
--- NOTE | 2018-05-02 08:37 | CT ---
Date of service: 05/01/2018 PROCEDURE: CT HEAD WITHOUT CONTRAST. HISTORY: R/O Bleed COMPARISON: None available. TECHNIQUE: Axial computed tomography images were obtained through the head/brain without intravenous contrast. Radiation dose: Total exam DLP = 1101.87 mGy-cm. This CT exam was performed using one or more of the following dose reduction techniques: Automated exposure control, adjustment of the mA and/or kV according to patient size, and/or use of iterative reconstruction technique. FINDINGS: HEMORRHAGE: No intracranial hemorrhage. BRAIN: There are mild chronic microangiopathic changes. There is no mass, mass effect or abnormal extra-axial fluid collection. There is no territorial infarction. The midline sagittal structures are normal. VENTRICLES: There is mild age-related global parenchymal volume loss and proportionate enlargement of the ventricles and cortical sulci. CALVARIUM: Unremarkable. PARANASAL SINUSES: There fluid in the right maxillary sinus and moderate mucosal thickening in the ethmoid air cells. MASTOID AIR CELLS: The mastoid air cells are underdeveloped. OTHER FINDINGS: None. IMPRESSION: No acute intracranial abnormality. Mild chronic microangiopathic changes and mild age-related global parenchymal volume loss. Fluid in the right maxillary sinus may represent acute sinusitis in the appropriate clinical setting. A preliminary report was provided by [facility].
--- NOTE | 2018-05-02 11:05 | RAD ---
Date of service: 05/01/2018 PROCEDURE: CHEST RADIOGRAPH, 1 VIEW HISTORY: SOB COMPARISON: 04/09/2018. FINDINGS: LUNGS: The lungs are well inflated and clear. PLEURA: No pneumothorax or pleural fluid seen. CARDIOVASCULAR: Normal. OSSEOUS STRUCTURES: No significant abnormalities. VISUALIZED UPPER ABDOMEN: Normal. OTHER FINDINGS: None. IMPRESSION: No active pulmonary disease.
--- NOTE | 2018-05-04 18:50 | CARD ---
APPROVED REPORT Date of service: 05/01/2018 EKG Measurement Heart [id number] <Conclusion> Sinus tachycardia with occasional premature ventricular complexes Poor R wave progression Abnormal ECG
== END 2018-05-02 01:52 | disposition home or self-care (01) ==
LOC: C.ER 20:24
DX: J32.9 Chronic sinusitis, unspecified (principal); R51 Headache
CPT/HCPCS: 70450; 71045; 80053; 81001; 82803; 84484; 85025; 85610; 85730; 93005; 94770; 96360; 99285; G0480; J7030

== ENCOUNTER 2018-07-01 00:06 | Inpatient (IN) | payer MEDICAID, OTHER ==
[2018-07-01 00:06] VITALS: BMI 26.6
--- NOTE | 2018-07-01 00:29 | C.PDOC ---
History Of Present Illness Patient presents with mid epigstric discomfort and chest pain, which started yesterday morning. Speaking in complete sentences. No f/c/n/v. Dull, burning aching discomfort, non radiating. Time Seen by Provider: 07/01/18 00:28 Chief Complaint (Nursing): Chest Pain History Per: Patient History/Exam Limitations: no limitations Onset/Duration Of Symptoms: Days Current Symptoms Are (Timing): Still Present Context: Other Severity: Moderate Pain Scale Rating Of: 4 Quality: Dull, Burning, Aching, Pressure Associated Symptoms: denies: Nausea Exacerbating Factors: None Alleviating Factors: None Recent travel outside of the [place]: No Additional History Per: Patient Past Medical History Reviewed: Historical Data, Nursing Documentation, Vital Signs Vital Signs: Last Vital Signs Temp 98.6 F 07/01/18 00:18 Pulse 92 H 07/01/18 00:18 Resp 16 07/01/18 00:18 BP 186/93 H 07/01/18 00:18 Pulse Ox 99 07/01/18 00:18 - Medical History PMH: Gastritis, HTN, Pancreatitis Denies: Chronic Kidney Disease - [facility] Procedures EXCISION OF DUODENUM, ENDO, DIAGN (04/12/18) EXCISION OF STOMACH, ENDO, DIAGN (04/12/18) Family History: States: No Known Family Hx - Social History Hx Alcohol Use: No (patient denies) Hx Substance Use: No - Immunization History Hx Tetanus Toxoid Vaccination: No Hx Influenza Vaccination: No Hx Pneumococcal Vaccination: No Review Of Systems Constitutional: Negative for: Fever, Chills Eyes: Negative for: Redness ENT: Negative for: Throat Pain Cardiovascular: Positive for: Chest Pain Respiratory: Negative for: Shortness of Breath Gastrointestinal: Positive for: Abdominal Pain. Negative for: Nausea, Vomiting Genitourinary: Negative for: Dysuria Musculoskeletal: Negative for: Back Pain Skin: Negative for: Rash Neurological: Negative for: Weakness Psych: Negative for: Anxiety Physical Exam - Physical Exam Appears: Non-toxic Skin: Warm, Dry Head: Normacephalic Eye(s): bilateral: Normal Inspection Oral Mucosa: Moist Neck: Supple Chest: Symmetrical Cardiovascular: Rhythm Regular Respiratory: No Rales, No Rhonchi, No Wheezing Gastrointestinal/Abdominal: Soft, Tenderness (mild mid epigastric), No Distention, No Guarding Back: Normal Inspection Extremity: Normal ROM Extremity: Bilateral: Atraumatic Neurological/Psych: Oriented x3 Gait: Steady ED Course And Treatment - Laboratory Results Result Diagrams: 07/01/18 01:44 07/01/18 01:44 ECG: Interpreted By Me, Viewed By Me ECG Rhythm: Sinus Rhythm (104), Nonspecific Changes O2 Sat by Pulse Oximetry: 99 Pulse Ox Interpretation: Normal - Radiology CXR: Interpreted by Me, Viewed By Me Progress Note: No asa given due to nsaid alleergy Disposition Discussed With Dr.: Galileo Reyes Comment: accepted the pt on his service and took over the care at 5 AM Doctor Will See Patient In The: Hospital Counseled Patient/Family Regarding: Studies Performed, Diagnosis - Disposition Disposition: HOSPITALIZED Disposition Time: 01:00 Condition: FAIR Forms: [facility] (Mongolian) - POA Present On Arrival: Poor Glycemic Control - Clinical Impression Clinical Impression: Abdominal pain, Acute pancreatitis Decision To Admit - Pt Status Changed To: Hospital Disposition Of: Inpatient - Admit Certification Admit to Inpatient:: After my assessment, the patient will require hospitalization for at least two midnights. This is because of the severity of symptoms shown, intensity of services needed, and/or the medical risk in this patient being treated as an outpatient. - InPatient: Physician Admission Certification: I certify that this patient requires 2 or more midnights of care for the following reason:: After my assessment, the patient will require hospitalization for at least two midnights. This is because of the severity of symptoms shown, intensity of services needed, and/or the medical risk in this patient being treated as an outpatient. - . Bed Request Type: Regular Admitting Physician: Galileo Reyse Patient Diagnosis: Abdominal pain, Acute pancreatitis
[2018-07-01 01:57] LABS: BASO # 0.1 K/uL (0.0-0.2); BASO % 0.5 % (0.0-2.0); EOS # 0.1 K/uL (0.0-0.7); HEMOGLOBIN 13.7 g/dL (12.0-18.0); LYMPH # 0.9 K/uL (1.0-4.3); LYMPH % 8.7 % (20.0-40.0); MEAN CORPUSCULAR HEMOGLOBIN 31.7 pg (27.0-31.0); MEAN CORPUSCULAR HGB CONC 34.1 g/dL (33.0-37.0); MONO # 0.6 K/uL (0.0-0.8); MONO % 5.8 % (0.0-10.0); NEUT # 9.1 K/uL (1.8-7.0); NRBC % 0.1 % (0.0-2.0); PLATELET COUNT 163 K/uL (130-400); RBC 4.32 Mil/uL (4.40-5.90); RED CELL DISTRIBUTION WIDTH 15.2 % (11.5-14.5); WHITE BLOOD COUNT 10.8 K/uL (4.8-10.8)
[2018-07-01 02:16] LABS: LYMPHOCYTE 10 % (20-40); MONOCYTE 8 % (0-10); NEUTROPHIL 82 % (50-75); PLATELET CLUMPS PRESENT; PLATELET ESTIMATE NORMAL (NORMAL); TOTAL CELLS COUNTED 100
[2018-07-01 02:27] LABS: ALB/GLOB RATIO 1.4 (1.0-2.1); ALBUMIN 4.7 g/dL (3.5-5.0); ALT/SGPT 79 U/L (21-72); AST/SGOT 91 U/L (17-59); BLOOD UREA NITROGEN 19 mg/dL (9-20); CALCIUM 8.9 mg/dl (8.6-10.4); GFR NON-AFRICAN AMERICAN > 60
[2018-07-01 02:55] LABS: LIPASE 2854 U/L (23-300)
[2018-07-01] MEDS ORDERED: Iodixanol 320 MG/ML 100 ML BOTTLE IV ONE (04:14)
[2018-07-01] MEDS ORDERED: Sodium Chloride 0.9% 1,000 ML IV ONE (05:01)
[2018-07-01] MEDS ORDERED: Sodium Chloride 0.9% 1,000 ML ONE (05:08)
[2018-07-01] MEDS ORDERED: Morphine 4 MG/ML VIAL ONE (05:09)
[2018-07-01] MEDS ORDERED: Dextrose 50% SYRINGE Inj (50 ml) IV PRN (06:31)
[2018-07-01] MEDS ORDERED: (Novolog) Insulin Aspart, Recombinant 100 u/ml 10 ml vial SC SCH (07:30)
[2018-07-01] MEDS ORDERED: Glucagon Recombinant 1 mg Inj IM PRN (08:16)
--- NOTE | 2018-07-01 08:38 | RAD ---
Chest x-ray single frontal view HISTORY: Chest pain. COMPARISON: 05/01/2018 Findings: No focal infiltrate or effusion. Small nodular density at the left lung base may represent prominent nipple shadow versus confluence of shadows with ribs and vessels versus additional etiology. Correlation with lateral view and or follow-up x-ray may be helpful if clinically indicated. Heart size within normal limits. IMPRESSION: No focal infiltrate or effusion. Small nodular density at the left lung base may represent prominent nipple shadow versus confluence of shadows with ribs and vessels versus additional etiology. Correlation with lateral view and or follow-up x-ray may be helpful if clinically indicated.
[2018-07-01] MEDS ORDERED: Multivitamin (MVI) 10 ML, Thiamine 100 MG, Folic Acid 1 MG in Sodium Chloride 0.9% 1,00... IV ONE (09:00)
--- NOTE | 2018-07-01 09:01 | CP.PCM.HP ---
<Socorro Servin - Last Filed: 07/01/18 08:56> History of Present Illness - History of Present Illness History of Present Illness: CC: Abdominal pain Mr. Shelley is a 62 year old [place] M with PMH of recurrent alcoholic pancreatitis, uncontrolled DM, uncontrolled HTN, alcohol abuse who presents today for abdominal pain which started yesterday, radiating toward into his chest. Patient says last drink was one week ago despite being confronted about smelling of alcohol. This is the same pain that he experienced during his last admission 3 months ago for alcoholic pancreatitis. Patient says the abdominal pain is all over. Patient said his last bowel movement was yesterday and he saw no blood in the stool. Patient denies any dizziness, headache, changes in vision, shortness of breath, chest pain, nausea, vomiting, constipation, or diarrhea. PMD: none PMHx: DM (uncontrolled), HTN (uncontrolled), pancreatitis, alcohol use disorder PSHX: denies FHx: father- age 45 from possible MD/CVA; mother- many years ago with diabetes; no known family history of cancer Medications: denies taking any medications on a regular basis; states that he takes Metformin 500mg once a day and something for his blood pressure when he "feels bad" Allergies: Naproxen (rash) when he takes a lot of it Social hx: drinks a teacup of whiskey most days for past 30 years, smokes 15 cigarettes a day for 40 years, denies any drugs. Lives with friend as has left him Present on Admission - Present on Admission Any Indicators Present on Admission: No Review of Systems - Review of Systems Systems not reviewed;Unavailable: Intoxicated, Uncooperative Past Patient History - Infectious Disease Hx of Infectious Diseases: None - Past Medical History & Family History Past Medical History?: Yes - Past Social History Smoking Status: Heavy Smoker > 10 Cigarettes Daily Alcohol: > 2 Drinks/Day Drugs: Denies - CARDIAC Hx Hypertension: Yes - PULMONARY Hx Respiratory Disorders: No - NEUROLOGICAL Hx Neurological Disorder: No - HEENT Hx HEENT Problems: Yes Other/Comment: wears corrective eyeglasses - RENAL Hx Chronic Kidney Disease: No - ENDOCRINE/METABOLIC Hx Endocrine Disorders: Yes Hx Diabetes Mellitus Type 2: Yes - HEMATOLOGICAL/ONCOLOGICAL Hx Blood Disorders: No - INTEGUMENTARY Hx Dermatological Problems: No - MUSCULOSKELETAL/RHEUMATOLOGICAL Hx Musculoskeletal Disorders: Yes Hx Back Pain: Yes Hx Falls: Yes - GASTROINTESTINAL Hx Gastritis: Yes Hx Pancreatitis: Yes - GENITOURINARY/GYNECOLOGICAL Hx Genitourinary Disorders: No - PSYCHIATRIC Hx Substance Use: No - SURGICAL HISTORY Hx Surgeries: No - ANESTHESIA Hx Anesthesia: No Meds Allergies/Adverse Reactions: Allergies Allergy/AdvReac Type Severity Reaction Status Date / Time naproxen AdvReac Diffuse Verified 04/01/18 21:01 rashes Physical Exam - Constitutional Appears: Non-toxic, No Acute Distress, Chronically Ill - Head Exam Head Exam: ATRAUMATIC, NORMOCEPHALIC - ENT Exam Additional comments: poor dentition - Respiratory Exam Respiratory Exam: Decreased Breath Sounds, Clear to Auscultation Bilateral, NORMAL BREATHING PATTERN. absent: Rales, Rhonchi, Wheezes - Cardiovascular Exam Cardiovascular Exam: REGULAR RHYTHM, +S1, +S2, Systolic Murmur. absent: JVD - GI/Abdominal Exam GI & Abdominal Exam: Distended, Guarding, Normal Bowel Sounds, Soft. absent: Firm, Rebound, Tenderness - Extremities Exam Extremities exam: Positive for: normal capillary refill, pedal pulses present. Negative for: calf tenderness, pedal edema, tenderness Additional comments: radial, DP pulses present IV access on R forearm - Neurological Exam Neurological exam: CN II-XII Intact, Oriented x3, Reflexes Normal - Psychiatric Exam Psychiatric exam: Normal Affect, Normal Mood - Skin Skin Exam: Normal Color, Warm Results - Vital Signs Recent Vital Signs: Last Vital Signs Temp 99.1 F 07/01/18 07:00 Pulse 64 07/01/18 07:00 Resp 20 07/01/18 07:00 BP 185/88 H 07/01/18 07:00 Pulse Ox 96 07/01/18 07:00 - Labs Result Diagrams: 07/01/18 01:44 07/01/18 01:44 Labs: Laboratory Results - last 24 hr 07/01/18 07/01/18 07/01/18 01:44 01:44 05:44 WBC 10.8 RBC 4.32 L Hgb 13.7 Hct 40.2 MCV 93.0 D MCH 31.7 H MCHC 34.1 RDW 15.2 H Plt Count 163 MPV 9.0 Neut % (Auto) 84.0 H Lymph % (Auto) 8.7 L Hudspeth % (Auto) 5.8 Eos % (Auto) 1.0 Baso % (Auto) 0.5 Neut # (Auto) 9.1 H Lymph # (Auto) 0.9 L Hudspeth # (Auto) 0.6 Eos # (Auto) 0.1 Baso # (Auto) 0.1 Neutrophils % (Manual) 82 H Lymphocytes % (Manual) 10 L Monocytes % (Manual) 8 Platelet Estimate Normal Plt Clumps, EDTA Present Sodium 138 Potassium 4.1 Chloride 103 Carbon Dioxide 19 L Anion Gap 20 BUN 19 Creatinine 0.8 Est GFR ( Amer) > 60 Est GFR (Non-Af Amer) > 60 Random Glucose 142 H Calcium 8.9 Total Bilirubin 0.6 AST 91 H D ALT 79 H D Alkaline Phosphatase 80 Troponin I < 0.0120 Total Protein 8.0 Albumin 4.7 Globulin 3.3 Albumin/Globulin Ratio 1.4 Lipase 2854 H Alcohol, Quantitative < 10 Assessment & Plan - Assessment and Plan (Free Text) Assessment: 62yo [place] M PMH HTN, DM, EtOH, recurrent pancreatitis admitted for pancreatitis. Plan: Acute pancreatitis - BAL <10 - Lipase on admission: 2854 - AST/ALT 91/79 - Trop neg x1 - CXR (07/01): neg - CT A/P (07/01): pending read - NPO excepts meds - given 2L NS in ED, given 1L banana bag, follow with NS@175 for a total of 6L of hydration in first 24 hours - Morphine 1mg IVP q4 prn - Zofran 4mg IVP q4 prn Diabetes mellitus - f/u Hgb A1c - f/u lipid panel - Accuchecks q6 - ISS - medium - Hypoglycemia protocol - home Metformin 1000mg po bidcc Hypertension - home Amlodipine 5mg po daily - monitor vitals Alcohol abuse - BAL <10on admission - Alcohol withdrawal protocol - Seizure precautions, fall precautions - Librium taper - Multivitamin 1 tab PO daily - Folic acid 1 tab PO daily - Thiamine 100mg PO daily Prophylactic Measures GI: Protonix 40mg ivp daily SCDs d/w Dr. Amy Servin PGY-1 - Date & Time Date: 07/01/18 Time: 05:30 <Galileo Reyes - Last Filed: 07/01/18 18:58> Results - Vital Signs Recent Vital Signs: Last Vital Signs Temp 99.3 F 11/21/18 16:00 Pulse 74 07/01/18 16:00 Resp 20 07/01/18 16:00 BP 158/85 H 07/01/18 16:00 Pulse Ox 96 07/01/18 16:00 - Labs Result Diagrams: 07/01/18 10:58 07/01/18 10:58 Labs: Laboratory Results - last 24 hr 07/01/18 07/01/18 07/01/18 01:44 01:44 05:44 WBC 10.8 RBC 4.32 L Hgb 13.7 Hct 40.2 MCV 93.0 D MCH 31.7 H MCHC 34.1 RDW 15.2 H Plt Count 163 MPV 9.0 Neut % (Auto) 84.0 H Lymph % (Auto) 8.7 L Hudspeth % (Auto) 5.8 Eos % (Auto) 1.0 Baso % (Auto) 0.5 Neut # (Auto) 9.1 H Lymph # (Auto) 0.9 L Hudspeth # (Auto) 0.6 Eos # (Auto) 0.1 Baso # (Auto) 0.1 Neutrophils % (Manual) 82 H Lymphocytes % (Manual) 10 L Monocytes % (Manual) 8 Platelet Estimate Normal Plt Clumps, EDTA Present Sodium 138 Potassium 4.1 Chloride 103 Carbon Dioxide 19 L Anion Gap 20 BUN 19 Creatinine 0.8 Est GFR ( Amer) > 60 Est GFR (Non-Af Amer) > 60 POC Glucose (mg/dL) Random Glucose 142 H Hemoglobin A1c Calcium 8.9 Total Bilirubin 0.6 AST 91 H D ALT 79 H D Alkaline Phosphatase 80 Lactate Dehydrogenase Troponin I < 0.0120 Total Protein 8.0 Albumin 4.7 Globulin 3.3 Albumin/Globulin Ratio 1.4 Triglycerides Cholesterol LDL Cholesterol Direct HDL Cholesterol Lipase 2854 H Alcohol, Quantitative < 10 Hepatitis A IgM Ab Hep Bs Antigen Hep B Core IgM Ab Hepatitis C Antibody 07/01/18 07/01/18 07/01/18 10:58 10:58 10:58 WBC 9.0 RBC 4.13 L Hgb 13.5 Hct 38.5 MCV 93.2 MCH 32.6 H MCHC 35.0 RDW 15.4 H Plt Count 155 MPV 9.1 Neut % (Auto) 71.8 Lymph % (Auto) 15.1 L Hudspeth % (Auto) 8.2 Eos % (Auto) 4.1 H Baso % (Auto) 0.8 Neut # (Auto) 6.4 Lymph # (Auto) 1.4 Hudspeth # (Auto) 0.7 Eos # (Auto) 0.4 Baso # (Auto) 0.1 Neutrophils % (Manual) Lymphocytes % (Manual) Monocytes % (Manual) Platelet Estimate Plt Clumps, EDTA Sodium 136 Potassium 3.5 L Chloride 99 Carbon Dioxide 24 Anion Gap 17 BUN 16 Creatinine 0.8 Est GFR ( Amer) > 60 Est GFR (Non-Af Amer) > 60 POC Glucose (mg/dL) Random Glucose 119 H Hemoglobin A1c 7.0 H Calcium 8.5 L Total Bilirubin 0.8 AST 77 H ALT 74 H Alkaline Phosphatase 69 Lactate Dehydrogenase 551 Troponin I Total Protein 7.6 Albumin 4.3 Globulin 3.3 Albumin/Globulin Ratio 1.3 Triglycerides 118 Cholesterol 185 LDL Cholesterol Direct 111 HDL Cholesterol 71 H Lipase Alcohol, Quantitative Hepatitis A IgM Ab Hep Bs Antigen Hep B Core IgM Ab Hepatitis C Antibody 07/01/18 07/01/18 07/01/18 11:30 12:52 16:25 WBC RBC Hgb Hct MCV MCH MCHC RDW Plt Count MPV Neut % (Auto) Lymph % (Auto) Hudspeth % (Auto) Eos % (Auto) Baso % (Auto) Neut # (Auto) Lymph # (Auto) Hudspeth # (Auto) Eos # (Auto) Baso # (Auto) Neutrophils % (Manual) Lymphocytes % (Manual) Monocytes % (Manual) Platelet Estimate Plt Clumps, EDTA Sodium Potassium Chloride Carbon Dioxide Anion Gap BUN Creatinine Est GFR ( Amer) Est GFR (Non-Af Amer) POC Glucose (mg/dL) 91 103 Random Glucose Hemoglobin A1c Calcium Total Bilirubin AST ALT Alkaline Phosphatase Lactate Dehydrogenase Troponin I Total Protein Albumin Globulin Albumin/Globulin Ratio Triglycerides Cholesterol LDL Cholesterol Direct HDL Cholesterol Lipase Alcohol, Quantitative Hepatitis A IgM Ab Negative Hep Bs Antigen Negative Hep B Core IgM Ab Negative Hepatitis C Antibody Negative Assessment & Plan - Date & Time Date: 07/01/18 (I have seen and examined the patient. I agree with the findings and plan of care as documented by Dr. Servin. Patient with acute pancreatitis. Alcohol induced. CIWA protocol. NPO. IVF. Symptomatic treatment. History of hypertension and diabetes. Continue home meds. NISS and accuchecks. Monitor for acute changes.) Time: 18:57 Attending/Attestation - Attestation I have personally seen and examined this patient.: Yes I have fully participated in the care of the patient.: Yes I have reviewed all pertinent clinical information: Yes
[2018-07-01] MEDS ORDERED: Multiple Vitamins Tab PO SCH (10:00)
[2018-07-01 11:13] LABS: BASO # 0.1 K/uL (0.0-0.2); BASO % 0.8 % (0.0-2.0); EOS # 0.4 K/uL (0.0-0.7); EOS % 4.1 % (0.0-4.0); HEMOGLOBIN 13.5 g/dL (12.0-18.0); LYMPH # 1.4 K/uL (1.0-4.3); LYMPH % 15.1 % (20.0-40.0); MEAN CELL VOLUME 93.2 fL (80.0-94.0); MEAN CORPUSCULAR HEMOGLOBIN 32.6 pg (27.0-31.0); MEAN PLATELET VOLUME 9.1 fL (7.2-11.7); MONO # 0.7 K/uL (0.0-0.8); MONO % 8.2 % (0.0-10.0); NEUT # 6.4 K/uL (1.8-7.0); NEUT % 71.8 % (50.0-75.0); RBC 4.13 Mil/uL (4.40-5.90); RED CELL DISTRIBUTION WIDTH 15.4 % (11.5-14.5)
[2018-07-01 11:34] LABS: ALB/GLOB RATIO 1.3 (1.0-2.1); ALBUMIN 4.3 g/dL (3.5-5.0); ALT/SGPT 74 U/L (21-72); AST/SGOT 77 U/L (17-59); BLOOD UREA NITROGEN 16 mg/dL (9-20); CALCIUM 8.5 mg/dl (8.6-10.4); GFR NON-AFRICAN AMERICAN > 60; HDL CHOLESTEROL 71 mg/dL (30-70)
[2018-07-01 11:42] LABS: LDL CHOLESTEROL 111 mg/dL (0-129)
--- NOTE | 2018-07-01 12:11 | CP.PCM.PN ---
<Brenden Kaur - Last Filed: 07/01/18 14:02> Subjective - Date & Time of Evaluation Date of Evaluation: 07/01/18 Time of Evaluation: 12:08 - Subjective Subjective: PGY-1 Medicine Progress Note for Dr. Nelson's service Patient seen and examined at bedside. Patient reports ongoing abdominal pain located in the right upper quadrant and flank region. Patient admits to epigastric pain as well. Patient denies fevers, chills, sob, nausea, vomiting, constipation, diarrhea, and dysuria. Patient denies palpitations and hallucinations. Objective - Vital Signs/Intake and Output Vital Signs (last 24 hours): Temp Pulse Resp BP Pulse Ox 99.1 F 64 20 185/88 H 96 07/01/18 07:00 07/01/18 07:00 07/01/18 07:00 07/01/18 07:00 07/01/18 07:00 - Medications Medications: Current Medications Amlodipine Besylate (Norvasc) 5 mg PO DAILY [facility] Last Admin: 07/01/18 10:14 Dose: 5 mg Dextrose (Dextrose 50% Inj) 0 ml IV STAT PRN; Protocol PRN Reason: Hypoglycemia Protocol Dextrose (Glutose 15) 0 gm PO ONCE PRN; Protocol PRN Reason: Hypoglycemia Protocol Glucagon (Glucagen Diagnostic Kit) 0 mg IM STAT PRN; Protocol PRN Reason: Hypoglycemia Protocol Multivitamins/Vitamin C 10 ml/Thiamine HCl 100 mg/ Folic Acid 1 mg/ Sodium Chloride 1,011.2 mls @ 175 mls/hr IV .Q5H47M ONE Stop: 07/01/18 14:46 Last Admin: 07/01/18 08:37 Dose: 175 mls/hr Sodium Chloride (Sodium Chloride 0.9%) 1,000 mls @ 175 mls/hr IV .Q5H43M [facility] Dextrose (Dextrose 5% In Water 1000 Ml) 1,000 mls @ 0 mls/hr IV .Q0M PRN; Protocol PRN Reason: Hypoglycemia Protocol Insulin Aspart (Novolog) 0 unit SC Q6 MICHELLE; Protocol Morphine Sulfate (Morphine) 1 mg IVP Q4 PRN PRN Reason: Pain, moderate (4-7) Last Admin: 07/01/18 08:56 Dose: 1 mg Morphine Sulfate (Morphine) 2 mg IVP Q4 PRN PRN Reason: Pain, severe (8-10) Nicotine (Nicoderm Cq) 1 patch TD DAILY MICHELLE Ondansetron HCl (Zofran Inj) 4 mg IVP Q4 PRN PRN Reason: Nausea/Vomiting Pantoprazole Sodium (Protonix Inj) 40 mg IVP DAILY MICHELLE Potassium Chloride (K-Dur 20 Meq Er Tab) 20 meq PO DAILY MICHELLE - Labs Labs: 07/01/18 10:58 07/01/18 10:58 - Constitutional Appears: Non-toxic, No Acute Distress - Head Exam Head Exam: NORMAL INSPECTION, NORMOCEPHALIC - Eye Exam Eye Exam: EOMI, Normal appearance. absent: Nystagmus, Scleral icterus - Respiratory Exam Respiratory Exam: Clear to Ausculation Bilateral, NORMAL BREATHING PATTERN. absent: Accessory Muscle Use, Rales, Rhonchi, Wheezes - Cardiovascular Exam Cardiovascular Exam: REGULAR RHYTHM, +S1, +S2. absent: Tachycardia, Murmur - GI/Abdominal Exam GI & Abdominal Exam: Guarding, Soft, Tenderness, Normal Bowel Sounds. absent: Distended, Firm, Rigid Additional comments: RUQ pain and right flank tenderness to palpation - Extremities Exam Extremities Exam: Normal Inspection. absent: Calf Tenderness, Pedal Edema - Neurological Exam Neurological Exam: Alert, Awake, Oriented x3 - Psychiatric Exam Psychiatric exam: Normal Affect, Normal Mood - Skin Skin Exam: Intact, Normal Color Assessment and Plan - Assessment and Plan (Free Text) Assessment: 62yo [place] M PMH HTN, DM, EtOH, recurrent pancreatitis admitted for pancreatitis. Plan: Acute pancreatitis BAL <10 Lipase on admission: 2854 AST/ALT 91/79 Trop neg x1 CXR (07/01): neg CT A/P (07/01): prelim reading uncomplicated pancreatitis 07-01 U/S abdomen pending NPO including oral meds NS @ 175 mls/hr Morphine 1mg IVP q4 prn for moderate pain and Morphine 2mg IVP q4h prn for severe pain Zofran 4mg IVP q4 prn Diabetes mellitus Hgb A1C 7.0 Lipid panel normal Accuchecks q6 ISS per protocol q6 Hypoglycemia protocol Hypertension Held home oral amlodipine- NPO including meds Alcohol abuse BAL <10on admission Aspiration precuations Seizure precautions, fall precautions Librium Multivitamin 1 tab PO daily Tobacco Use Disorder Educated patient on complications of continued smoking Nicotine patch 1 TD daily Hypokalemia KCl IVPB 10meq Prophylactic Measures GI: Protonix 40mg ivp daily DVT ppx: SCDs NPO with meds <Aleshia Nelson Sinan - Last Filed: 07/06/18 15:36> Objective - Vital Signs/Intake and Output Vital Signs (last 24 hours): Temp Pulse Resp BP Pulse Ox 98.6 F 101 H 20 130/78 96 07/04/18 16:00 07/04/18 16:00 07/04/18 16:00 07/04/18 16:00 07/04/18 16:00 - Labs Labs: 07/04/18 07:29 07/04/18 07:29 Attending/Attestation - Attestation I have personally seen and examined this patient.: Yes I have fully participated in the care of the patient.: Yes I have reviewed all pertinent clinical information, including history, physical exam and plan: Yes Notes (Text): This is late computer entry for 07/01/18. Patient seen, examined, and case discussed with medical radiation therapist. Patient admitted for acute pancreatitis secondary to alcohol, patient has had prior hospitalizations for similar complaints. Patient ordered for abdominal briceño ited US to excluded gallstones. We will follow-up with CT Abdomen/Pelvis followup. Patient does have diffuse abdominal pain. Patient to remain NPO, adjusted pain prns with the resident and IV fluids. patient is known diabetic; will adjust for blood sugar and insulin monitoring since patient is NPO. Patient's blood pressure is uncontrolled will will attempt to reduce pain prior to initiating anti-hypertensive medication. Patient is currently on banana bag, will switch over Folic 1mg PO daily, Thiamine 100mg PO BID, and MVI 1 tab PO daily when ready to advance diet. Assessment/Plan Acute pancreatitis * BAL <10 * Lipase on admission: 2854 * AST/ALT 91/79 * Trop neg x1 * CXR (07/01): neg * CT A/P (07/01): prelim reading uncomplicated pancreatitis * 07-01 U/S abdomen pending * NPO including oral meds * NS @ 175 mls/hr * Morphine 1mg IVP q4 prn for moderate pain and Morphine 2mg IVP q4h prn for severe pain * Zofran 4mg IVP q4 prn Diabetes mellitus * Hgb A1C 7.0 * Lipid panel normal * Accuchecks q6 * ISS per protocol q6 * Hypoglycemia protocol Hypertension * Held home oral amlodipine- NPO including meds * Patient is on IV fluids * Will need to pain control Alcohol abuse * BAL <10on admission * Aspiration precuations * Seizure precautions, fall precautions * CIWA * Completed banana bag, will need to transition to MVI/Folic acid/Thiamine Tobacco Use Disorder * Educated patient on complications of continued smoking * Nicotine patch 1 TD daily Hypokalemia * Monitor and replete Prophylactic Measures * GI: Protonix 40mg ivp daily * DVT ppx: SCDs * NPO with meds * IV fluids
[2018-07-01] MEDS ORDERED: Potassium Chloride 20 mEq ER Tab PO SCH (12:15)
--- NOTE | 2018-07-01 12:16 | CT ---
Date of service: 07/01/2018 PROCEDURE: CT Abdomen and Pelvis with contrast HISTORY: abd pain, pancreatitis COMPARISON: 04/02/2018, 12/03/2017 and MRI 02/15/2017 TECHNIQUE: Contrast dose: 100 mL Visipaque 320 Radiation dose: Total exam DLP = 373.86 mGy-cm. This CT exam was performed using one or more of the following dose reduction techniques: Automated exposure control, adjustment of the mA and/or kV according to patient size, and/or use of iterative reconstruction technique. FINDINGS: LOWER THORAX: Unremarkable. LIVER: Normal size, contour and attenuation. Previously demonstrated rounded heterogeneously calcified mass in the right lobe of the liver again identified without interval change in size and appearance. This measures approximately 2.4 cm in diameter. No other mass is identified. There is no biliary dilatation. GALLBLADDER AND BILE DUCTS: Unremarkable. PANCREAS: Peripancreatic stranding and fluid consistent with acute pancreatitis. There is a single rounded low-density mass seen the junction of the pancreatic body and head measuring approximately 11 mm in diameter, unchanged compared to multiple prior examinations. Previous MRI examination did demonstrate 2 adjacent masses but only a single mass is demonstrated on this CT examination. There is no new pancreatic mass identified. There is mild dilatation of the pancreatic duct in the body of the pancreas up to approximately 3 mm. Given the history of recurrent pancreatitis and probable IPMN, the possibility of an intraductal IPMN must be considered, obstructing the pancreatic duct. Consider further evaluation with endoscopic ultrasound. There are 2 punctate calcifications again identified in the uncinate process of the pancreas. SPLEEN: Unremarkable. ADRENALS: Unremarkable. No mass. KIDNEYS AND URETERS: Nonspecific 4 mm rounded low-attenuation lesion in the lower pole right kidney, nonspecific. Stable over multiple prior examinations. No other mass. No calculus or hydronephrosis. VASCULATURE: Unremarkable. No aortic aneurysm. Minimal atherosclerotic calcification of the abdominal aorta is noted. BOWEL: Unremarkable. No obstruction. No gross mural thickening. APPENDIX: Normal appendix. PERITONEUM: Unremarkable. No free fluid. No free air. LYMPH NODES: Unremarkable. No enlarged lymph nodes. BLADDER: Unremarkable. REPRODUCTIVE: Normal prostate BONES: No acute fracture. OTHER FINDINGS: None. IMPRESSION: Findings consistent with acute uncomplicated pancreatitis. Mild dilatation of the pancreatic duct. Rounded low-density stable mass at the junction of the pancreatic body and head likely represents IPMN. Likely communication with the main duct demonstrated on coronal images. Second low-density mass previously demonstrated on MR not evident on this examination. The possibility of an intraductal component must be considered given the dilatation of the pancreatic duct and the history of recurrent pancreatitis. Consider evaluation with endoscopic ultrasound. Stable calcified hepatic mass. Additional minor findings as above.
[2018-07-01] MEDS: (Novolog) Insulin Aspart, Recombinant 100 u/ml 10 ml vial SC SCH ×2 (12:24→19:27)
--- NOTE | 2018-07-01 12:51 | US ---
HISTORY: pancreatitis, check for gallstones COMPARISON: CT abdomen and pelvis with IV contrast performed 07/01/18 TECHNIQUE: Sonographic evaluation of the abdomen. FINDINGS: LIVER: Measures 16.4 cm in sagittal dimension. Echogenic liver may be seen in setting of hepatic parenchymal disease or fatty infiltration. 3.0 x 2.5 x 2.6 cm heterogeneous mass is evident within the right hepatic lobe with evidence of calcification. The main portal vein appears patent with normal directional flow. No intrahepatic bile duct dilatation. GALLBLADDER: No gallstones. No gallbladder wall thickening. Negative sonographic Purdy's sign as assessed by the intelligence director. COMMON BILE DUCT: Measures 4 mm. PANCREAS: Not well visualized. RIGHT KIDNEY: Measures 10.4 x 4.7 x 5.4 cm. No obstructing calculus or hydronephrosis identified. LEFT KIDNEY: Measures 10.6 x 4.9 x 5.2 cm. No obstructing calculus or hydronephrosis identified. 5 mm and 3 mm echogenic foci within the left kidney without definite posterior acoustic shadowing. SPLEEN: Measures approximately 7.9 cm. AORTA: Limited views appear unremarkable. IVC: Limited views appear unremarkable. OTHER FINDINGS: None. IMPRESSION: 3.0 x 2.5 x 2.6 cm heterogeneous right hepatic lobe mass with calcification, indeterminate. Please refer to CT of the abdomen and pelvis performed 07/01/18 for more detailed discussion. Echogenic liver may be seen in setting of hepatic parenchymal disease or fatty infiltration. 3 mm and 5 mm left renal echogenic foci without clear evidence of posterior acoustic shadowing, possibly tiny angiomyolipoma.
[2018-07-01] MEDS: Sodium Chloride 0.9% 1,000 ML IV SCH ×2 (13:30→19:25)
[2018-07-01 13:44] LABS: HEPATITIS B SURFACE AG Negative (NEGATIVE)
[2018-07-01 13:50] LABS: HEPATITIS A IGM NEGATIVE (NEGATIVE); HEPATITIS B CORE AB NEGATIVE (NEGATIVE)
[2018-07-01 14:02] LABS: HEPATITIS C ANTIBODY NEGATIVE (NEGATIVE)
[2018-07-02] MEDS: (Novolog) Insulin Aspart, Recombinant 100 u/ml 10 ml vial SC SCH ×5 (00:01→23:51)
[2018-07-02] MEDS: Sodium Chloride 0.9% 1,000 ML IV SCH ×3 (01:46→10:39)
[2018-07-02 06:53] LABS: BASO % 0.6 % (0.0-2.0); EOS # 0.4 K/uL (0.0-0.7); EOS % 5.3 % (0.0-4.0); HEMOGLOBIN 13.6 g/dL (12.0-18.0); LYMPH # 0.9 K/uL (1.0-4.3); LYMPH % 13.4 % (20.0-40.0); MEAN CELL VOLUME 93.6 fL (80.0-94.0); MEAN CORPUSCULAR HEMOGLOBIN 32.5 pg (27.0-31.0); MEAN CORPUSCULAR HGB CONC 34.7 g/dL (33.0-37.0); MEAN PLATELET VOLUME 9.4 fL (7.2-11.7); MONO # 0.5 K/uL (0.0-0.8); MONO % 7.2 % (0.0-10.0); NEUT # 5.2 K/uL (1.8-7.0); NEUT % 73.5 % (50.0-75.0); RBC 4.18 Mil/uL (4.40-5.90); RED CELL DISTRIBUTION WIDTH 15.1 % (11.5-14.5)
[2018-07-02 08:04] VITALS: RESP 20
[2018-07-02 08:04] LABS: ALB/GLOB RATIO 1.4 (1.0-2.1); ALBUMIN 4.5 g/dL (3.5-5.0); ALT/SGPT 62 U/L (21-72); AST/SGOT 66 U/L (17-59); BLOOD UREA NITROGEN 10 mg/dL (9-20); CALCIUM 8.5 mg/dl (8.6-10.4); GFR NON-AFRICAN AMERICAN > 60
[2018-07-02] MEDS ORDERED: Magnesium Oxide 400 mg Tab UD PO ONE (12:36)
--- NOTE | 2018-07-02 12:46 | CP.PCM.PN ---
<Brenden Kaur - Last Filed: 07/02/18 12:53> Subjective - Date & Time of Evaluation Date of Evaluation: 07/02/18 Time of Evaluation: 13:00 - Subjective Subjective: PGY-1 Medicine Progress Note for Dr. Nelson's service Patient seen and examine at bedside. Patient reports mild abdominal pain much improved. Patient denies fevers, chills, chest pain, sob, n/v, constipation or diarrhea, dysuria. Objective - Vital Signs/Intake and Output Vital Signs (last 24 hours): Temp Pulse Resp BP Pulse Ox 98.8 F 76 20 176/94 H 96 07/02/18 08:04 07/02/18 08:04 07/02/18 08:04 07/02/18 08:04 07/02/18 08:04 Intake and Output: 07/02/18 07/02/18 06:59 18:59 Intake Total 2725 Output Total 2600 Balance 125 - Medications Medications: Current Medications Amlodipine Besylate (Norvasc) 5 mg PO DAILY [facility] Last Admin: 07/01/18 10:14 Dose: 5 mg Dextrose (Dextrose 50% Inj) 0 ml IV STAT PRN; Protocol PRN Reason: Hypoglycemia Protocol Dextrose (Glutose 15) 0 gm PO ONCE PRN; Protocol PRN Reason: Hypoglycemia Protocol Glucagon (Glucagen Diagnostic Kit) 0 mg IM STAT PRN; Protocol PRN Reason: Hypoglycemia Protocol Dextrose (Dextrose 5% In Water 1000 Ml) 1,000 mls @ 0 mls/hr IV .Q0M PRN; Protocol PRN Reason: Hypoglycemia Protocol Potassium Phosphate 15 mmole/ (Dextrose) 255 mls @ 42.5 mls/hr IVPB ONCE ONE Stop: 07/02/18 19:29 Insulin Aspart (Novolog) 0 unit SC Q6 MICHELLE; Protocol Last Admin: 07/02/18 11:27 Dose: Not Given Lisinopril (Zestril) 10 mg PO DAILY [facility] Last Admin: 07/02/18 11:35 Dose: 10 mg Lorazepam (Ativan) 1 mg IVP Q6H PRN PRN Reason: Seizure activity Morphine Sulfate (Morphine) 1 mg IVP Q4 PRN PRN Reason: Pain, moderate (4-7) Last Admin: 07/01/18 19:21 Dose: 1 mg Morphine Sulfate (Morphine) 2 mg IVP Q4 PRN PRN Reason: Pain, severe (8-10) Last Admin: 07/02/18 09:11 Dose: 2 mg Nicotine (Nicoderm Cq) 1 patch TD DAILY [facility] Last Admin: 07/02/18 09:08 Dose: 1 patch Ondansetron HCl (Zofran Inj) 4 mg IVP Q4 PRN PRN Reason: Nausea/Vomiting Pantoprazole Sodium (Protonix Inj) 40 mg IVP DAILY [facility] Last Admin: 07/02/18 09:07 Dose: 40 mg - Labs Labs: 07/02/18 06:48 07/02/18 06:48 - Constitutional Appears: Non-toxic, No Acute Distress - Head Exam Head Exam: NORMAL INSPECTION, NORMOCEPHALIC - Eye Exam Eye Exam: EOMI, Normal appearance. absent: Nystagmus, Scleral icterus - Respiratory Exam Respiratory Exam: Clear to Ausculation Bilateral, NORMAL BREATHING PATTERN. absent: Rales, Rhonchi, Wheezes - Cardiovascular Exam Cardiovascular Exam: REGULAR RHYTHM, +S1, +S2. absent: Tachycardia - GI/Abdominal Exam GI & Abdominal Exam: Soft, Normal Bowel Sounds. absent: Guarding - Extremities Exam Extremities Exam: Normal Inspection. absent: Calf Tenderness, Pedal Edema - Neurological Exam Neurological Exam: Alert, Awake, Oriented x3 - Psychiatric Exam Psychiatric exam: Normal Affect, Normal Mood - Skin Skin Exam: Intact, Normal Color Assessment and Plan - Assessment and Plan (Free Text) Assessment: 62yo [place] M PMH HTN, DM, EtOH, recurrent pancreatitis admitted for pancreatitis. 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, and echogenic liver in setting of hepatic parenchymal disease or fatty infiltration Morphine 1mg IVP q4 prn for moderate pain Zofran 4mg IVP q4 prn Diabetes mellitus Hgb A1C 7.0 Lipid panel normal Accuchecks q6 ISS per protocol q6 Hypoglycemia protocol Hypertension Lisinopril 10mg po daily Alcohol abuse BAL <10on admission Aspiration precuations Seizure precautions, fall precautions Multivitamin 1 tab PO daily Ativan 1mg q6h prn Tobacco Use Disorder Educated patient on complications of continued smoking Nicotine patch 1 TD daily Prophylactic Measures GI: Protonix 40mg ivp daily DVT ppx: SCDs Clear liquid diet with carb diet <Aleshia Nelson V - Last Filed: 07/06/18 17:09> Objective - Vital Signs/Intake and Output Vital Signs (last 24 hours): Temp Pulse Resp BP Pulse Ox 98.6 F 101 H 20 130/78 96 07/04/18 16:00 07/04/18 16:00 07/04/18 16:00 07/04/18 16:00 07/04/18 16:00 - Labs Labs: 07/04/18 07:29 07/04/18 07:29 Attending/Attestation - Attestation I have personally seen and examined this patient.: Yes I have fully participated in the care of the patient.: Yes I have reviewed all pertinent clinical information, including history, physical exam and plan: Yes
[2018-07-02] MEDS ORDERED: Potassium Phosphate 15 MMOLE in Dextrose 5% In Water 250 ML IVPB ONE (13:30)
--- NOTE | 2018-07-02 13:35 | CP.PCM.CON ---
<BarbyaronluceroCesar - Last Filed: 07/02/18 14:36> History of Present Illness - History of Present Illness History of Present Illness: GI Fellow PGY4, Consult note. Magaly Shelley, 62M, presenting with abdominal pain. Patient is known to have recurrent alcoholic pancreatitis. He has had abdominal pain x 2 days now, improved since being in the hospital. He is tolerating diet now. The pain was similar to previous pancreatitis symptoms. Lipase elevated. CT confirmed inflammation of the pancreas. CT also showed stable lesions of the liver and pancreas. Last EGD 03/28 for GI bleed, normal findings. MHx: DM (uncontrolled), HTN (uncontrolled), pancreatitis, EtOH Abuse SurgHx: Denied, EGD in past unknown details, no CSPY Meds: None on daily basis, no prns FamHx: father- age 45 from possible IA/CVA; mother- many years ago; no known family history of cancer SocHx: lives with , drinks a teacup of whiskey most days for past 30 years, smokes 15 cigarettes a day for 40 years, denies any drugs All: Naproxen (rash) 12pt ROS completed and negative except for above Past Patient History - Infectious Disease Hx of Infectious Diseases: None - Past Medical History & Family History Past Medical History?: Yes - Past Social History Smoking Status: Heavy Smoker > 10 Cigarettes Daily - CARDIAC Hx Hypertension: Yes - PULMONARY Hx Respiratory Disorders: No - NEUROLOGICAL Hx Neurological Disorder: No - HEENT Hx HEENT Problems: Yes Other/Comment: wears corrective eyeglasses - RENAL Hx Chronic Kidney Disease: No - ENDOCRINE/METABOLIC Hx Endocrine Disorders: Yes Hx Diabetes Mellitus Type 2: Yes - HEMATOLOGICAL/ONCOLOGICAL Hx Blood Disorders: No - INTEGUMENTARY Hx Dermatological Problems: No - MUSCULOSKELETAL/RHEUMATOLOGICAL Hx Musculoskeletal Disorders: Yes Hx Back Pain: Yes Hx Falls: Yes - GASTROINTESTINAL Hx Gastritis: Yes Hx Pancreatitis: Yes - GENITOURINARY/GYNECOLOGICAL Hx Genitourinary Disorders: No - PSYCHIATRIC Hx Substance Use: No - SURGICAL HISTORY Hx Surgeries: No - ANESTHESIA Hx Anesthesia: Yes (Endoscopy 04/12/18) Hx Anesthesia Reactions: No Meds Allergies/Adverse Reactions: Allergies Allergy/AdvReac Type Severity Reaction Status Date / Time naproxen AdvReac Diffuse Verified 04/01/18 21:01 rashes - Medications Medications: Current Medications Amlodipine Besylate (Norvasc) 5 mg PO DAILY [facility] Last Admin: 07/01/18 10:14 Dose: 5 mg Dextrose (Dextrose 50% Inj) 0 ml IV STAT PRN; Protocol PRN Reason: Hypoglycemia Protocol Dextrose (Glutose 15) 0 gm PO ONCE PRN; Protocol PRN Reason: Hypoglycemia Protocol Glucagon (Glucagen Diagnostic Kit) 0 mg IM STAT PRN; Protocol PRN Reason: Hypoglycemia Protocol Dextrose (Dextrose 5% In Water 1000 Ml) 1,000 mls @ 0 mls/hr IV .Q0M PRN; Protocol PRN Reason: Hypoglycemia Protocol Potassium Phosphate 15 mmole/ (Dextrose) 255 mls @ 42.5 mls/hr IVPB ONCE ONE Stop: 07/02/18 19:29 Last Admin: 07/02/18 13:27 Dose: 42.5 mls/hr Insulin Aspart (Novolog) 0 unit SC Q6 MICHELLE; Protocol Last Admin: 07/02/18 11:27 Dose: Not Given Lisinopril (Zestril) 10 mg PO DAILY [facility] Last Admin: 07/02/18 11:35 Dose: 10 mg Lorazepam (Ativan) 1 mg IVP Q6H PRN PRN Reason: Seizure activity Morphine Sulfate (Morphine) 1 mg IVP Q4 PRN PRN Reason: Pain, moderate (4-7) Last Admin: 07/01/18 19:21 Dose: 1 mg Morphine Sulfate (Morphine) 2 mg IVP Q4 PRN PRN Reason: Pain, severe (8-10) Last Admin: 07/02/18 09:11 Dose: 2 mg Nicotine (Nicoderm Cq) 1 patch TD DAILY [facility] Last Admin: 07/02/18 09:08 Dose: 1 patch Ondansetron HCl (Zofran Inj) 4 mg IVP Q4 PRN PRN Reason: Nausea/Vomiting Pantoprazole Sodium (Protonix Inj) 40 mg IVP DAILY [facility] Last Admin: 07/02/18 09:07 Dose: 40 mg Physical Exam - Constitutional Appears: Non-toxic, No Acute Distress, Chronically Ill - Head Exam Head Exam: NORMAL INSPECTION, NORMOCEPHALIC - Eye Exam Eye Exam: EOMI, Normal appearance - ENT Exam ENT Exam: Mucous Membranes Moist, Normal Exam - Respiratory Exam Respiratory Exam: Clear to Auscultation Bilateral, NORMAL BREATHING PATTERN - Cardiovascular Exam Cardiovascular Exam: REGULAR RHYTHM, +S1, +S2 - GI/Abdominal Exam GI & Abdominal Exam: Normal Bowel Sounds, Organomegaly, Soft, Tenderness - Extremities Exam Extremities exam: Positive for: full ROM, normal inspection - Neurological Exam Neurological exam: Alert, CN II-XII Intact, Oriented x3 - Psychiatric Exam Psychiatric exam: Normal Affect, Normal Mood - Skin Skin Exam: Dry, Normal Color Results - Vital Signs Recent Vital Signs: Last Vital Signs Temp 98.8 F 07/02/18 08:04 Pulse 76 07/02/18 08:04 Resp 20 07/02/18 08:04 BP 176/94 H 07/02/18 08:04 Pulse Ox 96 07/02/18 08:04 - Labs Result Diagrams: 07/02/18 06:48 07/02/18 06:48 Labs: Laboratory Results - last 24 hr 07/01/18 07/01/18 07/01/18 12:52 16:25 23:49 WBC RBC Hgb Hct MCV MCH MCHC RDW Plt Count MPV Neut % (Auto) Lymph % (Auto) [place] % (Auto) Eos % (Auto) Baso % (Auto) Neut # (Auto) Lymph # (Auto) [place] # (Auto) Eos # (Auto) Baso # (Auto) Sodium Potassium Chloride Carbon Dioxide Anion Gap BUN Creatinine Est GFR ( Amer) Est GFR (Non-Af Amer) POC Glucose (mg/dL) 103 96 Random Glucose Calcium Phosphorus Magnesium Total Bilirubin AST ALT Alkaline Phosphatase Total Protein Albumin Globulin Albumin/Globulin Ratio Hepatitis A IgM Ab Negative Hep Bs Antigen Negative Hep B Core IgM Ab Negative Hepatitis C Antibody Negative 07/02/18 07/02/18 07/02/18 05:37 06:48 06:48 WBC 7.0 RBC 4.18 L Hgb 13.6 Hct 39.1 MCV 93.6 MCH 32.5 H MCHC 34.7 RDW 15.1 H Plt Count 131 MPV 9.4 Neut % (Auto) 73.5 Lymph % (Auto) 13.4 L [place] % (Auto) 7.2 Eos % (Auto) 5.3 H Baso % (Auto) 0.6 Neut # (Auto) 5.2 Lymph # (Auto) 0.9 L [place] # (Auto) 0.5 Eos # (Auto) 0.4 Baso # (Auto) 0.0 Sodium 138 Potassium 3.7 Chloride 101 Carbon Dioxide 21 L Anion Gap 19 BUN 10 Creatinine 0.8 Est GFR ( Amer) > 60 Est GFR (Non-Af Amer) > 60 POC Glucose (mg/dL) 90 Random Glucose 100 Calcium 8.5 L Phosphorus 2.3 L Magnesium 1.5 L Total Bilirubin 0.8 AST 66 H ALT 62 Alkaline Phosphatase 84 Total Protein 7.7 Albumin 4.5 Globulin 3.2 Albumin/Globulin Ratio 1.4 Hepatitis A IgM Ab Hep Bs Antigen Hep B Core IgM Ab Hepatitis C Antibody 07/02/18 11:23 WBC RBC Hgb Hct MCV MCH MCHC RDW Plt Count MPV Neut % (Auto) Lymph % (Auto) [place] % (Auto) Eos % (Auto) Baso % (Auto) Neut # (Auto) Lymph # (Auto) [place] # (Auto) Eos # (Auto) Baso # (Auto) Sodium Potassium Chloride Carbon Dioxide Anion Gap BUN Creatinine Est GFR ( Amer) Est GFR (Non-Af Amer) POC Glucose (mg/dL) 109 Random Glucose Calcium Phosphorus Magnesium Total Bilirubin AST ALT Alkaline Phosphatase Total Protein Albumin Globulin Albumin/Globulin Ratio Hepatitis A IgM Ab Hep Bs Antigen Hep B Core IgM Ab Hepatitis C Antibody Assessment & Plan - Assessment and Plan (Free Text) Assessment: #Recurrent acute alcoholic pancreatitis #Pancreatic lesion - pseudocyst vs IPMN, stable #liver lesion - stable #Alcohol abuse PLAN: -Continue supportive care with IVF and pain control. -Advance diet as tolerated to low fat diet. -Patient will need Endoscopic Ultrasound as an outpatient to better identify pancreatic lesion and possible biopsy. This can be set-up at [facility]. -Hepatic lesion appears benign. - Date & Time Date: 07/02/18 Time: 14:37 <Constantine Rodriguez - Last Filed: 07/03/18 07:55> Meds - Medications Medications: Current Medications Amlodipine Besylate (Norvasc) 5 mg PO DAILY [facility] Last Admin: 07/01/18 10:14 Dose: 5 mg Dextrose (Dextrose 50% Inj) 0 ml IV STAT PRN; Protocol PRN Reason: Hypoglycemia Protocol Dextrose (Glutose 15) 0 gm PO ONCE PRN; Protocol PRN Reason: Hypoglycemia Protocol Glucagon (Glucagen Diagnostic Kit) 0 mg IM STAT PRN; Protocol PRN Reason: Hypoglycemia Protocol Dextrose (Dextrose 5% In Water 1000 Ml) 1,000 mls @ 0 mls/hr IV .Q0M PRN; Protocol PRN Reason: Hypoglycemia Protocol Influenza Virus Vaccine (Fluzone Quad [id number]) 60 mcg IM .ONCE ONE Stop: 07/04/18 10:01 Insulin Aspart (Novolog) 0 unit SC Q6 MICHELLE; Protocol Last Admin: 07/03/18 06:26 Dose: Not Given Lisinopril (Zestril) 10 mg PO DAILY [facility] Last Admin: 07/02/18 11:35 Dose: 10 mg Lorazepam (Ativan) 1 mg IVP Q6H PRN PRN Reason: Seizure activity Morphine Sulfate (Morphine) 0.5 mg IVP Q4 PRN PRN Reason: Pain, moderate (4-7) Last Admin: 07/03/18 03:06 Dose: 0.5 mg Morphine Sulfate (Morphine) 1 mg IVP Q4 PRN PRN Reason: Pain, severe (8-10) Nicotine (Nicoderm Cq) 1 patch TD DAILY [facility] Last Admin: 07/02/18 09:08 Dose: 1 patch Ondansetron HCl (Zofran Inj) 4 mg IVP Q4 PRN PRN Reason: Nausea/Vomiting Pantoprazole Sodium (Protonix Ec Tab) 40 mg PO DAILY [facility] Results - Vital Signs Recent Vital Signs: Last Vital Signs Temp 98 F 07/03/18 00:00 Pulse 74 07/03/18 00:00 Resp 20 07/03/18 00:00 BP 155/94 H 07/03/18 00:00 Pulse Ox 98 07/03/18 00:00 - Labs Result Diagrams: 07/02/18 06:48 07/02/18 06:48 Labs: Laboratory Results - last 24 hr 07/02/18 07/02/18 07/02/18 06:48 11:23 18:00 Sodium 138 Potassium 3.7 Chloride 101 Carbon Dioxide 21 L Anion Gap 19 BUN 10 Creatinine 0.8 Est GFR ( Amer) > 60 Est GFR (Non-Af Amer) > 60 POC Glucose (mg/dL) 109 152 H Random Glucose 100 Calcium 8.5 L Phosphorus 2.3 L Magnesium 1.5 L Total Bilirubin 0.8 AST 66 H ALT 62 Alkaline Phosphatase 84 Total Protein 7.7 Albumin 4.5 Globulin 3.2 Albumin/Globulin Ratio 1.4 07/02/18 07/03/18 07/03/18 23:42 06:23 07:38 Sodium Potassium Chloride Carbon Dioxide Anion Gap BUN Creatinine Est GFR ( Amer) Est GFR (Non-Af Amer) POC Glucose (mg/dL) 89 107 97 Random Glucose Calcium Phosphorus Magnesium Total Bilirubin AST ALT Alkaline Phosphatase Total Protein Albumin Globulin Albumin/Globulin Ratio Attending/Attestation - Attestation I have personally seen and examined this patient.: Yes I have fully participated in the care of the patient.: Yes I have reviewed all pertinent clinical information: Yes Notes (Text): 07/03/18 07:54 Chart reviewed. The pt was interview and examined yesterday. The findings, assessment and recommendations were discussed with Dr. sanchez and documented above.
--- NOTE | 2018-07-02 15:35 | CARD ---
APPROVED REPORT Date of service: 07/01/2018 EKG Measurement Heart [id number] <Conclusion> Normal sinus rhythm with sinus arrhythmia Possible Septal infarct, age undetermined Abnormal ECG
--- NOTE | 2018-07-02 15:38 | CARD ---
APPROVED REPORT Date of service: 07/01/2018 EKG Measurement Heart [id number] <Conclusion> Sinus tachycardia with occasional premature ventricular complexes Otherwise normal ECG
--- NOTE | 2018-07-02 16:14 | CP.PCM.PN ---
Subjective - Date & Time of Evaluation Date of Evaluation: 07/02/18 Time of Evaluation: 11:00 - Subjective Subjective: PGY-1 Medicine Progress note for Dr. Nelson's service Patient seen and examined at bedside. Patient reports minimal abdominal pain. Patient states he wanted to try real foods as he was hungry. Patient denies f bren[place], chills, n/v, chest pain, sob, constipation or diarrhea, weakness, and dysuria. Objective - Vital Signs/Intake and Output Vital Signs (last 24 hours): Temp Pulse Resp BP Pulse Ox 98.3 F 77 20 151/82 H 96 07/02/18 15:00 07/02/18 15:00 07/02/18 15:00 07/02/18 15:00 07/02/18 15:00 Intake and Output: 07/02/18 07/02/18 06:59 18:59 Intake Total 2725 1200 Output Total 2600 Balance 125 1200 - Medications Medications: Current Medications Amlodipine Besylate (Norvasc) 5 mg PO DAILY [facility] Last Admin: 07/01/18 10:14 Dose: 5 mg Dextrose (Dextrose 50% Inj) 0 ml IV STAT PRN; Protocol PRN Reason: Hypoglycemia Protocol Dextrose (Glutose 15) 0 gm PO ONCE PRN; Protocol PRN Reason: Hypoglycemia Protocol Glucagon (Glucagen Diagnostic Kit) 0 mg IM STAT PRN; Protocol PRN Reason: Hypoglycemia Protocol Dextrose (Dextrose 5% In Water 1000 Ml) 1,000 mls @ 0 mls/hr IV .Q0M PRN; Protocol PRN Reason: Hypoglycemia Protocol Potassium Phosphate 15 mmole/ (Dextrose) 255 mls @ 42.5 mls/hr IVPB ONCE ONE Stop: 07/02/18 19:29 Last Admin: 07/02/18 13:27 Dose: 42.5 mls/hr Influenza Virus Vaccine (Fluzone Quad [id number]) 60 mcg IM .ONCE ONE Stop: 07/04/18 10:01 Insulin Aspart (Novolog) 0 unit SC Q6 [facility]; Protocol Last Admin: 07/02/18 11:27 Dose: Not Given Lisinopril (Zestril) 10 mg PO DAILY [facility] Last Admin: 07/02/18 11:35 Dose: 10 mg Lorazepam (Ativan) 1 mg IVP Q6H PRN PRN Reason: Seizure activity Morphine Sulfate (Morphine) 1 mg IVP Q4 PRN PRN Reason: Pain, moderate (4-7) Last Admin: 07/01/18 19:21 Dose: 1 mg Morphine Sulfate (Morphine) 2 mg IVP Q4 PRN PRN Reason: Pain, severe (8-10) Last Admin: 07/02/18 09:11 Dose: 2 mg Nicotine (Nicoderm Cq) 1 patch TD DAILY [facility] Last Admin: 07/02/18 09:08 Dose: 1 patch Ondansetron HCl (Zofran Inj) 4 mg IVP Q4 PRN PRN Reason: Nausea/Vomiting Pantoprazole Sodium (Protonix Ec Tab) 40 mg PO DAILY [facility] - Labs Labs: 07/02/18 06:48 07/02/18 06:48 - Constitutional Appears: Non-toxic, No Acute Distress - Head Exam Head Exam: NORMAL INSPECTION, NORMOCEPHALIC - Eye Exam Eye Exam: EOMI, Normal appearance. absent: Nystagmus, Scleral icterus - ENT Exam ENT Exam: Mucous Membranes Moist - Respiratory Exam Respiratory Exam: Clear to Ausculation Bilateral, NORMAL BREATHING PATTERN. absent: Rales, Rhonchi, Wheezes - Cardiovascular Exam Cardiovascular Exam: REGULAR RHYTHM - GI/Abdominal Exam GI & Abdominal Exam: Soft, Tenderness, Normal Bowel Sounds. absent: Guarding - Extremities Exam Extremities Exam: Normal Inspection. absent: Calf Tenderness, Pedal Edema - Back Exam Back Exam: NORMAL INSPECTION. absent: CVA tenderness (L), CVA tenderness (R), paraspinal tenderness, vertebral tenderness - Neurological Exam Neurological Exam: Alert, Awake, Oriented x3 - Psychiatric Exam Psychiatric exam: Normal Affect, Normal Mood - Skin Skin Exam: Intact, Normal Color Assessment and Plan - Assessment and Plan (Free Text) Assessment: 62yo [place] M PMH HTN, DM, EtOH, recurrent pancreatitis admitted for pancreatitis. 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 Hummel- mass likely benign Pancreatic lesion GI consulted: Dr. Hummel- needs further workup at [facility] Tobacco Use Disorder Educated patient on complications of continued smoking Nicotine patch 1 TD daily Prophylactic Measures GI: Protonix 40mg ivp daily DVT ppx: SCDs Clear liquid diet with carb diet
[2018-07-03] MEDS: (Novolog) Insulin Aspart, Recombinant 100 u/ml 10 ml vial SC SCH ×3 (06:26→18:39)
[2018-07-03 08:26] LABS: BASO % 0.5 % (0.0-2.0); EOS # 0.4 K/uL (0.0-0.7); EOS % 5.5 % (0.0-4.0); HEMOGLOBIN 13.4 g/dL (12.0-18.0); LYMPH # 1.1 K/uL (1.0-4.3); LYMPH % 14.7 % (20.0-40.0); MEAN CELL VOLUME 92.9 fL (80.0-94.0); MEAN CORPUSCULAR HGB CONC 34.4 g/dL (33.0-37.0); MEAN PLATELET VOLUME 9.5 fL (7.2-11.7); MONO # 0.6 K/uL (0.0-0.8); MONO % 8.1 % (0.0-10.0); NEUT # 5.1 K/uL (1.8-7.0); NEUT % 71.2 % (50.0-75.0); RBC 4.2 Mil/uL (4.40-5.90); RED CELL DISTRIBUTION WIDTH 14.9 % (11.5-14.5); WHITE BLOOD COUNT 7.1 K/uL (4.8-10.8)
[2018-07-03 08:38] LABS: ALB/GLOB RATIO 1.4 (1.0-2.1); ALBUMIN 4.4 g/dL (3.5-5.0); ALT/SGPT 60 U/L (21-72); AST/SGOT 78 U/L (17-59); BLOOD UREA NITROGEN 9 mg/dL (9-20); CALCIUM 8.8 mg/dl (8.6-10.4); GFR NON-AFRICAN AMERICAN > 60
--- NOTE | 2018-07-03 09:31 | CP.PCM.PN ---
Subjective - Date & Time of Evaluation Date of Evaluation: 07/03/18 Time of Evaluation: 09:29 - Subjective Subjective: Patient is doing well, tolerating diet. Abdominal pain is minimal. Denies vomiting, but has not had BM in 3 days. Objective - Vital Signs/Intake and Output Vital Signs (last 24 hours): Temp Pulse Resp BP Pulse Ox 99 F 79 20 162/88 H 96 07/03/18 08:43 07/03/18 08:43 07/03/18 08:43 07/03/18 08:43 07/03/18 08:43 Intake and Output: 07/03/18 07/03/18 06:59 18:59 Intake Total 650 Output Total 1800 Balance -1150 - Medications Medications: Current Medications Amlodipine Besylate (Norvasc) 5 mg PO DAILY [facility] Last Admin: 07/01/18 10:14 Dose: 5 mg Dextrose (Dextrose 50% Inj) 0 ml IV STAT PRN; Protocol PRN Reason: Hypoglycemia Protocol Dextrose (Glutose 15) 0 gm PO ONCE PRN; Protocol PRN Reason: Hypoglycemia Protocol Glucagon (Glucagen Diagnostic Kit) 0 mg IM STAT PRN; Protocol PRN Reason: Hypoglycemia Protocol Dextrose (Dextrose 5% In Water 1000 Ml) 1,000 mls @ 0 mls/hr IV .Q0M PRN; Protocol PRN Reason: Hypoglycemia Protocol Influenza Virus Vaccine (Fluzone Quad [id number]) 60 mcg IM .ONCE ONE Stop: 07/04/18 10:01 Insulin Aspart (Novolog) 0 unit SC Q6 [facility]; Protocol Last Admin: 07/03/18 06:26 Dose: Not Given Lisinopril (Zestril) 10 mg PO DAILY [facility] Last Admin: 07/02/18 11:35 Dose: 10 mg Lorazepam (Ativan) 1 mg IVP Q6H PRN PRN Reason: Seizure activity Morphine Sulfate (Morphine) 0.5 mg IVP Q4 PRN PRN Reason: Pain, moderate (4-7) Last Admin: 07/03/18 08:40 Dose: 0.5 mg Morphine Sulfate (Morphine) 1 mg IVP Q4 PRN PRN Reason: Pain, severe (8-10) Nicotine (Nicoderm Cq) 1 patch TD DAILY [facility] Last Admin: 07/02/18 09:08 Dose: 1 patch Ondansetron HCl (Zofran Inj) 4 mg IVP Q4 PRN PRN Reason: Nausea/Vomiting Pantoprazole Sodium (Protonix Ec Tab) 40 mg PO DAILY [facility] - Labs Labs: 07/03/18 08:17 07/03/18 08:17 - Constitutional Appears: Non-toxic, No Acute Distress - Head Exam Head Exam: NORMAL INSPECTION, NORMOCEPHALIC - Eye Exam Eye Exam: EOMI, Normal appearance - ENT Exam ENT Exam: Mucous Membranes Moist, Normal Exam - Respiratory Exam Respiratory Exam: Clear to Ausculation Bilateral, NORMAL BREATHING PATTERN - Cardiovascular Exam Cardiovascular Exam: REGULAR RHYTHM, +S1, +S2 - GI/Abdominal Exam GI & Abdominal Exam: Soft, Normal Bowel Sounds. absent: Tenderness - Extremities Exam Extremities Exam: Full ROM, Normal Inspection - Neurological Exam Neurological Exam: Alert, Awake, Oriented x3 - Psychiatric Exam Psychiatric exam: Normal Affect, Normal Mood - Skin Skin Exam: Dry, Normal Color Assessment and Plan - Assessment and Plan (Free Text) Assessment: #Recurrent acute alcoholic pancreatitis #Pancreatic lesion - pseudocyst vs IPMN, stable #liver lesion - stable #Alcohol abuse PLAN: -Continue supportive care and pain control. -Advance diet as tolerated to low fat diet. -Patient will need Endoscopic Ultrasound as an outpatient to better identify pancreatic lesion and possible biopsy. This can be set-up at [facility]. -Hepatic lesion appears benign. -Start Bowel regimen -We will sign-off, please reconsult as needed.
[2018-07-03] MEDS: POLYETHYLENE GLYCOL 3350 17 GM/Dose PACKET PO SCH (10:06)
[2018-07-03] MEDS: Pantoprazole 40 mg EC Tab PO SCH (10:06)
--- NOTE | 2018-07-03 16:13 | CP.PCM.PN ---
Subjective - Date & Time of Evaluation Date of Evaluation: 07/03/18 Time of Evaluation: 16:08 - Subjective Subjective: Hospitalist Service Pt seen and examined at bedside. Pt says abdominal pains improved. Denies cp sob fc nv Objective - Vital Signs/Intake and Output Vital Signs (last 24 hours): Temp Pulse Resp BP Pulse Ox 99 F 79 20 162/88 H 96 07/03/18 08:43 07/03/18 08:43 07/03/18 08:43 07/03/18 08:43 07/03/18 08:43 Intake and Output: 07/03/18 07/03/18 06:59 18:59 Intake Total 650 480 Output Total 1800 Balance -1150 480 - Medications Medications: Current Medications Amlodipine Besylate (Norvasc) 5 mg PO DAILY [facility] Last Admin: 07/01/18 10:14 Dose: 5 mg Dextrose (Dextrose 50% Inj) 0 ml IV STAT PRN; Protocol PRN Reason: Hypoglycemia Protocol Dextrose (Glutose 15) 0 gm PO ONCE PRN; Protocol PRN Reason: Hypoglycemia Protocol Docusate Sodium (Colace) 100 mg PO DAILY [facility] Last Admin: 07/03/18 10:06 Dose: 100 mg Glucagon (Glucagen Diagnostic Kit) 0 mg IM STAT PRN; Protocol PRN Reason: Hypoglycemia Protocol Dextrose (Dextrose 5% In Water 1000 Ml) 1,000 mls @ 0 mls/hr IV .Q0M PRN; Protocol PRN Reason: Hypoglycemia Protocol Influenza Virus Vaccine (Fluzone Quad [id number]) 60 mcg IM .ONCE ONE Stop: 07/04/18 10:01 Insulin Aspart (Novolog) 0 unit SC Q6 [facility]; Protocol Last Admin: 07/03/18 11:39 Dose: Not Given Lisinopril (Zestril) 10 mg PO DAILY [facility] Last Admin: 07/03/18 10:06 Dose: 10 mg Lorazepam (Ativan) 1 mg IVP Q6H PRN PRN Reason: Seizure activity Morphine Sulfate (Morphine) 0.5 mg IVP Q4 PRN PRN Reason: Pain, moderate (4-7) Last Admin: 07/03/18 13:35 Dose: 0.5 mg Morphine Sulfate (Morphine) 1 mg IVP Q4 PRN PRN Reason: Pain, severe (8-10) Nicotine (Nicoderm Cq) 1 patch TD DAILY [facility] Last Admin: 07/03/18 10:06 Dose: 1 patch Ondansetron HCl (Zofran Inj) 4 mg IVP Q4 PRN PRN Reason: Nausea/Vomiting Pantoprazole Sodium (Protonix Ec Tab) 40 mg PO DAILY [facility] Last Admin: 07/03/18 10:06 Dose: 40 mg Polyethylene Glycol (Miralax) 17 gm PO DAILY [facility] Last Admin: 07/03/18 10:06 Dose: 17 gm - Labs Labs: 07/03/18 08:17 07/03/18 08:17 - Additional Findings Additional findings: - Constitutional Appears: Non-toxic, No Acute Distress - Head Exam Head Exam: NORMAL INSPECTION, NORMOCEPHALIC - Eye Exam Eye Exam: EOMI, Normal appearance. absent: Nystagmus, Scleral icterus - ENT Exam ENT Exam: Mucous Membranes Moist - Respiratory Exam Respiratory Exam: Clear to Ausculation Bilateral, NORMAL BREATHING PATTERN. absent: Rales, Rhonchi, Wheezes - Cardiovascular Exam Cardiovascular Exam: REGULAR RHYTHM - GI/Abdominal Exam GI & Abdominal Exam: Soft, Tenderness, Normal Bowel Sounds. absent: Guarding - Extremities Exam Extremities Exam: Normal Inspection. absent: Calf Tenderness, Pedal Edema - Back Exam Back Exam: NORMAL INSPECTION. absent: CVA tenderness (L), CVA tenderness (R), paraspinal tenderness, vertebral tenderness - Neurological Exam Neurological Exam: Alert, Awake, Oriented x3 - Psychiatric Exam Psychiatric exam: Normal Affect, Normal Mood - Skin Skin Exam: Intact, Normal Color Assessment and Plan - Assessment and Plan (Free Text) Assessment: 62yo [place] M PMH HTN, DM, EtOH, recurrent pancreatitis admitted for pancreatitis. 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 Hummel- mass likely benign Pancreatic lesion GI consulted: Dr. Hummel- needs further workup at [facility] Tobacco Use Disorder Educated patient on complications of continued smoking Nicotine patch 1 TD daily Prophylactic Measures GI: Protonix 40mg ivp daily DVT ppx: SCDs Clear liquid diet with carb diet Dispo Likely d/c tmrw, f/u outpt for EGD with [facility] Call [phone] to establish care
[2018-07-03] MEDS ORDERED: Simethicone 80 mg Chewtab PO PRN (16:50)
[2018-07-04] MEDS: (Novolog) Insulin Aspart, Recombinant 100 u/ml 10 ml vial SC SCH ×4 (00:35→17:56)
[2018-07-04 07:45] LABS: BASO # 0.1 K/uL (0.0-0.2); BASO % 1.3 % (0.0-2.0); EOS # 0.4 K/uL (0.0-0.7); EOS % 5.7 % (0.0-4.0); HEMOGLOBIN 14.1 g/dL (12.0-18.0); LYMPH # 1.9 K/uL (1.0-4.3); LYMPH % 23.7 % (20.0-40.0); MEAN CORPUSCULAR HEMOGLOBIN 32.5 pg (27.0-31.0); MEAN PLATELET VOLUME 9.9 fL (7.2-11.7); MONO # 0.7 K/uL (0.0-0.8); MONO % 9.5 % (0.0-10.0); NEUT # 4.7 K/uL (1.8-7.0); NEUT % 59.8 % (50.0-75.0); NRBC % 0.1 % (0.0-2.0); RBC 4.34 Mil/uL (4.40-5.90); WHITE BLOOD COUNT 7.8 K/uL (4.8-10.8)
[2018-07-04 08:03] VITALS: TEMP 98.6
[2018-07-04 08:33] LABS: ALB/GLOB RATIO 1.3 (1.0-2.1); ALBUMIN 4.8 g/dL (3.5-5.0); ALT/SGPT 65 U/L (21-72); AST/SGOT 76 U/L (17-59); BLOOD UREA NITROGEN 12 mg/dL (9-20); CALCIUM 9.7 mg/dl (8.6-10.4); GFR NON-AFRICAN AMERICAN > 60
--- NOTE | 2018-07-04 08:49 | CP.PCM.DIS ---
Provider - Provider Date of Admission: 07/01/18 04:59 Attending physician: Galileo Reyes MD Time Spent in preparation of Discharge (in minutes): 35 Hospital Course - Lab Results Lab Results: Most Recent Lab Values WBC 7.8 K/uL (4.8-10.8) 07/04/18 07: RBC 4.34 Mil/uL (4.40-5.90) L 07/04/18 07: Hgb 14.1 g/dL (12.0-18.0) 07/04/18 07: Hct 40.4 % (35.0-51.0) 07/04/18 07: MCV 93.0 fL (80.0-94.0) 07/04/18 07: MCH 32.5 pg (27.0-31.0) H 07/04/18 07: MCHC 35.0 g/dL (33.0-37.0) 07/04/18 07: RDW 15.0 % (11.5-14.5) H 07/04/18 07: Plt Count 133 K/uL (130-400) 07/04/18 07: MPV 9.9 fL (7.2-11.7) 07/04/18 07: Neut % (Auto) 59.8 % (50.0-75.0) 07/04/18 07: Lymph % (Auto) 23.7 % (20.0-40.0) 07/04/18 07: [place] % (Auto) 9.5 % (0.0-10.0) 07/04/18 07: Eos % (Auto) 5.7 % (0.0-4.0) H 07/04/18 07: Baso % (Auto) 1.3 % (0.0-2.0) 07/04/18: Neut # (Auto) 4.7 K/uL (1.8-7.0) 07/04/18 07: Lymph # (Auto) 1.9 K/uL (1.0-4.3) 07/04/18 07: [place] # (Auto) 0.7 K/uL (0.0-0.8) 07/04/18 07: Eos # (Auto) 0.4 K/uL (0.0-0.7) 07/04/18 07:29 Baso # (Auto) 0.1 K/uL (0.0-0.2) 07/04/18 07:29 Neutrophils % (Manual) 82 % (50-75) H 07/01/18 01:44 Lymphocytes % (Manual) 10 % (20-40) L 07/01/18 01:44 Monocytes % (Manual) 8 % (0-10) 07/01/18 01:44 Platelet Estimate Normal (NORMAL) 07/01/18 01:44 Plt Clumps, EDTA Present 07/01/18 01:44 Sodium 137 mmol/L (132-148) 07/04/18 07:29 Potassium 3.7 mmol/L (3.6-5.2) 07/04/18 07:29 Chloride 100 mmol/L (98-107) 07/04/18 07:29 Carbon Dioxide 20 mmol/L (22-30) L 07/04/18 07:29 Anion Gap 20 (10-20) 07/04/18 07:29 BUN 12 mg/dL (9-20) 07/04/18 07:29 Creatinine 0.9 mg/dL (0.8-1.5) 07/04/18 07:29 Est GFR ( Amer) > 60 07/04/18 07:29 Est GFR (Non-Af Amer) > 60 07/04/18 07:29 POC Glucose (mg/dL) 103 mg/dL (65-110) 07/04/18 06:26 Random Glucose 153 mg/dL (75-110) H 07/04/18 07:29 Hemoglobin A1c 7.0 % (4.2-6.5) H 07/01/18 10:58 Calcium 9.7 mg/dl (8.6-10.4) 07/04/18 07:29 Phosphorus 3.2 mg/dL (2.5-4.5) 07/04/18 07:29 Magnesium 1.7 mg/dL (1.6-2.3) 07/04/18 07:29 Total Bilirubin 0.6 mg/dL (0.2-1.3) 07/04/18 07:29 AST 76 U/L (17-59) H 07/04/18 07:29 ALT 65 U/L (21-72) 07/04/18 07:29 Alkaline Phosphatase 83 U/L (38-126) 07/04/18 07:29 Lactate Dehydrogenase 551 U/L (313-618) 07/01/18 10:58 Troponin I < 0.0120 ng/mL (0.00-0.120) 07/01/18 01:44 Total Protein 8.4 g/dL (6.3-8.3) H 07/04/18 07:29 Albumin 4.8 g/dL (3.5-5.0) 07/04/18 07:29 Globulin 3.6 gm/dL (2.2-3.9) 07/04/18 07:29 Albumin/Globulin Ratio 1.3 (1.0-2.1) 07/04/18 07:29 Triglycerides 118 mg/dL (0-149) 07/01/18 10:58 Cholesterol 185 mg/dL (0-199) 07/01/18 10:58 LDL Cholesterol Direct 111 mg/dL (0-129) 07/01/18 10:58 HDL Cholesterol 71 mg/dL (30-70) H 07/01/18 10:58 Lipase 2854 U/L (23-300) H 07/01/18 01:44 Alcohol, Quantitative < 10 mg/dl (0-10) 07/01/18 05:44 Hepatitis A IgM Ab Negative (NEGATIVE) 07/01/18 12:52 Hep Bs Antigen Negative (NEGATIVE) 07/01/18 12:52 Hep B Core IgM Ab Negative (NEGATIVE) 07/01/18 12:52 Hepatitis C Antibody Negative (NEGATIVE) 07/01/18 12:52 - Hospital Course Hospital Course: On admission: CC: Abdominal pain Mr. Shelley is a 62 year old [place] M with PMH of recurrent alcoholic pancreatitis, uncontrolled DM, uncontrolled HTN, alcohol abuse who presents today for abdominal pain which started yesterday, radiating toward into his chest. Patient says last drink was one week ago despite being confronted about smelling of alcohol. This is the same pain that he experienced during his last admission 3 months ago for alcoholic pancreatitis. Patient says the abdominal pain is all over. Patient said his last bowel movement was yesterday and he saw no blood in the stool. Patient denies any dizziness, headache, changes in vision, shortness of breath, chest pain, nausea, vomiting, constipation, or d iarrhea. Hospital course: Pt admitted for acute pancreatitis. Lipase was 2854. Troponin was normal, EKG was unremarkable. Abdominal CT showed uncomplicated pancreatitis with mild dilatation of pancreatic duct. Abdominal US showed stable mass at junction of pancreatic body and head likely intraductal papillary mucinous neoplasm (IPMN) of the pancreas. Dr. Rodriguez, GI, consulted, who recommends follow up at [facility] and endoscopic ultrasound for further evaluation. HTN was managed with Amlodipine 10 mg PO daily and Lisinopril 10 mg PO daily. Pt is medically stable for discharge home as per Dr. Nelson. Pt is agitated and reports that he did not sleep all night. His blood pressure is elevated today, but he continues to be agitated when interviewed at bedside. I adjusted his medication and BP noted to be normotensive prior to discharge. Dr. Nelson and I spoke with the pt and informed him of how agitation and stress increases blood pressure but he refuses to listen. His abdominal pain has resolved. He has had regular bowel movements and is tolerating PO well. Discharge plan: 1. Patient is stable for discharge to home as per Dr. Nelson. 2. Patient should followup with [facility] for further workup for pancreatic lesion call [phone] to establish care. Patient should followup with primary medical doctor or [facility] clinic within 3-7 days of discharge from hospital. 3. Patient should resume the following medications: Metformin 1000 mg by mouth BID, Lisinopril 10 mg by mouth daily, Amlodipine 10 mg by mouth daily, Thiamine one tab by mouth daily, Folic acid one tab by mouth daily, Multivitamin one by mouth daily. 4. Patient should return to hospital if symptoms worsen or recur. Patient understands the plan as above and agrees Discharge Exam - Head Exam Head Exam: NORMAL INSPECTION, NORMOCEPHALIC - Eye Exam Eye Exam: EOMI - ENT Exam ENT Exam: Mucous Membranes Moist - Respiratory Exam Respiratory Exam: NORMAL BREATHING PATTERN, UNREMARKABLE. absent: Rales, Rhonchi, Wheezes, Respiratory Distress - Cardiovascular Exam Cardiovascular Exam: REGULAR RHYTHM, +S1, +S2 - GI/Abdominal Exam GI & Abdominal Exam: Normal Bowel Sounds. absent: Distended, Firm, Guarding, Rebound, Soft, Tenderness - Extremities Exam Extremities exam: normal inspection - Neurological Exam Neurological exam: Alert, Oriented x3 - Psychiatric Exam Psychiatric exam: Agitated, Normal Affect, Normal Mood - Skin Skin Exam: Dry, Normal Color, Warm Discharge Plan - Discharge Medications Prescriptions: amLODIPine [Norvasc] 10 mg PO DAILY #30 tab Folic Acid 1 mg PO DAILY #30 tab Lisinopril [Zestril] 10 mg PO DAILY #30 tab MetFORMIN [glucoPHAGE] 1,000 mg PO BID #60 tab Multivitamins [Hexavitamin] 1 tab PO DAILY #30 tab Thiamine [Vitamin B1 Tab] 100 mg PO DAILY #30 tab - Follow Up Plan Condition: FAIR Disposition: HOME/ ROUTINE Instructions: Quitting Smoking for Older Adults, Quitting Smoking, Pancreatitis (DC), Acute Abdominal Pain (DC), Acute Abdominal Pain (GEN) Additional Instructions: 1. Patient is stable for discharge to home as per Dr. Nelson. 2. Patient should followup with [facility] for further workup for pancreatic lesion call [phone] to establish care. Patient should followup with primary medical doctor or [facility] clinic within 3-7 days of discharge from hospital. 3. Patient should resume the following medications: Metformin 1000 mg by mouth BID, Lisinopril 10 mg by mouth daily, Amlodipine 10 mg by mouth daily, Thiamine one tab by mouth daily, Folic acid one tab by mouth daily, Multivitamin one by mouth daily. 4. Patient should return to hospital if symptoms worsen or recur. Patient understands the plan as above and agrees.
[2018-07-04] MEDS ORDERED: Influenza Vaccine 60 MCG/0.5 ML SYR (3 yr & up) IM ONE (10:00)
[2018-07-04] MEDS ORDERED: Pneumococcal 23-Valent Vaccine IM ONE (10:00)
[2018-07-04] MEDS: POLYETHYLENE GLYCOL 3350 17 GM/Dose PACKET PO SCH (10:13)
[2018-07-04] MEDS: Pantoprazole 40 mg EC Tab PO SCH (10:13)
[2018-07-04 17:05] VITALS: BP 130/78; PULSE 101; O2SAT 96
== END 2018-07-04 19:34 | disposition home or self-care (01) | DRG 282 ==
LOC: C.ER 00:06 → C.3T 04:59
PROVIDERS: ADMIT Family Medicine; ATTEND Family Medicine
DX: K85.20 Alcohol induced acute pancreatitis without necrosis or infection (principal); E11.65 Type 2 diabetes mellitus with hyperglycemia; I10 Essential (primary) hypertension; E87.6 Hypokalemia; F10.10 Alcohol abuse, uncomplicated; K86.0 Alcohol-induced chronic pancreatitis; F17.210 Nicotine dependence, cigarettes, uncomplicated; D13.6 Benign neoplasm of pancreas; Y90.0 Blood alcohol level of less than 20 mg/100 ml; Z79.84 Long term (current) use of oral hypoglycemic drugs; Z79.899 Other long term (current) drug therapy; Z82.3 Family history of stroke